=== PATIENT | female | born 1945 | race Caucasian/White ===

== ENCOUNTER → 2023-04-02 13:16 | Outpatient (REF) | payer MEDICARE, OTHER, SELFPAY | LOC: HWWDC 13:16 | PROVIDERS: ATTENDING PHYSICIAN Family Medicine | DX: Z12.31 Encounter for screening mammogram for malignant neoplasm of breast (principal) | CPT/HCPCS: 77063; 77067 ==

== ENCOUNTER 2023-04-03 05:13 | Inpatient (IN) | payer MEDICARE, OTHER, SELFPAY ==
[2023-03-30 08:22] VITALS: BMI 31.3
[2023-03-30 09:14] LABS: % Basophils 0.9 % (0-2); % Eosinophils 1.4 % (0-6); % Immature Granulocytes 0.5 % (0-0.5); % Lymphocytes 23.9 % (20.5-51.1); % Monocytes 9.7 % (1.7-9.3); % Neutrophils 63.6 % (42.2-75.2); Absolute Basophils 0.1 10^3/uL (0-0.2); Absolute Eosinophils 0.1 10^3/uL (0-0.7); Absolute Lymphocytes 1.9 10^3/uL (1.2-3.4); Absolute Monocytes 0.8 10^3/uL (0.1-0.6); Absolute Neutrophils 5.1 10^3/uL (1.4-6.5); Hemoglobin 12.2 g/dL (12.0-16.0); Mean Corp Hgb Conc. 35.9 g/dL (33.0-37.0); Mean Corpuscular Hgb 32.5 pg (27.0-31.0); Mean Corpuscular Volume 90.7 fL (81.0-99.0); Mean Platelet Volume 9.4 fL (7.4-10.4); Nucleated Red Blood Cells % 0 %; Platelet Count 283 10^3/uL (130-400); Red Blood Cell Count 3.75 10^6/uL (4.20-5.40); Red Cell Dist. Width 13.5 % (11.5-14.5); White Blood Cell Count 8.1 10^3/uL (4.8-10.8)
[2023-03-30 09:31] LABS: Albumin 3.9 g/dl (3.5-5.0); Chloride 102 mmol/L (98-107); Potassium 3.4 mmol/L (3.5-5.1); Sodium 139 mmol/L (135-145)
[2023-03-30 09:39] LABS: ALT (SGPT) 33 U/L (0-35); AST (SGOT) 34 U/L (14-36); Alkaline Phosphatase 62 U/L (38-126); Blood Urea Nitrogen 17 mg/dl (7-17); Calcium 9.1 mg/dl (8.4-10.2); Carbon Dioxide 26 mmol/L (22-30); Direct Bilirubin 0.5 mg/dl (0.0-0.4); Estimated Creatinine Clearance 61 ml/min; Glucose 86 mg/dl (70-99); Total Protein 6.5 g/dl (6.3-8.2); eGFR > 60.00
[2023-03-30 09:52] LABS: INR 0.95; PT 12.5 Sec (11.4-14.6)
[2023-03-30 10:23] LABS: Urine Albumin Negative (Neg - Trace); Urine Bilirubin Negative (Negative); Urine Character Clear (Clear); Urine Color Yellow; Urine Glucose Negative (Negative); Urine Ketone Negative (Negative); Urine Leukocyte Negative (Negative); Urine Nitrite Negative (Negative); Urine Occult Blood Negative (Negative); Urine Urobilinogen Negative (Neg - 1+)
--- NOTE | 2023-03-30 10:39 | CM ---
CM met w/ patient and stephanierLauro Moran during PATs for planned AVR/CABG.
Patient informs that she resides in a private, 1 story home alone (55+ community). Functionally, patient is indep. at baseline w/ ADLs, mobility without the use of any assisted device.
Patient has Rx plan and uses [facility] in [place] or [facility] for prescription needs.
Reviewed pre and post op routines.
Soap, shower instructions and Cardiac Surgery booklet reviewed/provided.
Discussed post op restrictions to include lifting, driving, flying, and sternal precautions.
Reviewed follow up MD appointments, Cardiac Rehab and visit from CT Transitional Care RN.
Plan is for CT Surgery 2/
Anticipated DC plan is for home w/ CT Transitional Care RN. (dtr. to stay with patient for several days post op)
CM to follow.
[2023-04-03] VITALS (15 sets, daily range): BP systolic 94–171; BP diastolic 57–108; BMI 31.0
--- NOTE | 2023-04-03 00:36 | W.PN.CT ---
Assessment / Plan
-
Assessment:
-S/p Surgical AVR (23 mm Umana Inspiris Biological Valve)/ CABG x 2 (In situ GERARDO to LAD, Ao to RSVG to OM)/ R EVH, by Dr. Cotto, 04/03/23, pod#1
-Severe
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
-LVEF 65% per intraop ARI
-Severe left ventricular hypertrophy
-HTN
-HLD
-Class 1 obesity (BMI 31.3)
-Prediabetes (A1C 6.0)
-Polymyalgia rheumatica (on chronic steroids)
-Osteoarthritis
-Osteoporosis
-Hypothyroidism
-PAD
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
-Hx of TIA
-LLL lung nodule (1.1 cm), suspicious for malignancy
-COPD
-Former tobacco use (35 pk/yr, quit 1989)
-IBS
-Hx Diverticulosis/Diverticulitis S/p colectomy
-S/p bilateral cataracts, 11/2020
-S/P bilateral Knee replacement, 11/2016
-S/p total hysterectomy
-Acute postop blood loss/Anemia (transfused 2u PRBCs)
-Acute postop thrombocytopenia (stable without active bleed)
-Acute postop atelectasis/pleural effusion
-Acute postop hypovolemia with subsequent hypervolemia
Plan:
-No major issues overnight. Hemodynamically and neurologically intact
-Successfully extubated on 04/03/23 @ 1625
-Off all drips but insulin
-Last CI, Mixed venous O2: 70 -> 64.7%, 24hr u/o
-Monitor chest tube output: R/L pleural , 2med
-Cont. current meds (ASA, Amiodarone, Lopressor, Lasix, Medrol, Repatha for HLD, will add Plavix)
-D/C'd swan and a-line @
-D/C Conner catheter
-Transfer to tele phase today when off insulin gtt
-Maintain cordis
-Maintain temporary pacer wire (will cut before d/c home)
-Encourage use of IS
-Wean off O2 as tolerated
-OOB into chair/Ambulate in room
Subjective
-
Date of Service: April 03, 2023
Objective Data
-
Lab Results
03/30/23 08:57
03/30/23 08:57
PT 12.5 Sec (11.4-14.6) 03/30/23 08:57
INR 0.95 03/30/23 08:57
APTT 23.0 Sec (23.4-35.0) L 03/30/23 08:57
[2023-04-03 05:43] LABS: Hematocrit 34.3 % (37.0-47.0); Hemoglobin 12.4 g/dL (12.0-16.0); Mean Corp Hgb Conc. 36.2 g/dL (33.0-37.0); Mean Corpuscular Volume 91.2 fL (81.0-99.0); Mean Platelet Volume 9.6 fL (7.4-10.4); Platelet Count 279 10^3/uL (130-400); Red Blood Cell Count 3.76 10^6/uL (4.20-5.40); Red Cell Dist. Width 13.2 % (11.5-14.5); White Blood Cell Count 8.3 10^3/uL (4.8-10.8)
[2023-04-03 05:46] LABS: Blood Urea Nitrogen 12 mg/dl (7-17); Calcium 8.9 mg/dl (8.4-10.2); Carbon Dioxide 27 mmol/L (22-30); Chloride 108 mmol/L (98-107); Estimated Creatinine Clearance 72 ml/min; Glucose 94 mg/dl (70-99); Magnesium 2.2 mg/dl (1.6-2.3); Potassium 3.7 mmol/L (3.5-5.1); Sodium 138 mmol/L (135-145); eGFR > 60.00
[2023-04-03] MEDS: LOPRESSOR 25 MG PO (06:11)
[2023-04-03] MEDS: PROTONIX 40 MG PO (06:11)
[2023-04-03] MEDS: BACTROBAN 2% OINTMENT 1 APPLIC NASAL ×2 (06:11→20:36)
[2023-04-03] MEDS: MAGNESIUM OXIDE 500 MG PO (06:12)
--- NOTE | 2023-04-03 06:25 | PTCARENOTE ---
Patient arrived at 0500. Admission performed. Preop meds administered. Pertinent education provided. CT surgeon and CT PA in to see patient. Awaiting CVOR for call.
--- NOTE | 2023-04-03 06:29 | W.CVOR.SURPR ---
CVOR Surgeon Immed Pre Op
-
I have examined this patient prior to performance of the scheduled procedure.
The patient's condition is unchanged from the time of the dictated/written History and
Physical and the patient is able to undergo the scheduled procedure.
SAVR (biological) + CABG x 2 (GERARDO-LAD,RSVG-OM) +/- septal myectomy given the LVOT gradient/thickened interventricular septum
[2023-04-03 07:22] LABS: ACT+ - POC 79 Seconds (82-134)
[2023-04-03 07:26] LABS: B.E. - POC -2.9 mmol/L; Glucose - POC 94 mg/dl (65-99); HCO3 - POC 22 mmol/L (21-29); Hematocrit - POC 30 % PCV (37-47); Hemodilution- POC No; Hemoglobin Calculated - POC 10.1; Ionized Calcium - POC 1.13 mmol/L (1.12-1.27); O2 Saturation %Calculated-POC 99.9 5 (92-96); PCO2 - POC 35 mmHg (35-45); PO2 - POC 326 mmHg (80-100); Potassium - POC 3.6 mmol/L (3.6-5.0); Sodium - POC 143 mmol/L (135-145); pH - POC 7.39 (7.35-7.45)
[2023-04-03 07:27] LABS: Urine Albumin Negative (Neg - Trace); Urine Bilirubin Negative (Negative); Urine Character Clear (Clear); Urine Color Straw; Urine Glucose Negative (Negative); Urine Ketone Negative (Negative); Urine Leukocyte Negative (Negative); Urine Nitrite Negative (Negative); Urine Occult Blood Negative (Negative); Urine Urobilinogen Negative (Neg - 1+); Urine pH 6.5 (5.0-9.0)
--- NOTE | 2023-04-03 08:04 | CM ---
Reviewed chart. Mrs. Colindres is in the operating room today. Prior to admission she resides alone in a one story home. Prior to admission she was independent with ambulation and adls. She does not have any DME in the home. She has a prescription
plan with [facility] and uses [facility]. Her daughter is planning on staying with her a few days to assist in her care if needed. Medical work-up in progress. The discharge plan is to return home with her daughter staying with her for
a few days and a home visit by the Cardiothoracic Transitional Care Nurse when medically stable.
[2023-04-03 09:24] LABS: B.E. - POC -3.7 mmol/L; Glucose - POC 104 mg/dl (65-99); HCO3 - POC 21 mmol/L (21-29); Hematocrit - POC 20 % PCV (37-47); Hemodilution- POC Yes; Hemoglobin Calculated - POC 6.9; Ionized Calcium - POC 0.84 mmol/L (1.12-1.27); O2 Saturation %Calculated-POC 99.9 5 (92-96); PCO2 - POC 33 mmHg (35-45); PO2 - POC 272 mmHg (80-100); Potassium - POC 4.2 mmol/L (3.6-5.0); Sodium - POC 137 mmol/L (135-145); pH - POC 7.41 (7.35-7.45)
[2023-04-03 09:52] LABS: Glucose - POC 160 mg/dl (65-99); HCO3 - POC 28 mmol/L (21-29); Hematocrit - POC 25 % PCV (37-47); Hemodilution- POC Yes; Hemoglobin Calculated - POC 8.4; Ionized Calcium - POC 1.01 mmol/L (1.12-1.27); O2 Saturation %Calculated-POC 99.1 5 (92-96); PCO2 - POC 55 mmHg (35-45); PO2 - POC 154 mmHg (80-100); Potassium - POC 4.3 mmol/L (3.6-5.0); Sodium - POC 144 mmol/L (135-145); pH - POC 7.31 (7.35-7.45)
[2023-04-03 10:00] LABS: ACT+ - POC 758 Seconds (82-134)
[2023-04-03 10:15] LABS: B.E. - POC 0.7 mmol/L; Glucose - POC 167 mg/dl (65-99); HCO3 - POC 26 mmol/L (21-29); Hematocrit - POC 24 % PCV (37-47); Hemodilution- POC Yes; Hemoglobin Calculated - POC 8.3; Ionized Calcium - POC 0.94 mmol/L (1.12-1.27); O2 Saturation %Calculated-POC 99.8 5 (92-96); PCO2 - POC 47 mmHg (35-45); PO2 - POC 263 mmHg (80-100); Potassium - POC 4.4 mmol/L (3.6-5.0); Sodium - POC 144 mmol/L (135-145); pH - POC 7.36 (7.35-7.45)
[2023-04-03 10:20] LABS: B.E. - POC 1.3 mmol/L; Glucose - POC 147 mg/dl (65-99); HCO3 - POC 27 mmol/L (21-29); Hematocrit - POC 24 % PCV (37-47); Hemodilution- POC Yes; Hemoglobin Calculated - POC 8.3; Ionized Calcium - POC 1.01 mmol/L (1.12-1.27); O2 Saturation %Calculated-POC 99.9 5 (92-96); PCO2 - POC 45 mmHg (35-45); PO2 - POC 339 mmHg (80-100); Potassium - POC 3.9 mmol/L (3.6-5.0); Sodium - POC 145 mmol/L (135-145); pH - POC 7.38 (7.35-7.45)
[2023-04-03 10:25] LABS: ACT+ - POC 626 Seconds (82-134)
[2023-04-03 11:11] LABS: ACT+ - POC 107 Seconds (82-134); B.E. - POC -2.8 mmol/L; Glucose - POC 136 mg/dl (65-99); HCO3 - POC 22 mmol/L (21-29); Hematocrit - POC 27 % PCV (37-47); Hemodilution- POC Yes; Hemoglobin Calculated - POC 9.3; Ionized Calcium - POC 1.17 mmol/L (1.12-1.27); O2 Saturation %Calculated-POC 99.8 5 (92-96); PCO2 - POC 36 mmHg (35-45); PO2 - POC 246 mmHg (80-100); Potassium - POC 4.1 mmol/L (3.6-5.0); Sodium - POC 146 mmol/L (135-145); pH - POC 7.39 (7.35-7.45)
[2023-04-03 11:25] LABS: ACT+ - POC 98 Seconds (82-134)
[2023-04-03 11:34] LABS: ACT+ - POC 123 Seconds (82-134)
--- NOTE | 2023-04-03 12:10 | PTCARENOTE ---
Arrived from OR. NSR. BP labile, on levo, precedex and insulin gtt. Heart sounds distant, with rub. [place] in RIJ locked @ 42. PA CVP 12. CO/CI 2.47/1.42. CTNP aware. Pulses palpable. Right groin slighty edema, soft and ecchymotic. BP labile SBP
80-160. Cardene and levophed titrated to MAP goal <80. Lung sounds clear throughout. ETT taped @ 22 right lip. Ventilator setting SIMV 12/450/60%/5. Bowel sounds hypoactive. Conner with clear yellow urine. 4 chest tubes 2 MEDs R/L pleural with
sanguinous drainage. 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 SVG site ecchymotic with skin glue. Post op EKG, labs, and CXR completed
[2023-04-03 12:15] LABS: Glucose - Point of Care 118 mg/dl (70-99)
--- NOTE | 2023-04-03 12:19 | W.PN.CT.SURG ---
CT Surgery Operative Note
-
CARDIAC SURGERY OPERATIVE REPORT
Preoperative Diagnosis: Aortic valve stenosis with multivessel coronary artery disease involving the proximal LAD
Postoperative Diagnosis: Same
Procedure(s) Performed:
1. Standard sternotomy with aortic and right atrial cannulation
2. Surgical aortic valve replacement (23 mm Umana Inspiris Biological Valve)
2. Coronary artery bypass grafting x 2 (In situ GERARDO to LAD, Ao to RSVG to OM)
3. Placement of temporary atrial and ventricular pacing wires
4. Trans-esophageal echocardiography
5. Endoscopic vein harvesting of the right lower extremity
Date of Surgery: 04/03/2023
Comorbidities:
1. Severe, symptomatic aortic valve stenosis
2. Chronic steroid use for rheumatoid arthritis
3. Hypertension
4. Osteoarthritis
5. IBS
6. Hyperlipidemia
7. Left lower lobe lung nodule, suspicious for malignancy
A. Diverticulitis
9. Thyroid disease
10. History of tobacco abuse
11. COPD
12. Peripheral artery disease
13. High-grade left internal carotid stenosis
Attending Surgeon: Travis Cotto MD, MS
Assistants: Travis Marquez PA-C (present and necessary to library clerical assistant, endoscopic vein harvest, retraction, suction, exposure, suture management, and wound closure under my direction)
Anesthesiology: Jerry Roa MD and Marty Patel CRNA
Scrub and Circulating RNs: Gino Rivas RN, Caro Rodrigez RN
Log Sorter: Alexandra Woodall CCP
Anesthesia: GETA
EBL: per perfusion records
Products: 2 units of PRBC
CPB Time: 96 minutes
Aortic Cross Clamp Time: 78 minutes
Indication(s) for Procedures: This is a 78-year-old female with severe aortic valve stenosis who became recently symptomatic with shortness of breath and fatigue. She also underwent left heart catheter demonstrated IFR positive ostial LAD disease.
She also had a left lower lobe lesion that was increasing in size and concerning for malignancy. However due to her significant comorbidities she was unsafe for biopsy of this lesion. Multidisciplinary discussion between pulmonary, cardiology, and
myself took place with the ultimate conclusion that the patient would undergo high risk surgical intervention followed by investigation of her lung nodule later.
Aortic Valve Description: Heavily calcified, trileaflet, left and right coronary ostia in the normal anatomic positions annulus was minimally calcified. The root was heavily calcified at the sinuses and STJ with loose calcium at the ostium of the
RCA which was removed.
Conduit(s) Quality:
GERARDO - Good / Skeletonized
RSVG - Excellent / Uniform in size and appearance, a little thickened
Target(s) Quality:
OM - good /Triglide relatively small measuring approximate 1.5 mm, there was 60 cc a minute of flow at a pressure of 80 mmHg with test dose of antegrade
LAD - average /the LAD target was small and atretic in appearance with very thin deras fitting only a 1 mm probe, there was visual flow in the LAD territory backfilling into the diagonal vessel upon release of the bulldog. There was some bleeding
due to friable tissue around the distal anastomosis that required repair sutures and packing with hemostatic agents which resolved the bleeding.
Findings: LVEF on intraoperative ARI was 60% and 65% post procedure and was considered hyperdynamic without any inotropic support. She had evidence of left ventricular hypertrophy from her aortic valve stenosis. There was concern for an LVOT
gradient preoperatively and was prepared to perform a septal myomectomy if necessary. However with volume loading and afterload, there was no significant MR and no significant systolic anterior motion of the leaflets. LVOT gradient was minimal.
In the mean gradient across the new bioprosthetic valve was only 3 mmHg. There was no prosthetic PVL or AI. The prosthetic valve was secured to place with 15 nonpledgeted 2 Ethibond sutures in an inverted fashion from LVOT through annulus through
sewing cuff. This was secured to place with core knot. The GERARDO was harvested in a skeletonized fashion. Following bypass grafting, test dose cardioplegia was given down each distal and confirmed patency and hemostasis. Each distal was probed both
proximally and distally to confirm disease and patency, respectively. There were no new regional wall motion abnormalities. The patient did not require any inotropic support and maintained sinus rhythm.
Specimen(s): Aortic valve leaflets.
Prosthesis: 23 mm Umana Resilia Inspiris Valve, serial number: [id number].
Description of Procedure: The patient was taken to the operating room. Their identity and procedure to be performed were verified and they were positioned supine on the operating table. Induction via general anesthesia with endotracheal intubation
was performed and central venous access and arterial monitoring were inserted. A preoperative transesophageal echocardiogram was performed. The patient was then prepped and draped from chin to feet in a sterile fashion. A preoperative time-out was
performed with all members of the team present. A midline chest incision was performed along with median sternotomy. Simultaneous endoscopic access of the right lower extremity for saphenous vein harvest was obtained along with administration of an
initial 5,000 units of IV heparin. A RulTract sternal retractor was positioned to exposure the left internal mammary bed. The mammary was harvested in a skeletonized fashion and found to have good flow. A bulldog clamp was applied to the distal end
of the mammary after dividing it. It was wrapped in a papaverine soaked RayTec and replaced back into the left hemithorax. The RulTract was exchanged for a median sternal retractor. The innominate vein was isolated. Full heparinization was given (a
total of 45,000 units). I created a pericardial well. The aortic cannulation site was chosen where it was soft, pliable, and free of calcium. Cannulation was performed with an arterial cannula in the ascending aorta and a triple-stage venous cannula
through the right atrial appendage. The arterial cannula line had an appropriate bounce and correlating pressures with test dosing. Next, a root vent/antegrade cannula was inserted into the ascending aorta. The ACT was confirmed to be over 400 and
retrograde autologous priming was performed before commencing cardiopulmonary bypass. The pulmonary artery was away from the aorta to facilitate a clamp site. The aortic cross-clamp was placed after decreasing the flow on the bypass and
mean arterial pressure. A total of 1.2L initial dose of antegrade Del-Nido cardioplegia solution was given and planned for re-dosing every 75 minutes as necessary. There was rapid electro-mechanical arrest of the heart at 400 cc of cardioplegia. The
left ventricle was observed for distention on echocardiogram and manual palpation. Cold slush was placed into a sponge and topically on the RV while we systemically cooled to 34 degrees centigrade.
I positioned the heart to expose the obtuse marginal. A suitable site on the obtuse marginal was chosen. We dissected and prepared the distal target in a similar fashion. An end-to-side anastomosis was created with a 7-0 prolene. Antegrade
cardioplegia was administered into the graft. Appropriate hemostasis and flow were confirmed. The graft was measured for length to the aorta and cut. A suitable target on the mid/distal left anterior descending was identified. We dissected and
prepared the distal target in a similar fashion. We retrieved the GERARDO from the chest and created a pericardial opening while being cognizant of the phrenic nerve to facilitate the course of the mammary. The distal end of the mammary was prepped and
beveled to size. We verified orientation and length of the ESPERANZA and found brisk flow. An end-to-side anastomosis was created with a 7-0 prolene. We temporarily released the bulldog clamp on the mammary to inspect flow. Perfusion to the LAD territory
was visualized and hemostasis was confirmed. The bull clamp was replaced on the mammary.
Carbon dioxide was used to flood the field. I turned my attention to the aortic valve and manually identified the location of the right coronary take off. An aortotomy was made approximately 1.5cm above the sinotubular junction. The location of both
left and right coronary vessels were visualized in the root. The aortic valve was inspected and found to be heavily calcified. The leaflets were excised and sent for pathological assessment. The annulus was debrided of any calcium. The root and left
ventricular outflow tract were thoroughly irrigated to remove any debris. A total of 15, non-pledgeted 2-0 ethibond annular sutures were placed [id number] circumferentially. These were brought through the sewing cuff of the prosthetic valve which
as then parachuted into place. The left and right coronary ostia were visualized and were unobstructed by the valve. A Cor-Knot device was used to secure the annular sutures. The valve was inspected and was well seated. The aortotomy was
approximated with 4-0 prolene in two layers. The heart was filled and the root was distended with antegrade cardioplegia to make final assessment of graft length and orientation. I created 1 aortotomy using a #11 blade then a 4.0mm aortic punch
above the aortic suture line. The proximal anastomoses were created in an end-to-side fashion using 6-0 prolene. At the same time, we started to re-warm to 36.5 degrees centigrade. The bulldog clamp was removed from the mammary and temporary bipolar
ventricular pacing wires were placed on the base of the right ventricle and temporary atrial pacing wires at the SVC/RA junction. The patient was placed in a Trendelenburg position and flows on bypass were lowered. The aortic cross clamp was removed
and flows were slowly brought back up. The aortotomy appeared hemostatic. A 30-gauge needle was used to de-air the vein grafts. All bypass grafts were inspected and were free from kinking or twisting. The distal and proximal anastomoses appeared
hemostatic. De-airing maneuvers were performed. Transesophageal echocardiography revealed no paravalvular leak and appropriate prosthetic function. Once de-airing was satisfactory, the left ventricular and root vents were removed. After verifying
acceptable parameters, we initiated weaning from cardiopulmonary bypass. Once we were off cardiopulmonary bypass, the venous cannulas was clamped and removed. A test dose of protamine was administered and the patient was monitored for any adverse
reaction before resuming protamine. Once half of the protamine dose was delivered, pump suckers were turned off and the systolic blood pressure was lowered for aortic decannulation. The aortic cannula was removed and pursestrings were tied down. All
cannulation sites were oversewn with a 4-0 prolene. The pressure did climb to 140s systolics, at which point bleeding noted from the distal LAD anastomosis, I positioned the heart to expose this target and placed 3 repair sutures along with
fibrillar packing. After given approximately 10 minutes, the bleeding stopped. The aortic line, proximal, and distal coronary anastomoses were hemostatic. The mammary bed was inspected and hemostasis was confirmed. Once the mediastinum was
hemostatic, a 19Fr Al drain was placed in the left and right pleural cavity and two 24Fr Al drains were placed within the pericardium. The sternum was approximated with 4 #7 single and 3 #8 double stainless steel wires. Fascia was approximated
with #1 vicryl suture. The subcutaneous, dermis and epidermis were closed in layers in a running fashion. The skin wound was cleansed and dressed.
All instrument, sponge, and needle counts were confirmed to be correct x 2 at the end of the operation. The patient was transferred to the cardiac intensive care unit in critical but stable condition.
I, Dr. Travis Cotto, was present, scrubbed for, and performed all critical elements of this procedure.
Travis Cotto MD, MS
Cardiothoracic Surgeon
[facility]
This operative dictation was created using the [employer] dictation system. Please excuse any grammatical, typographical, or 'sound alike' errors
[2023-04-03 12:27] LABS: Hematocrit 30.2 % (37.0-47.0); Hemoglobin 10.6 g/dL (12.0-16.0); Platelet Count 131 10^3/uL (130-400)
[2023-04-03 12:29] LABS: ACT+ - POC > 1003 Seconds (82-134)
[2023-04-03 12:29] LABS: ACT+ - POC > 1003 Seconds (82-134)
[2023-04-03 12:31] LABS: B.E. -1.2 mmol/L; HCO3 24.3 mmol/L (21-28); Ionized Calcium 1.09 mMOL/L (1.15-1.33); PCO2 43 mmHg (32-35); PO2 168 mmHg (83-108); Potassium 3.5 mMOL/L (3.5-5.1); Sodium 142 mMOL/L (136-145); pH 7.36 (7.35-7.45)
--- NOTE | 2023-04-03 12:32 | CON.INTV ---
Consultation
Consultation Request
Date/Time Consultation Requested: 04/03/2023-1:30 PM
Date/Time Consultation Performed: 04/03/2023-2 PM
Requesting Provider: Dr. Cotto
Performing Provider: Dr. Hernández
Reason for Consultation: Postoperative ventilator/critical care management
Medical History
-
Chief Complaint: Aortic stenosis
History of Present Illness:
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
postoperative ventilator/critical care management 04/03/2023. Patient is seen postoperatively on the ventilator sedated and review of systems is unobtainable. Operative records were reviewed. Patient received 2 units of packed red blood cells. The
chest tubes are not dumping. Patient is on some Cardene. PA tracings and numbers were reviewed.
Past Medical History
Past Medical History: None (Aortic stenosis. Chronic steroids for rheumatoid arthritis. Rheumatoid arthritis. Hypertension. Hyperlipidemia. IBS. Osteoarthritis. COPD. Former smoker. Left lower lobe lung nodule suspicious for malignancy.
Diverticulosis. Hypothyroid. PAD. Left internal carotid stenosis.)
Social History
Tobacco: Former Smoker ([id number] quit 1989)
Alcohol: None
Drug: None
Living: With Family
Occupational Exposures: No known asbestos exposure
Environmental Exposures: No known tuberculosis exposure
Family History
Family History: Other (Father-emphysema. Mother-lung cancer.)
Allergies / Home Medications
Allergies
Allergy/AdvReac Type Severity Reaction Status Date / Time
codeine [Codeine] Allergy Unknown Verified 03/27/23 14:25
Home Medications
Medication Instructions Recorded Confirmed Last Taken Type
evolocumab 140 mg/mL subcutaneous 140 mg SC Q2W 01/03/23 03/27/23 03/27/23 08:00 History
pen injector (Reppascual Jordan)
methylprednisolone 4 mg tablet 4 mg PO DAILY 01/03/23 04/03/23 04/02/23 History
metoprolol succinate 25 mg 25 mg PO DAILY 01/03/23 04/03/23 04/02/23 History
tablet,extended release 24 hr
(Toprol XL)
milk thistle 500 mg capsule 1,000 mg PO DAILY 01/03/23 03/27/23 03/25/23 08:00 History
omeprazole 20 mg capsule,delayed 20 mg PO TUTHSA 01/03/23 04/03/23 03/30/23 History
release
aspirin 81 mg tablet,delayed 81 mg PO DAILY #0 tabs 03/08/23 04/03/23 04/02/23 Rx
release
calcium carbonate 500 mg-vitamin 1 tab PO DAILY 03/08/23 04/03/23 04/01/23 History
D3 3.125 mcg (125 unit) tablet
cyanocobalamin (B12)-cobamamide 1 niya sublingual DAILY 03/08/23 04/03/23 04/02/23 History
5,000 mcg-100 mcg sublingual
lozenge (B12)
furosemide 20 mg tablet (Lasix) 20 mg PO DAILY #90 tabs 03/08/23 04/03/23 04/02/23 Rx
diphenhydramine 25 1 tab PO HS 03/27/23 04/03/23 04/02/23 History
mg-acetaminophen 500 mg tablet
(Tylenol PM Extra Strength)
magnesium 250 mg tablet 500 mg PO WEFR 03/27/23 04/03/23 03/30/23 History
multivitamin 1 tab PO DAILY 03/27/23 03/27/23 03/25/23 08:00 History
potassium chloride 10 mEq 50 meq PO MOWEFR 03/27/23 04/03/23 04/02/23 History
tablet,extended release
travoprost 0.004 % eye drops 1 drp ophthalmic (eye) QPM 03/27/23 04/03/23 04/02/23 History
valsartan 320 mg tablet 180 mg PO DAILY 03/27/23 04/03/23 04/02/23 History
Review of Systems
-
Unable to Obtain full review of systems at this time due to: Other (Per HPI)
Vitals / Labs / Diagnostic Testing
Vital Signs
Pulse BP
72 171/93
04/03/23 06:11 04/03/23 06:11
Microbiology
03/30/23 08:36 Nose MRSA Screen - Final
No Methicillin Resistant Staphylococcus aureus isolated.
Diagnostic Testing:
Physical Exam
-
Exam:
Well-nourished and well-developed in no apparent distress
HEENT-atraumatic, normocephalic, oral tracheal intubation
Heart-regular rate and rhythm-no murmurs, rubs or gallops
Chest-clear to auscultation, no wheezes, crackles, median sternotomy bandage is not removed
Abdomen soft nondistended
Extremities-no cyanosis, clubbing, edema and good peripheral pulses
Integument-intact, no rashes, lesions or ecchymosis
Neurologically not alert, not oriented, not moving any of his extremities sedated on a ventilator
Assessment
-
78-year-old female with a history of hypertension, hyperlipidemia, COPD, obesity, and pulmonary nodule followed by Dr Laurent found to have severe aortic stenosis underwent surgical aortic valve replacement with bioprosthetic valve and CABG x
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
Assessment
Aortic stenosis-severe/CAD
Status post surgical aortic valve replacement-bioprosthetic 23 mm, CABG x 2-GERARDO-LAD, Ao to RSVG to -Dr. Cotto-04/03/2023
Anemia-normocytic
Mild hyperglycemia
Conditions present prior to admission:
Aortic stenosis.
Chronic steroids for rheumatoid arthritis.
Rheumatoid arthritis.
Hypertension.
Hyperlipidemia.
IBS.
Osteoarthritis.
COPD.
Former [id number]-spgj-year quit 1989
Left lower lobe lung nodule suspicious for malignancy-followed by Dr. Laurent-9 mm left lower lobe-very slowly growing, mild increased SUV on PET scan but [id number]-[id number] slow-growing suspected
Diverticulosis.
Hypothyroid.
PAD.
Left internal carotid stenosis.
Family history of CXYH-wzieed-ixhaxf
Family history is lung dqqyvc-iyoesc-emakpf
Plan
Ventilator settings reviewed
FiO2 will be weaned
Minute ventilation will be adjusted
Arterial blood gases will be monitored
Spontaneous breathing trial will be attempted with hopeful extubation after anesthesia/sedation wear off
PFTs are summarized below and minimally reduced overall despite [id number] smoking history
Pulmonary artery catheter parameters will be followed
Pressors/antihypertensive/inotropes/diuretics will be provided as needed
Monitor chest tube output
Monitor hemoglobin
Monitor platelet count and coags
Transfuse blood product if needed
CT surgery following chest tubes
Monitor blood sugar
Insulin drip per protocol
Aspiration precautions
VAP prevention protocol
DVT prophylaxis
Early nutrition
Early mobilization
Patient followed by Dr. Laurent for pulmonary nodules-last seen 02/27/2023-she had slow-growing left lower lobe pulmonary nodule about 1 mm/year-she was deemed high risk for bronchoscopy with leaky valve-she would need cardiac clearance prior to
bronchoscopy-repair of aortic valve prior to lung biopsy recommended-she was recommended to have repeat CT scan in May with subsequent follow-up
Critical care statement: A total of 50 minutes of critical care time was provided for this patient today. This includes management of ventilator, spontaneous breathing trial, arterial blood gases, pressors, of unstable vital signs, evaluation of the
patient at bedside, reviewing the patient's pertinent medical records including radiographs, microbiology, laboratory evaluations, and discussion with primary team and critical care nursing.
Diagnostic data:
PET scan 03/16/23-9 mm left lower lobe nodule-initial SUV 1.8, delayed to 2.4, was 8 mm with initial SUV 1.3 and delayed 1.9 on 11/17/2022, additional left-sided lesion 9 mm subpleural and 5 mm nodule superior segment left lower lobe were not seen, 8
mm anterior left upper lobe SUV 1.0 and delayed 1.[address] chest 02/13/23: prior left lower lobe nodule, increased to 11 mm. Mild bronchiolitis, biapical scar, emphysema. There are a few scattered nodules bilaterally, somewhat groundglass. This 14 mm groundglass abnormality leftt upper lobe image 167.no
obvious adenopathy�������
PET scan 11/17/22: 8 mm nodule left lower lobe, initial SUV 1.3, delayed SUV 1.9�������
CT chest 10/13/22: 9 mm nodule left lower lobe images #41, increased from 8 mm from prior study 10/11/21 and worse c/t abd CT 06/14/15 (my rev). there is a questionable groundglass nodule image #27 perihilar the left side (no change c/t 12/16/20 per my
rev), and image #26 (my review) , there is also a 8 mm left lung nodule image #18 (not on report, increase from 07/11/18 my rev). Per report., Questionable groundglass nodule right apex image 13, 4 mm. No adenopathy. There is emphysema�������
CT chest 10/11/21: 8 mm left lower lobe nodule. 2 other nodules in the left side, once stable and one slightly more prominent (my rev)�������
CT chest 12/07/20: 7.9 mm left lower lobe nodule, slightly more increased������
PET scan 04/16/20: left lower lobe nodule, max SUV 1.4, delayed SUV 1.4. (per report, LLL nodule is stable c/t 2012)�������
CT chest 07/11/18: LLL nodule slightly more dense per my review, 6mm�������
Abd CT 06/14/15: Small GG nodule 4 mm LLL (my rev).
ARI 01/03/23: Normal biventricular function, moderate to severe as, valve area 0.9 cm�������
Echo 11/07/22: Normal biventricular function, moderate LVH. Moderate to severe aortic stenosis, valve area 0.9 cm. Normal PA pressure. LVOT gradient at rest 41, increased to 65 with Valsalva.
Cardiac catheterization 03/08/23-80% ostial LAD stenosis, 40% ostial left main, severe low-flow low gradient aortic stenosis and significantly elevated right and left heart pressures
Transesophageal echocardiogram 04/03/2023-EF 65%, stage I diastolic dysfunction, severe aortic stenosis,
PFT 12/14/22: FVC 2.31/99%, FEV1 1.73/99%, ratio 75. TLC 4.17/94%, DLCO 15.16/83%. This is normal.
Data Reviewed
-
PFT: Report reviewed by me
EKG: Report reviewed by me
Radiology: Report reviewed by me
CT Scan: Report reviewed by me
Medical Tests (Nuc Med, Echo etc): Report reviewed by me
Labs: Labs reviewed by me
Old Records: Reviewed
Critical Care Time (in minutes): 50
[2023-04-03] MEDS: ALBUMIN 5% 250 IV ×3 (12:37→18:10)
[2023-04-03 12:41] LABS: INR 1.73; PT 20.1 Sec (11.4-14.6)
[2023-04-03 12:42] LABS: APTT 35.5 Sec (23.4-35.0)
[2023-04-03] MEDS: KCL 50 IV ×2 (12:42→14:26)
[2023-04-03 12:46] LABS: Blood Urea Nitrogen 9 mg/dl (7-17); Estimated Creatinine Clearance 71 ml/min; Glucose 119 mg/dl (70-99); Magnesium 3.4 mg/dl (1.6-2.3)
[2023-04-03] MEDS: SOLU-CORTEF 150 MG IV (12:58)
[2023-04-03] MEDS: STERILE WATER FOR INJECTION 16 ML IV ×2 (12:59)
[2023-04-03] MEDS: ZINACEF 1500 MG IV ×2 (12:59)
[2023-04-03] MEDS: NSS 500 IV (13:01)
[2023-04-03] MEDS: TYLENOL PO ×3 (13:01→20:26)
[2023-04-03] MEDS: CALCIUM CHLORIDE 10% SYRINGE 50 MG IV (13:08)
[2023-04-03] MEDS: CALCIUM CHLORIDE 10% SYRINGE 50 ML IV (13:08)
[2023-04-03 13:13] LABS: Glucose - Point of Care 111 mg/dl (70-99)
--- NOTE | 2023-04-03 13:14 | W.PN.CARDCBS ---
Today's Communication / Plan
-
s/p Surgical aortic valve replacement w/ 23 mm Umana Inspiris Biological Valve and Coronary artery bypass grafting x 2 (In situ GERARDO to LAD, Ao to RSVG to OM), POD #0
Plan:
1. Wean vent as tolerated.
2. Wean pressors as tolerated, MAP goal >65mmHG
3. Cont to monitor invasive hemodynamics.
4. s/p 2 units of pRHC intra-op, cont to monitor blood counts
4. ECG with SR, no acute ischemic changes, borderline long QTc. Avoid QT prolonging medications
5. Cont post-op supportive care.
Impression / Plan
-
Outpatient community ambassador: Dr. Mary Kwok
Impression:
s/p Surgical aortic valve replacement w/ 23 mm Umana Inspiris Biological Valve and Coronary artery bypass grafting x 2 (In situ GERARDO to LAD, Ao to RSVG to OM), POD #0
Severe, symptomatic aortic valve stenosis
IFR positive left main and ostial LAD stenosis
Morbid obesity
Polymyalgia rheumatica , chronic steroid use for rheumatoid arthritis
Hypertension
Osteoarthritis
Irritable bowel syndrome
Hyperlipidemia, on Repatha
Left lower lobe lung nodule, suspicious for malignancy (recently growing spiculated lung nodule, of unclear etiology)
Diverticulitis
Thyroid disease
History of tobacco abuse
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
Peripheral artery disease
High-grade left internal carotid stenosis
TTE 11/07/22: LVEF of 58%, moderate LVH, LVOT gradient of 41 mmHg, increasing to 65 mmHg with Valsalva, stage II diastolic dysfunction, moderate to severe aortic stenosis with peak and mean transaortic gradients of 62 and 32 mmHg, calculated aortic
valve area of 0.9 cm�, trace tricuspid regurgitation without evidence of pulmonary hypertension.
Cath 03/08/23: RA 12; PA : 39/19 (27), PCWP (m) : 22, PA saturation: 65.9% on room air, AO saturation: 95.7% on room air, CO 3.31 L/min by Rut, CI 1.87 L/min/m-2 by Rut, SVR 2173 dsc^(-5), PVR 1.51 her unit, LVEDP22. IFR of ostial left main was
borderline at 0.89-0.90. Eccentric 80% ostial LAD stenosis which is IFR positive with an IFR of 0.85
Plan:
1. Wean vent as tolerated.
2. Wean pressors as tolerated, MAP goal >65mmHG
3. Cont to monitor invasive hemodynamics.
4. s/p 2 units of pRHC intra-op, cont to monitor blood counts
4. ECG with SR, no acute ischemic changes, borderline long QTc. Avoid QT prolonging medications
5. Cont post-op supportive care.
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
Subjective
Date of Service: April 03, 2023
Intubated and sedated, on low dose levophed.
Objective
Labs:
04/03/23 12:15
Labs
Hgb 10.6 g/dL (12.0-16.0) L 04/03/23 12:15
Hct 30.2 % (37.0-47.0) L 04/03/23 12:15
Plt Count 131 10^3/uL (130-400) D 04/03/23 12:15
PT 20.1 Sec (11.4-14.6) H 04/03/23 12:15
INR 1.73 04/03/23 12:15
APTT 35.5 Sec (23.4-35.0) H 04/03/23 12:15
Sodium 138 mmol/L (135-145) 04/03/23 05:25
Potassium 3.7 mmol/L (3.5-5.1) 04/03/23 05:25
BUN 9 mg/dl (7-17) 04/03/23 12:15
Creatinine 0.5 mg/dL (0.6-1.0) L 04/03/23 12:15
Glucose 119 mg/dl (70-99) H 04/03/23 12:15
Vital Signs and I&O:
Vital Signs
Pulse BP
72 171/93
04/03/23 06:11 04/03/23 06:11
Vital Signs
Pulse BP
72 171/93
04/03/23 06:11 04/03/23 06:11
Intake & Output
04/01/23 04/02/23 04/03/23 04/04/23
06:59 06:59 06:59 06:59
Intake Total 0 / 0
Balance 0 / 0
Physical Exam
Physical Exam
Intubated and sedated, morbidly obese
RIJ swan mu catheter in place
Sternotomy scar is dressed c/d/i
Lungs clear anteriorly
RR, normal S1 and S2, arcadio m/r/g
Abd obese, soft, NT, ND
warm ext, No LE edema
[2023-04-03 14:03] LABS: Glucose - Point of Care 90 mg/dl (70-99)
--- NOTE | 2023-04-03 14:37 | W.PN.UPDATE ---
Update Note
Progress Note Update
Crystalloid:� 2200
U.O.:� 700
UF:� 1300
Blood:� 2uPRBCs
Wires:� V wires
Inotropes:� None
Pressors:� Levophed
Sedatives:� Precedex
�
NEURO: sedated on Precedex, pupils +2mm B/L
RESP: #8OT @22cm> 12/480/100/5. Lungs clear B/L. 2 mediastinal (5cc on arrival) and R/L pleural (0cc on arrival) chest tubes to -20cm suction. Sanguineous drainage
CV: RRR +S1, S2, no S3, no�rub, no murmur. Dermabond to median sternotomy. RIJ w/[place] locked @ 42cm. PA 30/19; CVP 11; C.O 3.03/CI 1.4
ABD: round, soft, no BS
EXT: no edema, +2/4 DP pulses B/L, no femoral bruit, RLE CELINA wrap intact; radial A-line intact
: Conner with clear yellow urine
�
A/P: POD #0 s/p CABG x2 (GERARDO - LAD and SVG to OM) and AVR#23mm biological valve
ARI: EF�60-65%
- wean precedex and vent support to extubate
- will need instruction regarding antibiotic prophylaxis for dental and invasive procedures
- Will start asa 81mg 6 hours post op if no bleeding
- Wean levophed for goal MAPs 70-80
- Currently SR; will start low dose lopressor tomorrow
-EKG ordered for AM
- Cardiology consulted
�
# acute surgical blood loss anemia-expected
- trend CBC
- s/p 2UPRBCs intraop
�
#Ventilator dependent respiratory failure
#COPD
- Wean Vent support to goal extubation
- Goal O2 sats >90
#HTN
- Home meds: toprol XL 25mg and Valsartan 180mg
- Will restart when able
#PMR
- continue steroids
- received 150mg IV pre-op and will continue 50mg Q8H x4 dose
- home dose methylprednisolone 4mg PO daily
�
# Hyperglycemia (A1C 6.0) (expected)
- insulin infusion x 24h
�
# Hyperlipidemia
- resume repatha Sq Q2w
[2023-04-03 15:20] LABS: Glucose - Point of Care 142 mg/dl (70-99)
[2023-04-03] MEDS: ASPIRIN 300 MG RECTAL (15:21)
[2023-04-03 15:59] LABS: Glucose - Point of Care 157 mg/dl (70-99)
[2023-04-03 16:09] LABS: B.E. -2.3 mmol/L; HCO3 23.2 mmol/L (21-28); Hematocrit 29.5 % (37.0-47.0); Hemoglobin 10.4 g/dL (12.0-16.0); Ionized Calcium 1.21 mMOL/L (1.15-1.33); O2 Saturation % 99.5 % (94-98); PCO2 42 mmHg (32-35); PO2 141 mmHg (83-108); Platelet Count 120 10^3/uL (130-400); Potassium 5.4 mMOL/L (3.5-5.1); pH 7.35 (7.35-7.45)
--- NOTE | 2023-04-03 16:25 | PTCARENOTE ---
NSR. Remains on levo and insulin gtts. Pt extubated to 6L NC. Pt drowsy, and oriented. CO/CI 2.86/1.[address] CT[address] aware[address] UO adequate. [address] with minimal sanguinous drainage. Assessment unchanged. Right groin remains stable.
[2023-04-03 17:19] LABS: Glucose - Point of Care 132 mg/dl (70-99)
[2023-04-03] MEDS: SOLU-CORTEF 50 MG IV (17:19)
[2023-04-03] MEDS: ZINACEF 750 MG IV (17:20)
[2023-04-03] MEDS: STERILE WATER FOR INJECTION 8.30000000000000071 ML IV (17:20)
[2023-04-03] MEDS: NEURONTIN PO (17:21)
[2023-04-03] MEDS: PACERONE PO (17:21)
[2023-04-03 17:26] LABS: B.E. -2.5 mmol/L; HCO3 23.2 mmol/L (21-28); O2 Saturation % 99.6 % (94-98); PCO2 43 mmHg (32-35); PO2 231 mmHg (83-108); Potassium 5.2 mMOL/L (3.5-5.1); Sodium 142 mMOL/L (136-145); pH 7.34 (7.35-7.45)
[2023-04-03] MEDS: OFIRMEV 100 IV (18:35)
[2023-04-03] MEDS: TRAVATAN Z 1 DROP BOTH EYES (18:35)
[2023-04-03 19:06] LABS: Glucose - Point of Care 106 mg/dl (70-99)
--- NOTE | 2023-04-03 20:00 | PTCARENOTE ---
NSR. VSS. Insulin gtt continues per protocol. 2L NC sating 94-97%. Pt more awake and alert. Assessment unchanged. CT with minimal output. UO slowing but adequate. Ofirmev given for pain. Pt tolerating ice chips. Son at bedside and updated.
[2023-04-03] MEDS: SENOKOT-S PO (20:27)
[2023-04-03 20:29] LABS: Mixed Venous O2 Saturation 64.7 %
[2023-04-03] MEDS: PEPCID 20 MG IV (20:35)
[2023-04-03] MEDS: NSS (PRESERVATIVE FREE) 8 ML IV (20:36)
[2023-04-03 20:58] LABS: Glucose - Point of Care 107 mg/dl (70-99)
[2023-04-03] MEDS: NEURONTIN 300 MG PO (22:34)
[2023-04-03] MEDS: PACERONE 200 MG PO (22:34)
--- NOTE | 2023-04-03 23:00 | PTCARENOTE ---
report received from previous RN, walking rounds done. pt in bed, sleeping. VSS. NSR on monitor, HR 70's. B/L radial and DP pulses palpable. heart tones clear. ROJ cordis/swan intact w KVOs infusing. last CI 1.92, CT PA aware. CVP ~12. PAPs
~30's/10's. left radial art line intact. SBP 110's. epicardial AV wires intact to back up VVI 50, mA 9. no pacing spikes noted. B/L breath sounds present. POX 93% on 2LNC. IS encouraged. CT x4 intact to -20cm wall suction, drainage WNL, no air leak
present. doshi catheter intact, draining clear yellow urine, UO adequate. hypoactive bowel sounds present. pt tolerating ice and sips of water w meds. insulin gtt infusing per glycemic protocol. all surgical sites stable, dressings CDI. see worklist
for full assessment, VS, and interventions. pt resting comfortably.
[2023-04-03 23:08] LABS: Glucose - Point of Care 106 mg/dl (70-99)
[2023-04-04] VITALS (53 sets, daily range): BP systolic 66–165; BP diastolic 36–80; PULSE 70; O2SAT 93–95; BMI 32.3
[2023-04-04] MEDS: TYLENOL 650 MG PO ×6 (00:06→20:49)
[2023-04-04] MEDS: SOLU-CORTEF 50 MG IV ×3 (00:06→15:54)
[2023-04-04] MEDS: DILAUDID 0.5 MG IV (00:06)
[2023-04-04] MEDS: ZOFRAN 4 MG IV (00:07)
[2023-04-04] MEDS: ZINACEF 750 MG IV ×2 (01:09→08:36)
[2023-04-04] MEDS: STERILE WATER FOR INJECTION 8.30000000000000071 ML IV ×2 (01:09→08:36)
[2023-04-04 01:16] LABS: Glucose - Point of Care 102 mg/dl (70-99)
[2023-04-04 03:23] LABS: Glucose - Point of Care 105 mg/dl (70-99)
--- NOTE | 2023-04-04 03:30 | PTCARENOTE ---
pt VSS, no changes in assessment. SR 70's. POX 94% on 2LNC. CT output and UO WNL. insulin gtt maintained. all surgical sites stable. AM labs drawn and sent. EKG completed. pt sleeping between care.
[2023-04-04 03:37] LABS: Hematocrit 25.4 % (37.0-47.0); Hemoglobin 9.1 g/dL (12.0-16.0); Mean Corp Hgb Conc. 35.8 g/dL (33.0-37.0); Mean Corpuscular Hgb 32.2 pg (27.0-31.0); Mean Corpuscular Volume 89.8 fL (81.0-99.0); Mean Platelet Volume 10.1 fL (7.4-10.4); Platelet Count 112 10^3/uL (130-400); Red Blood Cell Count 2.83 10^6/uL (4.20-5.40); Red Cell Dist. Width 14.3 % (11.5-14.5); White Blood Cell Count 12.9 10^3/uL (4.8-10.8)
--- NOTE | 2023-04-04 03:46 | W.PN.CT ---
Today's Communication / Plan
-
Plan:
-No major issues overnight. Hemodynamically and neurologically intact
-Successfully extubated on 04/03/23 @ 1625
-Off all drips but insulin
-Last CI 1.95 (inaccurate measurements), Mixed venous O2: 70 -> 64.7%, 24hr u/o 1200 mL
-Monitor chest tube output: R/L pleural 125/275, 2med 110/210
-Cont. current meds (ASA, Amiodarone, Lopressor, Lasix, Medrol, Repatha for HLD, will add Plavix)
-Consider gentle diuresis with Lasix today
-Mg 2.8 this AM, Mag oxide placed on hold
-D/C'd swan and a-line @ 0400 this AM
-D/C Conner catheter
-Transfer to tele phase today when off insulin gtt
-Maintain cordis
-Maintain temporary pacer wires (will cut before d/c home)
-Encourage use of IS
-Wean off O2 as tolerated
-OOB into chair/Ambulate in room
Assessment / Plan
-
Assessment:
-S/p Surgical AVR (23 mm Umana Inspiris Biological Valve)/ CABG x 2 (In situ GERARDO to LAD, Ao to RSVG to OM)/ R EVH, by Dr. Cotto, 04/03/23, pod#1
-Severe
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
-LVEF 65% per intraop ARI
-Severe left ventricular hypertrophy
-HTN
-HLD
-Class 1 obesity (BMI 31.3)
-Prediabetes (A1C 6.0)
-Polymyalgia rheumatica (on chronic steroids)
-Osteoarthritis
-Osteoporosis
-Hypothyroidism
-PAD
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
-Hx of TIA
-LLL lung nodule (1.1 cm), suspicious for malignancy
-COPD
-Former tobacco use (35 pk/yr, quit 1989)
-IBS
-Hx Diverticulosis/Diverticulitis S/p colectomy
-S/p bilateral cataracts, 11/2020
-S/P bilateral Knee replacement, 11/2016
-S/p total hysterectomy
-Acute postop blood loss/Anemia (transfused 2u PRBCs)
-Acute postop thrombocytopenia (stable without active bleed)
-Acute postop atelectasis/pleural effusion
-Acute postop hypovolemia with subsequent hypervolemia
Discussed patient care with: Cardiology, Nursing, Respiratory Therapy, Pharmacy and Care Team
Subjective
Procedure
-S/p Surgical AVR (23 mm Umana Inspiris Biological Valve)/ CABG x 2 (In situ GERARDO to LAD, Ao to RSVG to OM)/ R EVH, by Dr. Cotto, 04/03/23
-
Date of Service: April 04, 2023
Pt c/o mild incisional pain, otherwise feels well
Objective Data
-
Lab Results
04/04/23 03:18
PT 20.1 Sec (11.4-14.6) H 04/03/23 12:15
INR 1.73 04/03/23 12:15
APTT 35.5 Sec (23.4-35.0) H 04/03/23 12:15
Vital Signs
Vital Signs
Temp Pulse Resp BP Pulse Ox
98.4 F 76 23 120/67 96
04/04/23 03:00 04/04/23 03:15 04/04/23 03:15 04/04/23 03:00 04/04/23 03:15
CT Intake/Output/Weight
04/03/23 04/03/23 04/04/23
06:59 18:59 06:59
Intake Total 949.9 / 1339.0 389.1 / 1339.0
Output Total 1070 / 1575 505 / 1575
Balance -120.1 / -236.0 -115.9 / -236.0
SaO2: 96 (2L)
Physical Exam
-
General: Awake, Oriented and AOx3
Cardiovascular: Regular rate & rhythm, No Murmurs, No Rub and No Gallop
Respiratory: Decreased Breath Sounds
Sternum: Stable
Incision: Clean, Dry, Intact and Dressing Intact
Extremities: Other (+trace edema)
Data Reviewed
-
Lab Results: Results Reviewed
Medications: Active Meds Reviewed
Chest X-Ray: Report Reviewed and Image Reviewed
ECG: Report Reviewed and Image Reviewed
--- NOTE | 2023-04-04 04:00 | PTCARENOTE ---
left radial art line and RIJ swan d/c'd per orders without incident. pt VSS.
[2023-04-04 04:18] LABS: Glucose - Point of Care 111 mg/dl (70-99)
[2023-04-04 04:28] LABS: Blood Urea Nitrogen 15 mg/dl (7-17); Calcium 8.1 mg/dl (8.4-10.2); Carbon Dioxide 23 mmol/L (22-30); Chloride 114 mmol/L (98-107); Estimated Creatinine Clearance 71 ml/min; Glucose 101 mg/dl (70-99); Magnesium 2.8 mg/dl (1.6-2.3); Potassium 4.4 mmol/L (3.5-5.1); Sodium 142 mmol/L (135-145); eGFR > 60.00
[2023-04-04 06:01] LABS: Glucose - Point of Care 108 mg/dl (70-99)
--- NOTE | 2023-04-04 06:15 | PTCARENOTE ---
pt assisted OOB to chair, VSS.
[2023-04-04 07:18] LABS: Glucose - Point of Care 124 mg/dl (70-99)
--- NOTE | 2023-04-04 07:45 | W.PN.INTV ---
Today's Communication / Plan
Recommendations
Tolerated extubation
Insulin drip continues
Monitor chest tube output
Gentle diuresis
deline
If comes off insulin drip then transfer to telemetry-call pulmonary if respiratory issues lrigp-ykguzy-ob with pulmonary as an outpatient
Assessment
-
78-year-old female with a history of hypertension, hyperlipidemia, COPD, obesity, and pulmonary nodule followed by Dr Laurent found to have severe aortic stenosis underwent surgical aortic valve replacement with bioprosthetic valve and CABG x
2-global recruiter consulted for postoperative ventilator/critical care management 04/03/2023.
Assessment
Aortic stenosis-severe/CAD
Status post surgical aortic valve replacement-bioprosthetic 23 mm, CABG x 2-GERARDO-LAD, Ao to RSVG to -Dr. Cotto-04/03/2023
Anemia-normocytic
Mild hyperglycemia
Conditions present prior to admission:
Aortic stenosis.
Chronic steroids for rheumatoid arthritis.
Rheumatoid arthritis.
Hypertension.
Hyperlipidemia.
IBS.
Osteoarthritis.
COPD.
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
Left lower lobe lung nodule suspicious for malignancy-followed by Dr. Laurent-9 mm left lower lobe-very slowly growing, mild increased SUV on PET scan but uotnmxnmcd-ier-sbawn slow-growing suspected
Diverticulosis.
Hypothyroid.
PAD.
Left internal carotid stenosis.
Family history of FWOF-tjgxax-zkxajr
Family history is lung ftlgxl-lcekho-hvqvqa
Plan
Tolerated extubation
Wean FiO2
Encourage incentive spirometry
Increase activity
Aspiration precautions
Pulmonary artery catheter and arterial line will be removed
Pressors have been weaned
Continue to monitor chest tube output
Follow hemoglobin
Continue to follow platelet count and coags
Transfuse blood product as needed
CT surgery following chest tubes as well
Follow blood sugar
Insulin supplementation continues as needed
Early nutrition
Early mobilization
DVT prophylaxis
Patient will be transferred to telemetry phase if comes off insulin drip-call pulmonary if respiratory issues arise
Patient followed by Dr. Laurent for pulmonary nodules-last seen 02/27/2023-she had slow-growing left lower lobe pulmonary nodule about 1 mm/year-she was deemed high risk for bronchoscopy with leaky valve-she would need cardiac clearance prior to
bronchoscopy-repair of aortic valve prior to lung biopsy recommended-she was recommended to have repeat CT scan in May with subsequent follow-up
Reviewed the patient's pertinent medical records including radiographs, microbiology, laboratory evaluations, and discussion with primary team, and critical care nursing.
Diagnostic data:
PET scan 03/16/23-9 mm left lower lobe nodule-initial SUV 1.8, delayed to 2.4, was 8 mm with initial SUV 1.3 and delayed 1.9 on 11/17/2022, additional left-sided lesion 9 mm subpleural and 5 mm nodule superior segment left lower lobe were not seen, 8
mm anterior left upper lobe SUV 1.0 and delayed 1.[address] chest 02/13/23: prior left lower lobe nodule, increased to 11 mm. Mild bronchiolitis, biapical scar, emphysema. There are a few scattered nodules bilaterally, somewhat groundglass. This 14 mm groundglass abnormality leftt upper lobe image 167.no
obvious adenopathy�������
PET scan 11/17/22: 8 mm nodule left lower lobe, initial SUV 1.3, delayed SUV 1.9�������
CT chest 10/13/22: 9 mm nodule left lower lobe images #41, increased from 8 mm from prior study 10/11/21 and worse c/t abd CT 06/14/15 (my rev). there is a questionable groundglass nodule image #27 perihilar the left side (no change c/t 12/16/20 per my
rev), and image #26 (my review) , there is also a 8 mm left lung nodule image #18 (not on report, increase from 07/11/18 my rev). Per report., Questionable groundglass nodule right apex image 13, 4 mm. No adenopathy. There is emphysema�������
CT chest 10/11/21: 8 mm left lower lobe nodule. 2 other nodules in the left side, once stable and one slightly more prominent (my rev)�������
CT chest 12/07/20: 7.9 mm left lower lobe nodule, slightly more increased������
PET scan 04/16/20: left lower lobe nodule, max SUV 1.4, delayed SUV 1.4. (per report, LLL nodule is stable c/t 2012)�������
CT chest 07/11/18: LLL nodule slightly more dense per my review, 6mm�������
Abd CT 06/14/15: Small GG nodule 4 mm LLL (my rev).
ARI 01/03/23: Normal biventricular function, moderate to severe as, valve area 0.9 cm�������
Echo 11/07/22: Normal biventricular function, moderate LVH. Moderate to severe aortic stenosis, valve area 0.9 cm. Normal PA pressure. LVOT gradient at rest 41, increased to 65 with Valsalva.
Cardiac catheterization 03/08/23-80% ostial LAD stenosis, 40% ostial left main, severe low-flow low gradient aortic stenosis and significantly elevated right and left heart pressures
Transesophageal echocardiogram 04/03/2023-EF 65%, stage I diastolic dysfunction, severe aortic stenosis,
PFT 12/14/22: FVC 2.31/99%, FEV1 1.73/99%, ratio 75. TLC 4.17/94%, DLCO 15.16/83%. This is normal.
Subjective Dataa
Subjective Data
Date of Service:
Date of Service: April 04, 2023
Chief Complaint: Alumni Coordinator Follow Up, Pulmonary Follow Up and Vent Management Follow Up
Subjective:
Tolerated extubation, pain controlled, no complaints of shortness of breath, out of bed, no abdominal pain
Review of Systems
General: Other (Per HPI)
Objective Data
Data Reviewed
Vital Signs / I&O / Oxygen:
Vital Signs
Temp Pulse Resp BP Pulse Ox
98.4 F 73 15 125/65 97
04/04/23 03:00 04/04/23 07:00 04/04/23 04:00 04/04/23 07:00 04/04/23 07:00
Intake and Output
04/03/23 04/04/23 04/05/23
06:59 06:59 06:59
Intake Total 1382.4 / 1393.4
Output Total 1805 / 1870 65 / 65
Balance -422.6 / -476.6 -54 / -54
SaO2 [CPAP/PSV] 97
SaO2 [SIMV] 98
SaO2 97
Nasal Cannula flow liters per 2
minute
Physical Exam
General: Respiratory Distress (n) and Comfortable
HEENT: Normocephalic, Anicteric and Moist Mucous Membranes
Cardiovascular: Regular Rhythm
Respiratory: Crackles (n), Rhonchi (n), Non-Labored Respirations, Accessory Resp Muscle Use (n) and Stridor (n)
GI: Soft, Non Distended and Non Tender
Neurology: Awake, Alert and No Motor Deficits
Skin: Warm, Good Color, Cyanosis (n) and Jaundice (n)
Labs/Micro/Reports
Lab Data
04/04/23 03:18
04/04/23 03:18
Laboratory Results
04/03/23 04/03/23 04/03/23
12:15 15:59 17:10
PT 20.1 H
INR 1.73
APTT 35.5 H
pH 7.36 7.35 7.34 L
pCO2 43 H 42 H 43 H
pO2 168 H 141 H 231 H
HCO3 24.3 23.2 23.2
O2 Delivery Level
--- NOTE | 2023-04-04 08:18 | W.PN.ANS.POP ---
Anesthesia Post Operative
- Anesthesia Post Op Note
Vital Signs Stable-See Nursing Note: Yes
Airway Patent: Yes
Adequate Pain Control: Yes
Change in Mental Status: No
Current Postoperative Nausea & Vomiting: No
Anesthesia Complications: No
General Anesthetic Recall: No
Unplanned Admission: No
Post Op Hydration Adequate: Yes
[2023-04-04 08:29] LABS: Glucose - Point of Care 118 mg/dl (70-99)
--- NOTE | 2023-04-04 08:30 | PTCARENOTE ---
Addendum entered by Rosalva Brown RN 04/04/23 09:09:
Epicardial AV wires to back up pacer VVI 50/9/0.8. No pacing noted.
Original Note:
Resumed care of patient. Walking rounds completed with previous RN. Pt assessed while she was sitting in the chair. Pt drowsy but oriented x4. Pt states its difficult to take a deep breath, but only has pain when doing so. Denies nausea. LYON with
equal strength throughout. Sternal precaution education completed and reinforced. NSR on tele with rates in the 70s. BP stable 126/65. +Rub. Bilateral radial and DP pulses palpable. +1 edema in b/l lower extremities. POX 95% on RA. Lungs with
crackles in the bases. IS encouraged-500mL achieved. Mediastinal chest tubes x2 y-sited to 1 atrium to -20cm suction draining red fluid. Right and Left pleural chest tubes y-sited to 1 atrium to -20cm suction draining red fluid. No air leaks,
tidaling, crepitus noted. Abdomen soft, round, nontender. Hypoactive BS. Pt denies passing gas yet. Conner catheter intact draining be urine, Dr. Cotto aware of low UO. Sternal incision approximated with skin glue intact. Chest tube sites
covered-CDI. Surgical bra intact. Right groin puncture site approximated with skin glue, ecchymotic. Right SVG harvest site approximated and closed with skin glue, ecchymotic. CELINA intact. Right IJ cordis intact infusing NSS KVO. Right AC 20g PIV
intact infusing insulin gtt per Critical Care Glycemic Protocol. See MAR for medication administration. See worklist for complete nursing assessment. Plan of care reviewed and pt in agreement.
[2023-04-04] MEDS: BACTROBAN 2% OINTMENT 1 APPLIC NASAL ×2 (08:36→19:37)
[2023-04-04] MEDS: FLEXBUMIN 100 IV ×2 (08:36→15:53)
[2023-04-04] MEDS: FLUSH (NSS) 1 FLUSH IV (08:36)
[2023-04-04] MEDS: LOPRESSOR 12.5 MG PO (08:37)
[2023-04-04] MEDS: SENOKOT-S 1 TABLET PO ×2 (08:37→19:37)
[2023-04-04] MEDS: LOW STRENGTH ASPIRIN 81 MG PO (08:38)
[2023-04-04] MEDS: PLAVIX 75 MG PO (08:38)
[2023-04-04] MEDS: NEURONTIN 300 MG PO ×3 (08:38→21:58)
[2023-04-04] MEDS: PACERONE 200 MG PO ×3 (08:39→21:57)
--- NOTE | 2023-04-04 08:41 | W.PN.CARDCBS ---
Addendum entered and electronically signed by Marsha Mane MD 04/04/23 17:23:
I saw and examined the patient.
The Grain Commodity Manager's note was reviewed and I agree with the note.
Comment: s/p Surgical aortic valve replacement w/ 23 mm Umana Inspiris Biological Valve and Coronary artery bypass grafting x 2 (In situ GERARDO to LAD, Ao to RSVG to OM), POD #1
Successfully extubated yesterday afternoon. Overall doing well. Currently on no pressor support. On an insulin drip.
Plan:
1. Continue supportive care postoperatively.
2. s/p 2 units of pRHC intra-op, cont to monitor blood counts. So far no further blood transfusions. Hemoglobin stable at 9.1.
3. Close monitoring of renal function and urine output. Status post albumin today. Given LVH and diastolic dysfunction with potential for LVOT gradient, we will have to be very careful with diuresis.
4. ECG with no acute ischemic changes. QTc has normalized.
5. Continue current cardiac medications. Plan to start Plavix today.
Marsha Mane MD, [facility], [facility]
Original Note:
Today's Communication / Plan
-
Wean off insulin
Usual post op care
Continue Amiodarone, Lopressor and usual post op meds
Impression / Plan
-
Outpatient porcelain enameling supervisor: Dr. Mary Kwok
Impression:
and
Severe, symptomatic aortic valve stenosis
s/p Surgical aortic valve replacement w/ 23 mm Umana Inspiris Biological Valve, 04/03/2023
CAD w/ IFR positive left main and ostial LAD stenosis
CABG x 2 (In situ GERARDO to LAD, Ao to RSVG to OM), 04/03/2023
Morbid obesity
Polymyalgia rheumatica , chronic steroid use for rheumatoid arthritis
Hypertension
Osteoarthritis
Irritable bowel syndrome
Hyperlipidemia, on Repatha
Left lower lobe lung nodule, suspicious for malignancy (recently growing spiculated lung nodule, of unclear etiology)
Thyroid disease
History of tobacco abuse
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
Peripheral artery disease
High-grade left internal carotid stenosis ((80% @ origin)
TIA
Hx Diverticulosis/Diverticulitis S/p colectomy
S/p bilateral cataracts, 11/2020
S/P bilateral Knee replacement, 11/2016
S/p total hysterectomy
Echo 11/07/22: LVEF of 58%, moderate LVH, LVOT gradient of 41 mmHg, increasing to 65 mmHg with Valsalva, stage II diastolic dysfunction, moderate to severe aortic stenosis with peak and mean transaortic gradients of 62 and 32 mmHg, calculated aortic
valve area of 0.9 cm�, trace tricuspid regurgitation without evidence of pulmonary hypertension.
Cath 03/08/23: RA 12; PA : 39/19 (27), PCWP (m) : 22, PA saturation: 65.9% on room air, AO saturation: 95.7% on room air, CO 3.31 L/min by Rut, CI 1.87 L/min/m-2 by Rut, SVR 2173 dsc^(-5), PVR 1.51 her unit, LVEDP22. IFR of ostial left main was
borderline at 0.89-0.90. Eccentric 80% ostial LAD stenosis which is IFR positive with an IFR of 0.85
Plan:
-s/p Surgical aortic valve replacement w/ 23 mm Umana Inspiris Biological Valve and Coronary artery bypass grafting x 2 (In situ GERARDO to LAD, Ao to RSVG to OM) , POD#1
-Now extubated and off all gtts except insulin
-hemodynamically stable
-Cont. ASA/Plavix, Amiodarone, Lopressor, Medrol, Repatha for HLD
-Post op anemia s/p 2 units pRBC 04/03/2023 ( intra-op), now with stable hgb 9.1
-Weight up 5-6 lbs, consider gentle diuresis today, creat 0.6
-ECG with SR, no acute ischemic changes, QTc 431 ms. No arrhythmias on tele
-K+ 4.4, mag 2.8 (hold mag supplementation)
-Will need SBE prophylaxis, Amox for AVR
-Cont post-op supportive care.
Progress Note - Building Custodial Supervisor
Subjective
Date of Service: April 04, 2023
Patient seen and examined. Sitting up in chair. Feels tired and some incisional pain but overall feeling well.
Objective
Labs:
04/04/23 03:18
04/04/23 03:18
Labs
Hgb 9.1 g/dL (12.0-16.0) L 04/04/23 03:18
Hct 25.4 % (37.0-47.0) L 04/04/23 03:18
Plt Count 112 10^3/uL (130-400) L 04/04/23 03:18
PT 20.1 Sec (11.4-14.6) H 04/03/23 12:15
INR 1.73 04/03/23 12:15
APTT 35.5 Sec (23.4-35.0) H 04/03/23 12:15
Sodium 142 mmol/L (135-145) 04/04/23 03:18
Potassium 4.4 mmol/L (3.5-5.1) 04/04/23 03:18
BUN 15 mg/dl (7-17) 04/04/23 03:18
Creatinine 0.6 mg/dL (0.6-1.0) 04/04/23 03:18
Glucose 101 mg/dl (70-99) H 04/04/23 03:18
Vital Signs and I&O:
Vital Signs
Temp Pulse Resp BP Pulse Ox
98.4 F 73 15 125/65 97
04/04/23 03:00 04/04/23 07:00 04/04/23 04:00 04/04/23 07:00 04/04/23 07:00
Vital Signs
Temp Pulse Resp BP Pulse Ox
98.4 F 73 15 125/65 97
04/04/23 03:00 04/04/23 07:00 04/04/23 04:00 04/04/23 07:00 04/04/23 07:00
Intake & Output
04/02/23 04/03/23 04/04/23 04/05/23
06:59 06:59 06:59 06:59
Intake Total 1382.4 / 1393.4
Output Total 1805 / 1870
Balance -422.6 / -476.6 -54 / -54
Physical Exam
Physical Exam
GEN: No distress, awake, Ox3, sitting up in chair
HEENT: supple, anicteric, mmm
LUNGS:mildly decreased at left base otherwise CTA, no wheezes/rales
CV: Reg, S1/S2, no murmur, rub, or gallop
CHEST: incision well approximated, C/D/I w/ dry heme; CT intact
ABD: soft, BS+, NT/ND
EXT: No edema, clubbing or cyanosis; right leg wrapped
: indwelling doshi
NEURO: Gross non-focal
SKIN: No rash, warm, pink
[2023-04-04] MEDS: KCL PO (08:49)
[2023-04-04] MEDS: NSS IV (09:26)
[2023-04-04 10:36] LABS: Glucose - Point of Care 151 mg/dl (70-99)
[2023-04-04 12:07] LABS: Glucose - Point of Care 130 mg/dl (70-99)
--- NOTE | 2023-04-04 12:25 | PTCARENOTE ---
pt received from previous RN, agree w/ previous assessment. VSS. glenda dc'd, RLE CELINA bandage removed. A&V wires insulated.
[2023-04-04 14:02] LABS: Glucose - Point of Care 141 mg/dl (70-99)
[2023-04-04] MEDS: TYLENOL PO (15:54)
--- NOTE | 2023-04-04 16:12 | PTCARENOTE ---
pt VSS, no changes in assessment. OOB in chair. IS encouraged. RA, 92-94% POX.
[2023-04-04] MEDS: TRAVATAN Z 1 DROP BOTH EYES ×2 (17:22→19:37)
[2023-04-04 17:24] LABS: Glucose - Point of Care 158 mg/dl (70-99)
[2023-04-04] MEDS: NOVOLOG FLEXPEN-MODERATE RESISTANCE 1 UNITS SC (17:24)
--- NOTE | 2023-04-04 18:17 | PTCARENOTE ---
pt bladder scanned for 96ml, no urge to void. POLITICAL CARTOONIST aware. BMP drawn. pt states she feels swollen, POLITICAL CARTOONIST aware.
[2023-04-04 18:26] LABS: Blood Urea Nitrogen 21 mg/dl (7-17); Calcium 8.2 mg/dl (8.4-10.2); Carbon Dioxide 24 mmol/L (22-30); Chloride 106 mmol/L (98-107); Estimated Creatinine Clearance 73 ml/min; Glucose 158 mg/dl (70-99); Sodium 136 mmol/L (135-145); eGFR > 60.00
--- NOTE | 2023-04-04 18:54 | PTCARENOTE ---
pt ambulated in room ~10ft on 2LNC, pt became lightheaded and diaphoretic, placed in chair. SBP 60s. placed back to bed, repeat SBP 90s. PRESENTATION MANAGER at bedside.
--- NOTE | 2023-04-04 20:15 | PTCARENOTE ---
Received pt from daysalft; pt resting comfortably in bed with family at bedside; pt is AAOx3; NSR on monitor, VSS; Heart sounds audible, rub present, radial and DP pulse present, trace edema in lower and upper extremities, temp epicardial AV wires
insulated; lung sounds diminished throughout, spo2 98% on 2LNC, x2 mediastinal CT and right and left pleural CT to -20 wall suction, no air leaks, no tidaling, no crepitus; +bs x4 quadrants, abdomen soft non tender; pt is due to void since doshi was
dc'd at 1200, last bladder scan showed 66ml in bladder, CVNP aware; surgical sites are stable, skin around sites are ecchymotic; right IJ cordis and PIV are maintained; call blas within reach; will continue to monitor.
[2023-04-04] MEDS: CALCIUM GLUCONATE 100 IV (21:57)
--- NOTE | 2023-04-04 22:35 | PTCARENOTE ---
Pt assessment unchanged; 1g/100ml Calcium gluconate IV ordered and starred. Infusion paused due to increased BP of 165/76, CVNP made aware. will continue to monitor.
[2023-04-05] VITALS (41 sets, daily range): BP systolic 91–172; BP diastolic 44–88; PULSE 82–88; O2SAT 95; BMI 32.8
--- NOTE | 2023-04-05 | PTCARENOTE ---
Pt assessment unchanged; pt resting comfortably in bed, no complaints of new or increased pain ; NSR on monitor; pt's BP remains elevated, CVNP is aware and pt's status is being closely monitored. call blas within reach; will continue to monitor.
[2023-04-05] MEDS: FLEXBUMIN IV ×2 (00:29→01:08)
[2023-04-05] MEDS: TYLENOL 650 MG PO ×5 (00:41→20:26)
[2023-04-05] MEDS: APRESOLINE 10 MG IV (00:41)
[2023-04-05 01:25] LABS: Glucose - Point of Care 147 mg/dl (70-99)
[2023-04-05 03:09] LABS: Hematocrit 23.8 % (37.0-47.0); Hemoglobin 8.2 g/dL (12.0-16.0); Mean Corp Hgb Conc. 34.5 g/dL (33.0-37.0); Mean Corpuscular Hgb 32.3 pg (27.0-31.0); Mean Corpuscular Volume 93.7 fL (81.0-99.0); Mean Platelet Volume 10.7 fL (7.4-10.4); Platelet Count 115 10^3/uL (130-400); Red Blood Cell Count 2.54 10^6/uL (4.20-5.40); Red Cell Dist. Width 14.4 % (11.5-14.5); White Blood Cell Count 14.1 10^3/uL (4.8-10.8)
[2023-04-05 03:23] LABS: Blood Urea Nitrogen 25 mg/dl (7-17); Calcium 8.7 mg/dl (8.4-10.2); Carbon Dioxide 24 mmol/L (22-30); Chloride 103 mmol/L (98-107); Estimated Creatinine Clearance 73 ml/min; Glucose 128 mg/dl (70-99); Potassium 3.7 mmol/L (3.5-5.1); Sodium 137 mmol/L (135-145); eGFR > 60.00
--- NOTE | 2023-04-05 04:00 | PTCARENOTE ---
Pt assessment unchanged; pt resting comfortably in bed; due to ongoing HTN, 10mg Hydralazine IV was ordered; pt's BP responded appropriately to medication; See MAR and work list for further details; pt has yet to void. bladder scans are on going
throughout the night; bladder scans have all been under 400mls, see work list for details.
--- NOTE | 2023-04-05 05:25 | W.PN.CT ---
Today's Communication / Plan
-
-No major issues overnight.
-Relative hypotension noted yesterday, given albumin and Calcium gluconate, BP was then above goal but now this AM is 125/74
-Monitor chest tube output: R/L pleural 25/110, 2 med 200/370 in 12/24 hrs
-Current meds (ASA/Plavix, Amiodarone, gabapentin, methylprednisolone, PPI, Lopressor and Lasix held yesterday and still held). Finished stress dose steroids POD #1.
-Voids documented, Cr 0.6 today, was 0.6 yesterday
-Cordis remains in situ
-Maintain temporary pacer wires (will cut before d/c home)
-Encourage use of IS
-Wean off O2 as tolerated
-OOB into chair/Ambulate in room
Assessment / Plan
-
Assessment:
-S/p Surgical AVR (23 mm Umana Inspiris Biological Valve)/ CABG x 2 (In situ GERARDO to LAD, Ao to RSVG to OM)/ R EVH, by Dr. Cotto, 04/03/23, pod#2
-Severe
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
-LVEF 65% per intraop ARI
-Severe left ventricular hypertrophy
-HTN
-HLD
-Class 1 obesity (BMI 31.3)
-Prediabetes (A1C 6.0)
-Polymyalgia rheumatica (on chronic steroids)
-Osteoarthritis
-Osteoporosis
-Hypothyroidism
-PAD
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
-Hx of TIA
-LLL lung nodule (1.1 cm), suspicious for malignancy
-COPD
-Former tobacco use (35 pk/yr, quit 1989)
-IBS
-Hx Diverticulosis/Diverticulitis S/p colectomy
-S/p bilateral cataracts, 11/2020
-S/P bilateral Knee replacement, 11/2016
-S/p total hysterectomy
-Acute postop blood loss/Anemia (transfused 2u PRBCs)
-Acute postop thrombocytopenia (stable without active bleed)
-Acute postop atelectasis/pleural effusion
-Acute postop hypovolemia with subsequent hypervolemia
Subjective
Procedure
-S/p Surgical AVR (23 mm Umana Inspiris Biological Valve)/ CABG x 2 (In situ GERARDO to LAD, Ao to RSVG to OM)/ R EVH, by Dr. Cotto, 04/03/23
-
Date of Service: April 05, 2023
Objective Data
-
Lab Results
04/05/23 02:50
04/05/23 02:50
PT 20.1 Sec (11.4-14.6) H 04/03/23 12:15
INR 1.73 04/03/23 12:15
APTT 35.5 Sec (23.4-35.0) H 04/03/23 12:15
Vital Signs
Vital Signs
Temp Pulse Resp BP Pulse Ox
98.0 F 71 16 110/62 94
04/05/23 04:00 04/05/23 04:00 04/04/23 16:00 04/05/23 04:00 04/05/23 04:00
CT Intake/Output/Weight
04/04/23 04/04/23 04/05/23
06:59 18:59 06:59
Intake Total 432.5 / 1643.4 570.8 / 1230.8 660 / 1230.8
Output Total 735 / 1870 385 / 640 255 / 640
Balance -302.5 / -226.6 185.8 / 590.8 405 / 590.8
SaO2: 94
Physical Exam
-
General: Awake, Oriented and AOx3
Cardiovascular: Regular rate & rhythm, No Murmurs and No Rub
Respiratory: Clear and Equal
Sternum: Stable
Incision: Clean, Dry and Intact
Extremities: No Edema
Data Reviewed
-
Lab Results: Results Reviewed
Medications: Active Meds Reviewed
Chest X-Ray: Report Reviewed
ECG: Report Reviewed
--- NOTE | 2023-04-05 07:56 | PTCARENOTE ---
Patient received from nightshift nurse. Patient is alert and oriented x4, pleasant. Patient c/o 2/10 sternal incision pain, administered scheduled Tylenol as ordered. NSR. Audible heart tones, rub auscultated. HR 70s. BP 120/57. Palpable pulses,
weakly palpable radial pulses. Trace LE edema. RIJ cordis maintained with KVO. PIV maintained. 2L NC maintained. Oxygen saturation 93%. Shallow breaths. Upon auscultation, lung sounds diminished throughout with fine crackles at the bases. IS 500.
CTx4 maintained to -20cm wall suction. MS CT x2 have small serosanguineous drainage. Bilateral pleural CTs have minimal serosanguineous drainage. Abdomen round, obese. Patient denies passing flatus. Hyperactive BS. Voids in BSC with assist 1.
Sternal incision is approximated with surgical adhesive and open to air. R groin puncture site is approximated with surgical adhesive and open to air. R knee incision is approximated with surgical adhesive and open to air. Will continue to monitor.
[2023-04-05 07:57] LABS: Glucose - Point of Care 132 mg/dl (70-99)
--- NOTE | 2023-04-05 08:02 | W.PN.CARDCBS ---
Today's Communication / Plan
-
Continue post op care
Diuresis
Follow Hgb
Impression / Plan
-
Rn Disease Management: Dr. Mary Kwok
Impression:
Severe, symptomatic aortic valve stenosis
s/p Surgical aortic valve replacement w/ 23 mm [place] Inspiris Biological Valve, 04/03/2023
CAD w/ IFR positive left main and ostial LAD stenosis
CABG x 2 (In situ GERARDO to LAD, Ao to RSVG to OM), 04/03/2023
Morbid obesity
Polymyalgia rheumatica , chronic steroid use for rheumatoid arthritis
Hypertension
Osteoarthritis
Irritable bowel syndrome
Hyperlipidemia, on Repatha
Left lower lobe lung nodule, suspicious for malignancy (recently growing spiculated lung nodule, of unclear etiology)
Thyroid disease
History of tobacco abuse
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
Peripheral artery disease
High-grade left internal carotid stenosis ((80% @ origin)
TIA
Hx Diverticulosis/Diverticulitis S/p colectomy
S/p bilateral cataracts, 11/2020
S/P bilateral Knee replacement, 11/2016
S/p total hysterectomy
Echo 11/07/22: LVEF of 58%, moderate LVH, LVOT gradient of 41 mmHg, increasing to 65 mmHg with Valsalva, stage II diastolic dysfunction, moderate to severe aortic stenosis with peak and mean transaortic gradients of 62 and 32 mmHg, calculated aortic
valve area of 0.9 cm�, trace tricuspid regurgitation without evidence of pulmonary hypertension.
Cath 03/08/23: RA 12; PA : 39/19 (27), PCWP (m) : 22, PA saturation: 65.9% on room air, AO saturation: 95.7% on room air, CO 3.31 L/min by Rut, CI 1.87 L/min/m-2 by Rut, SVR 2173 dsc^(-5), PVR 1.51 her unit, LVEDP22. IFR of ostial left main was
borderline at 0.89-0.90. Eccentric 80% ostial LAD stenosis which is IFR positive with an IFR of 0.85
Plan:
-s/p surgical aortic valve replacement w/ 23 mm Umana Inspiris Biological Valve and CABG x 2 (In situ GERARDO to LAD, Ao to RSVG to OM) 04/03/2023, POD#2
-Hemodynamically stable and doing well postop. Seen OOB to chair
-Post op anemia noted. s/p 2 units PRBCs intra-op. Hgb down to 8.2 this AM. Continue to follow
-Continue aspirin, Plavix, Amiodarone, and Medrol. Continue Repatha for HLD.
-Lopressor on hold due to orthostasis 04/04. BP improved this AM. Resume as able.
-Weight up, agree w/ starting diuresis starting today. Creat stable at 0.6. Admits she feels swelling in her hands
-Will need SBE prophylaxis, Amox for AVR.
-IS, OOB encouraged
Progress Note - Rn Disease Management
Subjective
Date of Service: April 05, 2023
Some SOB and swelling noted. No pain.
Objective
Labs:
04/05/23 02:50
04/05/23 02:50
Labs
Hgb 8.2 g/dL (12.0-16.0) L 04/05/23 02:50
Hct 23.8 % (37.0-47.0) L 04/05/23 02:50
Plt Count 115 10^3/uL (130-400) L 04/05/23 02:50
PT 20.1 Sec (11.4-14.6) H 04/03/23 12:15
INR 1.73 04/03/23 12:15
APTT 35.5 Sec (23.4-35.0) H 04/03/23 12:15
Sodium 137 mmol/L (135-145) 04/05/23 02:50
Potassium 3.7 mmol/L (3.5-5.1) 04/05/23 02:50
BUN 25 mg/dl (7-17) H 04/05/23 02:50
Creatinine 0.6 mg/dL (0.6-1.0) 04/05/23 02:50
Glucose 128 mg/dl (70-99) H 04/05/23 02:50
Vital Signs and I&O:
Vital Signs
Temp Pulse Resp BP Pulse Ox
98.0 F 71 16 110/62 94
04/05/23 04:00 04/05/23 04:00 04/04/23 16:00 04/05/23 04:00 04/05/23 05:26
Vital Signs
Temp Pulse Resp BP Pulse Ox
98.0 F 71 16 110/62 94
04/05/23 04:00 04/05/23 04:00 04/04/23 16:00 04/05/23 04:00 04/05/23 05:26
Intake & Output
04/03/23 04/04/23 04/05/23 04/06/23
06:59 06:59 06:59 06:59
Intake Total 1632.4 / 1643.4 1240.8 / 1240.8
Output Total 1805 / 1870 780 / 780
Balance -172.6 / -226.6 460.8 / 460.8
Physical Exam
Physical Exam
GEN: No distress, awake, Ox3, sitting up in chair
HEENT: supple, anicteric, mmm
LUNGS:few crackles, no wheezes
CV: Reg, S1/S2, no murmur, rub, or gallop
ABD: soft, BS+, NT/ND
EXT: No clubbing or cyanosis. Trace edema b/l LE
NEURO: Gross non-focal
SKIN: No rash, warm, pink
[2023-04-05] MEDS: NOVOLOG FLEXPEN-MODERATE RESISTANCE SC (08:11)
[2023-04-05] MEDS: MEDROL 4 MG PO (08:28)
[2023-04-05] MEDS: PACERONE 200 MG PO ×3 (08:28→22:08)
[2023-04-05] MEDS: SENOKOT-S 1 TABLET PO ×2 (08:28→20:26)
[2023-04-05] MEDS: NEURONTIN 300 MG PO ×3 (08:28→22:08)
[2023-04-05] MEDS: LASIX 20 MG PO ×2 (08:28→16:43)
[2023-04-05] MEDS: KCL 20 MEQ PO ×2 (08:28)
[2023-04-05] MEDS: PROTONIX 40 MG PO (08:29)
[2023-04-05] MEDS: BACTROBAN 2% OINTMENT 1 APPLIC NASAL ×2 (08:29→20:26)
[2023-04-05] MEDS: LOW STRENGTH ASPIRIN 81 MG PO (08:29)
[2023-04-05] MEDS: PLAVIX 75 MG PO (08:29)
--- NOTE | 2023-04-05 09:52 | PTCARENOTE ---
CTx4 discontinued per order and per protocol. Patient tolerated. New dressing applied. Patient c/o shoulder pain s/p removal of CTs. CTNP notified. Will continue to monitor.
[2023-04-05 11:22] LABS: Glucose - Point of Care 174 mg/dl (70-99)
[2023-04-05] MEDS: NOVOLOG FLEXPEN-MODERATE RESISTANCE 1 UNITS SC (11:26)
--- NOTE | 2023-04-05 11:26 | PTCARENOTE ---
Vital signs stable. NSR. HR 70s. A/V wires insulated. BP 129/66. RA. Oxygen saturation 94%. Patient passed gas on the toilet. Patient c/o fatigue, going to take a nap.
--- NOTE | 2023-04-05 11:47 | CM ---
Reviewed chart. Met with Mrs. Colindres and her son to review discharge plans. She states she is feeling better. She states prior to admission she resides alone in a one story home without any steps to enter. She states prior to admission she was
independent with ambulation and adls. She does have a walker at home but currently not using it. We reviewed a home visit by the Cardiothoracic Transitional Care Nurse. She is agreeable to a home visit. She states her daughter will be staying
with her for awhile when she goes home. She states her son will also be stopping in and out to assist in her care if needed. Medical work-up in progress. The discharge plan is to return home with her daughter staying with her and her son
stopping in to check on her with a home visit by the Cardiothoracic Transitional Care Nurse when medically stable.
[2023-04-05] MEDS: NSS 500 IV (12:37)
--- NOTE | 2023-04-05 15:28 | PTCARENOTE ---
Vital signs stable. NSR. HR 70s. BP 91/44. Weaned to RA. Oxygen saturation 88-92%. Patient has COPD. Patient ambulating to the BR with standby assist for unsteadiness. Patient attempting to have a BM, but she feels constipated. She is ordering prune
juice. Will continue to monitor.
[2023-04-05 16:23] LABS: Glucose - Point of Care 216 mg/dl (70-99)
[2023-04-05] MEDS: NOVOLOG FLEXPEN-MODERATE RESISTANCE 3 UNITS SC (16:23)
[2023-04-05] MEDS: TYLENOL PO (16:23)
[2023-04-05] MEDS: VITAMIN C 500 MG PO (16:43)
--- NOTE | 2023-04-05 17:29 | W.PN.UPDATE ---
Update Note
Progress Note Update
Chest tubes discontinued. Received Lasix 20mg po x 2. Ferric gluconate and vitamin C initiated for asymptomatic surgical bloodloss anemia (Hb 8.2). ASA/Plavix/beta-jennifer started. Trend CBC as platelets 115K.
[2023-04-05] MEDS: LOPRESSOR 12.5 MG PO (20:26)
--- NOTE | 2023-04-05 20:30 | PTCARENOTE ---
report received from previous RN, walking rounds done. pt in chair, AAOx4. pt denies any pain at this time. VSS. NSR on monitor, HR 70's-80's. epicardial wires intact and insulated. POX 92% on room air. IS encouraged. pt voided in BR then assisted
back to bed. RIJ cordis intact w KVO infusing. all surgical sites stable. see worklist for full assessment, VS, and interventions. pt resting comfortably.
[2023-04-05 22:20] LABS: Glucose - Point of Care 135 mg/dl (70-99)
[2023-04-06] VITALS (24 sets, daily range): BP systolic 54–116; BP diastolic 35–68; PULSE 76–86; BMI 32.6
[2023-04-06] MEDS: TYLENOL 650 MG PO ×3 (01:26→21:16)
[2023-04-06] MEDS: FLEXERIL 5 MG PO ×2 (01:26→21:16)
[2023-04-06 03:33] LABS: Hematocrit 24.1 % (37.0-47.0); Hemoglobin 8.1 g/dL (12.0-16.0); Mean Corp Hgb Conc. 33.6 g/dL (33.0-37.0); Mean Corpuscular Hgb 31.8 pg (27.0-31.0); Mean Corpuscular Volume 94.5 fL (81.0-99.0); Mean Platelet Volume 10.4 fL (7.4-10.4); Platelet Count 138 10^3/uL (130-400); Red Blood Cell Count 2.55 10^6/uL (4.20-5.40); Red Cell Dist. Width 14.3 % (11.5-14.5); White Blood Cell Count 12.2 10^3/uL (4.8-10.8)
[2023-04-06 04:00] LABS: Blood Urea Nitrogen 26 mg/dl (7-17); Calcium 8.4 mg/dl (8.4-10.2); Carbon Dioxide 25 mmol/L (22-30); Chloride 102 mmol/L (98-107); Estimated Creatinine Clearance 73 ml/min; Glucose 118 mg/dl (70-99); Potassium 3.8 mmol/L (3.5-5.1); Sodium 135 mmol/L (135-145); eGFR > 60.00
[2023-04-06] MEDS: TYLENOL PO (04:49)
--- NOTE | 2023-04-06 04:50 | PTCARENOTE ---
pt VSS overnight. NSR. POX 94% this morning on room air. RIJ cordis maintained. all surgical sites stable. pt had several liquid BMs overnight. AM labs drawn and sent. weight obtained. pt resting between care.
--- NOTE | 2023-04-06 05:28 | W.PN.CT ---
Today's Communication / Plan
-
-pod #3
-no issues overnight
-feels better after CTs dcd
-diuresed with Lasix 20 po bid on 04/05 (UO spontaneous)
-labs are stable
-monitor BP (91/44 this am)
-Maintain temporary pacer wires (will cut before d/c home)
-Encourage use of IS
-Weaned off O2- pOx 93% on RA
-OOB into chair/Ambulate in room
Assessment / Plan
-
Assessment:
-S/p Surgical AVR (23 mm Umana Inspiris Biological Valve)/ CABG x 2 (In situ GERARDO to LAD, Ao to RSVG to OM)/ R EVH, by Dr. Cotto, 04/03/23, pod#3
-Severe
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
-LVEF 65% per intraop ARI
-Severe left ventricular hypertrophy
-HTN
-HLD
-Class 1 obesity (BMI 31.3)
-Prediabetes (A1C 6.0)
-Polymyalgia rheumatica (on chronic steroids)
-Osteoarthritis
-Osteoporosis
-Hypothyroidism
-PAD
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
-Hx of TIA
-LLL lung nodule (1.1 cm), suspicious for malignancy
-COPD
-Former tobacco use (35 pk/yr, quit 1989)
-IBS
-Hx Diverticulosis/Diverticulitis S/p colectomy
-S/p bilateral cataracts, 11/2020
-S/P bilateral Knee replacement, 11/2016
-S/p total hysterectomy
-Acute postop blood loss/Anemia (transfused 2u PRBCs)
-Acute postop thrombocytopenia (stable without active bleed)
-Acute postop atelectasis/pleural effusion
-Acute postop hypovolemia with subsequent hypervolemia
Discussed patient care with: Nursing and Care Team
Subjective
Procedure
-S/p Surgical AVR (23 mm Umana Inspiris Biological Valve)/ CABG x 2 (In situ GERARDO to LAD, Ao to RSVG to OM)/ R EVH, by Dr. Cotto, 04/03/23
-
Date of Service: April 06, 2023
Objective Data
-
Lab Results
04/06/23 03:19
04/06/23 03:19
PT 20.1 Sec (11.4-14.6) H 04/03/23 12:15
INR 1.73 04/03/23 12:15
APTT 35.5 Sec (23.4-35.0) H 04/03/23 12:15
Vital Signs
Vital Signs
Temp Pulse Resp BP Pulse Ox
98.4 F 82 18 91/44 93
04/06/23 04:46 04/06/23 04:46 04/06/23 04:46 04/06/23 04:46 04/06/23 04:46
CT Intake/Output/Weight
04/05/23 04/05/23 04/06/23
06:59 18:59 06:59
Intake Total 670 / 1240.8 1010 / 1100 90 / 1100
Output Total 395 / 780 160 / 160
Balance 275 / 460.8 850 / 940 90 / 940
SaO2: 93
Physical Exam
-
General: Awake and AOx3
Cardiovascular: Regular rate & rhythm, No Murmurs and Rub
Respiratory: Decreased Breath Sounds
Sternum: Stable
Incision: Clean, Dry and Dressing Intact
Extremities: No Edema (2+ DP b/l)
Abdomen: soft, nontender, nondistended
Data Reviewed
-
Lab Results: Results Reviewed
Medications: Active Meds Reviewed
Chest X-Ray: Report Reviewed and Image Reviewed
ECG: Report Reviewed and Image Reviewed
[2023-04-06] MEDS: NEURONTIN 300 MG PO (07:40)
[2023-04-06] MEDS: PROTONIX 40 MG PO (07:41)
[2023-04-06] MEDS: SENOKOT-S PO ×2 (07:41→21:05)
[2023-04-06] MEDS: PACERONE 200 MG PO ×3 (07:41→21:14)
[2023-04-06] MEDS: LOPRESSOR 12.5 MG PO (07:41)
[2023-04-06] MEDS: LOW STRENGTH ASPIRIN 81 MG PO (07:41)
[2023-04-06] MEDS: KCL 20 MEQ PO (07:42)
[2023-04-06] MEDS: VITAMIN C 500 MG PO (07:42)
[2023-04-06] MEDS: PLAVIX 75 MG PO (07:42)
[2023-04-06] MEDS: MEDROL 4 MG PO (07:42)
[2023-04-06] MEDS: BACTROBAN 2% OINTMENT 1 APPLIC NASAL ×2 (07:43→21:22)
[2023-04-06] MEDS: NOVOLOG FLEXPEN-MODERATE RESISTANCE SC ×3 (08:04→16:19)
[2023-04-06 08:07] LABS: Glucose - Point of Care 93 mg/dl (70-99)
--- NOTE | 2023-04-06 08:07 | PTCARENOTE ---
Received pt from nightshift RN; pt AAOx3 and resting comfortably in bed; NSR on monitor and VSS; Epicardial wires insulated; RIJ Cordis and PIV x1 all patent; Lungs diminished and dyspneic on exertion; IS to 500; positive bowel sounds; pt voiding
be colored urine; palpable lower extremity pulse and weak radial pulses; +2 lower leg edema; surgical sites C/D/I; see nursing documentation for details.
--- NOTE | 2023-04-06 09:10 | PTCARENOTE ---
Pt sitting in chair, RN in room with pt to ambulate in hallways; pt stood up and felt 'lightheaded/seeing spots'; RN had pt sit back in chair; BP 54/44; Dionna Norris NP in room with pt, pt placed back to bed with assistance from staff; 1 unit PRBCs
ordered by Dionna Norris NP and Type and Screen sent to lab; repeat BP in bed 84/45; awaiting blood from lab.
[2023-04-06] MEDS: NSS IV (11:28)
--- NOTE | 2023-04-06 11:32 | W.PN.CARDCBS ---
Addendum entered and electronically signed by Rob Burciaga MD 04/06/23 17:14:
Now postop day 3, was hypotensive earlier today, better after a unit of blood
PMH, PSH/SH/FH: Reviewed
Allergies to codeine,
Inpatient outpatient meds reviewed, metoprolol on hold still on amiodarone
no new review of systems findings other than hypotension/lightheadedness
91/43, pulse 78,
Head neck exam unremarkable, lungs are clear, cardiac exam with regular rate and rhythm very soft systolic murmur, incision intact, abdomen benign extremities without clubbing cyanosis or edema, neuro nonfocal
Hemoglobin this a.m. for blood 8.1, BUN/creatinine 26 and 0.5
Chest x-ray status post sternotomy, no acute findings, last EKG 04/04
Impression:
23 Umana Inspiris aortic valve replacement 04/03/2023
CABG x 2, GERARDO to LAD and vein graft to OM 04/03/2023
PMR/RA
Hypertension
Hyperlipidemia, left lower lobe lung nodule
Mild COPD
80% left internal carotid stenosis, history of TIA
Bilateral total knee arthroplasty
Plan:
Despite hypotension earlier this morning, she looks well following 1 unit of packed cells.
Continue supportive care
We will follow
Original Note:
Today's Communication / Plan
-
Follow BP and hgb following transfusion
Attempt gentle diuresis as able
OOB, IS encouraged
Impression / Plan
-
Refinery Operator Assistant: Dr. Mary Kwok
Impression:
Severe, symptomatic aortic valve stenosis
s/p Surgical aortic valve replacement w/ 23 mm Umana Inspiris Biological Valve 04/03/2023
CAD w/ IFR positive left main and ostial LAD stenosis
CABG x 2 (In situ GERARDO to LAD, Ao to RSVG to OM) 04/03/2023
Polymyalgia rheumatica, chronic steroid use for rheumatoid arthritis
Hypertension
Osteoarthritis
Irritable bowel syndrome
Hyperlipidemia, on Repatha
Left lower lobe lung nodule, suspicious for malignancy (recently growing spiculated lung nodule, of unclear etiology)
Thyroid disease
History of tobacco abuse
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
Peripheral artery disease
High-grade left internal carotid stenosis (80% @ origin)
TIA
Hx Diverticulosis/Diverticulitis S/p colectomy
S/p bilateral cataracts, 11/2020
S/P bilateral Knee replacement, 11/2016
S/p total hysterectomy
Echo 11/07/22: LVEF of 58%, moderate LVH, LVOT gradient of 41 mmHg, increasing to 65 mmHg with Valsalva, stage II diastolic dysfunction, moderate to severe aortic stenosis with peak and mean transaortic gradients of 62 and 32 mmHg, calculated aortic
valve area of 0.9 cm�, trace tricuspid regurgitation without evidence of pulmonary hypertension.
Cath 03/08/23: RA 12; PA : 39/19 (27), PCWP (m) : 22, PA saturation: 65.9% on room air, AO saturation: 95.7% on room air, CO 3.31 L/min by Rut, CI 1.87 L/min/m-2 by Rut, SVR 2173 dsc^(-5), PVR 1.51 her unit, LVEDP22. IFR of ostial left main was
borderline at 0.89-0.90. Eccentric 80% ostial LAD stenosis which is IFR positive with an IFR of 0.85
Plan:
-s/p surgical aortic valve replacement w/ 23 mm Umana Inspiris Biological Valve and CABG x 2 (In situ GERARDO to LAD, Ao to RSVG to OM) 04/03/2023, POD#3
-Hypotension noted this AM with BP as low as 50/44.
-Post op anemia noted. s/p 2 units PRBCs intra-op. Hgb down to 8.1 this AM and 1 unit PRBCs transfusing. Feeling better with this.
-Lopressor needed to be held earlier in admission due to hypotension/orthostasis, however was resumed in PM 2/8.
-Continue aspirin, Plavix, Amiodarone, and Medrol. Continue Repatha for HLD.
-Weight up. Would attempt gentle diuresis as able. Creat stable at 0.5.
-Will need SBE prophylaxis, Amox for AVR.
-IS, OOB encouraged
Progress Note - Refinery Operator Assistant
Subjective
Date of Service: April 06, 2023
Feeling better with transfusion.
Objective
Labs:
04/06/23 03:19
04/06/23 03:19
Labs
Hgb 8.1 g/dL (12.0-16.0) L 04/06/23 03:19
Hct 24.1 % (37.0-47.0) L 04/06/23 03:19
Plt Count 138 10^3/uL (130-400) 04/06/23 03:19
PT 20.1 Sec (11.4-14.6) H 04/03/23 12:15
INR 1.73 04/03/23 12:15
APTT 35.5 Sec (23.4-35.0) H 04/03/23 12:15
Sodium 135 mmol/L (135-145) 04/06/23 03:19
Potassium 3.8 mmol/L (3.5-5.1) 04/06/23 03:19
BUN 26 mg/dl (7-17) H 04/06/23 03:19
Creatinine 0.5 mg/dL (0.6-1.0) L 04/06/23 03:19
Glucose 118 mg/dl (70-99) H 04/06/23 03:19
Vital Signs and I&O:
Vital Signs
Temp Pulse Resp BP Pulse Ox
99.1 F 72 20 84/45 94
04/06/23 08:00 04/06/23 09:13 04/06/23 08:00 04/06/23 09:13 04/06/23 08:25
Vital Signs
Temp Pulse Resp BP Pulse Ox
99.1 F 72 20 84/45 94
04/06/23 08:00 04/06/23 09:13 04/06/23 08:00 04/06/23 09:13 04/06/23 08:25
Intake & Output
04/04/23 04/05/23 04/06/23 04/07/23
06:59 06:59 06:59 06:59
Intake Total 1632.4 / 1643.4 1240.8 / 1240.8 1100 / 1100 40 / 40
Output Total 1805 / 1870 780 / 780 160 / 160 150 / 150
Balance -172.6 / -226.6 460.8 / 460.8 940 / 940 -110 / -110
Physical Exam
Physical Exam
GEN: No distress, awake, alert, oriented x3
HEENT: supple, anicteric, mmm
LUNGS:few crackles, no wheezes
CV: Reg, S1/S2, no murmur, rub, or gallop
ABD: soft, BS+, NT/ND
EXT: No clubbing or cyanosis. Trace edema b/l LE
NEURO: Gross non-focal
SKIN: No rash, warm, pink
--- NOTE | 2023-04-06 12:06 | PTCARENOTE ---
1 unit PRBC infused without difficulties.
--- NOTE | 2023-04-06 12:29 | CM ---
Addendum entered by ALEXA Butts 04/06/23 16:20:
CM observed patient with RN feeling lightheaded/dizzy. She was placed w/ assist in to chair.
RN mentioned that patient may need rehab. Noted PT evaluation on 04/05 with recommendation for home health. Would like to see updated evaluation for current recommendations.
Pt. shares that she has been to [facility] previously with good experience. Her preference is rehab is needed is to go to [facility]. We discussed alternative SNF options to include [facility] and [facility]. Will follow progress and if rehab is necessary, will FU
on Sunday.
Original Note:
Chart reviewed. Patient is independent of ADLS, lives alone in a 1 STH in a [place] [facility], 0 DME. Patient's daughter will be staying with the patient when she is medically ready for discharge. Plan is for the patient to return home
with CT Transitional Care RN. CM to follow
[2023-04-06 12:35] LABS: Glucose - Point of Care 128 mg/dl (70-99)
--- NOTE | 2023-04-06 13:01 | PTCARENOTE ---
Assessment unchanged; NSR on monitor and VSS; pt resting comfortably in bed.
[2023-04-06] MEDS: FERRLECIT 110 MG IV (14:41)
--- NOTE | 2023-04-06 15:57 | PTCARENOTE ---
Patient ambulated with RN in room; pt got to doorway, pt felt lightheaded and dizzy; pt assisted to chair with CV REGULATORY INTERN and placed back to bed.
[2023-04-06] MEDS: NEURONTIN PO (16:11)
[2023-04-06 16:19] LABS: Glucose - Point of Care 147 mg/dl (70-99)
[2023-04-06] MEDS: FLEXBUMIN 50 IV (16:20)
[2023-04-06] MEDS: TRAVATAN Z 1 DROP BOTH EYES (17:06)
--- NOTE | 2023-04-06 20:30 | PTCARENOTE ---
Pt received from sudhir RN. Walking rounds completed. Pt AAOx3. LYON. SR on monitor. HR 70s. Epicardial wires insulated. BP 111/57. Bilateral radial pulses weak on palpable. Bilateral DP pulses palpable. +1 LE edema noted. Pt on RA. POX 95%. Breath
sounds diminished bilaterally. Dyspnea on exertion. IS encouraged. + BS. Abdomen soft/nontender. Pt OOB to void on bedside commode be/yellow urine. Pt assisted into bed. Right IJ cordis CDI w/ KVO infusing. All surgical sites stable. See worklist
for full nursing assessment and interventions.
[2023-04-06 21:31] LABS: Glucose - Point of Care 112 mg/dl (70-99)
[2023-04-06] MEDS: ULTRAM 25 MG PO (23:08)
[2023-04-07] VITALS (17 sets, daily range): BP systolic 101–161; BP diastolic 52–78; PULSE 81; O2SAT 94; BMI 32.7
--- NOTE | 2023-04-07 | PTCARENOTE ---
Assessment unchanged. PT remains SR on monitor. HR 70s. BP stable. Pt maintained on RA. POX 94-95%. Pt c/o neck pain. Repositioned in bed. See MAR for medication administration. All surgical sites stable. Right IJ cordis CDI w/ KVO infusing.
--- NOTE | 2023-04-07 02:16 | W.PN.CT ---
Today's Communication / Plan
-
-pod #4
-no issues overnight, pleasant, A&Ox4
-pt had an episode of symptomatic hypotension (bp 60/40) in am 2/9 and was given 1pRBC. She then had another episode of hypotension walking in the room
-BB and Lasix are now held
-check orthostatic vitals daily
-continue PT/OT, evaluate for possible d/c to Rehab when medically ready (pt lives with daughter with mental disability and doesn't feel that dtr will be able to help her at home)
-appreciate CM help
-follow 2v-CXR
-maintain pw (will cut before d/c)
-encourage IS, OOB
Assessment / Plan
-
Assessment:
-S/p Surgical AVR (23 mm Umana Inspiris Biological Valve)/ CABG x 2 (In situ GERARDO to LAD, Ao to RSVG to OM)/ R EVH, by Dr. Cotto, 04/03/23, pod#4
-Severe
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
-LVEF 65% per intraop ARI
-Severe left ventricular hypertrophy
-HTN
-HLD
-Class 1 obesity (BMI 31.3)
-Prediabetes (A1C 6.0)
-Polymyalgia rheumatica (on chronic steroids)
-Osteoarthritis
-Osteoporosis
-Hypothyroidism
-PAD
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
-Hx of TIA
-LLL lung nodule (1.1 cm), suspicious for malignancy
-COPD
-Former tobacco use (35 pk/yr, quit 1989)
-IBS
-Hx Diverticulosis/Diverticulitis S/p colectomy
-S/p bilateral cataracts, 11/2020
-S/P bilateral Knee replacement, 11/2016
-S/p total hysterectomy
-Acute postop blood loss/Anemia (transfused 2u PRBCs)
-Acute postop thrombocytopenia (stable without active bleed)
-Acute postop atelectasis/pleural effusion
-Acute postop hypovolemia with subsequent hypervolemia
-Acute postop symptomatic hypotension 04/06 - tx with 1u pRBC
Discussed patient care with: Nursing and Care Team
Subjective
Procedure
-S/p Surgical AVR (23 mm Umana Inspiris Biological Valve)/ CABG x 2 (In situ GERARDO to LAD, Ao to RSVG to OM)/ R EVH, by Dr. Cotto, 04/03/23
-
Date of Service: April 07, 2023
Objective Data
-
PT 20.1 Sec (11.4-14.6) H 04/03/23 12:15
INR 1.73 04/03/23 12:15
APTT 35.5 Sec (23.4-35.0) H 04/03/23 12:15
Vital Signs
Vital Signs
Temp Pulse Resp BP Pulse Ox
98 F 73 16 139/68 95
04/07/23 00:15 04/07/23 00:15 04/07/23 00:15 04/07/23 00:15 04/07/23 00:15
CT Intake/Output/Weight
04/06/23 04/06/23 04/07/23
06:59 18:59 06:59
Intake Total 90 / 1100 530 / 580 50 / 580
Output Total 300 / 800 500 / 800
Balance 90 / 940 230 / -220 -450 / -220
SaO2: 95
Physical Exam
-
General: Awake and AOx3
Cardiovascular: Regular rate & rhythm, No Murmurs and Rub
Respiratory: Decreased Breath Sounds
Sternum: Stable
Incision: Clean, Dry and Dressing Intact
Abdomen: soft, nontender, nondistended
Extremities: No Edema (2+ DP b/l)
Data Reviewed
-
Lab Results: Results Reviewed
Medications: Active Meds Reviewed
Chest X-Ray: Report Reviewed and Image Reviewed
ECG: Report Reviewed and Image Reviewed
[2023-04-07] MEDS: TYLENOL 650 MG PO ×2 (02:51→20:32)
[2023-04-07 03:46] LABS: Hematocrit 26.1 % (37.0-47.0); Hemoglobin 9.1 g/dL (12.0-16.0); Mean Corp Hgb Conc. 34.9 g/dL (33.0-37.0); Mean Corpuscular Hgb 32.2 pg (27.0-31.0); Mean Corpuscular Volume 92.2 fL (81.0-99.0); Mean Platelet Volume 9.7 fL (7.4-10.4); Platelet Count 177 10^3/uL (130-400); Red Blood Cell Count 2.83 10^6/uL (4.20-5.40); Red Cell Dist. Width 13.9 % (11.5-14.5); White Blood Cell Count 10.7 10^3/uL (4.8-10.8)
--- NOTE | 2023-04-07 04:00 | PTCARENOTE ---
Previous assessment unchanged. Pt SR on monitor. HR 70s. BP stable. RA. POX 95%. Pt helped OOB to the bathroom and then repositioned back into bed. Pt c/o neck pain - see APR. Labs drawn and sent. Call blas within reach.
[2023-04-07 04:07] LABS: Blood Urea Nitrogen 22 mg/dl (7-17); Calcium 8.3 mg/dl (8.4-10.2); Carbon Dioxide 25 mmol/L (22-30); Chloride 108 mmol/L (98-107); Estimated Creatinine Clearance 73 ml/min; Glucose 100 mg/dl (70-99); Potassium 3.8 mmol/L (3.5-5.1); Sodium 135 mmol/L (135-145); eGFR > 60.00
[2023-04-07] MEDS: NOVOLOG FLEXPEN-MODERATE RESISTANCE SC ×3 (06:45→20:32)
[2023-04-07 07:32] LABS: Glucose - Point of Care 103 mg/dl (70-99)
--- NOTE | 2023-04-07 08:00 | PTCARENOTE ---
resumed care of patient. VSS. OOB in chair with min assist. NSR. PIV and cordis intact with KVO infusing. All surgical sites c/d/i. IS done: 500. Will continue to monitor.
[2023-04-07] MEDS: ULTRAM 25 MG PO ×2 (08:43→21:55)
[2023-04-07] MEDS: SENOKOT-S 1 TABLET PO (08:44)
[2023-04-07] MEDS: KCL 20 MEQ PO (08:45)
[2023-04-07] MEDS: LOW STRENGTH ASPIRIN 81 MG PO (08:45)
[2023-04-07] MEDS: PLAVIX 75 MG PO (08:45)
[2023-04-07] MEDS: MEDROL 4 MG PO (08:45)
[2023-04-07] MEDS: PROTONIX 40 MG PO (08:45)
[2023-04-07] MEDS: PACERONE 200 MG PO ×3 (08:45→21:42)
[2023-04-07] MEDS: BACTROBAN 2% OINTMENT 1 APPLIC NASAL (08:46)
[2023-04-07] MEDS: VITAMIN C 500 MG PO (08:46)
--- NOTE | 2023-04-07 12:00 | PTCARENOTE ---
patient requesting to be seen by PT. She thinks she can not go home at this time due to feeling unsafe and her daughter who is mentally disabled not being abailable to help her.
[2023-04-07] MEDS: NSS IV (12:46)
[2023-04-07 13:35] LABS: Glucose - Point of Care 127 mg/dl (70-99)
[2023-04-07] MEDS: FERRLECIT 110 MG IV (13:35)
[2023-04-07] MEDS: TRAVATAN Z 1 DROP BOTH EYES (18:10)
--- NOTE | 2023-04-07 20:00 | PTCARENOTE ---
Pt received from sudhir RN. Walking rounds completed. Pt NSR on monitor. HR 70s. Epicardial wires insulated. BP stable. Bilateral radial and DP pulses weak on palpable. Trace LE edema. Pt on RA. POX 95%. IS encouraged. Abdomen soft/nontender. OOB
to void yellow urine with 1-assist. Right IJ cordis CDI w/ KVO infusing. Right PIV CDI and flushes. All surgical sites stable. Pt c/o pain - see MAR. See worklist for full nursing assessment and interventions. Pt resting in the chair at this time w/
family at the bedside. Call blas within reach.
[2023-04-07 20:29] LABS: Glucose - Point of Care 136 mg/dl (70-99)
[2023-04-07] MEDS: LOPRESSOR 12.5 MG PO (20:32)
[2023-04-07] MEDS: FLEXERIL 5 MG PO (20:33)
[2023-04-07] MEDS: SENOKOT-S PO (20:33)
[2023-04-08] VITALS (13 sets, daily range): BP systolic 130–192; BP diastolic 59–91; BMI 32.8
--- NOTE | 2023-04-08 | PTCARENOTE ---
Previous assessment unchanged. Pt remains SR on monitor. HR 70s. BP stable. RA. POX 96%. Pt resting in bed at this time. Call blas within reach.
--- NOTE | 2023-04-08 03:07 | W.PN.CT ---
Today's Communication / Plan
-
-pod #5
-no issues overnight, no complaints, no further dizziness
-no further hypotension, BB restarted
-continue PT/OT, evaluate for possible d/c to Rehab when medically ready (pt lives with daughter with mental disability and doesn't feel that dtr will be able to help her at home)
-appreciate CM help
-follow 2v-CXR
-Echo pending
-maintain pw (will cut before d/c)
-encourage IS, OOB
Assessment / Plan
-
Assessment:
-S/p Surgical AVR (23 mm Umana Inspiris Biological Valve)/ CABG x 2 (In situ GERARDO to LAD, Ao to RSVG to OM)/ R EVH, by Dr. Cotto, 04/03/23, pod#5
-Severe
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
-LVEF 65% per intraop ARI
-Severe left ventricular hypertrophy
-HTN
-HLD
-Class 1 obesity (BMI 31.3)
-Prediabetes (A1C 6.0)
-Polymyalgia rheumatica (on chronic steroids)
-Osteoarthritis
-Osteoporosis
-Hypothyroidism
-PAD
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
-Hx of TIA
-LLL lung nodule (1.1 cm), suspicious for malignancy
-COPD
-Former tobacco use (35 pk/yr, quit 1989)
-IBS
-Hx Diverticulosis/Diverticulitis S/p colectomy
-S/p bilateral cataracts, 11/2020
-S/P bilateral Knee replacement, 11/2016
-S/p total hysterectomy
-Acute postop blood loss/Anemia (transfused 2u PRBCs)
-Acute postop thrombocytopenia (stable without active bleed)
-Acute postop atelectasis/pleural effusion
-Acute postop hypovolemia with subsequent hypervolemia
-Acute postop symptomatic hypotension 04/06 - tx with 1u pRBC
-Acute postop orthostasis 04/06
Discussed patient care with: Nursing and Care Team
Subjective
Procedure
-S/p Surgical AVR (23 mm Umana Inspiris Biological Valve)/ CABG x 2 (In situ GERARDO to LAD, Ao to RSVG to OM)/ R EVH, by Dr. Cotto, 04/03/23
-
Date of Service: April 08, 2023
Objective Data
-
PT 20.1 Sec (11.4-14.6) H 04/03/23 12:15
INR 1.73 04/03/23 12:15
APTT 35.5 Sec (23.4-35.0) H 04/03/23 12:15
Vital Signs
Vital Signs
Temp Pulse Resp BP Pulse Ox
98.4 F 66 16 136/73 95
04/07/23 23:51 04/08/23 00:00 04/07/23 23:51 04/07/23 23:51 04/07/23 23:51
CT Intake/Output/Weight
04/07/23 04/07/23 04/08/23
06:59 18:59 06:59
Intake Total 70 / 600 230 / 280 50 / 280
Output Total 900 / 1200
Balance -830 / -600 230 / 280 50 / 280
SaO2: 95
Physical Exam
-
General: Awake and AOx3
Cardiovascular: Regular rate & rhythm, No Murmurs and No Rub
Respiratory: Decreased Breath Sounds (few rales at bases)
Sternum: Stable
Incision: Clean, Dry and Intact
Extremities: Other (trace edema)
Abdomen: soft, nontender, + bowel sounds, nondistended
Data Reviewed
-
Lab Results: Results Reviewed
Medications: Active Meds Reviewed
Chest X-Ray: Report Reviewed and Image Reviewed
ECG: Report Reviewed and Image Reviewed
[2023-04-08] MEDS: TYLENOL 650 MG PO (03:27)
[2023-04-08 03:41] LABS: Hematocrit 27.3 % (37.0-47.0); Hemoglobin 9.6 g/dL (12.0-16.0); Mean Corp Hgb Conc. 35.2 g/dL (33.0-37.0); Mean Corpuscular Hgb 32.8 pg (27.0-31.0); Mean Corpuscular Volume 93.2 fL (81.0-99.0); Mean Platelet Volume 9.6 fL (7.4-10.4); Platelet Count 204 10^3/uL (130-400); Red Blood Cell Count 2.93 10^6/uL (4.20-5.40); Red Cell Dist. Width 14.2 % (11.5-14.5); White Blood Cell Count 9.2 10^3/uL (4.8-10.8)
--- NOTE | 2023-04-08 04:15 | PTCARENOTE ---
Previous assessment unchanged. Pt SR on monitor. HR 70s. RA. POX 95%. Pt assisted OOB to the bathroom. Pt then repositioned back into bed. Labs drawn and sent. Call blas within reach.
[2023-04-08 04:16] LABS: Blood Urea Nitrogen 21 mg/dl (7-17); Calcium 8.6 mg/dl (8.4-10.2); Carbon Dioxide 25 mmol/L (22-30); Chloride 105 mmol/L (98-107); Estimated Creatinine Clearance 73 ml/min; Glucose 98 mg/dl (70-99); Potassium 4.1 mmol/L (3.5-5.1); Sodium 137 mmol/L (135-145); eGFR > 60.00
[2023-04-08] MEDS: PACERONE 200 MG PO ×3 (08:14→21:13)
[2023-04-08] MEDS: VITAMIN C 500 MG PO (08:14)
[2023-04-08] MEDS: KCL 20 MEQ PO (08:14)
[2023-04-08] MEDS: MEDROL 4 MG PO (08:14)
[2023-04-08] MEDS: LOPRESSOR 12.5 MG PO ×3 (08:14→23:28)
[2023-04-08] MEDS: PLAVIX 75 MG PO (08:15)
[2023-04-08] MEDS: NSS IV (08:15)
[2023-04-08] MEDS: NOVOLOG FLEXPEN-MODERATE RESISTANCE SC (08:15)
[2023-04-08] MEDS: PROTONIX 40 MG PO (08:15)
[2023-04-08] MEDS: SENOKOT-S 1 TABLET PO (08:15)
[2023-04-08] MEDS: LOW STRENGTH ASPIRIN 81 MG PO (08:15)
--- NOTE | 2023-04-08 09:14 | PTCARENOTE ---
assumed care of pt from previous shift RN, sinus rhythm on tele, + periphreal pulses, trace edema to bilateral lower extremities. Lungs diminished, pox 96-98% on RA. +bs, tolerating PO intake, voids spontaneously. Post op incisions intact, cordis to
be removed, PIV flushes easily. Plan of care reviewed w the pt and questions encouraged.
--- NOTE | 2023-04-08 10:15 | PTCARENOTE ---
cordis removed without incident.
--- NOTE | 2023-04-08 12:04 | W.DCSUMMARY ---
Documented by User: LASHELL Mays 04/08/23 12:23
Discharge Summary
Discharge Data
Date of Admission: 04/03/23
Date of Discharge: 04/08/23
-
Pending Results: No
Hospital Course
Primary care physician: Thony Esparza
Outpatient cell liner: Mary Kwok
Inpatient consultants: [facility]
Procedures:
1. Aortic valve replacement and coronary artery bypass grafting
Primary Diagnosis:
1. Low-flow gradient severe aortic stenosis and coronary artery disease
Secondary Diagnoses:
1. Hypertension
2. Bilateral carotid stenosis (LICA 80%; LING 50%) with history of TIA in 2013
3. Hyperlipidemia
4. Left lower lobe lung nodule (1.1cm)
5. COPD
6. Polymyalgia rheumatica on chronic steroid
7. Prediabetes (A1c 6.0)
8. Diverticulitis status post lap colectomy
9. Acute surgical blood loss anemia- expected
10. Class 1 obesity (BMI 31.3)
11. Osteoarthritis
12. Osteoporosis
13. bilateral cataract extraction 11/2020
14. bilateral Knee replacement, 11/2016
15. total hysterectomy
HPI:
Lisseth Howard is a 78-year-old female electively admitted 04/03/2023 for aortic valve replacement and coronary bypass grafting.
Hospital course: Patient underwent aortic valve replacement with #23 mm Inspiris valve and CABG x 2 with GERARDO to LAD and saphenous vein graft to OM by Dr. Cotto. Intraoperative ARI reported ejection fraction of 65% and AV gradients of 20/13 mmHg.
patient required 2 units of packed red blood cells intraoperatively and returned to CVICU on Levophed, insulin, and Precedex. Patient was extubated at 1625 and received aspirin within 6 hours of surgery. Postoperative day #1 the patient was
initiated on Plavix in addition to aspirin therapy. Conner was discontinued. On postoperative day #2 the chest tubes were removed and beta-jennifer was resumed. Hemoglobin of 8.1 with hypotension on postoperative day #3 necessitated transfusion of
1 packed red blood cell and suspension beta-jennifer. Hemoglobin increased to 9.1 postoperative day #4 with stabilization of blood pressure. Beta-jennifer was resumed. Patient was evaluated by physical therapy and recommended rehab on discharge.
On postoperative day #9 5 right IJ was removed and patient diuresed with Lasix 40 mg IV. Systolic blood pressure increased to 160 mmHg and valsartan was started at 60 mg grams daily (home dose 180 mg daily).
Home medication changes:
Discharge Plan
-
Patient Disposition: Acute Rehab Facility
Discharge Diagnosis/Procedures: AVR/CABG
Condition: Good
Diet: Low Cholesterol and 2 Gram Sodium
Activity: No strenuous activity
Driving Restrictions: Not until seen by your Dr
Bathing Restrictions: OK to Shower
Other Services: Cardiac Rehab
Specialty Instructions: Weigh Daily- Call MD for wt gain/loss 3 lbs overnight/5 lbs in 1 week
Stop these medications:: Omeprazole has been replaced with pantoprazole due to interaction with plavix (clopidogrel).
Stop Toprol XL at this time.
Activity Restrictions/Additional Instructions:
ACTIVITY:
-No strenuous activity: no heavy lifting, pushing, pulling anything over 15 pounds for one month
-continue to use stairs as tolerated
DRIVING RESTRICTIONS:
-No driving for one month or until approved by your surgeon
WOUND CARE:
-Shower daily. Use soap & water.
-No lotions, creams or powders on incision area.
DIET:
-continue a low fat/low cholesterol diet.
CARDIAC REHAB:
-Please make appointment to start in 5-6 weeks with your local hospital program. (See Cardiac Rehabilitation Discharge Booklet).
SPECIALTY INSTRUCTIONS:
-Weigh yourself daily. Call your physician for any weight gain/loss of 3 lbs overnight or 5 lbs in one week.
-REPORT any clicking noise or uneven appearance of your sternum to your surgeon immediately.
-If you smoke, you are instructed to quit. The [place] smoking hotline phone number is [phone]
Referrals:
CT Transitional Care Nurse [Outside] - in one to two days
(
The Cardiothoracic Transitional Care Nurse will call you to set up a visit in 1-2 days.)
[facility] [Outside] - 05/10/23 1:00 pm
(Cardiac Rehab Orientation appointment and� First Exercise appointment is on 05/10/23 at 1 PM.
The Cardiac Rehab gym is located on the first floor of the [facility].)
Jane Laurent MD [Active] - (May with PFT after CT ION)
Thony Esparza MD [Family Provider] - in four to six weeks (Please make an appointment in four to six weeks. )
Jenn Pena PA-C [Specified Professional Personl] - 05/16/23 2:20 pm
Travis Cotto MD [Active] - 05/03/23 1:30 pm
Prescriptions:
New
clopidogrel 75 mg Tablet
75 mg PO DAILY Qty: 30 1RF
pantoprazole 40 mg Tablet,Delayed Release (Dr/Ec)
40 mg PO DAILY Qty: 30 0RF
cyclobenzaprine 10 mg Tablet
5 mg PO TID PRN (Reason: mod-severe pain) Qty: 30 0RF
metoprolol tartrate 50 mg Tablet
50 mg PO Q12 Qty: 60 0RF
Continued
methylprednisolone 4 mg Tablet
4 mg PO DAILY
Repatha SureClick 140 mg/mL Pen Injector
140 mg SC Q2W
milk thistle 500 mg Capsule
1,000 mg PO DAILY
calcium carbonate-vitamin D3 500 mg-3.125 mcg (125 unit) Tablet
1 tab PO DAILY
B12 5,000-100 mcg Lozenge
1 niya SUBLINGUAL DAILY
valsartan 320 mg tablet
180 mg PO DAILY
multivitamin Tablet
1 tab PO DAILY
potassium chloride 10 mEq Tablet Extended Release
50 meq PO MOWEFR
magnesium 250 mg Tablet
500 mg PO MOWEFR
travoprost 0.004 % Drops
1 drp OPHTHALMIC (EYE) QPM
aspirin 81 mg tablet,delayed release (DR/EC)
81 mg PO DAILY
furosemide [Lasix] 20 mg tablet
20 mg PO DAILY
Changed
diphenhydramine-acetaminophen [Tylenol PM Extra Strength] 25-500 mg Tablet
1 tab PO HS PRN (Reason: Sleep) Qty: 0 0RF
Discontinued
omeprazole 20 mg Capsule,Delayed Release(Dr/Ec)
20 mg PO TUTHSA
metoprolol succinate [Toprol XL] 25 mg Tablet Extended Release 24 Hr
25 mg PO DAILY
Discharge Orders:
Discharge Patient (As Directed); Ordered 04/09/23
Ordered By: Love Salazar
Care Plan Goals
Care Plan Goals:
Problem: Readiness for enhanced knowledge related to diagnosis and treatment plan
Goal: Understand your diagnosis and treatment plan needs, including medications if applicable.
Instructions: Know your diagnosis, underlying causes and treatment plan options, including medications if applicable. Consult with your health care team to learn about your diagnosis and treatment plan, including medications if applicable.

Documented by User: LASHELL Iverson 04/09/23 10:26
Discharge Summary
Discharge Data
Date of Admission: 04/03/23
Date of Discharge: 04/09/23
Hospital Course
Primary care physician: Thony Esparza
Outpatient cell liner: Mary Kwok
Inpatient consultants: [facility]
Procedures:
1. Aortic valve replacement and coronary artery bypass grafting
Primary Diagnosis:
1. Low-flow gradient severe aortic stenosis and coronary artery disease
Secondary Diagnoses:
1. Hypertension
2. Bilateral carotid stenosis with history of Transient ischemic attack in 2013
3. Hyperlipidemia
4. Left lower lobe lung nodule (1.1cm)
5. Chronic obstructive pulmonary disease
6. Polymyalgia rheumatica on chronic steroid
7. Prediabetes (A1c 6.0)
8. Diverticulitis status post lap colectomy
9. Acute surgical blood loss anemia- expected
10. Class 1 obesity
11. Osteoarthritis
12. Osteoporosis
13. bilateral cataract extraction 11/2020
14. bilateral Knee replacement, 11/2016
15. total hysterectomy
HPI:
Lisseth Howard is a 78-year-old female electively admitted 04/03/2023 for aortic valve replacement and coronary bypass grafting.
Hospital course: Patient underwent aortic valve replacement with #23 mm Inspiris valve and CABG x 2 with GERARDO to LAD and saphenous vein graft to OM by Dr. Cotto. Intraoperative ARI reported ejection fraction of 65% and AV gradients of 20/13 mmHg.
patient required 2 units of packed red blood cells intraoperatively and returned to CVICU on Levophed, insulin, and Precedex. Patient was extubated at 1625 and received aspirin within 6 hours of surgery. Postoperative day #1 the patient was
initiated on Plavix in addition to aspirin therapy. Conner was discontinued. On postoperative day #2 the chest tubes were removed and beta-jennifer was resumed. Hemoglobin of 8.1 with hypotension on postoperative day #3 necessitated transfusion of
1 packed red blood cell and suspension beta-jennifer. Hemoglobin increased to 9.1 postoperative day #4 with stabilization of blood pressure. Beta-jennifer was resumed. Patient was evaluated by physical therapy and recommended rehab on discharge.
On postoperative day #9 5 right IJ was removed and patient diuresed with Lasix 40 mg IV. Systolic blood pressure increased to 160 mmHg and valsartan was started at 60 mg grams daily (home dose 180 mg daily).
Home medication changes:
Discharge Plan
-
Patient Disposition: Acute Rehab Facility
Discharge Diagnosis/Procedures: AVR/CABG
Condition: Good
Diet: Low Cholesterol and 2 Gram Sodium
Activity: No strenuous activity
Driving Restrictions: Not until seen by your Dr
Bathing Restrictions: OK to Shower
Other Services: Cardiac Rehab
Specialty Instructions: Weigh Daily- Call MD for wt gain/loss 3 lbs overnight/5 lbs in 1 week
Stop these medications:: Omeprazole has been replaced with pantoprazole due to interaction with plavix (clopidogrel).
Stop Toprol XL at this time.
Activity Restrictions/Additional Instructions:
ACTIVITY:
-No strenuous activity: no heavy lifting, pushing, pulling anything over 15 pounds for one month
-continue to use stairs as tolerated
DRIVING RESTRICTIONS:
-No driving for one month or until approved by your surgeon
WOUND CARE:
-Shower daily. Use soap & water.
-No lotions, creams or powders on incision area.
DIET:
-continue a low fat/low cholesterol diet.
CARDIAC REHAB:
-Please make appointment to start in 5-6 weeks with your local hospital program. (See Cardiac Rehabilitation Discharge Booklet).
SPECIALTY INSTRUCTIONS:
-Weigh yourself daily. Call your physician for any weight gain/loss of 3 lbs overnight or 5 lbs in one week.
-REPORT any clicking noise or uneven appearance of your sternum to your surgeon immediately.
-If you smoke, you are instructed to quit. The [place] smoking hotline phone number is [phone]
Referrals:
CT Transitional Care Nurse [Outside] - in one to two days
(
The Cardiothoracic Transitional Care Nurse will call you to set up a visit in 1-2 days.)
[facility] [Outside] - 05/10/23 1:00 pm
(Cardiac Rehab Orientation appointment and� First Exercise appointment is on 05/10/23 at 1 PM.
The Cardiac Rehab gym is located on the first floor of the [facility].)
Jane Laurent MD [Active] - (May with PFT after CT ION)
Thony Esparza MD [Family Provider] - in four to six weeks (Please make an appointment in four to six weeks. )
Jenn Pena PA-C [Specified Professional Personl] - 05/16/23 2:20 pm
Travis Cotto MD [Active] - 05/03/23 1:30 pm
Prescriptions:
New
clopidogrel 75 mg Tablet
75 mg PO DAILY Qty: 30 1RF
pantoprazole 40 mg Tablet,Delayed Release (Dr/Ec)
40 mg PO DAILY Qty: 30 0RF
cyclobenzaprine 10 mg Tablet
5 mg PO TID PRN (Reason: mod-severe pain) Qty: 30 0RF
metoprolol tartrate 50 mg Tablet
50 mg PO Q12 Qty: 60 0RF
Continued
methylprednisolone 4 mg Tablet
4 mg PO DAILY
Repatha SureClick 140 mg/mL Pen Injector
140 mg SC Q2W
milk thistle 500 mg Capsule
1,000 mg PO DAILY
calcium carbonate-vitamin D3 500 mg-3.125 mcg (125 unit) Tablet
1 tab PO DAILY
B12 5,000-100 mcg Lozenge
1 niya SUBLINGUAL DAILY
valsartan 320 mg tablet
180 mg PO DAILY
multivitamin Tablet
1 tab PO DAILY
potassium chloride 10 mEq Tablet Extended Release
50 meq PO MOWEFR
magnesium 250 mg Tablet
500 mg PO MOWEFR
travoprost 0.004 % Drops
1 drp OPHTHALMIC (EYE) QPM
aspirin 81 mg tablet,delayed release (DR/EC)
81 mg PO DAILY
furosemide [Lasix] 20 mg tablet
20 mg PO DAILY
Changed
diphenhydramine-acetaminophen [Tylenol PM Extra Strength] 25-500 mg Tablet
1 tab PO HS PRN (Reason: Sleep) Qty: 0 0RF
Discontinued
omeprazole 20 mg Capsule,Delayed Release(Dr/Ec)
20 mg PO TUTHSA
metoprolol succinate [Toprol XL] 25 mg Tablet Extended Release 24 Hr
25 mg PO DAILY
Discharge Orders:
Discharge Patient (As Directed); Ordered 04/09/23
Ordered By: Love Salazar
Care Plan Goals
Care Plan Goals:
Problem: Readiness for enhanced knowledge related to diagnosis and treatment plan
Goal: Understand your diagnosis and treatment plan needs, including medications if applicable.
Instructions: Know your diagnosis, underlying causes and treatment plan options, including medications if applicable. Consult with your health care team to learn about your diagnosis and treatment plan, including medications if applicable.

Documented by User: Love Salazar PA-C 04/09/23 12:01
Discharge Summary
Discharge Data
Date of Admission: 04/03/23
Date of Discharge: 04/09/23
Hospital Course
Primary care physician: Thony Esparza
Outpatient cell liner: Mary Kwok
Inpatient consultants: [facility]
Procedures:
1. Aortic valve replacement with 23mm Inspiris valve and coronary artery bypass grafting x2 with left internal mammary artery to left anterior descending and saphenous vein graft to obtuse marginal
Primary Diagnosis:
1. Low-flow gradient severe aortic stenosis and coronary artery disease
Secondary Diagnoses:
1. Hypertension
2. Bilateral carotid stenosis with history of Transient ischemic attack in 2013
3. Hyperlipidemia
4. Left lower lobe lung nodule (1.1cm)
5. Chronic obstructive pulmonary disease
6. Polymyalgia rheumatica on chronic steroid
7. Prediabetes (A1c 6.0)
8. Diverticulitis status post lap colectomy
9. Acute surgical blood loss anemia- expected
10. Class 1 obesity
11. Osteoarthritis
12. Osteoporosis
13. bilateral cataract extraction 11/2020
14. bilateral Knee replacement, 11/2016
15. total hysterectomy
HPI:
Lisseth Colindres is a 78-year-old female electively admitted 04/03/2023 for aortic valve replacement and coronary bypass grafting.
Hospital course: Patient underwent aortic valve replacement with #23 mm Inspiris valve and CABG x 2 with GERARDO to LAD and saphenous vein graft to OM by Dr. Cotto without any perioperative complications. Intraoperative ARI reported ejection fraction
of 65% and AV gradients of 20/13 mmHg. patient required 2 units of packed red blood cells intraoperatively and returned to CVICU on Levophed, insulin, and Precedex. Patient was extubated at 1625 and received aspirin within 6 hours of surgery.
Postoperative day #1 the patient was initiated on Plavix in addition to aspirin therapy. [place] mu catheter & arterial line were removed. Conner was discontinued. On postoperative day #2 the chest tubes were removed and beta-jennifer was resumed. On
postop day #3 pt had an episode of symptomatic hypotension with Hemoglobin of 8.1, she was transfused an additional 1U of PRBC. BB was held at that time. on Postoperative day #4 Hemoglobin increased to 9.1 with stabilization of blood pressure. Low
dose Beta-jennifer was resumed. Patient was evaluated by physical therapy and recommended rehab on discharge. On postoperative day #5 right IJ was removed and patient diuresed with Lasix 40 mg IV. Systolic blood pressure increased to 160 mmHg and
valsartan was started at 60 mg grams daily (home dose 180 mg daily). On postop day #6 BP continues to rise, Beta jennifer was again titrated up to lopressor 50mg BID & valsartan increased to 180mg (home dose). Pt previously on Toprol XL prior to
admission, this can be converted back once dosing has stabilized. Pt evaluated by PT/OT and accepted to [facility] at . Pt discharged in fair condition.
Home medication changes:
New plavix for SVG patency, Omeprazole changed to pantoprazole due to interaction with plavix. Toprol XL changed to lopressor during reintroduction & titration. Could be transitioned to Toprol XL when appropriate. New Rx for flexeril PRN surgical
pain/muscle spasm.
Discharge Plan
-
Patient Disposition: Acute Rehab Facility
Discharge Diagnosis/Procedures: AVR/CABG
Condition: Good
Diet: Low Cholesterol and 2 Gram Sodium
Activity: No strenuous activity
Driving Restrictions: Not until seen by your Dr
Bathing Restrictions: OK to Shower
Other Services: Cardiac Rehab
Specialty Instructions: Weigh Daily- Call MD for wt gain/loss 3 lbs overnight/5 lbs in 1 week
Stop these medications:: Omeprazole has been replaced with pantoprazole due to interaction with plavix (clopidogrel).
Stop Toprol XL at this time.
Activity Restrictions/Additional Instructions:
ACTIVITY:
-No strenuous activity: no heavy lifting, pushing, pulling anything over 15 pounds for one month
-continue to use stairs as tolerated
DRIVING RESTRICTIONS:
-No driving for one month or until approved by your surgeon
WOUND CARE:
-Shower daily. Use soap & water.
-No lotions, creams or powders on incision area.
DIET:
-continue a low fat/low cholesterol diet.
CARDIAC REHAB:
-Please make appointment to start in 5-6 weeks with your local hospital program. (See Cardiac Rehabilitation Discharge Booklet).
SPECIALTY INSTRUCTIONS:
-Weigh yourself daily. Call your physician for any weight gain/loss of 3 lbs overnight or 5 lbs in one week.
-REPORT any clicking noise or uneven appearance of your sternum to your surgeon immediately.
-If you smoke, you are instructed to quit. The [place] smoking hotline phone number is [phone]
Referrals:
CT Transitional Care Nurse [Outside] - in one to two days
(
The Cardiothoracic Transitional Care Nurse will call you to set up a visit in 1-2 days.)
[facility] [Outside] - 05/10/23 1:00 pm
(Cardiac Rehab Orientation appointment and� First Exercise appointment is on 05/10/23 at 1 PM.
The Cardiac Rehab gym is located on the first floor of the [facility].)
Jane Laurent MD [Active] - (May with PFT after CT ION)
Thony Esparza MD [Family Provider] - in four to six weeks (Please make an appointment in four to six weeks. )
Jenn Pena PA-C [Specified Professional Personl] - 05/16/23 2:20 pm
Travis Cotto MD [Active] - 05/03/23 1:30 pm
Prescriptions:
New
clopidogrel 75 mg Tablet
75 mg PO DAILY Qty: 30 1RF
pantoprazole 40 mg Tablet,Delayed Release (Dr/Ec)
40 mg PO DAILY Qty: 30 0RF
cyclobenzaprine 10 mg Tablet
5 mg PO TID PRN (Reason: mod-severe pain) Qty: 30 0RF
metoprolol tartrate 50 mg Tablet
50 mg PO Q12 Qty: 60 0RF
Continued
methylprednisolone 4 mg Tablet
4 mg PO DAILY
Repatha SureClick 140 mg/mL Pen Injector
140 mg SC Q2W
milk thistle 500 mg Capsule
1,000 mg PO DAILY
calcium carbonate-vitamin D3 500 mg-3.125 mcg (125 unit) Tablet
1 tab PO DAILY
B12 5,000-100 mcg Lozenge
1 niya SUBLINGUAL DAILY
valsartan 320 mg tablet
180 mg PO DAILY
multivitamin Tablet
1 tab PO DAILY
potassium chloride 10 mEq Tablet Extended Release
50 meq PO MOWEFR
magnesium 250 mg Tablet
500 mg PO MOWEFR
travoprost 0.004 % Drops
1 drp OPHTHALMIC (EYE) QPM
aspirin 81 mg tablet,delayed release (DR/EC)
81 mg PO DAILY
furosemide [Lasix] 20 mg tablet
20 mg PO DAILY
Changed
diphenhydramine-acetaminophen [Tylenol PM Extra Strength] 25-500 mg Tablet
1 tab PO HS PRN (Reason: Sleep) Qty: 0 0RF
Discontinued
omeprazole 20 mg Capsule,Delayed Release(Dr/Ec)
20 mg PO TUTHSA
metoprolol succinate [Toprol XL] 25 mg Tablet Extended Release 24 Hr
25 mg PO DAILY
Discharge Orders:
Discharge Patient (As Directed); Ordered 04/09/23
Ordered By: Love Salazar
Care Plan Goals
Care Plan Goals:
Problem: Readiness for enhanced knowledge related to diagnosis and treatment plan
Goal: Understand your diagnosis and treatment plan needs, including medications if applicable.
Instructions: Know your diagnosis, underlying causes and treatment plan options, including medications if applicable. Consult with your health care team to learn about your diagnosis and treatment plan, including medications if applicable.
--- NOTE | 2023-04-08 12:06 | PTCARENOTE ---
2 view CXR completed. SBP 165. Valsartan restarted.
[2023-04-08] MEDS: DIOVAN 60 MG PO (12:48)
[2023-04-08] MEDS: FERRLECIT 110 MG IV (15:32)
[2023-04-08] MEDS: DIOVAN 80 MG PO (15:56)
[2023-04-08] MEDS: TRAVATAN Z 1 DROP BOTH EYES (15:56)
--- NOTE | 2023-04-08 16:02 | PTCARENOTE ---
BP remains elevated, valsartan now dose administered as ordered.
--- NOTE | 2023-04-08 20:00 | PTCARENOTE ---
Pt received from sudhir RN. Walking rounds completed. Pt OOB in chair. AAOx4. SR on monitor. HR 70s. Epicardial wires insulated. BP 159/81. Bilateral radial and DP pulses palpable. Trace LE edema. Pt on RA. POX 96%. IS encouraged. Abdomen
soft/nontender. OOB w/ 1 assist to void to yellow urine. All surgical sites stable. Right AC 20 gauge CDI and flushes. See MAR for full nursing assessment and interventions. Call blas within reach.
[2023-04-08] MEDS: SENOKOT-S PO (20:05)
[2023-04-08] MEDS: ULTRAM 25 MG PO (21:30)
[2023-04-08] MEDS: APRESOLINE 10 MG IV (23:28)
[2023-04-09] VITALS (16 sets, daily range): BP systolic 118–177; BP diastolic 60–89; PULSE 64; O2SAT 98; BMI 32.5
--- NOTE | 2023-04-09 00:22 | PTCARENOTE ---
Pt reassessed. Remains SR on monitor. HR 70s. RA. POX 95%. Pt assisted OOB to void and the repositioned back into bed. K- pad in use around neck. Pt BP elevated. CTPA aware - see APR. Call blas within reach.
[2023-04-09 03:33] LABS: Hematocrit 29.7 % (37.0-47.0); Hemoglobin 10.2 g/dL (12.0-16.0); Mean Corp Hgb Conc. 34.3 g/dL (33.0-37.0); Mean Corpuscular Hgb 32.6 pg (27.0-31.0); Mean Corpuscular Volume 94.9 fL (81.0-99.0); Mean Platelet Volume 9.6 fL (7.4-10.4); Platelet Count 270 10^3/uL (130-400); Red Blood Cell Count 3.13 10^6/uL (4.20-5.40); White Blood Cell Count 9.9 10^3/uL (4.8-10.8)
[2023-04-09] MEDS: FLEXERIL 5 MG PO (03:44)
[2023-04-09] MEDS: TYLENOL 650 MG PO (03:45)
[2023-04-09 04:13] LABS: Blood Urea Nitrogen 18 mg/dl (7-17); Calcium 9.1 mg/dl (8.4-10.2); Carbon Dioxide 21 mmol/L (22-30); Chloride 106 mmol/L (98-107); Estimated Creatinine Clearance 73 ml/min; Glucose 103 mg/dl (70-99); Potassium 3.9 mmol/L (3.5-5.1); Sodium 138 mmol/L (135-145); eGFR > 60.00
--- NOTE | 2023-04-09 04:15 | PTCARENOTE ---
Assessment unchanged. Pt SR on monitor. HR 70s. BP stable. Maintained on RA. POX 95%. Pt OOB to the chair. Pt c/o pain - see MAR. Call blas within reach.
--- NOTE | 2023-04-09 05:55 | W.PN.CT ---
Today's Communication / Plan
-
pod #6
-no issues overnight, no complaints
-no further hypotension, home valsartan & BB restarted. Metoprolol titrated up to 50 for this AM
-continue PT/OT, evaluate for possible d/c to Rehab when medically ready (pt lives with daughter with mental disability and doesn't feel that dtr will be able to help her at home)
-appreciate CM help
-voiding
-maintain pw (will cut before d/c)
-encourage IS, chest PT
-PT/OT, OOB
-dispo planning
Assessment / Plan
-
Assessment:
-S/p Surgical AVR (23 mm Umana Inspiris Biological Valve)/ CABG x 2 (In situ GERARDO to LAD, Ao to RSVG to OM)/ R EV[facility], by Dr. Cotto, 04/03/23, pod#6
-Severe
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
-LVEF 65% per intraop ARI
-Severe left ventricular hypertrophy
-HTN
-HLD
-Class 1 obesity (BMI 31.3)
-Prediabetes (A1C 6.0)
-Polymyalgia rheumatica (on chronic steroids)
-Osteoarthritis
-Osteoporosis
-Hypothyroidism
-PAD
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
-Hx of TIA
-LLL lung nodule (1.1 cm), suspicious for malignancy
-COPD
-Former tobacco use (35 pk/yr, quit 1989)
-IBS
-Hx Diverticulosis/Diverticulitis S/p colectomy
-S/p bilateral cataracts, 11/2020
-S/P bilateral Knee replacement, 11/2016
-S/p total hysterectomy
-Acute postop blood loss/Anemia (transfused 2u PRBCs)
-Acute postop thrombocytopenia (stable without active bleed)
-Acute postop atelectasis/pleural effusion
-Acute postop hypovolemia with subsequent hypervolemia
-Acute postop symptomatic hypotension 04/06 - tx with 1u pRBC
-Acute postop orthostasis 04/06
Discussed patient care with: Care Team
Subjective
Procedure
-S/p Surgical AVR (23 mm Umana Inspiris Biological Valve)/ CABG x 2 (In situ GERARDO to LAD, Ao to RSVG to OM)/ R EVH, by Dr. Cotto, 04/03/23
-
Date of Service: April 09, 2023
Objective Data
-
Lab Results
04/08/23 03:21
04/08/23 03:21
PT 20.1 Sec (11.4-14.6) H 04/03/23 12:15
INR 1.73 04/03/23 12:15
APTT 35.5 Sec (23.4-35.0) H 04/03/23 12:15
Vital Signs
Vital Signs
Temp Pulse Resp BP Pulse Ox
98.2 F 82 16 159/81 98
04/08/23 20:03 04/08/23 20:05 04/08/23 20:03 04/08/23 20:05 04/08/23 20:03
CT Intake/Output/Weight
04/08/23 04/08/23 04/09/23
06:59 18:59 06:59
Intake Total 50 / 280 200 / 200
Output Total 300 / 300
Balance 50 / 280 -100 / -100
SaO2: 98
Physical Exam
-
General: Awake, Oriented and AOx3
Cardiovascular: Regular rate & rhythm
Respiratory: Clear and Equal
Sternum: Stable
Incision: Clean, Dry and Intact
Extremities: Edema +1
Data Reviewed
-
Lab Results: Results Reviewed
Medications: Active Meds Reviewed
Chest X-Ray: Image Reviewed
Vital Signs / Labs
-
Vital Signs and Labs:
Temp Pulse Resp BP Pulse Ox
98 F 79 16 175/84 96
04/09/23 03:21 04/09/23 04:07 04/09/23 03:21 04/09/23 04:07 04/09/23 03:21
04/09/23 03:05
04/09/23 03:05
04/09/23
03:05
RBC 3.13 L
Hgb 10.2 L
Hct 29.7 L
MCH 32.6 H
Carbon Dioxide 21 L
BUN 18 H
Creatinine 0.4 L
Glucose 103 H
[2023-04-09] MEDS: LOPRESSOR 50 MG PO ×2 (06:19→08:15)
--- NOTE | 2023-04-09 07:40 | PTCARENOTE ---
Patient received from nightshift nurse. Patient is alert and oriented x4. She is frustrated with the possibility of going home, she would feel more comfortable and supported in an inpt rehab since she lives alone and cannot rely on her daughter.
Patient denies anxiety, but it seems situational. Emotional support provided. NSR. HR 60s. A/V wires insulated. Audible heart tones. BP 160/80. Palpable pulses, weak dorsalis pedal pulses. +1 LE edema. PIV maintained. RA. Oxygen saturation 96%. Upon
auscultation, lung sounds diminished throughout. IS 750. Abdomen round, obese. +BS. Patient had a BM yesterday. Sternal incision is approximated with surgical adhesive and open to air. R groin puncture site is approximated and ecchymotic. R knee
incision is approximated with surgical adhesive and open to air. Will continue to monitor.
[2023-04-09] MEDS: DIOVAN 180 MG PO (08:16)
[2023-04-09] MEDS: LOW STRENGTH ASPIRIN 81 MG PO (08:16)
[2023-04-09] MEDS: PLAVIX 75 MG PO (08:16)
[2023-04-09] MEDS: PROTONIX 40 MG PO (08:16)
[2023-04-09] MEDS: KCL 20 MEQ PO (08:17)
[2023-04-09] MEDS: MEDROL 4 MG PO (08:17)
[2023-04-09] MEDS: VITAMIN C 500 MG PO (08:17)
[2023-04-09] MEDS: PACERONE 200 MG PO (08:17)
[2023-04-09] MEDS: SENOKOT-S PO (08:17)
[2023-04-09] MEDS: LASIX 40 MG IV (08:17)
--- NOTE | 2023-04-09 11:10 | W.PN.CARDCBS ---
Today's Communication / Plan
-
Stable cardiology status status post AVR
Impression / Plan
-
Supervisory Examiner: Dr. Mary Kwok
Impression:
Severe, symptomatic aortic valve stenosis
s/p Surgical aortic valve replacement w/ 23 mm Umana Inspiris Biological Valve 04/03/2023
CAD w/ IFR positive left main and ostial LAD stenosis
CABG x 2 (In situ GERARDO to LAD, Ao to RSVG to OM) 04/03/2023
Polymyalgia rheumatica, chronic steroid use for rheumatoid arthritis
Hypertension
Osteoarthritis
Irritable bowel syndrome
Hyperlipidemia, on Repatha
Left lower lobe lung nodule, suspicious for malignancy (recently growing spiculated lung nodule, of unclear etiology)
Thyroid disease
History of tobacco abuse
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
Peripheral artery disease
High-grade left internal carotid stenosis (80% @ origin)
TIA
Hx Diverticulosis/Diverticulitis S/p colectomy
S/p bilateral cataracts, 11/2020
S/P bilateral Knee replacement, 11/2016
S/p total hysterectomy
Echo 11/07/22: LVEF of 58%, moderate LVH, LVOT gradient of 41 mmHg, increasing to 65 mmHg with Valsalva, stage II diastolic dysfunction, moderate to severe aortic stenosis with peak and mean transaortic gradients of 62 and 32 mmHg, calculated aortic
valve area of 0.9 cm�, trace tricuspid regurgitation without evidence of pulmonary hypertension.
Cath 03/08/23: RA 12; PA : 39/19 (27), PCWP (m) : 22, PA saturation: 65.9% on room air, AO saturation: 95.7% on room air, CO 3.31 L/min by Rut, CI 1.87 L/min/m-2 by Rut, SVR 2173 dsc^(-5), PVR 1.51 her unit, LVEDP22. IFR of ostial left main was
borderline at 0.89-0.90. Eccentric 80% ostial LAD stenosis which is IFR positive with an IFR of 0.85
Plan:
She continues to do very well at present.
Remains in sinus rhythm
Rehab is being considered
Discussed with nursing
Progress Note - Supervisory Examiner
Subjective
Date of Service: April 09, 2023
No complaints.
Objective
Labs:
04/09/23 03:05
04/09/23 03:05
Labs
Hgb 10.2 g/dL (12.0-16.0) L 04/09/23 03:05
Hct 29.7 % (37.0-47.0) L 04/09/23 03:05
Plt Count 270 10^3/uL (130-400) D 04/09/23 03:05
PT 20.1 Sec (11.4-14.6) H 04/03/23 12:15
INR 1.73 04/03/23 12:15
APTT 35.5 Sec (23.4-35.0) H 04/03/23 12:15
Sodium 138 mmol/L (135-145) 04/09/23 03:05
Potassium 3.9 mmol/L (3.5-5.1) 04/09/23 03:05
BUN 18 mg/dl (7-17) H 04/09/23 03:05
Creatinine 0.4 mg/dL (0.6-1.0) L 04/09/23 03:05
Glucose 103 mg/dl (70-99) H 04/09/23 03:05
Vital Signs and I&O:
Vital Signs
Temp Pulse Resp BP Pulse Ox
98 F 63 18 141/71 96
04/09/23 11:05 04/09/23 11:05 04/09/23 11:05 04/09/23 11:05 04/09/23 11:05
Vital Signs
Temp Pulse Resp BP Pulse Ox
98 F 63 18 141/71 96
04/09/23 11:05 04/09/23 11:05 04/09/23 11:05 04/09/23 11:05 04/09/23 11:05
Intake & Output
04/07/23 04/08/23 04/09/23 04/10/23
06:59 06:59 06:59 06:59
Intake Total 600 / 600 280 / 280 200 / 200 480 / 480
Output Total 1200 / 1200 300 / 300
Balance -600 / -600 280 / 280 -100 / -100 480 / 480
Physical Exam
Physical Exam
General: Well developed, well nourished in NAD.
Neck: Supple, no JVD, HJR, carotids +2 B/L, no bruits bilaterally.
Heart: Non displaced PMI, RRR, no murmurs, No S3, S4, no rubs.
Lungs: Scattered rhonchi
Sternal dressings noted
Extremities: No clubbing, cyanosis or edema bilaterally.
Neuro: Grossly nonfocal, awake, alert and oriented x3.
--- NOTE | 2023-04-09 11:12 | PTCARENOTE ---
Vital signs stable. NSR. HR 60s. BP 141/71. RA. Oxygen saturation 96%. Patient laying in bed to take a nap. Discharge order placed. Patient was accepted at [facility]. Will continue to monitor.
[2023-04-09] MEDS: NSS IV (11:46)
--- NOTE | 2023-04-09 11:51 | CM ---
Reviewed chart. Telephone call to [facility] Liaison to make the referral. Sent referral to [facility]. [facility] reviewed and can accept Mrs. Colindres For admission today (this Afternoon). Met with Mrs. Colindres to review discharge plans. She is
agreeable to transfer to [facility]. Updated medical team. Medical work-up in progress. The discharge plan is to go to [facility] at [place] when medically stable.
--- NOTE | 2023-04-09 13:22 | W.DCSUMMARY ---
Discharge Summary
Discharge Data
Date of Admission: 04/03/23
Date of Discharge: 04/09/23
-
Pending Results: No
Hospital Course
Primary care physician:� Thony Esparza
Outpatient grader meat:� Mary Kwok
Inpatient consultants:� [facility] Cardiology
Procedures:��
1.� Aortic valve replacement with 23mm Inspiris valve and coronary artery bypass grafting x2 with left internal mammary artery to left anterior descending and saphenous vein graft to obtuse marginal
Primary Diagnosis:��
1.� Low-flow gradient severe aortic stenosis and coronary artery disease
Secondary Diagnoses:��
1.� Hypertension
2.� Bilateral carotid stenosis with history of Transient ischemic attack in 2013
3.� Hyperlipidemia
4.� Left lower lobe lung nodule (1.1cm)
5.� Chronic obstructive pulmonary disease
6.� Polymyalgia rheumatica on chronic steroid
7.� Prediabetes (A1c 6.0)
8.� Diverticulitis status post lap colectomy
9.� Acute surgical blood loss anemia- expected
10. Class 1 obesity�
11. Osteoarthritis
12. Osteoporosis
13. bilateral cataract extraction 11/2020
14. bilateral Knee replacement, 11/2016
15. total hysterectomy
HPI:
Lisseth Colindres is a 78-year-old female electively admitted 04/03/2023 for aortic valve replacement and coronary bypass grafting.
Hospital course: Patient underwent aortic valve replacement with #23 mm Inspiris valve and CABG x 2 with GERARDO to LAD and saphenous vein graft to OM by Dr. Cotto without any perioperative complications.� Intraoperative ARI reported ejection fraction
of 65% and AV gradients of 20/13 mmHg. patient required 2 units of packed red blood cells intraoperatively and returned to CVICU on Levophed, insulin, and Precedex. Patient was extubated at 1625 and received aspirin within 6 hours of surgery.�
Postoperative day #1 the patient was initiated on Plavix in addition to aspirin therapy.� [place] mu catheter & arterial line were removed. Conner was discontinued.� On postoperative day #2 the chest tubes were removed and beta-jennifer was resumed. On
postop day #3 pt had an episode of symptomatic hypotension with Hemoglobin of 8.1, she was transfused an additional 1U of PRBC. BB was held at that time. on Postoperative day #4 Hemoglobin increased to 9.1 with stabilization of blood pressure.� Low
dose Beta-jennifer was resumed.� Patient was evaluated by physical therapy and recommended rehab on discharge.� On postoperative day #5 right IJ was removed and patient diuresed with Lasix 40 mg IV.� Systolic blood pressure increased to 160 mmHg and
valsartan was started at 60 mg grams daily (home dose 180 mg daily). On postop day #6 BP continues to rise, Beta jennifer was again titrated up to lopressor 50mg BID & valsartan increased to 180mg (home dose). Pt previously on Toprol XL prior to
admission, this can be converted back once dosing has stabilized. Pt evaluated by PT/OT and accepted to [facility] at . Pt discharged in fair condition.
Home medication changes:��
New plavix for SVG patency, Omeprazole changed to pantoprazole due to interaction with plavix. Toprol XL changed to lopressor during reintroduction & titration. Could be transitioned to Toprol XL when appropriate. New Rx for flexeril PRN surgical
pain/muscle spasm.�
Discharge Plan
-
Patient Disposition: Acute Rehab Facility
Discharge Diagnosis/Procedures: AVR/CABG
Condition: Good
Diet: Low Cholesterol and 2 Gram Sodium
Activity: No strenuous activity
Driving Restrictions: Not until seen by your Dr
Bathing Restrictions: OK to Shower
Other Services: Cardiac Rehab
Specialty Instructions: Weigh Daily- Call MD for wt gain/loss 3 lbs overnight/5 lbs in 1 week
Stop these medications:: Omeprazole has been replaced with pantoprazole due to interaction with plavix (clopidogrel).
Stop Toprol XL at this time.
Activity Restrictions/Additional Instructions:
ACTIVITY:
-No strenuous activity: no heavy lifting, pushing, pulling anything over 15 pounds for one month
-continue to use stairs as tolerated
DRIVING RESTRICTIONS:
-No driving for one month or until approved by your surgeon
WOUND CARE:
-Shower daily. Use soap & water.
-No lotions, creams or powders on incision area.
DIET:
-continue a low fat/low cholesterol diet.
CARDIAC REHAB:
-Please make appointment to start in 5-6 weeks with your local hospital program. (See Cardiac Rehabilitation Discharge Booklet).
SPECIALTY INSTRUCTIONS:
-Weigh yourself daily. Call your physician for any weight gain/loss of 3 lbs overnight or 5 lbs in one week.
-REPORT any clicking noise or uneven appearance of your sternum to your surgeon immediately.
-If you smoke, you are instructed to quit. The [place] smoking hotline phone number is [phone]
Referrals:
[facility] [place] [Other]
[facility] [Outside] - 05/10/23 1:00 pm
(Cardiac Rehab Orientation appointment and� First Exercise appointment is on 05/10/23 at 1 PM.
The Cardiac Rehab gym is located on the first floor of the [facility].)
Jane Laurent MD [Active] - (May with PFT after CT ION)
Thony Esparza MD [Family Provider] - in four to six weeks (Please make an appointment in four to six weeks. )
Jenn Pena PA-C [Specified Professional Personl] - 05/16/23 2:20 pm
Travis Cotto MD [Active] - 05/03/23 1:30 pm
Prescriptions:
New
clopidogrel 75 mg Tablet
75 mg PO DAILY Qty: 30 1RF
pantoprazole 40 mg Tablet,Delayed Release (Dr/Ec)
40 mg PO DAILY Qty: 30 0RF
cyclobenzaprine 10 mg Tablet
5 mg PO TID PRN (Reason: mod-severe pain) Qty: 30 0RF
metoprolol tartrate 50 mg Tablet
50 mg PO Q12 Qty: 60 0RF
Continued
methylprednisolone 4 mg Tablet
4 mg PO DAILY
Repatha SureClick 140 mg/mL Pen Injector
140 mg SC Q2W
milk thistle 500 mg Capsule
1,000 mg PO DAILY
calcium carbonate-vitamin D3 500 mg-3.125 mcg (125 unit) Tablet
1 tab PO DAILY
B12 5,000-100 mcg Lozenge
1 niya SUBLINGUAL DAILY
valsartan 320 mg tablet
180 mg PO DAILY
multivitamin Tablet
1 tab PO DAILY
potassium chloride 10 mEq Tablet Extended Release
50 meq PO MOWEFR
magnesium 250 mg Tablet
500 mg PO MOWEFR
travoprost 0.004 % Drops
1 drp OPHTHALMIC (EYE) QPM
aspirin 81 mg tablet,delayed release (DR/EC)
81 mg PO DAILY
furosemide [Lasix] 20 mg tablet
20 mg PO DAILY
Changed
diphenhydramine-acetaminophen [Tylenol PM Extra Strength] 25-500 mg Tablet
1 tab PO HS PRN (Reason: Sleep) Qty: 0 0RF
Discontinued
omeprazole 20 mg Capsule,Delayed Release(Dr/Ec)
20 mg PO TUTHSA
metoprolol succinate [Toprol XL] 25 mg Tablet Extended Release 24 Hr
25 mg PO DAILY
Discharge Orders:
Discharge Patient (As Directed); Ordered 04/09/23
Ordered By: Love Salazar
Care Plan Goals
Care Plan Goals:
Problem: Readiness for enhanced knowledge related to diagnosis and treatment plan
Goal: Understand your diagnosis and treatment plan needs, including medications if applicable.
Instructions: Know your diagnosis, underlying causes and treatment plan options, including medications if applicable. Consult with your health care team to learn about your diagnosis and treatment plan, including medications if applicable.
--- NOTE | 2023-04-09 15:17 | PTCARENOTE ---
telemetry monitor discontinued. PIV discontinued. Patient ambulated to the BR. Patient and RN checked patient's room for belongings. [facility]
== END 2023-04-09 15:30 | DRG 220 ==
LOC: CVICU 05:13
PROVIDERS: Clinical Nurse Specialist Acute Care; Nurse Practitioner; Physician Assistant Medical; ADMITTING PHYSICIAN Thoracic Surgery (Cardiothoracic Vascular Surgery); CONSULT PHYSICIAN Internal Medicine Critical Care Medicine; FAMILY PHYSICIAN Family Medicine
PROC: B24BZZ4 Ultrasonography of Heart with Aorta, Transesophageal (ICD-10-PCS; 2023-04-03)
PROC: 02100Z9 Bypass Coronary Artery, One Artery from Left Internal Mammary, Open Approach (ICD-10-PCS; 2023-04-03)
PROC: 5A1221Z Performance of Cardiac Output, Continuous (ICD-10-PCS; 2023-04-03)
PROC: 02RF08Z Replacement of Aortic Valve with Zooplastic Tissue, Open Approach (ICD-10-PCS; 2023-04-03)
PROC: 021009W Bypass Coronary Artery, One Artery from Aorta with Autologous Venous Tissue, Open Approach (ICD-10-PCS; 2023-04-03)
PROC: 06BP4ZZ Excision of Right Saphenous Vein, Percutaneous Endoscopic Approach (ICD-10-PCS; 2023-04-03)
PROC: 30233N1 Transfusion of Nonautologous Red Blood Cells into Peripheral Vein, Percutaneous Approach (ICD-10-PCS; 2023-04-03)
DX: I35.0 Nonrheumatic aortic (valve) stenosis (principal); D62 Acute posthemorrhagic anemia; I25.10 Atherosclerotic heart disease of native coronary artery without angina pectoris; M06.9 Rheumatoid arthritis, unspecified; I10 Essential (primary) hypertension; K58.9 Irritable bowel syndrome, unspecified; E78.5 Hyperlipidemia, unspecified; E03.9 Hypothyroidism, unspecified; J44.9 Chronic obstructive pulmonary disease, unspecified; I73.9 Peripheral vascular disease, unspecified; I65.23 Occlusion and stenosis of bilateral carotid arteries; R91.1 Solitary pulmonary nodule; M35.3 Polymyalgia rheumatica; M81.0 Age-related osteoporosis without current pathological fracture; R73.03 Prediabetes; E66.9 Obesity, unspecified; Z68.32 Body mass index [BMI] 32.0-32.9, adult; Z86.73 Personal history of transient ischemic attack (TIA), and cerebral infarction without residual deficits; Z87.891 Personal history of nicotine dependence; Z79.52 Long term (current) use of systemic steroids
CPT/HCPCS: 88305; 88311; 36415; 71045; 71046; 77063; 77067; 80048; 80053; 81003; 82248; 82330; 82565; 82805; 82810; 82947; 82962; 83036; 83735; 84132; 84302; 84520; 85014; 85018; 85025; 85027; 85049; 85610; 85730; 86850; 86900; 86901; 86920; 87070; 93005; 93312; 93320; 93325; 94002; 97116; 97163; 97167; 97535; J2916; P9016; P9045; P9047

== ENCOUNTER 2023-04-15 11:58 | Inpatient (IN) | payer MEDICARE, OTHER, SELFPAY ==
[2023-04-15] VITALS (18 sets, daily range): BP systolic 90–156; BP diastolic 52–128; BMI 30.5
--- NOTE | 2023-04-15 10:20 | ED.GENMED ---
Addendum entered and electronically signed by Richard Castro MD 04/15/23 12:52:
Patient just went into atrial fibrillation. Blood pressure 102. Heart rate 140s to 160s. EKG atrial fibrillation with rapid regular response. Nonspecific changes. Cardiology aware. Hospitalist aware. Cardiology recommends starting amiodarone
150 as a bolus followed by drip.
Original Note:
History of Present Illness
General
Chief Complaint: Breathing Problem
Source: patient and records
Exam Limitations: none
Time Seen by Provider: 04/15/23 09:58
Travel History
Have you had any contact with someone who has COVID-19?: No
Do you have any symptoms of coronavirus? Fever > 100 degrees, chills, cough, shortness of breath, sore throat, loss of taste or smell, muscle aches, or headache?: Yes
Symptoms:: SOB
History of Present Illness
History of Present Illness:
78-year-old female sudden onset of shortness of breath about 7 AM. No unusual chest pain. Recent aortic valve replacement and CABG. Currently in rehabilitation. History of COPD although this shortness of breath is much more severe and different.
Hypoxic on arrival. Symptoms have progressed over the 2 hours
Past History
Past History
ED Past Medical History: COPD, HTN, Hypercholesterolemia and Hypothyroidism
ED Past Surgical History: Cardiac (CABG/aortic valve replacement) and Gynecological (HARMEET/BSO 2005)
Social History
Tobacco: Non-smoker
Alcohol: None
Drug: None
Personal: Partner
Living: with family
Employment: Retired
Family History
Family History: Other (n/c, no cad, cva)
Review of Systems
Review of Systems
All Other Systems: Not applicable
Constitutional: Denies fever
Respiratory: Denies cough
ABD/GI: Reports no symptoms
Phy Exam
Physical Exam
Physical Exam:
GENERAL: Alert and oriented. Mildly tachypneic. Hypoxic on arrival
EYE: Orbits normal.
NECK: Supple, no significant adenopathy.
ENT: Pharynx without erythema
CARDIAC: Regular rate and rhythm sternotomy scar well-healing
LUNGS: Minimal tachypnea. A few crackles in the bases
ABDOMEN: Soft, without focal tenderness or distention
NEUROLOGICAL: Alert and oriented , grossly non-focal
SKIN: Warm and dry, no rash or lesion, no discoloration, skin intact.
MUSCULOSKELETAL: Ecchymosis to the right lower extremity
PSYCH: Normal and appropriate interaction.
Scores
Heart Failure Risk
Heart Failure Risk Score: Not Applicable
Course
Orders/Labs/Results
Orders:
Orders
04/15/23 10:01
EKG [Electrocardiogram (*1)] Urgent
Reason for Study: Chest Pain
EKG- Treatment ONCE
04/15/23 10:12
Cardiac Monitoring- Treatment ONCE
IV Insert/Care/Rem.- Treatment PRN
Ipratropium/Albuterol Sulfate [Duoneb] 3 ml INH R NOW ONE
Pulse Ox/cont/shift [RESP] Stat
Quantity: 1
04/15/23 10:13
CT Chest Pe Study Urgent
Comment:
Reason For Exam: sudden sob. hx of valve replacement.
04/15/23 10:19
Echo 2D MMode Color/Doppler Urgent
Reason for Study: Short of breath. Recent valve replacement
04/15/23 10:35
Basic Metabolic Panel Urgent
Complete Blood Count/With Diff Urgent
PTT Urgent
Prothrombin Time Urgent
Troponin I Urgent
04/15/23 10:41
Heparin 5,800 units IV NOW STA
Pharmacy Request to Place See Dose Instructions PO NOW STA
Discontinue all Active Warfarin orders?: Yes
Nursing to Place Non Medication Order As Directed
Physician Order: PTT 6 hours after initial start of Heparin infusion
Above order entered?: Yes
04/15/23 10:45
Heparin 92385 Units/250 ml 25,000 units in 250 ml IV PER PROTOCOL
Weight to be used for heparin protocol in kilograms (kg):: 72.9
Protocol:: DVT/PE
PTT Goal Range to be used:: PTT 73 to 111 seconds
Order type:: Initial
INITIAL Infusion Dose (UNITS/KG/hr) & then follow protocol:: 18 units/kg/hr
Infusion Dose in UNITS/hr & then follow protocol (UNITS/hr):: 1,300
INFUSION RATE in mL/hr & then follow protocol (mL/hr):: 13
For DVT/PE algorithm, re-bolus for low PTT?: Yes
PTT less than or equal to 64 seconds:: Re-bolus 80 units/kg (max 10,000units). Increase by 300 units/hr
(+ 3mL/hr)
PTT 64.1 to 72.9 seconds:: Re-bolus 40 units/kg (max 5,000 units). Increase by 100 units/hr
(+ 1mL/hr)
PTT 73 to 111 seconds:: Target Range. No change in rate.
PTT 111.1 to 130.9 seconds:: Decrease rate by 100 units/hr (- 1 mL/hr)
PTT 131 to 199.9 seconds:: HOLD for 1 hr. Then decrease by 200 units/hr (- 2mL/hr)
PTT greater than or equal to 200 seconds:: HOLD for 2 hrs & Notify Provider. Then decrease by 300 units/hr
(- 3mL/hr)
Lab follow-up:: Each change, PTT q6h until 2 consecutive are therapeutic. Then
PTT daily.
04/15/23 11:[address] See Dose Instructions IV DIRECTED
04/15/23 11:28
Admit/Transfer Patient As Directed
Co-Sign Provider:
Level of Care: Inpatient admission
Assign to:: ICU
Physician / Group: reynold de santiago
Diagnosis: Saddle PE, recent CABG
Reason for Hospitalization: Saddle PE, recent CABG
Expected length of stay greater than two midnights?: Yes
ELOS- Estimated Length of Stay in days: 3
I certify the patient meets the requirements for IP care: Yes
04/15/23 11:30
Code Status As Directed
Resuscitation Status: Full Code
04/15/23 17:00
PTT Urgent
Abnormal Lab Results
04/15/23
10:35
WBC 14.6 H 10^3/uL
(4.8-10.8)
RBC 3.98 L 10^6/uL
(4.20-5.40)
MCH 32.2 H pg
(27.0-31.0)
Plt Count 105 L D 10^3/uL
(130-400)
Abs Immat Gran (auto) 0.3 H 10^3/uL
(0-0.05)
Absolute Neuts (auto) 11.0 H 10^3/uL
(1.4-6.5)
Absolute Monos (auto) 1.1 H 10^3/uL
(0.1-0.6)
Immature Gran % 2.1 H %
(0-0.5)
Neutrophils % 75.4 H %
(42.2-75.2)
Lymphocytes % 13.9 L %
(20.5-51.1)
APTT 46.9 H Sec
(23.4-35.0)
Sodium 134 L mmol/L
(135-145)
Glucose 134 H mg/dl
(70-99)
Troponin I 0.061 H* ng/ml
04/15/23 10:35
04/15/23 10:35
Vital Signs
Initial and Last Documented VS:
Initial Vital Signs
Pulse Resp BP Pulse Ox
107 28 151/72 93
04/15/23 09:56 04/15/23 09:56 04/15/23 09:56 04/15/23 09:56
Last Documented Vital Signs
Pulse Resp BP Pulse Ox
107 28 151/72 84
04/15/23 09:56 04/15/23 09:56 04/15/23 09:56 04/15/23 10:08
*Radiology
Radiology exam reviewed: radiology read reviewed (Large saddle emboli) and other (Previous x-ray reviewed which shows a stable effusion)
*Pulse Oximetry
Patient hypoxic: yes
*EKG
Interpreted by ED Provider?: Yes
Interpretation: abnormal
Comparison EKG: no changes
Heart Rate: 105
Rate: tachycardiac
Rhythm: sinus
Lupton: normal axis
Interval: normal interval
QRS Pattern: normal QRS
Ischemia: no ischemia
*Vascular Specialists Interpretation
Rate: tachycardiac
Interpretation: abnormal
Heart Rate: 104
Rhythm: sinus
*Critical Care Note
Total Time (30-74mins, 75-104mins- exclusive of procedures): 45
Update Note
Update Note:
1015.... Upon exiting the room immediately contacted cardiology and cardiothoracic surgery. A few crackles at the base of the lungs but no florid heart failure. Small effusion by x-ray. Labs are stable. EKG is stable. Clearly requires emergent
CT scan. Will be sent over immediately. Also discussed echocardiogram with cardiology. Order was placed.
1030... Saddle emboli. Text group including pulmonary cardiology interventional radiology hospitalist and cardiothoracic surgery to all include on her care. Heparin ordered. Okayed by cardiothoracic surgery. Currently here for echocardiogram.
Decision on thrombectomy will be made by pulmonary and IR.
ED Attending Note
-
Portions of this chart may have been created with voice recognition software.� Occasional wrong word or��sound alike� substitutions may have occurred due to the inherent limitations of voice recognition software.
Discharge Plan
Departure
Patient Disposition: Admit
Date of Disposition: 04/15/23
Time of Disposition: 10:48
Presentation/result/management discussed w/ accepting MD/DO: Pulmonary/IR/cardiovascul
Discharge Problem:
Saddle pulmonary emboli, Recent aortic valve replacement, Recent CABG
Prescriptions:
No Action
methylprednisolone 4 mg Tablet
4 mg PO DAILY
Repatha SureClick 140 mg/mL Pen Injector
140 mg SC Q2W
milk thistle 500 mg Capsule
1,000 mg PO DAILY
calcium carbonate-vitamin D3 500 mg-3.125 mcg (125 unit) Tablet
1 tab PO DAILY
B12 5,000-100 mcg Lozenge
1 niya SUBLINGUAL DAILY
valsartan 320 mg tablet
180 mg PO DAILY
multivitamin Tablet
1 tab PO DAILY
potassium chloride 10 mEq Tablet Extended Release
50 meq PO MOWEFR
magnesium 250 mg Tablet
500 mg PO MOWEFR
travoprost 0.004 % Drops
1 drp OPHTHALMIC (EYE) QPM
aspirin 81 mg tablet,delayed release (DR/EC)
81 mg PO DAILY
furosemide [Lasix] 20 mg tablet
20 mg PO DAILY
clopidogrel 75 mg Tablet
75 mg PO DAILY Qty: 30 1RF
pantoprazole 40 mg Tablet,Delayed Release (Dr/Ec)
40 mg PO DAILY Qty: 30 0RF
cyclobenzaprine 10 mg Tablet
5 mg PO TID PRN (Reason: mod-severe pain) Qty: 30 0RF
metoprolol tartrate 50 mg Tablet
50 mg PO Q12 Qty: 60 0RF
diphenhydramine-acetaminophen [Tylenol PM Extra Strength] 25-500 mg Tablet
1 tab PO HS PRN (Reason: Sleep) Qty: 0 0RF
Interventions
Interventions:
*Risk Screen - Suicide Last Done: 04/15/23 10:08
*General Assessment Last Done: 04/15/23 10:08
*Neglect/Abuse Screening Last Done: 04/15/23 10:08
ED- Fall Risk Assessment Last Done: 04/15/23 10:08
*ED COVID-19 Vaccine History Last Done: 04/15/23 10:08
ED- Cardiac Assessment Last Done: 04/15/23 10:08
ED- Pulmonary Assessment Last Done: 04/15/23 10:08
[2023-04-15 10:48] LABS: % Basophils 0.7 % (0-2); % Eosinophils 0.5 % (0-6); % Immature Granulocytes 2.1 % (0-0.5); % Lymphocytes 13.9 % (20.5-51.1); % Monocytes 7.4 % (1.7-9.3); % Neutrophils 75.4 % (42.2-75.2); Absolute Basophils 0.1 10^3/uL (0-0.2); Absolute Eosinophils 0.1 10^3/uL (0-0.7); Absolute Immature Granulocytes 0.3 10^3/uL (0-0.05); Absolute Monocytes 1.1 10^3/uL (0.1-0.6); Hematocrit 37.2 % (37.0-47.0); Hemoglobin 12.8 g/dL (12.0-16.0); Mean Corp Hgb Conc. 34.4 g/dL (33.0-37.0); Mean Corpuscular Hgb 32.2 pg (27.0-31.0); Mean Corpuscular Volume 93.5 fL (81.0-99.0); Nucleated Red Blood Cells % 0 %; Platelet Count 105 10^3/uL (130-400); Red Blood Cell Count 3.98 10^6/uL (4.20-5.40); Red Cell Dist. Width 14.4 % (11.5-14.5); White Blood Cell Count 14.6 10^3/uL (4.8-10.8)
[2023-04-15 10:57] LABS: Blood Urea Nitrogen 13 mg/dl (7-17); Calcium 9.1 mg/dl (8.4-10.2); Carbon Dioxide 25 mmol/L (22-30); Chloride 100 mmol/L (98-107); Glucose 134 mg/dl (70-99); INR 1.04; PT 13.4 Sec (11.4-14.6); Potassium 4.1 mmol/L (3.5-5.1); Sodium 134 mmol/L (135-145); eGFR > 60.00
[2023-04-15 10:58] LABS: APTT 46.9 Sec (23.4-35.0)
[2023-04-15] MEDS: HEPARIN 5800 UNITS IV (11:06)
[2023-04-15] MEDS: HEPARIN 25000 UNITS/250 ML IV (11:07)
[2023-04-15 11:14] LABS: Troponin I 0.061 ng/ml
--- NOTE | 2023-04-15 11:28 | HPS.HSE ---
Family Physician
-
Family Physician: Thony Esparza
Chief Complaint
-
Shortness of breath
History of Present Illness
78-year-old female with a past medical history of coronary artery disease status post CABG x 2 with AVR 04/03/[address] Cotto, PMR/RA on chronic steroids, hypertension, hyperlipidemia, COPD, and prediabetes presents with shortness of breath. Patient
states that she was severely short of breath this morning. Denies hemoptysis, denies coughing. She is currently requiring 6 L of oxygen. She does not require oxygen at baseline. She does report lightheadedness and dizziness with ambulation. No
chest pain, no fever. No nausea, vomiting, diarrhea, or constipation. No dysuria, no hematuria.
Medical History
Past Medical History
Past Medical History: Reports Other
Additional Past Medical History:
Coronary artery disease with CABG x 2 and AVR 04/03/2023, HTN, Hypercholesterolemia, Prediabetes, Diverticulitis with laparoscopic colectomy, osteoporosis, lung mass, peripheral vascular disease with bilateral carotid disease, PMR/rheumatoid arthritis
Past Surgical History: Reports Other
Additional Past Surgical History:
AVR with CABG x 2 03/2023, Hysterectomy, sigmoidectomy, bilateral knee replacement, bilateral cataract
Social History
Tobacco: Former Smoker
Alcohol: None
Drug: None
Family History
Family History: Not pertinent
Allergies / Home Medications
Allergies reflects when Allergies were last updated in [email or web address] Application.
Home Medications with original date entered in [email or web address] Application
Allergy/Medication List:
Allergies
Allergy/AdvReac Type Severity Reaction Status Date / Time
codeine [Codeine] Allergy Unknown Verified 03/27/23 14:25
Home Medications Table - record
Medication Instructions Recorded Confirmed
evolocumab 140 mg/mL subcutaneous 140 mg SC Q2W High Cholesterol 01/03/23 04/09/23
pen injector (Reppascual Jordan)
methylprednisolone 4 mg tablet 4 mg PO DAILY INFLAMMATION 01/03/23 04/09/23
milk thistle 500 mg capsule 1,000 mg PO DAILY Supplement 01/03/23 04/09/23
calcium carbonate 500 mg-vitamin 1 tab PO DAILY Supplement 03/08/23 04/09/23
D3 3.125 mcg (125 unit) tablet
cyanocobalamin (B12)-cobamamide 1 niya sublingual DAILY Supplement 03/08/23 04/09/23
5,000 mcg-100 mcg sublingual
lozenge (B12)
magnesium 250 mg tablet 500 mg PO MOWEFR Supplement 03/27/23 04/09/23
multivitamin 1 tab PO DAILY Supplement 03/27/23 04/09/23
potassium chloride 10 mEq 50 meq PO MOWEFR Supplement 03/27/23 04/09/23
tablet,extended release
travoprost 0.004 % eye drops 1 drp ophthalmic (eye) QPM Eye 03/27/23 04/09/23
Condition
valsartan 320 mg tablet 180 mg PO DAILY Blood Pressure 03/27/23 04/09/23
aspirin 81 mg tablet,delayed 81 mg PO DAILY Blood Clot 04/04/23 04/09/23
release Prevention/Tx
furosemide 20 mg tablet (Lasix) 20 mg PO DAILY Fluid 04/04/23 04/09/23
Retention/Swelling
clopidogrel 75 mg tablet 75 mg PO DAILY Blood clot 04/08/23 04/09/23
prevention/tx #30 tabs
pantoprazole 40 mg tablet,delayed 40 mg PO DAILY GI prophylaxis #30 04/08/23 04/09/23
release tabs
cyclobenzaprine 10 mg tablet 5 mg PO TID PRN mod-severe pain 04/09/23 04/09/23
#30 tabs
diphenhydramine 25 1 tab PO HS PRN Sleep #0 tabs 04/09/23 04/09/23
mg-acetaminophen 500 mg tablet
(Tylenol PM Extra Strength)
metoprolol tartrate 50 mg tablet 50 mg PO Q12 Blood pressure #60 04/09/23 04/09/23
tabs
Review of Systems
-
A 12 point ROS was completed and negative except as noted: Yes
Physical Exam
Vital Signs
Vital Signs
Pulse Resp BP Pulse Ox
107 28 151/72 84
04/15/23 09:56 04/15/23 09:56 04/15/23 09:56 04/15/23 10:08
Physical Exam
General: No Apparent Distress and Obese
HEENT: NormoCephalic, Anicteric and Moist mucous membranes
Respiratory: Clear
Cardiac: S1/S2 and Tachycardia
GI: Soft, Non Tender, Non Distended and Normal Bowel Sounds
Skin: Other (Sternal incision healing, substernal punctate incisions noted. Right lower extremity incisions healing, associated echinosis noted.)
Neuro: Awake, Alert and Oriented
Psych: Calm
Laboratory Results
-
04/15/23 10:35
04/15/23 10:35
Laboratory Results
PT 13.4 Sec (11.4-14.6) 04/15/23 10:35
INR 1.04 04/15/23 10:35
APTT 46.9 Sec (23.4-35.0) H 04/15/23 10:35
Troponin I 0.061 ng/ml H* 04/15/23 10:35
Impression/Plan
-
HPI: 78-year-old female with a past medical history of coronary artery disease status post CABG x 2 with AVR 04/03/[address] Cotto, PMR/RA on chronic steroids, hypertension, hyperlipidemia, COPD, and prediabetes presents with shortness of breath.
Patient states that she was severely short of breath this morning. Denies hemoptysis, denies coughing. She is currently requiring 6 L of oxygen. She does not require oxygen at baseline. She does report lightheadedness and dizziness with
ambulation. No chest pain, no fever. No nausea, vomiting, diarrhea, or constipation. No dysuria, no hematuria.
#Acute hypoxic respiratory failure
#Large saddle pulmonary embolism
Appreciate cardiology, pulmonology
Consult IR for embolectomy, continue heparin drip
Wean oxygen as tolerated
#New onset rapid atrial fibrillation
Patient already on a heparin drip
IV amiodarone as per cardiology
#Elevated troponin
Due to PE and rapid for
#Leukocytosis
Suspect reactive, monitor off antibiotics
#Thrombocytopenia
Platelets 105, would monitor since she is on heparin drip, aspirin, and Plavix
#Coronary artery disease
#CABG x 2 with AVR 04/03/[address] Cotto
Continue aspirin, Plavix, statin, metoprolol
#History of hypertension
Blood pressure currently 123/78
Would hold Lasix, metoprolol, valsartan
Resume if blood pressure increases
#Hyperlipidemia
Repatha 140mg SC q 2 weeks- last taken 03/27/2023
Continue statin
#History of rheumatoid arthritis
On methylprednisolone 4 mg daily
#Left lung nodule
Follow-up with pulmonology outpatient
#Obesity due to excess calories
Affects all aspects of care
DVT prophylaxis�heparin drip
Full code
Total time spent to see the patient on the floor, examine the patient, review data and lab results, discuss treatment plan with patient, nursing staff around 75 minutes.
--- NOTE | 2023-04-15 12:45 | W.PN.UPDATE ---
Update Note
Progress Note Update
Received a secure text in the emergency department that patient is in atrial fibrillation with blood pressure 102/63 and heart rates 140-160. I have asked that 150 mg bolus of amiodarone be given and then start at usual drip of 1 mg a minute.
Unable to put orders in currently given admission process is underway.
[2023-04-15] MEDS: CORDARONE 103 MG IV (14:35)
[2023-04-15] MEDS: CORDARONE 518 MG IV (14:36)
--- NOTE | 2023-04-15 16:19 | W.PN.UPDATE ---
Update Note
Progress Note Update
Pulmonary arteriogram showed large saddle embolus, extending mostly to right side. PA pressure 47/13, mean 26 prior to embolectomy.
We were able to remove the saddle portion, about 80% of right sided emboli, and nearly 100% of left sided emboli. PA pressure decreased to 24/9 (mean 15) following embolectomy.
No tpa was given. Heparin ran through the majority of the procedure.
Right femoral venous sheath was just removed. OK to restart heparin around 6:30 pm, bedrest until 8:30 pm.
--- NOTE | 2023-04-15 17:30 | PTCARENOTE ---
Rec'd pt from IR s/p pulmonary embolectomy. Rec'd pt awake alert and oriented. States she feels much better although the events of today worried her. States breathing is much better and she is happy they got most of the clots. Speech is clear. LYON
although is keeping R leg straight per md order. Skin is pink wm and dry. Previous CABG sternal incision is approximated with scab formation. R leg incision with scab formation although R leg in general is ecchymotic down her leg. R groin site with
dressing that is D+I. No swelling, drainage. + pulses L DP and Bilat PT pulses with the doppler. R DP pulse palpable. Feet are sl cool but legs are warm. Respirs are unlabored. Rec'd in IR on 6L nc with sats of 97%- currently on 4l nc with sats of
96-97%. BS are sl decreased at the bases otherwise clear. Monitor SR. Denies chest pain. Tr R Leg edema. ABd is round and soft with + BS. Purewick placed at pt request while she needs to lay flat. Voiding yellow urine. IV Amiodarone infusing via LAC
IV site at 1 mg/min. Capped int intact R wrist. Pt repositioned. Back and khushbu care given. Pt aware of plan of care and that she needs to be on bedrest until 2030 and keep head of bed flat currently. Call blas in reach. Family in to see pt and
updated. Will monitor closely.
--- NOTE | 2023-04-15 18:30 | PTCARENOTE ---
Pt remains flat, resting. R groin site WNL. Pulses as documented. No c/o pain or shortness of breath. Heparin gtt restarted via R wrist #22 IV site per md order at 1300 units/hr. Will monitor. Pts only complaint is of feeling cold. Call blas in
reach.
[2023-04-15] MEDS: FLEXERIL 5 MG PO (20:15)
--- NOTE | 2023-04-15 20:52 | PTCARENOTE ---
Pt received at 19:00. Ox3, pleasant. SR, DP pulses palpable/PT-doppler. 3L NC, pulse ox 94-97%, breath sounds diminished t/o. Abdomen soft/round, +BS. Poor appetite. Purewick in place, be urine. R groin soft, pressure dressing remains CDI. R leg
with bruising from prior procedure--unchanged.
[2023-04-16] VITALS (18 sets, daily range): BP systolic 90–137; BP diastolic 48–71; BMI 30.7
[2023-04-16] MEDS: TYLENOL 650 MG PO ×3 (00:29→17:57)
[2023-04-16] MEDS: BENADRYL 25 MG PO ×2 (00:29→21:49)
[2023-04-16 01:01] LABS: APTT > 200 Sec (23.4-35.0)
[2023-04-16 04:29] LABS: Hematocrit 28.6 % (37.0-47.0); Hemoglobin 10.1 g/dL (12.0-16.0); Mean Corp Hgb Conc. 35.3 g/dL (33.0-37.0); Mean Corpuscular Hgb 32.4 pg (27.0-31.0); Mean Corpuscular Volume 91.7 fL (81.0-99.0); Mean Platelet Volume 10.4 fL (7.4-10.4); Platelet Count 55 10^3/uL (130-400); Red Blood Cell Count 3.12 10^6/uL (4.20-5.40); Red Cell Dist. Width 14.5 % (11.5-14.5); White Blood Cell Count 15.3 10^3/uL (4.8-10.8)
[2023-04-16 04:57] LABS: Troponin I 0.093 ng/ml
--- NOTE | 2023-04-16 05:19 | PTCARENOTE ---
Pt assessment unchanged. Heparin gtt continue. PTT was >200, protocol followed. Pt c/o on insomnia and states that she takes tylenol PM to sleep, x1 order for benadryl given.
[2023-04-16 06:44] LABS: Blood Urea Nitrogen 16 mg/dl (7-17); Calcium 8.9 mg/dl (8.4-10.2); Carbon Dioxide 22 mmol/L (22-30); Chloride 103 mmol/L (98-107); Estimated Creatinine Clearance 61 ml/min; Glucose 119 mg/dl (70-99); Magnesium 2.1 mg/dl (1.6-2.3); Phosphorus 5.1 mg/dl (2.5-4.5); Potassium 4.3 mmol/L (3.5-5.1); Sodium 133 mmol/L (135-145); eGFR > 60.00
--- NOTE | 2023-04-16 07:25 | W.PN.INTV ---
Today's Communication / Plan
Recommendations
Heparin on hold
Check HIT
Hematology evaluation
Likely transition to argatroban
Check fibrinogen
Incentive spirometry
A.m. chest x-ray
Assessment
-
Assessment:� 78-year-old female with a past medical history of hypertension, former tobacco use disorder ([id number], quit 1989), pulmonary nodules with 11 mm PET avid LLL nodule, history of diverticulosis, hypothyroidism, PAD, CAD and aortic
stenosis who presents with shortness of breath and hypoxia..� Patient recently was hospitalized here and underwent surgical aortic valve replacement with bioprosthetic valve and CABG x 2 on 04/03/2023.� There were no immediate complications.� She was
discharged to rehab on 04/09 after PT/OT recommended acute rehab.� While at rehab she has been experiencing hypotension for the last 1-2 days with dizziness upon standing.� Patient also endorses shortness of breath with minimal activity.� CXR done
today showing left-sided pleural effusion similar to prior CXR from 04/08/2023.� CTA chest performed showing a saddle embolism without evidence of RV strain.� PERT alert called and solar energy sales specialist/pulmonary services consulted for additional
recommendations/management.
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
Acute submassive saddle PE with high-risk features (chemical evidence despite no radiographic/echo evidence of RV strain) - elevated troponin + elevated proBNP are concerning for developing RV strain
s/p IR directed thrombectomy 04/15/2023
Acute respiratory failure with hypoxemia due to above
Elevated troponin - due to acute PE as above
Recent SAVR + CABG x2 on 04/03/2023 with right lower extremity saphenous vein harvest
Leukocytosis - reactive due to acute PE
Thrombocytopenia
Elevated 4T score
Plan/recommendations
At this time, patient remains critically ill but appears to be comfortable, 93% on 4 L
Subjective dyspnea noted. Platelets down to 55
No evidence of bleeding
Presently on heparin therapy
Troponin mildly elevated 0.093
PTT greater than 200, heparin currently held
Moving forward
Continue with management, supportive care
Encouragingly, post embolectomy per interventional radiology 04/15 with improvement and filling pressures, 19/11
Heparin remains on hold, await hematology evaluation
4T score elevated, check HIT
Suspect will need to be transition to argatroban
Given possibility of HIT, wonder if this may have been risk factor for thromboembolic process
Hematology has been consulted
Awaiting lower extremity Dopplers
Of note, patient was also on Plavix, aspirin currently being held given platelets
Recent bypass surgery noted
Cardiology following
Maintain in ICU for now
Hemodynamically stable, encourage incentive spirometry
Keep bedrest for now pending hematology evaluation and reinitiation of anticoagulation
Critical care statement: A total of 40 minutes of critical care time was provided for this patient today. This includes management of unstable vital signs, evaluation of the patient at bedside, reviewing the patient's pertinent medical records
including radiographs, microbiology, laboratory evaluations, and� discussion with primary team, consultants, pharmacy, nutrition, physical therapy, case management, charge nurse, critical care nursing, and respiratory therapy.
Data:
CTA Chest 04-15-2023:
Moderately large saddle embolus involving the main pulmonary arteries bilaterally, more extensive on the right, involving the right upper, middle and lower lobe pulmonary arteries, and the left upper pulmonary artery.
Significant left base consolidation and pleural fluid. The previously described 9 mm pulmonary nodule is not clearly identified due to the increased atelectasis and consolidation in the left lung base.
Follow-up pulmonary nodule after resolution of the left pleural effusion and left base atelectasis.
PFT: 11/2022
FEV1/FVC: 75 (101% predicted)
FEV1: 1.73L (99%)
FVC: 2.31L (99%)
T% (4.17L)
RV: 82%
ERV: 70%
IC: 116%
DLco: 83%
VA: 5.14L (116%)
DLco/VA: 77%
Subjective Dataa
Subjective Data
Date of Service:
Date of Service: April 16, 2023
Subjective:
Patient complaining of mild shortness of breath, otherwise denies chest pain, nausea. Status post IR directed thrombectomy 04/15/2023. Did not receive tPA. Presently, 93% on 4 L. Platelets noted 55
Objective Data
Data Reviewed
Vital Signs / I&O / Oxygen:
Vital Signs
Temp Pulse Resp BP Pulse Ox
97.8 F 84 27 124/61 97
04/16/23 07:18 04/16/23 06:45 04/16/23 06:45 04/16/23 06:00 04/16/23 06:45
Intake and Output
04/15/23 04/16/23 04/17/23
06:59 06:59 06:59
Intake Total 384.9 / 384.9
Output Total 650 / 650
Balance -265.1 / -265.1
SaO2 97
Nasal Cannula flow liters per 3
minute
Physical Exam
General: Comfortable and Other (Chest incision intact)
HEENT: Normocephalic and Anicteric
Cardiovascular: S1-S2, Regular Rhythm, Murmur (n), Rub (n), Peripheral Edema (tr) and Other (Right lower extremity bruising, incision intact)
Respiratory: Clear, Wheeze (n), Crackles (n), Rhonchi (n) and Non-Labored Respirations
GI: Soft, Non Distended and Non Tender
Neurology: Awake, Alert, Oriented and No Motor Deficits (Moves all extremities)
Skin: Good Color (n), Cyanosis (n), Bruising (Mild right lower extremity) and Other (Right lower extremity DP pulses intact)
Labs/Micro/Reports
Lab Data
04/16/23 04:04
04/16/23 06:05
Laboratory Results
04/15/23 04/15/23 04/16/23
10:35 17:00 00:11
PT 13.4
INR 1.04
APTT 46.9 H Cancelled > 200 H*
--- NOTE | 2023-04-16 08:21 | W.PN.HOSP.TC ---
Today's Communication/Plan
-
Heparin gtt
Hematology consult
keep close eye on PLT
hold plavix (OK'd by cardiology)
amiodarone for afib
Assessment / Plan
Assessment / Plan
HPI: 78-year-old female with a past medical history of coronary artery disease status post CABG x 2 with AVR 04/03/[address] Cotto, PMR/RA on chronic steroids, hypertension, hyperlipidemia, COPD, and prediabetes presents with shortness of breath found
to be hypoxic; CTA with large saddle PE now s/p embolectomy.
CTA
IMPRESSION:
Moderately large saddle embolus involving the main pulmonary arteries bilaterally, more extensive on the right, involving the right upper, middle and lower lobe pulmonary arteries, and the left upper pulmonary artery.
Significant left base consolidation and pleural fluid. The previously described 9 mm pulmonary nodule is not clearly identified due to the increased atelectasis and consolidation in the left lung base.
Follow-up pulmonary nodule after resolution of the left pleural effusion and left base atelectasis.
Embolectomy 04/16/23
IMPRESSION:
1. Successful suction embolectomy of the saddle embolus, and multiple central right-sided pulmonary emboli.
2. Pulmonary arterial pressure improved from 47/13 (mean 26 mmHg) to 24/9 (mean 15 mmHg).
3. Systemic anticoagulation will be resumed approximately 2 hours following sheath removal.
TTE 04/15/23
CONCLUSIONS
�Left ventricle is small in size.� Underfilled left ventricle.� Severe
�concentric left ventricular hypertrophy. Normal left ventricular systolic
�function. Normal regional wall motion. Left ventricular ejection fraction is
�60-65%.
�Normal right ventricular size and function.
�Thickened mitral valve leaflets. Mitral annular calcification. There is
�adequate mitral leaflet excursion. No mitral regurgitation is seen.
�23 mm bioprosthetic aortic valve replacement.� Peak/mean gradients across the
�aortic valve are 24/14 mmHg respectively. No aortic regurgitation is seen.
�Tricuspid valve opens normally. Mild-moderate tricuspid regurgitation.
�Estimated pulmonary artery pressure of 54-59 mmHg assuming a right atrial
�pressure of 3 mmHg.
�Compared to prior study 11/07/2022 aortic valve has been replaced.� PA pressure
�has now increased and was previously 32 mmHg
�
�Indications:
�Short of breath.� Recent valve replacement
#Acute hypoxic respiratory failure
#Large saddle pulmonary embolism
Appreciate cardiology, pulmonology
-admitted to ICU
s/p embolectomy by IR on 04/15; procedure above
Wean oxygen as tolerated
continue IV heparin gtt
#Thrombocytopenia
-PLT drop to 55 this morning; post embolectomy, also on heparin gtt. questioned HIT; PLT have ranged low 100's last admission and embolectomy explains drop in PLT - discussing with Heme
-she is on heparin gtt given saddle PE
-will consult hematology
-hold PLavix (OK'd by cardiology)
#New onset rapid atrial fibrillation
Patient already on a heparin drip
IV amiodarone as per cardiology
#Elevated troponin
Due to PE and rapid afib
#Leukocytosis
Suspect reactive, monitor off antibiotics
#Coronary artery disease
#CABG x 2 with AVR 04/03/[address] Cotto
Continue aspirin, Plavix, statin, metoprolol
#History of hypertension
Blood pressure currently 123/78
Would hold Lasix, metoprolol, valsartan
Resume if blood pressure increases
#Hyperlipidemia
Repatha 140mg SC q 2 weeks- last taken 03/27/2023
Continue statin
#History of rheumatoid arthritis
On methylprednisolone 4 mg daily
#Left lung nodule
Follow-up with pulmonology outpatient
#Obesity due to excess calories
Affects all aspects of care
GI ppx - protonix
DVT prophylaxis�heparin drip
Full code
Total time spent to see the patient on the floor, examine the patient, review data and lab results, discuss treatment plan with patient,� nursing staff� around 75 minutes.
*awaiting final med rec
Anticipated Discharge: > 48 hours
Subjective/Interval History
-
Date of Service: April 16, 2023
feeling okay
overwhelmed with whats going on medically
breathing feels more stable
legs are bruised post procedure
Objective Data
-
Labs:
Laboratory Results
04/16/23 04/16/23 04/16/23
00:11 04:04 06:05
WBC 15.3 H
Hgb 10.1 L D
Hct 28.6 L
Plt Count 55 L D
APTT > 200 H*
Sodium Cancelled 133 L
Potassium Cancelled 4.3
Chloride Cancelled 103
Carbon Dioxide Cancelled 22
BUN Cancelled 16
Creatinine Cancelled 0.7
Glucose Cancelled 119 H
Calcium Cancelled 8.9
04/16/23
09:05
WBC
Hgb
Hct
Plt Count
APTT Pending
Sodium
Potassium
Chloride
Carbon Dioxide
BUN
Creatinine
Glucose
Calcium
Vital Signs:
Vital Signs
Temp Pulse Resp BP Pulse Ox
97.8 F 84 27 124/61 97
04/16/23 07:18 04/16/23 06:45 04/16/23 06:45 04/16/23 06:00 04/16/23 06:45
I&O
04/15/23 04/16/23 04/17/23
06:59 06:59 06:59
Intake Total 384.9 / 384.9
Output Total 650 / 650
Balance -265.1 / -265.1
Review of Systems
-
History Source: Patient
All other systems: Reviewed and negative
Physical Exam
-
General: No Apparent Distress
HEENT: PERRLA
Respiratory: Non Labored Respirations, Decreased Breath Sounds and Other (mid-line incision post CABG and AVR healing well, no discharge + scabbing)
Cardiac: Regular Rhythm and S1/S2
GI: Soft and Nontender
Musculoskeletal: Other (bruising RLE; vein graft)
Skin: Warm and Dry; Negative Rash
Neuro: AO x 3
Psych: Calm
Data Reviewed
-
Diagnostic Radiology: Report Reviewed by me
Labs: Labs Reviewed by me
[2023-04-16] MEDS: PROTONIX 40 MG PO (08:46)
[2023-04-16] MEDS: ASPIR LOW (ENTERIC COATED) 81 MG PO (08:46)
[2023-04-16] MEDS: PLAVIX 75 MG PO (08:46)
[2023-04-16] MEDS: MEDROL 4 MG PO (08:46)
[2023-04-16 08:58] LABS: Hematocrit 29.4 % (37.0-47.0); Hemoglobin 10.2 g/dL (12.0-16.0); Mean Corp Hgb Conc. 34.7 g/dL (33.0-37.0); Mean Corpuscular Hgb 32.4 pg (27.0-31.0); Mean Corpuscular Volume 93.3 fL (81.0-99.0); Mean Platelet Volume 11.6 fL (7.4-10.4); Platelet Count 48 10^3/uL (130-400); Red Blood Cell Count 3.15 10^6/uL (4.20-5.40); Red Cell Dist. Width 14.6 % (11.5-14.5); White Blood Cell Count 14.8 10^3/uL (4.8-10.8)
--- NOTE | 2023-04-16 09:12 | CON.ONC ---
Addendum entered and electronically signed by Roselia Pena, 04/16/23 16:51:
pt seen and examined. 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 Agree with plan for following additions.
# Thrombocytopenia: pt noted to have mild downtrend in her plts prior to discharge after CABG with further drop to 105K on this presentation. Possible explanations for thrombocytopenia include sequestration with suspected hematoma involving her
right leg s/p harvest which may be been exacerbated by VTE with high clot burden leading to sequestration. Regardless with high 4T score 6-7 need to rule out HIT. HIT Ab ordered, switched to argatroban. hemolysis panel ordered however low suspicion.
continue to monitor. Avoid platelet transfusions unless evidence of clinical bleeding with plts < 10K while ruling out HIT.
# Saddle pulmonary emboli: s/p thrombectomy. Pt hemodynamically stable and on RA. VTE provoked in the setting of recent cardiac surgery, RLE vascular compromise with swelling, ecchymosis from groin to ankle after CABG. Pt now on agatroban gtt while
ruling out HIT. plan to transition to DOAC prior to discharge. with obvious provoking event I feel a finite course of AC appropriate, ashley due to need for anti-plt therapy, however she may benefit from extended course due to clot burden.
- agree with APLA testing, results pending.
will continue to follow.
Original Note:
Impression
Impression
Acute thrombocytopenia
New onset atrial fibrillation
Acute hypoxic respiratory failure
Large saddle PE s/p embolectomy 04/15
s/p CABG 04/03/23
Known left lung nodule
Recent heparin exposure
Leukocytosis
Plan
Plan
04/16 PLT 48
CBC w/ diff daily
Transfuse as needed to maintain Hgb >7, PLT >20
Bleeding precautions
Acute drop in platelet count noted 04/05 and 04/15
Baseline PLTs 275-300 historically
APS panel, iron panel, B12/folate, Retic, LDH, Haptoglobin, baseline d-dimer, fibrinogen levels pending
Heparin gtt
Follow up with Pulmonary outpatient for eval of known left lower lobe lung nodule
We will follow closely. Await additional lab work.
Patient History
History of Present Illness
Lisseth Colindres is a 78 year old female who recently underwent CABG/AVR on 04/03/23. She was discharged to [facility] and reported acute SOB/GOMEZ. Pulse ox on 4-5L was 86% with tachycardia. Patient was transported to the ER for evaluation. She was found
to be in afib with HR 160s. She received amio bolus and underwent successful embolectomy with Dr. Wright. We have been consulted for acute thrombocytopenia. Patient is a vague historian.
Past-Medical/Surgical History
Aortic stenosis
RA on steroids
Hypertension
Hyperlipidemia
Osteoarthritis
COPD
LLL lung nodule
Hypothyroid
PAD
Diverticulosis
Left carotid stenosis
Hysterectomy
Sigmoidectomy
CABG x2
Former smoker
Bilateral knee replacement
Bilateral cataracts
Patient Medication
Medication Instructions Recorded Confirmed Last Taken Type
evolocumab 140 mg/mL subcutaneous 140 mg SC Q2W High Cholesterol 01/03/23 04/09/23 03/27/23 08:00 History
pen injector (Matt Jordan)
methylprednisolone 4 mg tablet 4 mg PO DAILY INFLAMMATION 01/03/23 04/09/23 04/02/23 History
milk thistle 500 mg capsule 1,000 mg PO DAILY Supplement 01/03/23 04/09/23 03/25/23 08:00 History
calcium carbonate 500 mg-vitamin 1 tab PO DAILY Supplement 03/08/23 04/09/23 04/01/23 History
D3 3.125 mcg (125 unit) tablet
cyanocobalamin (B12)-cobamamide 1 niya sublingual DAILY Supplement 03/08/23 04/09/23 04/02/23 History
5,000 mcg-100 mcg sublingual
lozenge (B12)
magnesium 250 mg tablet 500 mg PO MOWEFR Supplement 03/27/23 04/09/23 03/30/23 History
multivitamin 1 tab PO DAILY Supplement 03/27/23 04/09/23 03/25/23 08:00 History
potassium chloride 10 mEq 50 meq PO MOWEFR Supplement 03/27/23 04/09/23 04/02/23 History
tablet,extended release
travoprost 0.004 % eye drops 1 drp ophthalmic (eye) QPM Eye 03/27/23 04/09/23 04/02/23 History
Condition
valsartan 320 mg tablet 180 mg PO DAILY Blood Pressure 03/27/23 04/09/23 04/02/23 History
aspirin 81 mg tablet,delayed 81 mg PO DAILY Blood Clot 04/04/23 04/09/23 04/02/23 History
release Prevention/Tx
furosemide 20 mg tablet (Lasix) 20 mg PO DAILY Fluid 04/04/23 04/09/23 04/02/23 History
Retention/Swelling
clopidogrel 75 mg tablet 75 mg PO DAILY Blood clot 04/08/23 04/09/23 Unknown Rx
prevention/tx #30 tabs
pantoprazole 40 mg tablet,delayed 40 mg PO DAILY GI prophylaxis #30 04/08/23 04/09/23 Unknown Rx
release tabs
cyclobenzaprine 10 mg tablet 5 mg PO TID PRN mod-severe pain 04/09/23 04/09/23 Unknown Rx
#30 tabs
diphenhydramine 25 1 tab PO HS PRN Sleep #0 tabs 04/09/23 04/09/23 04/02/23 Rx
mg-acetaminophen 500 mg tablet
(Tylenol PM Extra Strength)
metoprolol tartrate 50 mg tablet 50 mg PO Q12 Blood pressure #60 04/09/23 04/09/23 Unknown Rx
tabs
Active Medications
Generic Name Dose Route Start Last Admin
Trade Name Freq PRN Reason Stop Dose Admin
Acetaminophen 650 mg 04/15/23 16:56 04/16/23 08:48
Acetaminophen 325 Mg Tablet PO 05/13/23 16:55 650 mg
Q4HPRN PRN Administration
mild pain/CADENA/temp> 100.4F
Aspirin 81 mg 04/16/23 08:00 04/16/23 08:46
Aspirin 81 Mg (Enteric Coated) Tablet PO 05/14/23 07:59 81 mg
DAILY JAYDEN Administration
Clopidogrel Bisulfate 75 mg 04/16/23 08:00 04/16/23 08:46
Clopidogrel 75 Mg Tablet PO 05/14/23 07:59 75 mg
DAILY JAYDEN Administration
Cyclobenzaprine HCl 5 mg 04/15/23 20:13 04/15/23 20:15
Cyclobenzaprine 10 Mg Tablet PO 05/13/23 20:12 5 mg
TID PRN Administration
mod-severe pain
Heparin Sodium 5,800 units 04/15/23 13:01
Heparin 80 Units/Kg Iv Rebolus IV 05/13/23 13:00
PRN PRN
PTT < OR = 64 seconds
Heparin Sodium 2,900 units 04/15/23 13:02
Heparin 40 Units/Kg Iv Rebolus IV 05/13/23 13:01
PRN PRN
PTT = 64.1 to 72.9 seconds
Hydromorphone HCl 2 mg 04/15/23 16:56
Hydromorphone 2 Mg Tablet PO 04/29/23 16:55
Q4HPRN PRN
moderate pain
Heparin Sodium 25,000 units in 250 mls @ 0 mls/hr 04/15/23 10:45 04/15/23 11:07
Heparin 94216 Units/250 Ml IV 250 mls
PER PROTOCOL JAYDEN Administration
Protocol
Per Protocol
Amiodarone HCl 900 mg/ 518 mls @ 0 mls/hr 04/15/23 17:30
Dextrose/Water IV
PER PROTOCOL JAYDEN
Protocol
Per Protocol
Methylprednisolone 4 mg 04/16/23 08:00 04/16/23 08:46
Methylprednisolone 4 Mg Tablet PO 05/14/23 07:59 4 mg
DAILY JAYDEN Administration
Ondansetron HCl 4 mg 04/15/23 16:56
Ondansetron 4 Mg/2 Ml Vial IV 05/13/23 16:55
Q6HPRN PRN
nausea and vomiting
Pantoprazole Sodium 40 mg 04/16/23 08:00 04/16/23 08:46
Pantoprazole 40 Mg Delayed Release Tablet PO 05/14/23 07:59 40 mg
DAILY JAYDEN Administration
Sodium Chloride 0 flush 04/15/23 13:00
Sodium Chloride 0.9% (Flush) Syringe IV 05/13/23 12:59
PER PROTOCOL JAYDEN
Review of Systems
-
History Source: Patient, Coordinated Provider and Records
Constitutional: Reports No Symptoms
EENT: Reports No Symptoms
Respiratory: Reports No Symptoms
Cardiac: Reports No Symptoms
GI: Reports No Symptoms
Breast: Reports N/A
: Reports Incontinence
Musculoskeletal: Reports No Symptoms
Skin: Reports No Symptoms
Neuro: Reports No Symptoms
Endocrine: Reports No Symptoms
Hematologic/Lymphatic: Reports No Symptoms
Allergy / Immunology: Reports No Symptoms
Psych: Reports No Symptoms
Physical Exam
-
patient is resting in bed. nursing at bedside. denies CP/SOB.
General: Well Developed, Well Nourished and Obese
HEENT: Negative Jaundice
Cardiology: S1 and S2
Pulmonary: Clear
GI: Normal Bowel Sounds
Genito-Urinary: Other (purewick device in place, be urine output)
Musculoskeletal: Edema, Right Lower Extrem (trace)
Extremities: Pulses Present
Skin: Warm, Dry and Other (healing incisions, bruising to RLE)
Psych: Calm
Labs
Lab Results
WBC 14.8 10^3/uL (4.8-10.8) H 04/16/23 08:45
RBC 3.15 10^6/uL (4.20-5.40) L 04/16/23 08:45
Hgb 10.2 g/dL (12.0-16.0) L 04/16/23 08:45
Hct 29.4 % (37.0-47.0) L 04/16/23 08:45
MCV 93.3 fL (81.0-99.0) 04/16/23 08:45
MCH 32.4 pg (27.0-31.0) H 04/16/23 08:45
MCHC 34.7 g/dL (33.0-37.0) 04/16/23 08:45
RDW 14.6 % (11.5-14.5) H 04/16/23 08:45
Plt Count 48 10^3/uL (130-400) L 04/16/23 08:45
MPV 11.6 fL (7.4-10.4) H 04/16/23 08:45
Abs Immat Gran (auto) 0.3 10^3/uL (0-0.05) H 04/15/23 10:35
Absolute Neuts (auto) 11.0 10^3/uL (1.4-6.5) H 04/15/23 10:35
Absolute Lymphs (auto) 2.0 10^3/uL (1.2-3.4) 04/15/23 10:35
Absolute Monos (auto) 1.1 10^3/uL (0.1-0.6) H 04/15/23 10:35
Absolute Eos (auto) 0.1 10^3/uL (0-0.7) 04/15/23 10:35
Absolute Basos (auto) 0.1 10^3/uL (0-0.2) 04/15/23 10:35
Immature Gran % 2.1 % (0-0.5) H 04/15/23 10:35
Neutrophils % 75.4 % (42.2-75.2) H 04/15/23 10:35
Lymphocytes % 13.9 % (20.5-51.1) L 04/15/23 10:35
Monocytes % 7.4 % (1.7-9.3) 04/15/23 10:35
Eosinophils % 0.5 % (0-6) 04/15/23 10:35
Basophils % 0.7 % (0-2) 04/15/23 10:35
Creatinine 0.7 mg/dL (0.6-1.0) 04/16/23 06:05
Vital Signs
Vital Signs
Temp Pulse Resp BP Pulse Ox
97.8 F 84 27 124/61 97
04/16/23 07:18 04/16/23 06:45 04/16/23 06:45 04/16/23 06:00 04/16/23 06:45
04/[address]: Moderately large saddle embolus involving the main pulmonary arteries bilaterally, more extensive on the right, involving the right upper, middle and lower lobe pulmonary arteries, and the left upper pulmonary artery.Significant left
base consolidation and pleural fluid. The previously described 9 mm pulmonary nodule is not clearly identified due to the increased atelectasis and consolidation in the left lung base
04/15 Vascular US:Successful suction embolectomy of the saddle embolus, and multiple central right-sided pulmonary emboli.
[2023-04-16 09:24] LABS: APTT > 200 Sec (23.4-35.0)
--- NOTE | 2023-04-16 09:30 | PTCARENOTE ---
pt awake and alert this am, NSR on monitor, pt BP 106/58 , on 4L NC with sats of 95% , lungs diminished , continues on heparin gtt at 0930 she had an elevated PTT > 200 and heparin gtt off as per protocol , pt continues on Amiodarone gtt , pt to
have a Picc line inserted , labs noted during ICU rounds , plan for Hematology consult , HIT score 6 points
[2023-04-16 09:50] LABS: Band Neutrophils 1 % (0-3); Lymphocytes 5 % (20-51); Monocytes 3 % (2-9)
[2023-04-16 09:51] LABS: Platelets Checked Yes
--- NOTE | 2023-04-16 09:59 | W.PN.CARDCBS ---
Today's Communication / Plan
-
Anticoagulation per PE protocol (also on anticoagulation for A-fib)
Continue 81 mg aspirin
Discontinue Plavix
Hematology assessment of hypercoagulable state
Continue amiodarone for atrial fibrillation suppression will switch IV to 400 mg 3 times daily oral until loaded.
Caution with orthostasis
Impression / Plan
-
Impression:
Acute submassive saddle pulmonary embolism/hypoxemia status post embolectomy 04/15/2023
New onset postoperative (04/03/2023) atrial fibrillation in the setting of pulmonary embolism
CABG x 2 and bioprosthetic AVR 04/03/2023
23 mm Umana Inspiris biologic valve
Orthostasis
Carotid artery disease followed by vascular
Carotid ultrasound 07/20/2022 with small amount of common carotid calcific plaque. Right internal carotid artery 50 to 69% stenosis. Left internal carotid artery 50 to 69% stenosis.�
Small to moderate left pleural effusion
Thrombocytopenia
Left lower lobe nodule suspicious for malignancy and workup underway
Hyperdynamic ventricle with LVH
Hypertension
Hyperlipidemia
Peripheral vascular disease with carotid stenosis followed by vascular
Polymyalgia rheumatica/rheumatoid arthritis on chronic steroids
Osteoarthritis and osteoporosis
Irritable bowel
Thyroid disease
History of tobacco abuse
History of TIA
CT scan 04/15/2023:�Filling defect at the main pulmonary artery extending into the right and left main pulmonary arteries, consistent with a large saddle embolus. The extent of the embolus is greater on the right than the left. The saddle embolus
involves the right upper, middle and lower lobe pulmonary arteries and left upper pulmonary arteries.
Transesophageal echocardiogram 04/03/2023:�Ejection fraction 65%.� Severe LVH.� Severe aortic valve stenosis.� Trace TR.� Moderate calcified atheroma descending aorta and arch.� Status post AVR.� No AI or leaks.� Maximum aortic valve gradient 20 mean
13 mmHg.� 30 minutes post pulm mean gradient decreased to 3 mmHg.� LVOT gradient noted 11 mmHg.� No JENNI and no MR noted.
Echo 11/07/22:�LVEF of 58%, moderate LVH, LVOT gradient of 41 mmHg, increasing to 65 mmHg with Valsalva, stage II diastolic dysfunction, moderate to severe aortic stenosis with peak and mean transaortic gradients of 62 and 32 mmHg, calculated aortic
valve area of 0.9 cm�, trace tricuspid regurgitation without evidence of pulmonary hypertension.
Cath 03/08/23:�RA� 12; PA : 39/19 (27), PCWP (m) : 22, PA saturation: 65.9% on room air, AO saturation: 95.7% on room air, CO 3.31 L/min by Rut, CI 1.87 L/min/m-2 by Rut, SVR 2173 dsc^(-5), PVR 1.51 her unit, LVEDP22. IFR of ostial left main was
borderline at 0.89-0.90. Eccentric 80% ostial LAD stenosis which is IFR positive with an IFR of 0.85
Carotid ultrasound 07/20/2022�with small amount of common carotid calcific plaque. Right internal carotid artery 50 to 69% stenosis. Left internal carotid artery 50 to 69% stenosis.�
Plan:
Saddle pulmonary emboli and hypoxemia
Currently stable status post embolectomy. Pretreatment PA pressure 47/13 with mean of 26 mmHg and post 24/9 with mean of 15 mmHg.
RV normal in size and function by echocardiogram.� Hemodynamically stable.
Continue heparin
Oxygenation stable.
On echocardiogram ventricles appear underfilled. Avoid dehydration given she likely is somewhat preload dependent.
Troponin mildly elevated proBNP mildly elevated.
Given rheumatologic conditions would exclude hypercoagulable state. In addition low platelets noted may be secondary to PE and procedure. Hematology consult.
New onset atrial fibrillation, paroxysmal
On anticoagulation now for dual purpose, pulmonary embolism and atrial fibrillation.
Given orthostatic hypotension and low blood pressure readings intermittently continue amiodarone and we will switch intravenous to oral 400 mg 3 times daily until loaded.
Reassess EKG in the morning
Orthostasis
Has been present since surgery.
Caution with changing position
Caution with antihypertensive medication
CABG x 2 and bioprosthetic AVR
Continue usual postop care.
Continue 81 mg aspirin
While on heparin and anticoagulation may discontinue Plavix.
TIA
History of TIA. Continue anticoagulation. Discontinue Plavix. Continue low-dose aspirin.
Left lung nodule suspicious for malignancy
Continue pulmonary follow-up
This may increase risk of hypercoagulable state if malignant
Pleural effusion
Likely secondary to postop state.� Follow.
Steroid-dependent PMR/rheumatoid arthritis
COPD
Followed by pulmonary
Carotid disease
Continue risk factor modification.
Followed by vascular
Hypertension
Given pulmonary embolism and tendency towards orthostasis would run blood pressure on the higher side.
Hyperlipidemia
Continue lipid-lowering on injectables as an outpatient
Discussed with primary service and scratcher. I spent 31 minutes critical care time
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
Subjective
Date of Service: April 16, 2023
She denies chest pain and palpitations. Her arms are sore because of IV access and thin skin.
Objective
Labs:
04/16/23 08:45
04/16/23 06:05
Labs
Hgb 10.2 g/dL (12.0-16.0) L 04/16/23 08:45
Hct 29.4 % (37.0-47.0) L 04/16/23 08:45
Plt Count 48 10^3/uL (130-400) L 04/16/23 08:45
PT 13.4 Sec (11.4-14.6) 04/15/23 10:35
INR 1.04 04/15/23 10:35
APTT > 200 Sec (23.4-35.0) H* 04/16/23 08:45
Sodium 133 mmol/L (135-145) L 04/16/23 06:05
Potassium 4.3 mmol/L (3.5-5.1) 04/16/23 06:05
BUN 16 mg/dl (7-17) 04/16/23 06:05
Creatinine 0.7 mg/dL (0.6-1.0) 04/16/23 06:05
Glucose 119 mg/dl (70-99) H 04/16/23 06:05
Troponins
04/15/23 04/16/23
10:35 04:04
Troponin I 0.061 H* 0.093 H*
Vital Signs and I&O:
Vital Signs
Temp Pulse Resp BP Pulse Ox
97.8 F 84 27 124/61 97
04/16/23 07:18 04/16/23 06:45 04/16/23 06:45 04/16/23 06:00 04/16/23 06:45
Vital Signs
Temp Pulse Resp BP Pulse Ox
97.8 F 84 27 124/61 97
04/16/23 07:18 04/16/23 06:45 04/16/23 06:45 04/16/23 06:00 04/16/23 06:45
Intake & Output
04/14/23 04/15/23 04/16/23 04/17/23
06:59 06:59 06:59 06:59
Intake Total 384.9 / 384.9
Output Total 650 / 650
Balance -265.1 / -265.1
Physical Exam
Physical Exam
General: Well developed, well nourished in NAD.
Heart: Non displaced PMI, RRR, no murmurs, No S3, S4, no rubs.
Lungs: Coarse anterior breath sounds
Extremities: No clubbing, cyanosis and +1 edema bilaterally. Right leg ecchymosis
Neuro: Grossly nonfocal, awake, alert and oriented x3.
[2023-04-16 10:00] LABS: Total Cells Counted 100
[2023-04-16 10:04] LABS: Absolute Neutrophils -Man Diff 13.9 10^3/uL (1.4-6.5); Metamyelocytes 1 % (-); Segmented Neutrophils 90 % (42-75)
[2023-04-16 10:05] LABS: Normal RBC Morphology No
[2023-04-16 10:06] LABS: Fibrinogen 329 MG/DL (199-459)
[2023-04-16 10:07] LABS: Burr Cells Occasional
[2023-04-16 11:21] LABS: Reticulocyte Count 4.2 % (0.4-2.8)
[2023-04-16 11:26] LABS: INR 1.21; PT 15.2 Sec (11.4-14.6)
[2023-04-16 11:38] LABS: D-Dimer 7.29 ug/mlFEU (0.00-0.50)
[2023-04-16 12:02] LABS: TSH Reflex To Free T4 5.86 uIU/ml (0.47-4.68)
[2023-04-16 12:21] LABS: Vitamin B12 > 1000 pg/ml (239-931)
--- NOTE | 2023-04-16 12:27 | W.PN.UPDATE ---
Update Note
Progress Note Update
4T score elevated. Concern for HIT. Discussed with Dr. Pena and Dr. Wallace. Dr. Pena recommends discontinuation of heparin gtt with transition to Argatroban.
[2023-04-16 12:31] LABS: Free T4 1.62 ng/dl (0.78-2.19)
[2023-04-16 14:06] LABS: INR 1.13; PT 14.3 Sec (11.4-14.6)
--- NOTE | 2023-04-16 14:13 | PTCARENOTE ---
pt coags noted and called to physicians , repeat labs again done at 1330 , pt is now off Heparin gtt as of 1230 and to start on IV Argatroban gtt , pt continues with NSR on monitor but did have x 1 episode of afib at 11:40 that was asymptomatic she
converted to NSR at 1141 .
[2023-04-16] MEDS: ARGATROBAN 252.5 MG IV (14:22)
[2023-04-16 14:28] LABS: ALT (SGPT) 30 U/L (0-35); AST (SGOT) 33 U/L (14-36); Albumin 3.3 g/dl (3.5-5.0); Alkaline Phosphatase 88 U/L (38-126); Direct Bilirubin 0.6 mg/dl (0.0-0.4); Total Bilirubin 0.9 mg/dl (0.2-1.3); Total Protein 5.5 g/dl (6.3-8.2)
--- NOTE | 2023-04-16 14:49 | CM ---
CM following re: discharge planning.
Discussed in Rounds, reviewed pt's chart, met with pt.
Pt is a 78 year old female, admitted with primary dx of PE.
Pt reports she lives alone in a townhouse 2SH, 55+ community, master bedroom and master bathroom on the first floor. Pt reports she has 2 supportive children. 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 No DME, VN or SNF history.
PCP: Thony Esparza
Pharmacy: [facility].
D/C plan: pt expressed her desire to return back home with anticipated no after care VN needs. Family to transport at discharge.
CM will follow with discharge plan updates as hospitalization progresses
[2023-04-16] MEDS: PACERONE 400 MG PO ×2 (15:29→21:48)
[2023-04-16 16:22] LABS: APTT 110.2 Sec (23.4-35.0)
[2023-04-16 17:36] LABS: APTT 103.8 Sec (23.4-35.0)
[2023-04-16 17:46] LABS: Folate > 20.0 ng/ml (2.76-20)
--- NOTE | 2023-04-16 19:20 | PTCARENOTE ---
Resumed care of pt this evening. Received pt on argatroban gtt infusing at 73.7 mcg/kg/min via rt PICC. Pt is A&Ox3, can move all 4 extremities, and can make needs known. Pt is NSR on tele monitor, has no edema, and palpable pedal pulses. Pt on 3L
of O2 satting at 94% pulse ox. On auscultation pt lungs sound diminished TO. Pt has a round abdomen w/ +BS. Pt connected to [facility] and is voiding be colored urine. Rt groin surgical site dressing is C/D/I. VSS.
[2023-04-16 21:43] LABS: LDH 464 U/L (120-246)
[2023-04-16 21:51] LABS: APTT 59.4 Sec (23.4-35.0)
[2023-04-16 21:52] LABS: Total Iron Binding Capacity 224 ug/dl (265-497)
[2023-04-16 21:58] LABS: Iron 62 ug/dl (37-170); Percent Saturation 27 % (20-50)
--- NOTE | 2023-04-16 22:00 | PTCARENOTE ---
2130 PTT measured at 59.4. Argatroban gtt remains at same rate 73.7 mcg/kg/min, verfied w/ pharmacist. VSS.
[2023-04-17] VITALS (28 sets, daily range): BP systolic 98–150; BP diastolic 50–101; PULSE 82–92; O2SAT 94–96; BMI 30.6
[2023-04-17 01:57] LABS: APTT 61.9 Sec (23.4-35.0)
[2023-04-17 04:10] LABS: Hematocrit 27.2 % (37.0-47.0); Hemoglobin 9.4 g/dL (12.0-16.0); Mean Corp Hgb Conc. 34.6 g/dL (33.0-37.0); Mean Corpuscular Hgb 32.1 pg (27.0-31.0); Mean Corpuscular Volume 92.8 fL (81.0-99.0); Mean Platelet Volume 10.3 fL (7.4-10.4); Platelet Count 57 10^3/uL (130-400); Red Blood Cell Count 2.93 10^6/uL (4.20-5.40); Red Cell Dist. Width 14.5 % (11.5-14.5); White Blood Cell Count 12.8 10^3/uL (4.8-10.8)
[2023-04-17 04:34] LABS: AST (SGOT) 32 U/L (14-36); Albumin 3.5 g/dl (3.5-5.0); Alkaline Phosphatase 102 U/L (38-126); Blood Urea Nitrogen 14 mg/dl (7-17); Calcium 8.4 mg/dl (8.4-10.2); Carbon Dioxide 22 mmol/L (22-30); Chloride 106 mmol/L (98-107); Estimated Creatinine Clearance 61 ml/min; Glucose 103 mg/dl (70-99); Magnesium 2.1 mg/dl (1.6-2.3); Sodium 134 mmol/L (135-145); Total Bilirubin 1.1 mg/dl (0.2-1.3); Total Protein 5.8 g/dl (6.3-8.2); eGFR > 60.00
[2023-04-17 04:44] LABS: ALT (SGPT) 27 U/L (0-35); Potassium 3.9 mmol/L (3.5-5.1)
[2023-04-17] MEDS: ASPIR LOW (ENTERIC COATED) 81 MG PO (07:51)
[2023-04-17] MEDS: PROTONIX 40 MG PO (07:51)
[2023-04-17] MEDS: PACERONE 400 MG PO ×3 (07:52→20:15)
[2023-04-17] MEDS: MEDROL 4 MG PO (07:52)
[2023-04-17] MEDS: TYLENOL 650 MG PO ×2 (07:52→20:14)
--- NOTE | 2023-04-17 07:52 | W.PN.INTV ---
Addendum entered and electronically signed by Jane Laurent MD 04/17/23 14:04:
Patient transferred to IMU. Pulmonary will continue to follow
Original Note:
Today's Communication / Plan
Recommendations
Continue argatroban drip
Out of bed to chair, PT/OT
Eventual transition to oral anticoagulation
Incentive spirometry
Assessment
-
Assessment:� 78-year-old female with a past medical history of hypertension, former tobacco use disorder ([id number], quit 1989), pulmonary nodules with 11 mm PET avid LLL nodule, history of diverticulosis, hypothyroidism, PAD, CAD and aortic
stenosis who presents with shortness of breath and hypoxia..� Patient recently was hospitalized here and underwent surgical aortic valve replacement with bioprosthetic valve and CABG x 2 on 04/03/2023.� There were no immediate complications.� She was
discharged to rehab on 04/09 after PT/OT recommended acute rehab.� While at rehab she has been experiencing hypotension for the last 1-2 days with dizziness upon standing.� Patient also endorses shortness of breath with minimal activity.� CXR done
today showing left-sided pleural effusion similar to prior CXR from 04/08/2023.� CTA chest performed showing a saddle embolism without evidence of RV strain.� PERT alert called and horticulturalist/pulmonary services consulted for additional
recommendations/management.
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
Acute submassive saddle PE with high-risk features (chemical evidence despite no radiographic/echo evidence of RV strain) - elevated troponin + elevated proBNP are concerning for developing RV strain
s/p IR directed thrombectomy 04/15/2023
Left lower extremity DVT
Acute respiratory failure with hypoxemia due to above, improved
Elevated troponin - due to acute PE as above
Recent SAVR + CABG x2 on 04/03/2023 with right lower extremity saphenous vein harvest
Leukocytosis - reactive due to acute PE
Thrombocytopenia
Elevated 4T score
HIT pending
Plan/recommendations
At this time, patient appears to be objectively and subjectively improved
91% on room air during my evaluation this morning
Chest exam is clear
Lower extremity swelling improved
Platelets stabilized at 57
Remains on argatroban, therapeutic PTT
Moving forward
Continue with management, supportive care
Encouragingly, post embolectomy per interventional radiology 04/15 with improvement and filling pressures, 19/11
Remains on argatroban, suspect eventual transition to oral anticoagulation
4T score elevated, HIT pending
Given possibility of HIT, wonder if this may have been risk factor for thromboembolic process
Hematology following
No evidence of DIC
Dopplers identified a left lower extremity DVT
Of note, patient was also on Plavix/aspirin, currently on aspirin alone
Recent bypass surgery noted
Cardiology following
Hemodynamically stable, encourage incentive spirometry
PT/OT, out of bed to chair
Right lower lobe nodule noted, will consider follow-up CT chest in 3 months or sooner if indicated
If continues to do well, consider transfer out of ICU. Pulmonary will continue to follow
Data:
CTA Chest 04-15-2023:
Moderately large saddle embolus involving the main pulmonary arteries bilaterally, more extensive on the right, involving the right upper, middle and lower lobe pulmonary arteries, and the left upper pulmonary artery.
Significant left base consolidation and pleural fluid. The previously described 9 mm pulmonary nodule is not clearly identified due to the increased atelectasis and consolidation in the left lung base.
Follow-up pulmonary nodule after resolution of the left pleural effusion and left base atelectasis.
PFT: 11/2022
FEV1/FVC: 75 (101% predicted)
FEV1: 1.73L (99%)
FVC: 2.31L (99%)
T% (4.17L)
RV: 82%
ERV: 70%
IC: 116%
DLco: 83%
VA: 5.14L (116%)
DLco/VA: 77%
Subjective Dataa
Subjective Data
Date of Service:
Date of Service: April 17, 2023
Subjective:
Patient is feeling improved today, less short of breath. Denies chest pain, nausea, abdominal pain. Leg swelling also improved. Appears to be in good spirits. Was 91% on room air during my examination
Objective Data
Data Reviewed
Vital Signs / I&O / Oxygen:
Vital Signs
Temp Pulse Resp BP Pulse Ox
98.5 F 87 15 137/59 94
04/17/23 03:49 04/17/23 06:15 04/17/23 06:15 04/17/23 06:00 04/17/23 06:15
Intake and Output
04/16/23 04/17/23 04/18/23
06:59 06:59 06:59
Intake Total 384.9 / 411.6 1213.4 / 1213.4
Output Total 650 / 650 1100 / 1100
Balance -265.1 / -238.4 113.4 / 113.4
SaO2 94
Nasal Cannula flow liters per 3
minute
Physical Exam
General: Comfortable and Other (Chest incision intact)
HEENT: Normocephalic and Anicteric
Cardiovascular: S1-S2, Regular Rhythm, Murmur (n), Rub (n), Peripheral Edema (n) and Other (Right lower extremity bruising, incision intact)
Respiratory: Clear, Wheeze (n), Crackles (n), Rhonchi (n) and Non-Labored Respirations
GI: Soft, Non Distended and Non Tender
Neurology: Awake, Alert, Oriented and No Motor Deficits (Moves all extremities)
Skin: Good Color (n), Cyanosis (n), Bruising (Mild right lower extremity) and Other (Right lower extremity DP pulses intact)
Labs/Micro/Reports
Lab Data
04/17/23 03:56
04/17/23 03:56
Laboratory Results
04/16/23 04/16/23 04/16/23
08:45 11:02 13:39
PT 15.2 H 14.3
INR 1.21 1.13
APTT > 200 H* 110.2 H
04/16/23 04/16/23 04/16/23
13:39 16:30 18:00
PT
INR
APTT Cancelled 103.8 H Cancelled
04/16/23 04/17/23
21:31 01:29
PT
INR
APTT 59.4 H 61.9 H
--- NOTE | 2023-04-17 08:33 | W.PN.HOSP.TC ---
Today's Communication/Plan
-
Argatroban
appreciate Heme, Cardiology, Yard Pipe Grader consults
PT/OT
F/U with cards timing resume metop and lasix
plavix held with low PLT (discussed with Dr. Kwok on 04/16)
Assessment / Plan
Assessment / Plan
HPI: 78-year-old female with a past medical history of coronary artery disease status post CABG x 2 with AVR 04/03/[address] Cotto, PMR/RA on chronic steroids, hypertension, hyperlipidemia, COPD, and prediabetes presents with shortness of breath found
to be hypoxic; CTA with large saddle PE now s/p embolectomy.
CTA
IMPRESSION:
Moderately large saddle embolus involving the main pulmonary arteries bilaterally, more extensive on the right, involving the right upper, middle and lower lobe pulmonary arteries, and the left upper pulmonary artery.
Significant left base consolidation and pleural fluid. The previously described 9 mm pulmonary nodule is not clearly identified due to the increased atelectasis and consolidation in the left lung base.
Follow-up pulmonary nodule after resolution of the left pleural effusion and left base atelectasis.
Embolectomy 04/16/23
IMPRESSION:
1. Successful suction embolectomy of the saddle embolus, and multiple central right-sided pulmonary emboli.
2. Pulmonary arterial pressure improved from 47/13 (mean 26 mmHg) to 24/9 (mean 15 mmHg).
3. Systemic anticoagulation will be resumed approximately 2 hours following sheath removal.
TTE 04/15/23
CONCLUSIONS
�Left ventricle is small in size.� Underfilled left ventricle.� Severe
�concentric left ventricular hypertrophy. Normal left ventricular systolic
�function. Normal regional wall motion. Left ventricular ejection fraction is
�60-65%.
�Normal right ventricular size and function.
�Thickened mitral valve leaflets. Mitral annular calcification. There is
�adequate mitral leaflet excursion. No mitral regurgitation is seen.
�23 mm bioprosthetic aortic valve replacement.� Peak/mean gradients across the
�aortic valve are 24/14 mmHg respectively. No aortic regurgitation is seen.
�Tricuspid valve opens normally. Mild-moderate tricuspid regurgitation.
�Estimated pulmonary artery pressure of 54-59 mmHg assuming a right atrial
�pressure of 3 mmHg.
�Compared to prior study 11/07/2022 aortic valve has been replaced.� PA pressure
�has now increased and was previously 32 mmHg
�
�Indications:
�Short of breath.� Recent valve replacement
#Acute hypoxic respiratory failure
#Large saddle pulmonary embolism
Appreciate cardiology, pulmonology
-admitted to ICU
s/p embolectomy by IR on 04/15; procedure above
oxygen weaned off
continue Argatroban; eventual transition to Eliquis - CM consult placed for cost
#Thrombocytopenia
-multiple risk factors for PLT drop but with elevated HIT score; testing sent and patient started on Argatroban
-continue argatroban
-F/U HIT testing
-F/U anti-cardiolipin ab
-hematology consult appreciated
-hold PLavix (OK'd by cardiology)
#New onset rapid atrial fibrillation
-started on amiodarone
-continue AC
#Elevated troponin
Due to PE and rapid afib
#Leukocytosis
Suspect reactive, monitor off antibiotics
#Coronary artery disease
#CABG x 2 with AVR 04/03/[address] Cotto
Continue aspirin, statin, metoprolol
plavix held
#History of hypertension
Blood pressure currently 123/78
SIGN HANGER lasix and valsartan held
Resume if blood pressure increases
#Hyperlipidemia
Repatha 140mg SC q 2 weeks- last taken 03/27/2023
Continue statin
#History of rheumatoid arthritis
On methylprednisolone 4 mg daily
#Left lung nodule
Follow-up with pulmonology outpatient
#Obesity due to excess calories
Affects all aspects of care
GI ppx - protonix
DVT prophylaxis� argatroban
Full code
Total time spent to see the patient on the floor, examine the patient, review data and lab results, discuss treatment plan with patient,� nursing staff� around 75 minutes.
Anticipated Discharge: > 48 hours
Subjective/Interval History
-
Date of Service: April 17, 2023
feeling better this morning
breathing feels more stable
legs feel less swollen
constipated
no chest pain
Objective Data
-
Labs:
Laboratory Results
04/16/23 04/16/23 04/17/23
18:00 21:31 01:29
WBC
Hgb
Hct
Plt Count
APTT Cancelled 59.4 H 61.9 H
Sodium
Potassium
Chloride
Carbon Dioxide
BUN
Creatinine
Glucose
Calcium
Total Bilirubin
AST
ALT
Alkaline Phosphatase
04/17/23 04/17/23
03:56 13:30
WBC 12.8 H
Hgb 9.4 L
Hct 27.2 L
Plt Count 57 L
APTT Pending
Sodium 134 L
Potassium 3.9
Chloride 106
Carbon Dioxide 22
BUN 14
Creatinine 0.7
Glucose 103 H
Calcium 8.4
Total Bilirubin 1.1
AST 32
ALT 27
Alkaline Phosphatase 102
Vital Signs:
Vital Signs
Temp Pulse Resp BP Pulse Ox
98.5 F 98 15 137/64 94
04/17/23 03:49 04/17/23 07:52 04/17/23 06:15 04/17/23 07:52 04/17/23 06:15
I&O
04/16/23 04/17/23 04/18/23
06:59 06:59 06:59
Intake Total 384.9 / 411.6 1213.4 / 1213.4
Output Total 650 / 650 1100 / 1100
Balance -265.1 / -238.4 113.4 / 113.4
Review of Systems
-
History Source: Patient
All other systems: Reviewed and negative
Physical Exam
-
General: No Apparent Distress
HEENT: PERRLA
Respiratory: Clear to Auscultation; Negative Wheezes
Cardiac: S1/S2
GI: Soft and Nontender
Musculoskeletal: Other (bruising RLE; vein graft)
Skin: Warm and Dry; Negative Rash
Neuro: AO x 3
Psych: Calm
Data Reviewed
-
Diagnostic Radiology: Report Reviewed by me
Labs: Labs Reviewed by me
--- NOTE | 2023-04-17 08:38 | W.PN.CARDCBS ---
Today's Communication / Plan
-
Saddle pulmonary emboli and hypoxemia with improvement s/p embolectomy
Cont Argatroban IV for PE and AFib and if platelets continue to improve then hematology recommends Apixaban transition.
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
Echo with preserved EF and normal RV size and function.
Medical therapy of nonMI trop
Hematology evaluating for hypercoagulable state.
Now in sinus. Cont Amiodarone load
Cont anticoagulation with eventual transition to Apixaban.
Monitor bps with prior orthostatic hypotension.
CABG x 2 and bioprosthetic AVR
Continue usual postop care.
Continue 81 mg aspirin
While on heparin and anticoagulation Plavix stopped.
Left lung nodule suspicious for malignancy/COPD
Continue pulmonary follow-up
Hyperlipidemia
Continue lipid-lowering on injectables as an outpatient
Impression / Plan
-
.
Impression:
Acute submassive saddle pulmonary embolism/hypoxemia status post embolectomy 04/15/2023
New onset postoperative (04/03/2023) atrial fibrillation in the setting of pulmonary embolism
CABG x 2 and bioprosthetic AVR 04/03/2023
23 mm Umana Inspiris biologic valve
Orthostasis
Carotid artery disease followed by vascular
Carotid ultrasound 07/20/2022 with small amount of common carotid calcific plaque. Right internal carotid artery 50 to 69% stenosis. Left internal carotid artery 50 to 69% stenosis.�
Small to moderate left pleural effusion
Thrombocytopenia, possible HIT
Left lower lobe nodule suspicious for malignancy and workup underway
Hyperdynamic ventricle with LVH
Hypertension
Hyperlipidemia
Peripheral vascular disease with carotid stenosis followed by vascular
Polymyalgia rheumatica/rheumatoid arthritis on chronic steroids
Osteoarthritis and osteoporosis
Irritable bowel
Thyroid disease
History of tobacco abuse
History of TIA
CT scan 04/15/2023:�Filling defect at the main pulmonary artery extending into the right and left main pulmonary arteries, consistent with a large saddle embolus. The extent of the embolus is greater on the right than the left. The saddle embolus
involves the right upper, middle and lower lobe pulmonary arteries and left upper pulmonary arteries.
Transesophageal echocardiogram 04/03/2023:�Ejection fraction 65%.� Severe LVH.� Severe aortic valve stenosis.� Trace TR.� Moderate calcified atheroma descending aorta and arch.� Status post AVR.� No AI or leaks.� Maximum aortic valve gradient 20 mean
13 mmHg.� 30 minutes post pulm mean gradient decreased to 3 mmHg.� LVOT gradient noted 11 mmHg.� No JENNI and no MR noted.
Echo 11/07/22:�LVEF of 58%, moderate LVH, LVOT gradient of 41 mmHg, increasing to 65 mmHg with Valsalva, stage II diastolic dysfunction, moderate to severe aortic stenosis with peak and mean transaortic gradients of 62 and 32 mmHg, calculated aortic
valve area of 0.9 cm�, trace tricuspid regurgitation without evidence of pulmonary hypertension.
Cath 03/08/23:�RA� 12; PA : 39/19 (27), PCWP (m) : 22, PA saturation: 65.9% on room air, AO saturation: 95.7% on room air, CO 3.31 L/min by Rut, CI 1.87 L/min/m-2 by Rut, SVR 2173 dsc^(-5), PVR 1.51 her unit, LVEDP22. IFR of ostial left main was
borderline at 0.89-0.90. Eccentric 80% ostial LAD stenosis which is IFR positive with an IFR of 0.85
Carotid ultrasound 07/20/2022�with small amount of common carotid calcific plaque. Right internal carotid artery 50 to 69% stenosis. Left internal carotid artery 50 to 69% stenosis.�
Echo Apr 15 2022: EF 60-65% 23 mm bioAVR peak/mean grad 24/14 mmHg respectively, mild to mod TR, PASP 54-59 mmHg, compared to Oct 2022 AV has been replaced and PA now increased to 32 mmHg.
Plan:
Saddle pulmonary emboli and hypoxemia with improvement s/p embolectomy
Cont Argatroban IV for PE and AFib and if platelets continue to improve then hematology recommends Apixaban transition.
senior living anticoagulation given hx TIA.
Echo with preserved EF and normal RV size and function.
Medical therapy of nonMI trop
Hematology evaluating for hypercoagulable state.
Now in sinus. Cont Amiodarone load
Cont anticoagulation with eventual transition to Apixaban.
Monitor bps with prior orthostatic hypotension.
CABG x 2 and bioprosthetic AVR
Continue usual postop care.
Continue 81 mg aspirin
While on heparin and anticoagulation Plavix stopped.
Left lung nodule suspicious for malignancy/COPD
Continue pulmonary follow-up
Hyperlipidemia
Continue lipid-lowering on injectables as an outpatient
Progress Note - Body Presser
Subjective
Date of Service: April 17, 2023
Pt seen and examined. No complaints. No chest pain or shortness of breath.
Objective
Labs:
04/17/23 03:56
04/17/23 03:56
Labs
Hgb 9.4 g/dL (12.0-16.0) L 04/17/23 03:56
Hct 27.2 % (37.0-47.0) L 04/17/23 03:56
Plt Count 57 10^3/uL (130-400) L 04/17/23 03:56
PT 14.3 Sec (11.4-14.6) 04/16/23 13:39
INR 1.13 04/16/23 13:39
APTT 61.9 Sec (23.4-35.0) H 04/17/23 01:29
Sodium 134 mmol/L (135-145) L 04/17/23 03:56
Potassium 3.9 mmol/L (3.5-5.1) 04/17/23 03:56
BUN 14 mg/dl (7-17) 04/17/23 03:56
Creatinine 0.7 mg/dL (0.6-1.0) 04/17/23 03:56
Glucose 103 mg/dl (70-99) H 04/17/23 03:56
Troponins
04/15/23 04/16/23
10:35 04:04
Troponin I 0.061 H* 0.093 H*
Vital Signs and I&O:
Vital Signs
Temp Pulse Resp BP Pulse Ox
98.5 F 98 15 137/64 94
04/17/23 03:49 04/17/23 07:52 04/17/23 06:15 04/17/23 07:52 04/17/23 06:15
Vital Signs
Temp Pulse Resp BP Pulse Ox
98.5 F 98 15 137/64 94
04/17/23 03:49 04/17/23 07:52 04/17/23 06:15 04/17/23 07:52 04/17/23 06:15
Intake & Output
04/15/23 04/16/23 04/17/23 04/18/23
06:59 06:59 06:59 06:59
Intake Total 384.9 / 411.6 1213.4 / 1213.4
Output Total 650 / 650 1100 / 1100
Balance -265.1 / -238.4 113.4 / 113.4
Physical Exam
Physical Exam
General: No acute distress, AAOX3
Neck: Negative JVD
Heart: Regular, Negative S3 positive S1/S2, Negative S4, No murmur
Lungs: CTA b/l, negative wheezes/rales/rhonchi
Abd: Positive BS, NT/ND, neg rebound/rigidity/guarding
Ext: Negative cyanosis/clubbing/edema
Neuro: nonfocal
[2023-04-17] MEDS: LIDOCAINE 4% PATCH 1 PATCH TOPICAL (09:54)
[2023-04-17] MEDS: MIRALAX 17 GRAMS PO (09:54)
[2023-04-17] MEDS: TOPROL XL 25 MG PO (09:54)
--- NOTE | 2023-04-17 10:00 | PTCARENOTE ---
pt awake and alert , pleasant , NSR on monitor, BP 137/64, on room air with sats of 92% , lungs diminished pt states she feel SOB at time with no reason , her sats remain in the 90s during these complaints, pt tolerating diet , continues on
Argatroban , she is therapeutic at .75 mg / kg , she is now oob in chair , she did well with one assist and wheeled walker , pt was placed back on 02 at 2L due to her sats down to 88% , pt CO neck stiffness and pt was ordered a Lidocaine patch , pt
labs noted, pt seen by Dr Wallace and Dr Laurent this am
--- NOTE | 2023-04-17 11:22 | W.PN.ONC ---
Addendum entered and electronically signed by Pat Bailey MD 04/17/23 16:00:
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 SABA pending for confirmation.
Continue Argatroban. If continued improvement in platelet count, switch to apixiban (Per UpToDate: The dose for apixaban would be 5 mg twice daily. If <7 days of the initial parenteral anticoagulant have been administered, apixaban is dosed at 10 mg
twice daily until a total of seven days of anticoagulation have been provided.)
Will need at least 3 months anticoagulation
Original Note:
Today's Communication / Plan
-
04/17 PLT 57
CBC w/ diff daily
Avoid additional platelet transfusions unless evidence of clinical bleeding with PLT <10 while ruling out HIT
Continue Argatroban
4T score elevated at 6-7
Plan to transition to DOAC prior to discharge
Await additional labs, APLA testing is pending
We will follow.
Impression
Impression
Acute thrombocytopenia, possible HIT
New onset rapid atrial fibrillation
Acute hypoxic respiratory failure
Large saddle PE s/p embolectomy 04/15
s/p CABG 04/03/23 with heparin exposure
Leukocytosis
Known left lung nodule
Subjective/Objective
Subjective/Objective
patient OOB to the chair. states she feels better being out of bed. she notes soreness at sternal incision site but otherwise feeling okay.
Vital Signs:
Vital Signs
Temp Pulse Resp BP Pulse Ox
98.7 F 88 17 106/50 94
04/17/23 08:00 04/17/23 10:45 04/17/23 10:45 04/17/23 10:14 04/17/23 11:00
physical exam unchanged.
Lab Results:
Laboratory Data
WBC 12.8 10^3/uL (4.8-10.8) H 04/17/23 03:56
Hgb 9.4 g/dL (12.0-16.0) L 04/17/23 03:56
Plt Count 57 10^3/uL (130-400) L 04/17/23 03:56
PT 14.3 Sec (11.4-14.6) 04/16/23 13:39
INR 1.13 04/16/23 13:39
APTT 61.9 Sec (23.4-35.0) H 04/17/23 01:29
eGFR > 60.00 04/17/23 03:56
04/[address]: Moderately large saddle embolus involving the main pulmonary arteries bilaterally, more extensive on the right, involving the right upper, middle and lower lobe pulmonary arteries, and the left upper pulmonary artery.Significant left
base consolidation and pleural fluid. The previously described 9 mm pulmonary nodule is not clearly identified due to the increased atelectasis and consolidation in the left lung base.
04/16 PV US: Positive deep venous thrombosis on the left, involving the peroneal and posterior tibial veins.No evidence for right-sided deep venous thrombosis.
04/17 CXR: Stable left basilar probable atelectasis.
Orders
Orders
Orders From Last 24 Hours
04/16/23 11:01
Ferritin Urgent
Folate Urgent
Vitamin B12 Urgent
04/16/23 11:02
D-Dimer Urgent
Prothrombin Time Urgent
Reticulocyte Count Urgent
04/16/23 11:03
Haptoglobin [S] Urgent
Platelet Antibodies Indirect [S] Urgent
Platelet Assoc Ab, Direct [S] Urgent
--- NOTE | 2023-04-17 12:28 | CM ---
CM following re: discharge planning.
Discussed in Rounds, reviewed pt's chart, met with pt and spoke to pt's brother Thea to update on pt's discharge plan progress. per Rounds meeting pt will be downgraded from ICU level of care.
Pt is aware that her is here at , expressed her worries about his well being. Emotional support offered and provided. Pt is aware she will be returning back to [facility] to continue on skilled services and pt stated she will talk
to her and to her brother regarding whether or not she and her will continue living in their apartment or they might decide to stay at [facility] for a care home care.
Pt's brother Thea stated he is aware of what happened to pt's and he stated that pt's has manic depression and pt struggles to care for him at home. Pt's brother thea stated that pt and her live in an apartment and they do
have a rancher house in [place]. pt's brother thea stated he will talk to his sister (the pt) regarding a further plan.
CM spoke to [facility] admissions department sales representative [employer] and she confirmed that pt and her if he needs SNF will be accepted for admissions to [facility]. Requested pt's clinical faxed to [facility]. An auth for SNF
requested.
[facility]
Accepting Physician DR. Hong Chavez
D/C plan: [facility] when medically stable.
CM will follow to assist pt with discharge to [facility] for a short term rehab.
--- NOTE | 2023-04-17 12:45 | CM ---
CM following re: discharge planning.
Discussed in rounds, reviewed pt's chart met with pt. Per Rounds meeting, pt has been improving and pt will be downgraded from ICU level of care.
CM checked the [facility] for Eliquis 5 mg. 30 day supply - $43.00; 90 day supply $38.00. Pt reports its affordable. 30 day free coupon for Eliquis provided and instructed the pt how to use.
PT and OT evaluations noted - home PT recommended. Pt is aware, expressed her agreement and she stated [facility] provided care for her in the past and she preferred [facility]. Av referral to [facility] made.
IMM reviewed, placed in chart, pt has a copy.
D/c plan: home with [facility] and family support. Son to transport at discharge.
CM will follow with discharge plan updates as hospitalization progresses
[2023-04-17 14:11] LABS: APTT 59.2 Sec (23.4-35.0)
--- NOTE | 2023-04-17 14:20 | PTCARENOTE ---
pt continues to be oob in chair , working with physical therapy , repeat PTT 59.2 , continue with Agotroban as current dose as per protocol
--- NOTE | 2023-04-17 15:23 | PTCARENOTE ---
pt Debra test results positive , Dr Laurent and Dr Wallace notified of results
[2023-04-17] MEDS: ARGATROBAN 252.5 MG IV (17:11)
[2023-04-17 17:29] LABS: Platelet Antibody, Direct IgG Negative (Negative); Platelet Antibody, Direct IgM Negative (Negative)
[2023-04-17] MEDS: BENADRYL 25 MG PO (20:15)
[2023-04-17 21:25] LABS: Haptoglobin 30 mg/dL (30-200)
[2023-04-18] VITALS (20 sets, daily range): BP systolic 102–185; BP diastolic 53–81; PULSE 75; O2SAT 96; BMI 30.4
[2023-04-18 03:52] LABS: APTT 66.1 Sec (23.4-35.0)
[2023-04-18 03:56] LABS: Beta-2-Glycoprotein I Ab. IgA <10 SAU (<=20)
[2023-04-18 04:03] LABS: Beta-2-Glycoprotein I Ab. IgG <10 SGU (<=20); Beta-2-Glycoprotein I Ab. IgM <10 SMU (<=20)
[2023-04-18 04:15] LABS: Blood Urea Nitrogen 16 mg/dl (7-17); Calcium 9.2 mg/dl (8.4-10.2); Carbon Dioxide 23 mmol/L (22-30); Chloride 107 mmol/L (98-107); Estimated Creatinine Clearance 71 ml/min; Glucose 101 mg/dl (70-99); Potassium 4.3 mmol/L (3.5-5.1); Sodium 135 mmol/L (135-145); eGFR > 60.00
[2023-04-18 04:17] LABS: Hematocrit 26.6 % (37.0-47.0); Hemoglobin 9.1 g/dL (12.0-16.0); Mean Corp Hgb Conc. 34.2 g/dL (33.0-37.0); Mean Corpuscular Hgb 32.4 pg (27.0-31.0); Mean Corpuscular Volume 94.7 fL (81.0-99.0); Mean Platelet Volume 11.1 fL (7.4-10.4); Platelet Count 57 10^3/uL (130-400); Red Blood Cell Count 2.81 10^6/uL (4.20-5.40); Red Cell Dist. Width 14.6 % (11.5-14.5); White Blood Cell Count 12.2 10^3/uL (4.8-10.8)
[2023-04-18] MEDS: LIDOCAINE 4% PATCH 1 PATCH TOPICAL (07:47)
[2023-04-18] MEDS: PACERONE 400 MG PO ×3 (07:47→21:42)
[2023-04-18] MEDS: ASPIR LOW (ENTERIC COATED) 81 MG PO (07:47)
[2023-04-18] MEDS: PROTONIX 40 MG PO (07:47)
[2023-04-18] MEDS: MEDROL 4 MG PO (07:47)
[2023-04-18] MEDS: TOPROL XL 25 MG PO (07:47)
[2023-04-18] MEDS: MIRALAX 17 GRAMS PO (07:48)
--- NOTE | 2023-04-18 07:50 | W.PN.INTV ---
Today's Communication / Plan
Recommendations
Transition to oral anticoagulation, pending hematology recommendation
Recommended least 3 months of anticoagulation
Repeat echocardiogram in 3 months
PT/OT, out of bed, ambulate
Will require follow-up with pulmonary in 2 months with imaging given right lower lobe nodule
Will eventually require bronchoscopy with biopsy
Assessment
-
Assessment:� 78-year-old female with a past medical history of hypertension, former tobacco use disorder ([id number], quit 1989), pulmonary nodules with 11 mm PET avid LLL nodule, history of diverticulosis, hypothyroidism, PAD, CAD and aortic
stenosis who presents with shortness of breath and hypoxia..� Patient recently was hospitalized here and underwent surgical aortic valve replacement with bioprosthetic valve and CABG x 2 on 04/03/2023.� There were no immediate complications.� She was
discharged to rehab on 04/09 after PT/OT recommended acute rehab.� While at rehab she has been experiencing hypotension for the last 1-2 days with dizziness upon standing.� Patient also endorses shortness of breath with minimal activity.� CXR done
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
recommendations/management.
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
Acute submassive saddle PE with high-risk features (chemical evidence despite no radiographic/echo evidence of RV strain) - elevated troponin + elevated proBNP are concerning for developing RV strain
s/p IR directed thrombectomy 04/15/2023
Left lower extremity DVT
Acute respiratory failure with hypoxemia due to above, improved
Elevated troponin - due to acute PE as above
Recent SAVR + CABG x2 on 04/03/2023 with right lower extremity saphenous vein harvest
Leukocytosis - reactive due to acute PE
Thrombocytopenia
Elevated 4T score
HIT positive
Plan/recommendations
At this time, patient appears to be objectively and subjectively improved
97% on 2 L
Chest exam is clear
Lower extremity swelling improved
Platelets stabilized at 57
Remains on argatroban, therapeutic PTT
Moving forward
Continue with management, supportive care
Encouragingly, post embolectomy per interventional radiology 04/15 with improvement and filling pressures, 19/11
Remains on argatroban, suspect eventual transition to oral anticoagulation
4T score elevated, HIT positive
Given possibility of HIT, wonder if this may have been risk factor for thromboembolic process
Hematology following
No evidence of DIC
Dopplers identified a left lower extremity DVT
Transition to oral anticoagulation when okay by hematology. Suspect Eliquis will be adequate
Of note, patient was also on Plavix/aspirin, currently on aspirin alone
Recent bypass surgery noted
Cardiology following
Hemodynamically stable, encourage incentive spirometry
PT/OT, out of bed to chair
Right lower lobe nodule noted, will consider follow-up CT chest in 2-3 months or sooner if indicated
Discussed with patient suspicion for lung cancer
Disposition efforts
Data:
CTA Chest 04-15-2023:
Moderately large saddle embolus involving the main pulmonary arteries bilaterally, more extensive on the right, involving the right upper, middle and lower lobe pulmonary arteries, and the left upper pulmonary artery.
Significant left base consolidation and pleural fluid. The previously described 9 mm pulmonary nodule is not clearly identified due to the increased atelectasis and consolidation in the left lung base.
Follow-up pulmonary nodule after resolution of the left pleural effusion and left base atelectasis.
PFT: 11/2022
FEV1/FVC: 75 (101% predicted)
FEV1: 1.73L (99%)
FVC: 2.31L (99%)
T% (4.17L)
RV: 82%
ERV: 70%
IC: 116%
DLco: 83%
VA: 5.14L (116%)
DLco/VA: 77%
Subjective Dataa
Subjective Data
Date of Service:
Date of Service: April 18, 2023
Subjective:
Patient did not sleep well overnight otherwise feels breathing continues to improve. Denies chest pain except that related to incision. Denies nausea, abdominal pain. Moved bowels overnight
Objective Data
Data Reviewed
Vital Signs / I&O / Oxygen:
Vital Signs
Temp Pulse Resp BP Pulse Ox
98 F 76 14 122/63 97
04/18/23 07:00 04/18/23 05:30 04/18/23 05:30 04/18/23 05:00 04/18/23 05:30
Intake and Output
04/17/23 04/18/23 04/19/23
06:59 06:59 06:59
Intake Total 1213.4 / 1216.7 934.3 / 934.3
Output Total 1100 / 1100 500 / 500
Balance 113.4 / 116.7 434.3 / 434.3
SaO2 97
Nasal Cannula flow liters per 2
minute
Physical Exam
General: Comfortable and Other (Chest incision intact)
HEENT: Normocephalic and Anicteric
Cardiovascular: S1-S2, Regular Rhythm, Murmur (n), Rub (n), Peripheral Edema (n) and Other (Right lower extremity bruising, incision intact)
Respiratory: Clear, Wheeze (n), Crackles (n), Rhonchi (n) and Non-Labored Respirations
GI: Soft, Non Distended and Non Tender
Neurology: Awake, Alert, Oriented and No Motor Deficits (Moves all extremities)
Skin: Good Color (n), Cyanosis (n), Bruising (Mild right lower extremity) and Other (Right lower extremity DP pulses intact)
Labs/Micro/Reports
Lab Data
04/18/23:45
04/18/23 01:45
Laboratory Results
04/17/23 04/18/23
13:43 01:45
APTT 59.2 H 66.1 H
Microbiology
04/15/23 18:42 Nose MRSA Screen - Final
No Methicillin Resistant Staphylococcus aureus isolated.
--- NOTE | 2023-04-18 08:30 | W.PN.HOSP.TC ---
Addendum entered and electronically signed by Caroline Wallace MD 04/18/23 12:00:
discussed plan with pharmacy, Heme, Pulm --> Ok for transition to Eliquis now
will do 10mg PO BID x 5 more days then 5mg PO BID
Original Note:
Today's Communication/Plan
-
IV Argatroban - F/U with Pulm and Heme timing on transition to Eliquis
PT/OT
OK for IMU
Assessment / Plan
Assessment / Plan
HPI: 78-year-old female with a past medical history of coronary artery disease status post CABG x 2 with AVR 04/03/[address] Cotto, PMR/RA on chronic steroids, hypertension, hyperlipidemia, COPD, and prediabetes presents with shortness of breath found
to be hypoxic; CTA with large saddle PE now s/p embolectomy.
CTA
IMPRESSION:
Moderately large saddle embolus involving the main pulmonary arteries bilaterally, more extensive on the right, involving the right upper, middle and lower lobe pulmonary arteries, and the left upper pulmonary artery.
Significant left base consolidation and pleural fluid. The previously described 9 mm pulmonary nodule is not clearly identified due to the increased atelectasis and consolidation in the left lung base.
Follow-up pulmonary nodule after resolution of the left pleural effusion and left base atelectasis.
Embolectomy 04/16/23
IMPRESSION:
1. Successful suction embolectomy of the saddle embolus, and multiple central right-sided pulmonary emboli.
2. Pulmonary arterial pressure improved from 47/13 (mean 26 mmHg) to 24/9 (mean 15 mmHg).
3. Systemic anticoagulation will be resumed approximately 2 hours following sheath removal.
TTE 04/15/23
CONCLUSIONS
�Left ventricle is small in size.� Underfilled left ventricle.� Severe
�concentric left ventricular hypertrophy. Normal left ventricular systolic
�function. Normal regional wall motion. Left ventricular ejection fraction is
�60-65%.
�Normal right ventricular size and function.
�Thickened mitral valve leaflets. Mitral annular calcification. There is
�adequate mitral leaflet excursion. No mitral regurgitation is seen.
�23 mm bioprosthetic aortic valve replacement.� Peak/mean gradients across the
�aortic valve are 24/14 mmHg respectively. No aortic regurgitation is seen.
�Tricuspid valve opens normally. Mild-moderate tricuspid regurgitation.
�Estimated pulmonary artery pressure of 54-59 mmHg assuming a right atrial
�pressure of 3 mmHg.
�Compared to prior study 11/07/2022 aortic valve has been replaced.� PA pressure
�has now increased and was previously 32 mmHg
�
�Indications:
�Short of breath.� Recent valve replacement
#Acute hypoxic respiratory failure
#Large saddle pulmonary embolism
Appreciate cardiology, pulmonology
-admitted to ICU
s/p embolectomy by IR on 04/15; procedure above
oxygen weaned off
continue Argatroban; eventual transition to Eliquis
#Thrombocytopenia
#HIT
-continue argatroban
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
-hematology consult appreciated
-hold PLavix (OK'd by cardiology)
#New onset rapid atrial fibrillation
-started on amiodarone
-continue AC
#Elevated troponin
Due to PE and rapid afib
#Leukocytosis
Suspect reactive, monitor off antibiotics
#Coronary artery disease
#CABG x 2 with AVR 04/03/[address] Cotto
Continue aspirin, statin, metoprolol
plavix held
#History of hypertension
Blood pressure currently 123/78
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
Resume if blood pressure increases
#Hyperlipidemia
Repatha 140mg SC q 2 weeks- last taken 03/27/2023
Continue statin
#History of rheumatoid arthritis
On methylprednisolone 4 mg daily
#Left lung nodule
Follow-up with pulmonology outpatient
#Obesity due to excess calories
Affects all aspects of care
GI ppx - protonix
DVT prophylaxis� argatroban
Full code
Total time spent to see the patient on the floor, examine the patient, review data and lab results, discuss treatment plan with patient,� nursing staff� around 75 minutes.
Anticipated Discharge: > 48 hours
Subjective/Interval History
-
Date of Service: April 18, 2023
feeling well
walked a little yesterday
would prefer to go home instead of rehab
Objective Data
-
Labs:
Laboratory Results
04/18/23 04/18/23
01:45 14:00
WBC 12.2 H
Hgb 9.1 L
Hct 26.6 L
Plt Count 57 L
APTT 66.1 H Pending
Sodium 135
Potassium 4.3
Chloride 107
Carbon Dioxide 23
BUN 16
Creatinine 0.6
Glucose 101 H
Calcium 9.2
Vital Signs:
Vital Signs
Temp Pulse Resp BP Pulse Ox
98 F 76 14 122/63 97
04/18/23 07:00 04/18/23 05:30 04/18/23 05:30 04/18/23 05:00 04/18/23 05:30
I&O
04/17/23 04/18/23 04/19/23
06:59 06:59 06:59
Intake Total 1213.4 / 1216.7 934.3 / 934.3
Output Total 1100 / 1100 500 / 500
Balance 113.4 / 116.7 434.3 / 434.3
Review of Systems
-
History Source: Patient
All other systems: Reviewed and negative
Physical Exam
-
General: No Apparent Distress
HEENT: PERRLA
Respiratory: Clear to Auscultation; Negative Wheezes
Cardiac: S1/S2
GI: Soft and Nontender
Musculoskeletal: Other (bruising RLE; vein graft)
Skin: Warm and Dry; Negative Rash
Neuro: AO x 3
Psych: Calm
Data Reviewed
-
Diagnostic Radiology: Report Reviewed by me
Labs: Labs Reviewed by me
--- NOTE | 2023-04-18 08:53 | W.PN.ONC2 ---
Today's Communication / Plan
-
Continue argatroban with transition to apixaban as we approach discharge. She remains in the ICU so for now continue argatroban.
Impression
Impression
Acute thrombocytopenia, suspect HIT
New onset rapid atrial fibrillation
Acute hypoxic respiratory failure
Large saddle PE s/p embolectomy 04/15
s/p CABG 04/03/23 with heparin exposure
Leukocytosis
Known left lung nodule
Plan
Plan
04/18 PLT 57
HIT BARRY positive = 1.038. Confirmatory serotonin release assay is pending.
Anticardiolipin and antiphospholipid antibody screens are pending.
Continue Argatroban. If continued improvement in platelet count, switch to apixiban (Per UpToDate: The dose for apixaban would be 5 mg twice daily. If <7 days of the initial parenteral anticoagulant have been administered, apixaban is dosed at 10 mg
twice daily until a total of seven days of anticoagulation have been provided.)
Will need at least 3 months anticoagulation.
If antiphospholipid antibody panel positive would necessitate using warfarin as opposed to apixaban.
Subjective/Objective
Chief Complaint
ACS Heme Onc F/U
Subjective
No complaints. She denies chest pain or shortness of breath.
Vital Signs:
Vital Signs
Temp Pulse Resp BP Pulse Ox
98 F 76 14 122/63 97
04/18/23 07:00 04/18/23 05:30 04/18/23 05:30 04/18/23 05:00 04/18/23 05:30
Lab Results:
Laboratory Data
WBC 12.2 10^3/uL (4.8-10.8) H 04/18/23 01:45
Hgb 9.1 g/dL (12.0-16.0) L 04/18/23 01:45
Plt Count 57 10^3/uL (130-400) L 04/18/23 01:45
PT 14.3 Sec (11.4-14.6) 04/16/23 13:39
INR 1.13 04/16/23 13:39
APTT 66.1 Sec (23.4-35.0) H 04/18/23 01:45
eGFR > 60.00 04/18/23 01:45
Laboratory Tests
04/16/23
11:03
Beta-2-GPI IgG Ab <10
Beta-2-GPI IgA Ab <10
Beta-2-GPI IgM Ab <10
Direct Plt-Bound IgG Ab Negative
Direct Plt-Bound IgM Ab Negative
Indirect Platelet Ab Pending
Phosphatidylserine IgG Pending
Phosphatidylserine IgA Pending
Phosphatidylserine IgM Pending
Anti-Cardiolipin IgG Ab Pending
Anti-Cardiolipin IgA Ab Pending
Anti-Cardiolipin IgM Ab Pending
Laboratory Tests
04/16/23 04/16/23 04/16/23
11:01 11:02 11:03
Retic Count 4.2 H
Haptoglobin 30
Iron
TIBC
% Saturation
Ferritin 1580.0 H
Total Bilirubin
Direct Bilirubin
Lactate Dehydrogenase
04/16/23
13:39
Retic Count
Haptoglobin
Iron 62
TIBC 224 L
% Saturation 27
Ferritin
Total Bilirubin 0.9
Direct Bilirubin 0.6 H
Lactate Dehydrogenase 464 H
Physical Exam
HEENT: No Jaundice
Cardiology: S1 and S2
Pulmonary: Clear
GI: Soft
Extremities: No C/C/E
--- NOTE | 2023-04-18 09:12 | W.PN.CARDCBS ---
Today's Communication / Plan
-
Cont amiodarone load to maintain sinus
Appreciate hematology recommendations
Impression / Plan
-
Impression:
Acute submassive saddle pulmonary embolism/hypoxemia status post embolectomy 04/15/2023
New onset postoperative (04/03/2023) atrial fibrillation in the setting of pulmonary embolism
CABG x 2 and bioprosthetic AVR 04/03/2023
23 mm Umana Inspiris biologic valve
Orthostasis
Carotid artery disease followed by vascular
Carotid ultrasound 07/20/2022 with small amount of common carotid calcific plaque. Right internal carotid artery 50 to 69% stenosis. Left internal carotid artery 50 to 69% stenosis.�
Small to moderate left pleural effusion
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
Left lower lobe nodule suspicious for malignancy and workup underway
Hyperdynamic ventricle with LVH
Hypertension
Hyperlipidemia
Peripheral vascular disease with carotid stenosis followed by vascular
Polymyalgia rheumatica/rheumatoid arthritis on chronic steroids
Osteoarthritis and osteoporosis
Irritable bowel
Thyroid disease
History of tobacco abuse
History of TIA
CT scan 04/15/2023:�Filling defect at the main pulmonary artery extending into the right and left main pulmonary arteries, consistent with a large saddle embolus. The extent of the embolus is greater on the right than the left. The saddle embolus
involves the right upper, middle and lower lobe pulmonary arteries and left upper pulmonary arteries.
Transesophageal echocardiogram 04/03/2023:�Ejection fraction 65%.� Severe LVH.� Severe aortic valve stenosis.� Trace TR.� Moderate calcified atheroma descending aorta and arch.� Status post AVR.� No AI or leaks.� Maximum aortic valve gradient 20 mean
13 mmHg.� 30 minutes post pulm mean gradient decreased to 3 mmHg.� LVOT gradient noted 11 mmHg.� No JENNI and no MR noted.
Echo 11/07/22:�LVEF of 58%, moderate LVH, LVOT gradient of 41 mmHg, increasing to 65 mmHg with Valsalva, stage II diastolic dysfunction, moderate to severe aortic stenosis with peak and mean transaortic gradients of 62 and 32 mmHg, calculated aortic
valve area of 0.9 cm�, trace tricuspid regurgitation without evidence of pulmonary hypertension.
Cath 03/08/23:�RA� 12; PA : 39/19 (27), PCWP (m) : 22, PA saturation: 65.9% on room air, AO saturation: 95.7% on room air, CO 3.31 L/min by Rut, CI 1.87 L/min/m-2 by Rut, SVR 2173 dsc^(-5), PVR 1.51 her unit, LVEDP22. IFR of ostial left main was
borderline at 0.89-0.90. Eccentric 80% ostial LAD stenosis which is IFR positive with an IFR of 0.85
Carotid ultrasound 07/20/2022�with small amount of common carotid calcific plaque. Right internal carotid artery 50 to 69% stenosis. Left internal carotid artery 50 to 69% stenosis.�
Echo Apr 15 2022: EF 60-65% 23 mm bioAVR peak/mean grad 24/14 mmHg respectively, mild to mod TR, PASP 54-59 mmHg, compared to Oct 2022 AV has been replaced and PA now increased to 32 mmHg.
Plan:
Saddle pulmonary emboli and hypoxemia with improvement s/p embolectomy
Appreciate hematology input, HIT positive, tentative plan for Argatroban -> Eliquis if platelets continue to improve
Echo with preserved EF and normal RV size and function.
Medical therapy of nonMI trop
Paroxysmal AFib
Currently maintaining sinus rhythm - cont PO amiodarone load
Cont metoprolo
Anticoagulation per heme with eventual transition to Apixaban
CABG x 2 and bioprosthetic AVR
Continue usual postop care.
Continue 81 mg aspirin
While on heparin and anticoagulation Plavix stopped to avoid triple therapy
Left lung nodule suspicious for malignancy/COPD
Continue pulmonary follow-up
Hyperlipidemia
Continue lipid-lowering on injectables as an outpatient
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
Subjective
Date of Service: April 18, 2023
NAOE. Resting comfortably in ICU. Tells me breathing is improved, still requiring supplemental O2. Feels he is diuresing well, no edema.
Objective
Labs:
04/18/23 01:45
04/18/23 01:45
Labs
Hgb 9.1 g/dL (12.0-16.0) L 04/18/23 01:45
Hct 26.6 % (37.0-47.0) L 04/18/23 01:45
Plt Count 57 10^3/uL (130-400) L 04/18/23 01:45
PT 14.3 Sec (11.4-14.6) 04/16/23 13:39
INR 1.13 04/16/23 13:39
APTT 66.1 Sec (23.4-35.0) H 04/18/23 01:45
Sodium 135 mmol/L (135-145) 04/18/23 01:45
Potassium 4.3 mmol/L (3.5-5.1) 04/18/23 01:45
BUN 16 mg/dl (7-17) 04/18/23 01:45
Creatinine 0.6 mg/dL (0.6-1.0) 04/18/23 01:45
Glucose 101 mg/dl (70-99) H 04/18/23 01:45
Troponins
04/15/23 04/16/23
10:35 04:04
Troponin I 0.061 H* 0.093 H*
Vital Signs and I&O:
Vital Signs
Temp Pulse Resp BP Pulse Ox
98 F 76 14 122/63 97
04/18/23 07:00 04/18/23 05:30 04/18/23 05:30 04/18/23 05:00 04/18/23 05:30
Vital Signs
Temp Pulse Resp BP Pulse Ox
98 F 76 14 122/63 97
04/18/23 07:00 04/18/23 05:30 04/18/23 05:30 04/18/23 05:00 04/18/23 05:30
Intake & Output
04/16/23 04/17/23 04/18/23 04/19/23
06:59 06:59 06:59 06:59
Intake Total 384.9 / 411.6 1213.4 / 1216.7 934.3 / 934.3
Output Total 650 / 650 1100 / 1100 500 / 500
Balance -265.1 / -238.4 113.4 / 116.7 434.3 / 434.3
Physical Exam
Physical Exam
Gen: NAD, AAOx3
HEENT: NC/AT, sclera anicteric
Neck: No JVD
CV: RRR, NL s1/s2
Lungs: Decreased BS at the base, on 2L NC
Abd: S/ND
Ext: No LE edema
Skin: Warm, dry
Neuro: Non-focal
[2023-04-18 09:29] LABS: Cardiolipin IgA Antibody 11 APL (<=11); Cardiolipin IgM Antibody <10 MPL (<=12); Cardiolipin Igg Antibody <10 GPL (<=14)
[2023-04-18] MEDS: LASIX 20 MG PO (11:05)
--- NOTE | 2023-04-18 11:14 | PN.CDI ---
CDI
- -
CDI:
Physician Documentation Request
Admit Date: 04/15/23 11:58
Dear Doctor Rodrigo,
Patient underwent aortic valve replacement and CABG x 2 on 04/03.
Patient presented to the ED complaining of shortness of breath and was hypoxic on arrival, per ED record. Patient found to have large saddle pulmonary embolism.
Please clarify if a relationship exist between these conditions:
Yes, pulmonary embolism is related to/associated with/due to/ exacerbated by recent surgery.
No, pulmonary embolism is not related to/associated with/due to/exacerbated by recent surgery
Unable to determine
Use of terms such as suspected, likely, concern for, or probable (associated with a specific diagnosis that is being evaluated, monitored, or treated as if it exists) are acceptable and can be coded in the inpatient setting, when documented at the
time of discharge.
Thank you,
Winsome Quarlse RN, BSN
CDI Specialist
tiger text
Please use your independent medical judgment in providing your response.
[2023-04-18] MEDS: ELIQUIS 10 MG PO ×2 (12:29→21:42)
--- NOTE | 2023-04-18 12:30 | PTCARENOTE ---
Argatroban d/c'd. Eliquis given per order. Pt OOB in chair. O2 weaned off. Good appetite.
--- NOTE | 2023-04-18 13:50 | W.PN.UPDATE ---
Update Note
Progress Note Update
patient was lightheaded with PT. I had resumed lasix today. she denies LE swelling, notes they are improved. will stop lasix and give small bolus back to see if helps symptoms.
[2023-04-18] MEDS: NSS 250 IV (14:17)
--- NOTE | 2023-04-18 14:24 | VNURNOTE ---
Home Health Liaison met with patient and friend at bedside to discuss [facility] nurse/therapy, visits, schedule and homebound status. Patient is agreeable and understands that visits at home will be 2-3 x per week to assess and teach medical management.
[facility] brochure provided with contact information. Patient is aware that [facility] will contact them for start of care in 1-2 days after discharge from . Will follow if home 02 needed. [facility] referral completed in [facility].
[2023-04-18 15:54] LABS: APTT 51.3 Sec (23.4-35.0)
[2023-04-18] MEDS: TYLENOL 650 MG PO (21:42)
[2023-04-18] MEDS: BENADRYL 25 MG PO (21:42)
--- NOTE | 2023-04-18 21:49 | PTCARENOTE ---
Received patient OOB to chair and watching TV. The patient is AAOx4 and able to make her needs known. Plan of care for the shift reviewed with the patient. Sinus rhythm on the monitor. SpO2 at 94% on room air. The patient denies sob and dizziness.
Clear/diminished breath sounds. IS max at 1000 mL x2 attempts. Pt encouraged to continue utilizing IS while awake. +BS. abdomen is soft and nontender. Pt utilizes the purewick. Pt verbalized need to have a BM and brush her teeth.Pt stood with walker
for one minute. Denies feeling dizzy. Assisted the patient to the bathroom with walker. Pt denies dizziness while ambulating to the bathroom. The patient voided and had flatulence. No BM. When the pt stood up, she verbalized dizziness. Stand by
assist until pt stabilized. The patient brushed her teeth and ambulated to the bed. Continued feeling dizzy. Vital signs stable throughout with HR in the 80s, RR 20, and SpO2 at 94%. Assisted the patient in bed. HOB raised to 30 degrees. Sips of
water provided. New purewick placed. The pt verbalized feeling better. All needs are met at this time. Bed in the lowest position. Safety measures maintained.
[2023-04-19] VITALS (19 sets, daily range): BP systolic 101–150; BP diastolic 50–105; PULSE 74–88; O2SAT 96
--- NOTE | 2023-04-19 00:40 | PTCARENOTE ---
Patient reassessed. Remains AAOx4 and bale to make her needs known. VSS on the monitor. Pt turns and repositions herselff. Safety measures maintained. No changes from the previous assessment.
[2023-04-19 04:39] LABS: Hematocrit 25.2 % (37.0-47.0); Hemoglobin 8.6 g/dL (12.0-16.0); Mean Corp Hgb Conc. 34.1 g/dL (33.0-37.0); Mean Corpuscular Hgb 31.9 pg (27.0-31.0); Mean Corpuscular Volume 93.3 fL (81.0-99.0); Mean Platelet Volume 10.8 fL (7.4-10.4); Platelet Count 80 10^3/uL (130-400); Red Cell Dist. Width 14.8 % (11.5-14.5); White Blood Cell Count 11.3 10^3/uL (4.8-10.8)
[2023-04-19 05:01] LABS: ALT (SGPT) 26 U/L (0-35); AST (SGOT) 31 U/L (14-36); Albumin 3.6 g/dl (3.5-5.0); Alkaline Phosphatase 105 U/L (38-126); Blood Urea Nitrogen 17 mg/dl (7-17); Calcium 8.6 mg/dl (8.4-10.2); Carbon Dioxide 25 mmol/L (22-30); Chloride 104 mmol/L (98-107); Estimated Creatinine Clearance 61 ml/min; Glucose 98 mg/dl (70-99); Potassium 3.8 mmol/L (3.5-5.1); Sodium 134 mmol/L (135-145); eGFR > 60.00
--- NOTE | 2023-04-19 07:39 | W.PN.INTV ---
Today's Communication / Plan
Recommendations
Continue Eliquis
Follow-up with pulmonary in 2 months
Will eventually require imaging and bronchoscopy with right lung nodule biopsy
PT/OT
Would also recommend follow-up with hematology/oncology given thrombotic tendency
We will sign off. Please call with questions
Assessment
-
Assessment:� 78-year-old female with a past medical history of hypertension, former tobacco use disorder ([id number], quit 1989), pulmonary nodules with 11 mm PET avid LLL nodule, history of diverticulosis, hypothyroidism, PAD, CAD and aortic
stenosis who presents with shortness of breath and hypoxia..� Patient recently was hospitalized here and underwent surgical aortic valve replacement with bioprosthetic valve and CABG x 2 on 04/03/2023.� There were no immediate complications.� She was
discharged to rehab on 04/09 after PT/OT recommended acute rehab.� While at rehab she has been experiencing hypotension for the last 1-2 days with dizziness upon standing.� Patient also endorses shortness of breath with minimal activity.� CXR done
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
recommendations/management.
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
Acute submassive saddle PE with high-risk features (chemical evidence despite no radiographic/echo evidence of RV strain) - elevated troponin + elevated proBNP are concerning for developing RV strain
s/p IR directed thrombectomy 04/15/2023
Left lower extremity DVT
Acute respiratory failure with hypoxemia due to above, improved
Elevated troponin - due to acute PE as above
Recent SAVR + CABG x2 on 04/03/2023 with right lower extremity saphenous vein harvest
Leukocytosis - reactive due to acute PE
Thrombocytopenia
Elevated 4T score
HIT positive
Plan/recommendations
At this time, patient appears to be objectively and subjectively improved
hemoglobin 8.6
95% on room air
Chest exam is clear
Lower extremity swelling improved
Platelets improved to 80
Transitioned to Eliquis 10 mg twice a day 04/18
Mild lightheadedness with PT noted
Moving forward
Continue Eliquis
Suspect at least 3 months of anticoagulation
HIT positive, serotonin release assay pending
Given possibility of HIT, wonder if this may have been risk factor for thromboembolic process
Dopplers identified a left lower extremity DVT
Hematology following
Of note, patient was also on Plavix/aspirin, currently on aspirin alone
Recent bypass surgery noted
Amiodarone therapy also noted
Cardiology following
Hemodynamically stable, encourage incentive spirometry
PT/OT, out of bed to chair
Right lower lobe nodule noted, will consider follow-up CT chest in 2-3 months or sooner if indicated
Discussed with patient suspicion for lung cancer
We will sign off. Please call with questions
Data:
CTA Chest 04-15-2023:
Moderately large saddle embolus involving the main pulmonary arteries bilaterally, more extensive on the right, involving the right upper, middle and lower lobe pulmonary arteries, and the left upper pulmonary artery.
Significant left base consolidation and pleural fluid. The previously described 9 mm pulmonary nodule is not clearly identified due to the increased atelectasis and consolidation in the left lung base.
Follow-up pulmonary nodule after resolution of the left pleural effusion and left base atelectasis.
PFT: 11/2022
FEV1/FVC: 75 (101% predicted)
FEV1: 1.73L (99%)
FVC: 2.31L (99%)
T% (4.17L)
RV: 82%
ERV: 70%
IC: 116%
DLco: 83%
VA: 5.14L (116%)
DLco/VA: 77%
Subjective Dataa
Subjective Data
Date of Service:
Date of Service: April 19, 2023
Subjective:
Patient feeling well. Mild lightheadedness with positional therapy but denies chest pain, palpitations, shortness of breath. Not comfortable in bed, does not sleep well. Currently sitting in chair eating breakfast, comfortable appearing
Objective Data
Data Reviewed
Vital Signs / I&O / Oxygen:
Vital Signs
Temp Pulse Resp BP Pulse Ox
99 F 75 14 119/58 95
04/19/23 05:30 04/19/23 07:15 04/19/23 07:15 04/19/23 06:00 04/19/23 07:15
Intake and Output
04/18/23 04/19/23 04/20/23
06:59 06:59 06:59
Intake Total 934.3 / 934.3 1426.5 / 1426.5
Output Total 500 / 500 1250 / 1250
Balance 434.3 / 434.3 176.5 / 176.5
SaO2 95
Nasal Cannula flow liters per 92
minute
Physical Exam
General: Comfortable and Other (Chest incision intact)
HEENT: Normocephalic and Anicteric
Cardiovascular: S1-S2, Regular Rhythm, Murmur (n), Rub (n), Peripheral Edema (n) and Other (Mild right lower extremity ecchymoses, incision intact)
Respiratory: Clear, Wheeze (n), Crackles (n), Rhonchi (n) and Non-Labored Respirations
GI: Soft, Non Distended and Non Tender
Neurology: Awake, Alert and No Motor Deficits (Moves all extremities)
Skin: Good Color (n), Cyanosis (n) and Bruising (Mild right lower extremity)
Labs/Micro/Reports
Lab Data
04/19/23 04:12
02/22/24 04:12
Laboratory Results
04/18/23
15:37
APTT 51.3 H
Microbiology
04/15/23 18:42 Nose MRSA Screen - Final
No Methicillin Resistant Staphylococcus aureus isolated.
[2023-04-19] MEDS: LIDOCAINE 4% PATCH 1 PATCH TOPICAL (07:45)
[2023-04-19] MEDS: MIRALAX PO (07:50)
[2023-04-19] MEDS: PACERONE 400 MG PO (07:53)
[2023-04-19] MEDS: MEDROL 4 MG PO (07:53)
[2023-04-19] MEDS: PROTONIX 40 MG PO (07:53)
[2023-04-19] MEDS: ELIQUIS 10 MG PO ×2 (07:53→20:15)
[2023-04-19] MEDS: FLUSH (NSS) 2 FLUSH IV (07:54)
[2023-04-19] MEDS: ASPIR LOW (ENTERIC COATED) 81 MG PO (07:54)
--- NOTE | 2023-04-19 08:07 | PTCARENOTE ---
report received, assessments per work list. patient remains mildly symptomatic with position changes. vitals signs per work list. feeling of dizziness resolved after few minutes. remains nsr, mild dyspnea with exertion. crackles left base. patient
refusing miralx this am, 'I'll take prune juice instead'. assisted to bathroom and chair with rolling walker. call blas in reach.
--- NOTE | 2023-04-19 08:44 | W.PN.CARDCBS ---
Today's Communication / Plan
-
Saddle pulmonary emboli and hypoxemia with improvement s/p embolectomy
Appreciate hematology input, HIT positive, Argatroban transitioned to Eliquis as platelets continue to improve
Echo with preserved EF and normal RV size and function.
Continue medical therapy of nonMI trop
Paroxysmal AFib:
Currently maintaining sinus rhythm.
Transition amiodarone to 200 mg BID as she received amiodarone load.
Resume metoprolol prior to d/c
Anticoagulation per heme with transition to Apixaban
Orthostatic hypotension:
With orthostasis, lasix has been stopped and Toprol held.
Tentatively resume Toprol at lower dose of 12.5 mg daily given recent CABG
May allow some permissive hypertension to avoid hypotension.
CABG x 2 and bioprosthetic AVR
Continue usual postop care.
Continue 81 mg aspirin
While on anticoagulation, Plavix stopped to avoid triple therapy
Impression / Plan
-
.
Impression:
Acute submassive saddle pulmonary embolism/hypoxemia status post embolectomy 04/15/2023
New onset postoperative (04/03/2023) atrial fibrillation in the setting of pulmonary embolism
CABG x 2 and bioprosthetic AVR 04/03/2023
23 mm Umana Inspiris biologic valve
Orthostasis
Carotid artery disease followed by vascular
Carotid ultrasound 07/20/2022 with small amount of common carotid calcific plaque. Right internal carotid artery 50 to 69% stenosis. Left internal carotid artery 50 to 69% stenosis.�
Small to moderate left pleural effusion
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
Left lower lobe nodule suspicious for malignancy and workup underway
Hyperdynamic ventricle with LVH
Hypertension
Hyperlipidemia
Peripheral vascular disease with carotid stenosis followed by vascular
Polymyalgia rheumatica/rheumatoid arthritis on chronic steroids
Osteoarthritis and osteoporosis
Irritable bowel
Thyroid disease
History of tobacco abuse
History of TIA
CT scan 04/15/2023:�Filling defect at the main pulmonary artery extending into the right and left main pulmonary arteries, consistent with a large saddle embolus. The extent of the embolus is greater on the right than the left. The saddle embolus
involves the right upper, middle and lower lobe pulmonary arteries and left upper pulmonary arteries.
Transesophageal echocardiogram 04/03/2023:�Ejection fraction 65%.� Severe LVH.� Severe aortic valve stenosis.� Trace TR.� Moderate calcified atheroma descending aorta and arch.� Status post AVR.� No AI or leaks.� Maximum aortic valve gradient 20 mean
13 mmHg.� 30 minutes post pulm mean gradient decreased to 3 mmHg.� LVOT gradient noted 11 mmHg.� No JENNI and no MR noted.
Echo 11/07/22:�LVEF of 58%, moderate LVH, LVOT gradient of 41 mmHg, increasing to 65 mmHg with Valsalva, stage II diastolic dysfunction, moderate to severe aortic stenosis with peak and mean transaortic gradients of 62 and 32 mmHg, calculated aortic
valve area of 0.9 cm�, trace tricuspid regurgitation without evidence of pulmonary hypertension.
Cath 03/08/23:�RA� 12; PA : 39/19 (27), PCWP (m) : 22, PA saturation: 65.9% on room air, AO saturation: 95.7% on room air, CO 3.31 L/min by Rut, CI 1.87 L/min/m-2 by Rut, SVR 2173 dsc^(-5), PVR 1.51 her unit, LVEDP22. IFR of ostial left main was
borderline at 0.89-0.90. Eccentric 80% ostial LAD stenosis which is IFR positive with an IFR of 0.85
Carotid ultrasound 07/20/2022�with small amount of common carotid calcific plaque. Right internal carotid artery 50 to 69% stenosis. Left internal carotid artery 50 to 69% stenosis.�
Echo Apr 15 2022: EF 60-65% 23 mm bioAVR peak/mean grad 24/14 mmHg respectively, mild to mod TR, PASP 54-59 mmHg, compared to Oct 2022 AV has been replaced and PA now increased to 32 mmHg.
Plan:
Saddle pulmonary emboli and hypoxemia with improvement s/p embolectomy
Appreciate hematology input, HIT positive, Argatroban transitioned to Eliquis as platelets continue to improve
Echo with preserved EF and normal RV size and function.
Continue medical therapy of nonMI trop
Paroxysmal AFib:
Currently maintaining sinus rhythm.
Transition amiodarone to 200 mg BID as she received amiodarone load.
Resume metoprolol prior to d/c
Anticoagulation per heme with transition to Apixaban
Orthostatic hypotension:
With orthostasis, lasix has been stopped and Toprol held.
Tentatively resume Toprol at lower dose of 12.5 mg daily given recent CABG
May allow some permissive hypertension to avoid hypotension.
CABG x 2 and bioprosthetic AVR
Continue usual postop care.
Continue 81 mg aspirin
While on anticoagulation, Plavix stopped to avoid triple therapy
Left lung nodule suspicious for malignancy/COPD
Continue pulmonary follow-up
Hyperlipidemia
Continue lipid-lowering on injectables as an outpatient
Reviewed with primary service.
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
Subjective
Date of Service: April 19, 2023
Pt seen and examined. Some dizziness this am
Objective
Labs:
04/19/23 04:12
04/19/23 04:12
Labs
Hgb 8.6 g/dL (12.0-16.0) L 04/19/23 04:12
Hct 25.2 % (37.0-47.0) L 04/19/23 04:12
Plt Count 80 10^3/uL (130-400) L D 04/19/23 04:12
PT 14.3 Sec (11.4-14.6) 04/16/23 13:39
INR 1.13 04/16/23 13:39
APTT 51.3 Sec (23.4-35.0) H 04/18/23 15:37
Sodium 134 mmol/L (135-145) L 04/19/23 04:12
Potassium 3.8 mmol/L (3.5-5.1) 04/19/23 04:12
BUN 17 mg/dl (7-17) 04/19/23 04:12
Creatinine 0.7 mg/dL (0.6-1.0) 04/19/23 04:12
Glucose 98 mg/dl (70-99) 04/19/23 04:12
Vital Signs and I&O:
Vital Signs
Temp Pulse Resp BP Pulse Ox
97.8 F 88 14 101/52 95
04/19/23 08:02 04/19/23 07:53 04/19/23 07:15 04/19/23 07:53 04/19/23 07:15
Vital Signs
Temp Pulse Resp BP Pulse Ox
97.8 F 88 14 101/52 95
04/19/23 08:02 04/19/23 07:53 04/19/23 07:15 04/19/23 07:53 04/19/23 07:15
Intake & Output
04/17/23 04/18/23 04/19/23 04/20/23
06:59 06:59 06:59 06:59
Intake Total 1213.4 / 1216.7 934.3 / 934.3 1426.5 / 1426.5
Output Total 1100 / 1100 500 / 500 1250 / 1250
Balance 113.4 / 116.7 434.3 / 434.3 176.5 / 176.5
Physical Exam
Physical Exam
General: No acute distress, AAOX3
Neck: Negative JVD
Heart: Regular, Negative S3 positive S1/S2, Negative S4, No murmur
Lungs: CTA b/l, negative wheezes/rales/rhonchi
Abd: Positive BS, NT/ND, neg rebound/rigidity/guarding
Ext: Negative cyanosis/clubbing/edema
Neuro: nonfocal
--- NOTE | 2023-04-19 08:44 | W.PN.HOSP.TC ---
Addendum entered and electronically signed by Caroline Wallace MD 04/19/23 08:51:
Yes, pulmonary embolism is related to/associated with/due to/ exacerbated by recent surgery.
Original Note:
Today's Communication/Plan
-
PT/OT
Eliquis
F/U further cardiology recs regarding medication adjustment orthostatic hypotension
possible DC in1 -2 days - back to [facility]?
Assessment / Plan
Assessment / Plan
HPI: 78-year-old female with a past medical history of coronary artery disease status post CABG x 2 with AVR 04/03/[address] Cotto, PMR/RA on chronic steroids, hypertension, hyperlipidemia, COPD, and prediabetes presents with shortness of breath found
to be hypoxic; CTA with large saddle PE now s/p embolectomy.
CTA
IMPRESSION:
Moderately large saddle embolus involving the main pulmonary arteries bilaterally, more extensive on the right, involving the right upper, middle and lower lobe pulmonary arteries, and the left upper pulmonary artery.
Significant left base consolidation and pleural fluid. The previously described 9 mm pulmonary nodule is not clearly identified due to the increased atelectasis and consolidation in the left lung base.
Follow-up pulmonary nodule after resolution of the left pleural effusion and left base atelectasis.
Embolectomy 04/16/23
IMPRESSION:
1. Successful suction embolectomy of the saddle embolus, and multiple central right-sided pulmonary emboli.
2. Pulmonary arterial pressure improved from 47/13 (mean 26 mmHg) to 24/9 (mean 15 mmHg).
3. Systemic anticoagulation will be resumed approximately 2 hours following sheath removal.
TTE 04/15/23
CONCLUSIONS
�Left ventricle is small in size.� Underfilled left ventricle.� Severe
�concentric left ventricular hypertrophy. Normal left ventricular systolic
�function. Normal regional wall motion. Left ventricular ejection fraction is
�60-65%.
�Normal right ventricular size and function.
�Thickened mitral valve leaflets. Mitral annular calcification. There is
�adequate mitral leaflet excursion. No mitral regurgitation is seen.
�23 mm bioprosthetic aortic valve replacement.� Peak/mean gradients across the
�aortic valve are 24/14 mmHg respectively. No aortic regurgitation is seen.
�Tricuspid valve opens normally. Mild-moderate tricuspid regurgitation.
�Estimated pulmonary artery pressure of 54-59 mmHg assuming a right atrial
�pressure of 3 mmHg.
�Compared to prior study 11/07/2022 aortic valve has been replaced.� PA pressure
�has now increased and was previously 32 mmHg
�
�Indications:
�Short of breath.� Recent valve replacement
#Acute hypoxic respiratory failure
#Large saddle pulmonary embolism
Appreciate cardiology, pulmonology
-admitted to ICU, now IMU status
-s/p embolectomy by IR on 04/15; procedure above
-oxygen weaned off
-transitioned from Argatroban to Eliquis 10 BID on 04/18. On 04/23 transition to Eliquis 5mg PO BID
#Thrombocytopenia
#HIT
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
-hematology consult appreciated
-hold PLavix (OK'd by cardiology)
-Eliquis started on 04/18
#Orthostatic Hypotension
-on-going issue since surgery
-[employer] Valsartan held
-discussing with Dr. Sorto this AM --> hold metop?
#New onset rapid atrial fibrillation
-started on amiodarone
-continue AC
#Elevated troponin
Due to PE and rapid afib
#Leukocytosis
Suspect reactive, monitor off antibiotics
#Coronary artery disease
#CABG x 2 with AVR 04/03/[address] Cotto
Continue aspirin, statin, metoprolol
plavix held
#History of hypertension
Blood pressure currently 123/78
[employer] lasix and valsartan held
Resume if blood pressure increases
#Hyperlipidemia
Repatha 140mg SC q 2 weeks- last taken 03/27/2023
Continue statin
#History of rheumatoid arthritis
On methylprednisolone 4 mg daily
#Left lung nodule
Follow-up with pulmonology outpatient
#Obesity due to excess calories
Affects all aspects of care
GI ppx - protonix
DVT prophylaxis� Eliquis
Full code
Total time spent to see the patient on the floor, examine the patient, review data and lab results, discuss treatment plan with patient,� nursing staff� around 75 minutes.
Anticipated Discharge: 24 - 48 hours
Subjective/Interval History
-
Date of Service: April 19, 2023
feeling okay when sitting but dizzy when standing
no chest pain
less swelling
Objective Data
-
Labs:
Laboratory Results
04/19/23
04:12
WBC 11.3 H
Hgb 8.6 L
Hct 25.2 L
Plt Count 80 L D
Sodium 134 L
Potassium 3.8
Chloride 104
Carbon Dioxide 25
BUN 17
Creatinine 0.7
Glucose 98
Calcium 8.6
Total Bilirubin 1.0
AST 31
ALT 26
Alkaline Phosphatase 105
Vital Signs:
Vital Signs
Temp Pulse Resp BP Pulse Ox
97.8 F 88 14 101/52 95
04/19/23 08:02 04/19/23 07:53 04/19/23 07:15 04/19/23 07:53 04/19/23 07:15
I&O
04/18/23 04/19/23 04/20/23
06:59 06:59 06:59
Intake Total 934.3 / 934.3 1426.5 / 1426.5
Output Total 500 / 500 1250 / 1250
Balance 434.3 / 434.3 176.5 / 176.5
Review of Systems
-
History Source: Patient
All other systems: Reviewed and negative
Physical Exam
-
General: No Apparent Distress and Conversant
HEENT: PERRLA
Respiratory: Clear to Auscultation; Negative Wheezes
Cardiac: S1/S2
GI: Soft and Nontender
Musculoskeletal: Other (bruising RLE; vein graft)
Skin: Warm and Dry; Negative Rash
Neuro: AO x 3
Psych: Calm
Data Reviewed
-
Diagnostic Radiology: Report Reviewed by me
Labs: Labs Reviewed by me
[2023-04-19] MEDS: TOPROL XL PO (09:15)
--- NOTE | 2023-04-19 10:17 | W.PN.ONC ---
Today's Communication / Plan
-
Platelet count improved to 80 K
Suspect consumptive process secondary to acute illness
HIT serotonin release assay pending
Negative for APS
Direct platelet antibody negative
Recommend follow-up with weekly CBC
Discharge on transition from argatroban to apixaban
Impression
Impression
Acute thrombocytopenia, suspect HIT
New onset rapid atrial fibrillation
Acute hypoxic respiratory failure
Large saddle PE s/p embolectomy 04/15
s/p CABG 04/03/23 with heparin exposure
Leukocytosis
Known left lung nodule
Plan
Plan
04/18 PLT 57
HIT BARRY positive = 1.038. Confirmatory serotonin release assay is pending.
Anticardiolipin and antiphospholipid antibody screens are pending.
Continue Argatroban. If continued improvement in platelet count, switch to apixiban (Per UpToDate: The dose for apixaban would be 5 mg twice daily. If <7 days of the initial parenteral anticoagulant have been administered, apixaban is dosed at 10 mg
twice daily until a total of seven days of anticoagulation have been provided.)
Will need at least 3 months anticoagulation.
If antiphospholipid antibody panel positive would necessitate using warfarin as opposed to apixaban.
Subjective/Objective
Subjective/Objective
No new complaints today.
Vital Signs:
Vital Signs
Temp Pulse Resp BP Pulse Ox
97.8 F 88 14 101/52 95
04/19/23 08:02 04/19/23 07:53 04/19/23 07:15 04/19/23 07:53 04/19/23 07:15
PE: Unchanged
Lab Results:
Laboratory Data
WBC 11.3 10^3/uL (4.8-10.8) H 04/19/23 04:12
Hgb 8.6 g/dL (12.0-16.0) L 04/19/23 04:12
Plt Count 80 10^3/uL (130-400) L D 04/19/23 04:12
PT 14.3 Sec (11.4-14.6) 04/16/23 13:39
INR 1.13 04/16/23 13:39
APTT 51.3 Sec (23.4-35.0) H 04/18/23 15:37
eGFR > 60.00 04/19/23 04:12
--- NOTE | 2023-04-19 10:21 | CM ---
CM following re: discharge planning.
Reviewed pt's chart, met with pt. Per RN pt asked to see CM to discuss her possibility to return back to [facility] to continue on a short term rehabilitation treatment.
CM met with pt and pt stated she cannot even stand now and she needs to return back to [facility]. Pt stated she thought she will be able to return back home but her physical condition has been worsened.
CM discussed it with PT. Per PT, pt was doing well before yesterday and she expressed her desire to return back home with home PT but yesterday pt was not doing well and home PT vs Rehab recommended. Per PT, pt will be reevaluated today and pt most
likely will need to return back to [facility] to compete her short term rehab program.
PT and OT to reevaluate the pt to determine a level of care at discharge.
CM discuss pt's case with [facility] and she is working on the case.
D/C plan: [facility]. Awaiting for PT/OT reevaluations and [facility] determination.
CM will follow with discharge plan updates as hospitalization progresses.
--- NOTE | 2023-04-19 11:29 | PTCARENOTE ---
Addendum entered by Dixie Miranda RN 04/19/23 11:51:
transfer to [facility] with all belongings
Original Note:
report to [facility] RN Will
[2023-04-19] MEDS: PACERONE 200 MG PO (20:15)
[2023-04-20 03:54] VITALS: BP 132/62
[2023-04-20 07:30] VITALS: BP 113/58
[2023-04-20 07:33] LABS: Platelet Antibodies Indirect None Detected (None Detected)
[2023-04-20 08:14] LABS: Hematocrit 29.4 % (37.0-47.0); Mean Corpuscular Hgb 32.8 pg (27.0-31.0); Mean Corpuscular Volume 96.4 fL (81.0-99.0); Mean Platelet Volume 10.4 fL (7.4-10.4); Platelet Count 126 10^3/uL (130-400); Red Blood Cell Count 3.05 10^6/uL (4.20-5.40); Red Cell Dist. Width 15.6 % (11.5-14.5); White Blood Cell Count 11.3 10^3/uL (4.8-10.8)
[2023-04-20 09:00] LABS: Blood Urea Nitrogen 16 mg/dl (7-17); Calcium 9.1 mg/dl (8.4-10.2); Carbon Dioxide 24 mmol/L (22-30); Chloride 101 mmol/L (98-107); Estimated Creatinine Clearance 60 ml/min; Glucose 97 mg/dl (70-99); Potassium 3.6 mmol/L (3.5-5.1); Sodium 137 mmol/L (135-145); eGFR > 60.00
[2023-04-20] MEDS: LIDOCAINE 4% PATCH 1 PATCH TOPICAL (10:09)
[2023-04-20] MEDS: PACERONE 200 MG PO (10:09)
[2023-04-20] MEDS: ASPIR LOW (ENTERIC COATED) 81 MG PO (10:09)
[2023-04-20] MEDS: MEDROL 4 MG PO (10:09)
[2023-04-20] MEDS: PROTONIX 40 MG PO (10:09)
[2023-04-20] MEDS: MIRALAX 17 GRAMS PO (10:09)
[2023-04-20] MEDS: ELIQUIS 10 MG PO (10:09)
--- NOTE | 2023-04-20 10:46 | W.PN.HOSP.TC ---
Today's Communication/Plan
-
approaching discharge but patient remains dizzy with standing
-repeat orthostats now
-large part likely deconditioning - discussing with cards if OK with DC to [facility] today (bed available)
-1/2 dose metop
-lasix is PRN
-continue Eliquis
Assessment / Plan
Assessment / Plan
HPI: 78-year-old female with a past medical history of coronary artery disease status post CABG x 2 with AVR 04/03/[address] Cotto, PMR/RA on chronic steroids, hypertension, hyperlipidemia, COPD, and prediabetes presents with shortness of breath found
to be hypoxic; CTA with large saddle PE now s/p embolectomy.
CTA
IMPRESSION:
Moderately large saddle embolus involving the main pulmonary arteries bilaterally, more extensive on the right, involving the right upper, middle and lower lobe pulmonary arteries, and the left upper pulmonary artery.
Significant left base consolidation and pleural fluid. The previously described 9 mm pulmonary nodule is not clearly identified due to the increased atelectasis and consolidation in the left lung base.
Follow-up pulmonary nodule after resolution of the left pleural effusion and left base atelectasis.
Embolectomy 04/16/23
IMPRESSION:
1. Successful suction embolectomy of the saddle embolus, and multiple central right-sided pulmonary emboli.
2. Pulmonary arterial pressure improved from 47/13 (mean 26 mmHg) to 24/9 (mean 15 mmHg).
3. Systemic anticoagulation will be resumed approximately 2 hours following sheath removal.
TTE 04/15/23
CONCLUSIONS
�Left ventricle is small in size.� Underfilled left ventricle.� Severe
�concentric left ventricular hypertrophy. Normal left ventricular systolic
�function. Normal regional wall motion. Left ventricular ejection fraction is
�60-65%.
�Normal right ventricular size and function.
�Thickened mitral valve leaflets. Mitral annular calcification. There is
�adequate mitral leaflet excursion. No mitral regurgitation is seen.
�23 mm bioprosthetic aortic valve replacement.� Peak/mean gradients across the
�aortic valve are 24/14 mmHg respectively. No aortic regurgitation is seen.
�Tricuspid valve opens normally. Mild-moderate tricuspid regurgitation.
�Estimated pulmonary artery pressure of 54-59 mmHg assuming a right atrial
�pressure of 3 mmHg.
�Compared to prior study 11/07/2022 aortic valve has been replaced.� PA pressure
�has now increased and was previously 32 mmHg
�
�Indications:
�Short of breath.� Recent valve replacement
#Acute hypoxic respiratory failure
#Large saddle pulmonary embolism
Appreciate cardiology, pulmonology
-admitted to ICU, now tele status
-s/p embolectomy by IR on 04/15; procedure above
-oxygen weaned off
-transitioned from Argatroban to Eliquis 10 BID on 04/18. On 04/23 transition to Eliquis 5mg PO BID
#Thrombocytopenia
#HIT
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
-hematology consult appreciated
-hold PLavix (OK'd by cardiology)
-Eliquis started on 04/18
#Orthostatic Hypotension
-on-going issue since surgery
-[employer] Valsartan held
-discussed with Dr. Sorto yesterday; low dose metop resumed
-make lasix PRN
#New onset rapid atrial fibrillation
-started on amiodarone
-continue AC
#Elevated troponin
Due to PE and rapid afib
#Leukocytosis
Suspect reactive, monitor off antibiotics
#Coronary artery disease
#CABG x 2 with AVR 04/03/[address] Cotto
Continue aspirin, statin, metoprolol
plavix held with asa/eliquis
#History of hypertension
Blood pressure currently 123/78
[employer] lasix and valsartan held
Resume if blood pressure increases
#Hyperlipidemia
Repatha 140mg SC q 2 weeks- last taken 03/27/2023
Continue statin
#History of rheumatoid arthritis
On methylprednisolone 4 mg daily
#Left lung nodule
Follow-up with pulmonology outpatient
#Obesity due to excess calories
Affects all aspects of care
GI ppx - protonix
DVT prophylaxis� Eliquis
Full code
Total time spent to see the patient on the floor, examine the patient, review data and lab results, discuss treatment plan with patient,� nursing staff� around 75 minutes.
Anticipated Discharge: Within 24 hours
Subjective/Interval History
-
Date of Service: April 20, 2023
patient felt dizzy with standing yesterday
she want to go to rehab
no swelling legs
Objective Data
-
Labs:
Laboratory Results
04/20/23
06:53
WBC 11.3 H
Hgb 10.0 L
Hct 29.4 L
Plt Count 126 L D
Sodium 137
Potassium 3.6
Chloride 101
Carbon Dioxide 24
BUN 16
Creatinine 0.7
Glucose 97
Calcium 9.1
Vital Signs:
Vital Signs
Temp Pulse Resp BP Pulse Ox
99.2 F 95 19 113/58 94
04/20/23 07:30 04/20/23 07:30 04/20/23 07:30 04/20/23 07:30 04/20/23 07:30
I&O
04/19/23 04/20/23 04/21/23
06:59 06:59 06:59
Intake Total 1426.5 / 1426.5 1560 / 1560
Output Total 1250 / 1250
Balance 176.5 / 176.5 1560 / 1560
Review of Systems
-
History Source: Patient
All other systems: Reviewed and negative
Physical Exam
-
General: No Apparent Distress and Conversant
HEENT: PERRLA
Respiratory: Clear to Auscultation; Negative Wheezes
Cardiac: S1/S2
GI: Soft and Nontender
Musculoskeletal: Other (bruising RLE; vein graft)
Skin: Warm and Dry; Negative Rash
Neuro: AO x 3
Psych: Calm
Data Reviewed
-
Diagnostic Radiology: Report Reviewed by me
Labs: Labs Reviewed by me
[2023-04-20 11:30] VITALS: BP 114/61; BP 127/68; BP 134/66; PULSE 90; PULSE 97; PULSE 99
[2023-04-20] MEDS: TOPROL XL 12.5 MG PO (12:50)
--- NOTE | 2023-04-20 14:06 | W.PN.CARDCBS ---
Today's Communication / Plan
-
Okay for transfer to [facility]
Continue current medications
.
We will arrange for cardiac follow-up.
Impression / Plan
-
.
Impression:
Acute submassive saddle pulmonary embolism/hypoxemia status post embolectomy 04/15/2023
New onset postoperative (04/03/2023) atrial fibrillation in the setting of pulmonary embolism
CABG x 2 and bioprosthetic AVR 04/03/2023
23 mm Umana Inspiris biologic valve
Orthostasis
Carotid artery disease followed by vascular
Carotid ultrasound 07/20/2022 with small amount of common carotid calcific plaque. Right internal carotid artery 50 to 69% stenosis. Left internal carotid artery 50 to 69% stenosis.�
Small to moderate left pleural effusion
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
Left lower lobe nodule suspicious for malignancy and workup underway
Hyperdynamic ventricle with LVH
Hypertension
Hyperlipidemia
Peripheral vascular disease with carotid stenosis followed by vascular
Polymyalgia rheumatica/rheumatoid arthritis on chronic steroids
Osteoarthritis and osteoporosis
Irritable bowel
Thyroid disease
History of tobacco abuse
History of TIA
CT scan 04/15/2023:�Filling defect at the main pulmonary artery extending into the right and left main pulmonary arteries, consistent with a large saddle embolus. The extent of the embolus is greater on the right than the left. The saddle embolus
involves the right upper, middle and lower lobe pulmonary arteries and left upper pulmonary arteries.
Transesophageal echocardiogram 04/03/2023:�Ejection fraction 65%.� Severe LVH.� Severe aortic valve stenosis.� Trace TR.� Moderate calcified atheroma descending aorta and arch.� Status post AVR.� No AI or leaks.� Maximum aortic valve gradient 20 mean
13 mmHg.� 30 minutes post pulm mean gradient decreased to 3 mmHg.� LVOT gradient noted 11 mmHg.� No JENNI and no MR noted.
Echo 11/07/22:�LVEF of 58%, moderate LVH, LVOT gradient of 41 mmHg, increasing to 65 mmHg with Valsalva, stage II diastolic dysfunction, moderate to severe aortic stenosis with peak and mean transaortic gradients of 62 and 32 mmHg, calculated aortic
valve area of 0.9 cm�, trace tricuspid regurgitation without evidence of pulmonary hypertension.
Cath 03/08/23:�RA� 12; PA : 39/19 (27), PCWP (m) : 22, PA saturation: 65.9% on room air, AO saturation: 95.7% on room air, CO 3.31 L/min by Rut, CI 1.87 L/min/m-2 by Rut, SVR 2173 dsc^(-5), PVR 1.51 her unit, LVEDP22. IFR of ostial left main was
borderline at 0.89-0.90. Eccentric 80% ostial LAD stenosis which is IFR positive with an IFR of 0.85
Carotid ultrasound 07/20/2022�with small amount of common carotid calcific plaque. Right internal carotid artery 50 to 69% stenosis. Left internal carotid artery 50 to 69% stenosis.�
Echo Apr 15 2022: EF 60-65% 23 mm bioAVR peak/mean grad 24/14 mmHg respectively, mild to mod TR, PASP 54-59 mmHg, compared to Oct 2022 AV has been replaced and PA now increased to 32 mmHg.
Plan:
Saddle pulmonary embolus: Compensated at present, now on Eliquis
Postoperative paroxysmal atrial fibrillation: Sinus rhythm on amiodarone and Eliquis
Non-PR troponin elevation: Stable
Orthostasis: Still an active problem but improving. Okay for transfer to [facility], continue to withhold valsartan. Patient currently off furosemide, will likely need to restart, on low-dose metoprolol with heart rate of 90
Status post CABG x 2 and bioprosthetic AVR: 2+ weeks postop, currently on aspirin and Eliquis, Plavix discontinued
Lung nodule, requires further evaluation
Other problems stable
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
Subjective
Date of Service: April 20, 2023:
She is still substantially orthostatic.
Allergies: Heparin, HIT, codeine
Outpatient medications: Aspirin 81 mg a day, furosemide 20 mg a day, methylprednisolone 4 mg a day, metoprolol ER 25 mg a day, potassium 50 mill equivalents Sunday and Sunday, Repatha, valsartan 160 mg a day
Current meds: Aspirin 81 mg a day, methylprednisolone 4 mg a day, pantoprazole, apixaban 10 mg twice daily, amiodarone 200 mg twice daily, metoprolol ER 12.5 mg daily
PMH/PSH/SH/FH: Reviewed
ROS: Negative except as above
Labs as below
Objective
Labs:
04/20/23 06:53
04/20/23 06:53
Labs
Hgb 10.0 g/dL (12.0-16.0) L 04/20/23 06:53
Hct 29.4 % (37.0-47.0) L 04/20/23 06:53
Plt Count 126 10^3/uL (130-400) L D 04/20/23 06:53
PT 14.3 Sec (11.4-14.6) 04/16/23 13:39
INR 1.13 04/16/23 13:39
APTT 51.3 Sec (23.4-35.0) H 04/18/23 15:37
Sodium 137 mmol/L (135-145) 04/20/23 06:53
Potassium 3.6 mmol/L (3.5-5.1) 04/20/23 06:53
BUN 16 mg/dl (7-17) 04/20/23 06:53
Creatinine 0.7 mg/dL (0.6-1.0) 04/20/23 06:53
Glucose 97 mg/dl (70-99) 04/20/23 06:53
Vital Signs and I&O:
Vital Signs
Temp Pulse Resp BP Pulse Ox
37.6 C 90 19 134/66 92
04/20/23 11:30 04/20/23 11:30 04/20/23 11:30 04/20/23 11:30 04/20/23 11:30
Vital Signs
Temp Pulse Resp BP Pulse Ox
37.6 C 90 19 134/66 92
04/20/23 11:30 04/20/23 11:30 04/20/23 11:30 04/20/23 11:30 04/20/23 11:30
Intake & Output
04/18/23 04/19/23 04/20/23 04/21/23
07:59 07:59 07:59 07:59
Intake Total 931.0 / 1177.6 1426.5 / 1906.5 1560 / 1560
Output Total 500 / 600 1250 / 1250
Balance 431.0 / 577.6 176.5 / 656.5 1560 / 1560
Physical Exam
Physical Exam
134/66, dropped to 118 systolic standing, pulse is in the 90s,
Appears somewhat frail, chronically ill,
Head neck exam unremarkable,
Lungs relatively clear
Cardiac regular rate and rhythm without obvious murmurs
Abdomen benign
Extremities some ecchymoses, 1+ edema
Neuro nonfocal
--- NOTE | 2023-04-20 14:07 | CM ---
patient seen bedside.
Per Nikolas, bed available today.
Per MD medically cleared for transfer to [facility].
IMM completed, and signed.
OT to see prior to transfer.
Plan: [facility] today- (no auth needed)
[facility]
report# [phone]
fax# [phone]
[2023-04-20 14:21] VITALS: BP 171/84; PULSE 90; O2SAT 96
[2023-04-20 14:33] VITALS: O2SAT 96
--- NOTE | 2023-04-20 15:06 | W.DS.TRANS ---
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
-
Discharge Instructions:
Discharge Diagnosis/Procedures pulmonary embolism, concern for heparin induced
thrombocytopenia
Diet Low Cholesterol
Activity As tolerated
Driving Restrictions Not until seen by your Dr
Bathing Restrictions None
Blood Work CBC once weekly to monitor platelets
BMP in one week
Other Services PT,OT
Specialty Instructions Weigh Daily
Stop these medications: Stop Valsartan
Instructions:
Stand-Alone Forms:
Changes to Home Medications: Yes
Discharge Medications:
DC Medications w/original date entered in [employer]
evolocumab 140 mg/mL subcutaneous pen injector (Repatha SureClick) 140 mg SC Q2W High Cholesterol 01/03/23
methylprednisolone 4 mg tablet 4 mg PO DAILY INFLAMMATION 01/03/23
calcium carbonate 500 mg-vitamin D3 3.125 mcg (125 unit) tablet 1 tab PO DAILY Supplement 03/08/23
cyanocobalamin (B12)-cobamamide 5,000 mcg-100 mcg sublingual lozenge (B12) 1 niya sublingual DAILY Supplement 03/08/23
magnesium 250 mg tablet 500 mg PO MOWEFR Supplement 03/27/23
multivitamin 1 tab PO DAILY Supplement 03/27/23
potassium chloride 10 mEq tablet,extended release 50 meq PO MOWEFR Electrolyte Repletion 03/27/23
travoprost 0.004 % eye drops 1 drp ophthalmic (eye) QPM Eye Condition 03/27/23
aspirin 81 mg tablet,delayed release 81 mg PO DAILY Blood Clot Prevention/Tx 04/04/23
diphenhydramine 25 mg-acetaminophen 500 mg tablet (Tylenol PM Extra Strength) 1 tab PO HS PRN Sleep #0 tabs 04/09/23
omeprazole 20 mg capsule,delayed release 20 mg PO TUTHSA Gastrointestinal Issue 04/16/23
acetaminophen 325 mg tablet 650 mg PO Q4HPRN PRN mild pain/CADENA/temp> 100.4F #30 tabs 04/20/23
amiodarone 200 mg tablet (Pacerone) 200 mg PO BID #60 tabs 04/20/23
apixaban 5 mg tablet (Eliquis) 5 mg PO BID #120 tabs 04/20/23
furosemide 20 mg tablet 20 mg PO DAILY PRN Fluid Retention/Swelling #30 tabs 04/20/23
lidocaine 4 % topical patch 1 patch topical DAILY #30 ea 04/20/23
metoprolol succinate 25 mg tablet,extended release 24 hr 12.5 mg PO DAILY Heart Disease/Condition #0 tabs 04/20/23
pantoprazole 40 mg tablet,delayed release 40 mg PO DAILY #30 tabs 04/20/23
polyethylene glycol 3350 17 gram oral powder packet (HealthyLax) 17 g PO DAILY #30 ea 04/20/23
Home Medication Changes
FOR ELIQUIS:
Take 10mg (2 tabs) twice a day through evening 04/22; on 04/23 start 5mg (1 tab) twice a day. Continue for at least 3 months (may be 6 months)
Tame amiodarone 200mg twice a day x 1 month then start daily dosing. (This will be directed by Cardiology)
You are started on Protonix to protect your stomach (while on Eliquis, aspirin and steroids)
Your lasix dosing is changed from daily to as needed for lower extremity swelling.
Your metoprolol is decreased from 25mg daily to 12.5mg daily.
Stop Valsartan.
Pending Results: Yes
Additional Pending Results:
HIT serotonin release assay pending
--- NOTE | 2023-04-20 15:10 | W.DCSUMMARY ---
Discharge Summary
Discharge Data
Date of Admission: 04/15/23
Date of Discharge: 04/20/23
-
Pending Results: Yes
Additional Pending Results:
HIT serotonin release assay pending
Hospital Course
Discharging Physician : Dr. Caroline Wallace
Disposition : Acute Rehab
Principal Discharge diagnosis : saddle pulmonary embolism, concern for heparin induced thrombocytopenia
Hospital Course :
Ms. Lisseth Colindres is a 78 yo woman with hx coronary artery disease status post recent CABG x 2 with AVR 04/03/[address] Cotto, PMR/RA on chronic steroids, hypertension, hyperlipidemia, COPD, and prediabetes presents from [facility] with severe shortness
of breath found to be hypoxic. Stat CT Angiogram revealed saddle pulmonary embolus without evidence of RV strain. PERT alert called and patient underwent suction thrombectomy (no lytic therapy given recent surgery). Per procedure report, saddle
portion, 80% right sided emboli and nearly 100% of left removed with decrease in PA pressure from 47/13, mean 26 to 24/9 mean 15.
Patient was admitted to ICU post procedure and remained on heparin gtt. Patient with drop in PLT following morning. Concern raised for HIT, hematology consulted. Given elevated 4T scoring (6-7) she was placed on IV Argatroban. HIT Debra Assay
returned positive. Patient's PLT count improved over the next 48 hours and pulmonary exam remained stable off oxygen. She was transitioned to Eliquis and will complete 5 days of 10mg BID dosing then transition to 5mg BID. HIT Serotonin Assay
pending on discharge.
Of note, ER course complicated by development of afib with RVR. She was started on amidoarone therapy and converted to sinus. She is discharged on amiodarone (and Eliquis as above). She was seen by cardiology during hospitalization.
Hospital course complicated by orthostatic hypotension, intermittently symptomatic. She is deconditioned post recent hospital stays and will be discharged to [facility]. 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
Patient will have outpatient follow up with PCP, Cardiology, Hematology and Pulmonary. She will have weekly CBC to monitor PLT. BMP ordered in one week. With change in lasix dosing, patient should be monitored for signs of volume overload.
Time spent on discharge was 45 minutes.
Medication instructions:
FOR ELIQUIS:
Take 10mg (2 tabs) twice a day through evening 04/22; on 04/23 start 5mg (1 tab) twice a day. Continue for at least 3 months (may be 6 months).
Tame amiodarone 200mg twice a day x 1 month then start daily dosing. (This will be directed by Cardiology)
You are started on Protonix to protect your stomach (while on Eliquis, aspirin and steroids)
Your lasix dosing is changed from daily to as needed for lower extremity swelling.
Your metoprolol is decreased from 25mg daily to 12.5mg daily.
Stop Valsartan.
Stop Plavix (while on aspirin and Eliquis)
Important imaging findings :
CHEST CT 04/15/23
IMPRESSION:
Moderately large saddle embolus involving the main pulmonary arteries bilaterally, more extensive on the right, involving the right upper, middle and lower lobe pulmonary arteries, and the left upper pulmonary artery.
CRITICAL VALUE: Results to Dr. Castro in the emergency room at 10:36 AM.
Significant left base consolidation and pleural fluid. The previously described 9 mm pulmonary nodule is not clearly identified due to the increased atelectasis and consolidation in the left lung base.
Follow-up pulmonary nodule after resolution of the left pleural effusion and left base atelectasis.
LE US 04/16/23
IMPRESSION: Positive deep venous thrombosis on the left, involving the peroneal and posterior tibial veins.
No evidence for right-sided deep venous thrombosis.
Procedure findings :
Discharge Plan
-
Patient Disposition: Acute Rehab Facility
Discharge Diagnosis/Procedures: pulmonary embolism, concern for heparin induced thrombocytopenia
Diet: Low Cholesterol
Activity: As tolerated
Driving Restrictions: Not until seen by your Dr
Bathing Restrictions: None
Blood Work: CBC once weekly to monitor platelets
BMP in one week
Other Services: PT and OT
Specialty Instructions: Weigh Daily- Call MD for wt gain/loss 3 lbs overnight/5 lbs in 1 week
Stop these medications:: Stop Valsartan
Stop Plavix
Activity Restrictions/Additional Instructions:
FOR ELIQUIS:
Take 10mg (2 tabs) twice a day through evening 04/22; on 04/23 start 5mg (1 tab) twice a day. Continue for at least 3 months (may be 6 months).
Tame amiodarone 200mg twice a day x 1 month then start daily dosing. (This will be directed by Cardiology)
You are started on Protonix to protect your stomach (while on Eliquis, aspirin and steroids)
Your lasix dosing is changed from daily to as needed for lower extremity swelling.
Your metoprolol is decreased from 25mg daily to 12.5mg daily.
Stop Valsartan.
Stop Plavix (while on aspirin and Eliquis)
Referrals:
Jane Laurent MD [Active] -
(Mehran f/u in 05/30/23 at 1045am
Will order CT chest ION as appropriate thereafter in anticipation of bronchoscopy, nodule bx)
Thony Esparza MD [Family Provider] - in less than 1 week
Roselia Pena DO [Active] - in two to three weeks
Jenn Pena PA-C [Specified Professional Personl] - 05/09/23 11:20 am (You have cardiology follow up with Jenn Pena PA-C at Dr. Kwok's office on May 08 at 11:[address] in [address] in the [place]. If you are unable to make this
please call [phone] to reschedule)
Prescriptions:
New
pantoprazole 40 mg Tablet,Delayed Release (Dr/Ec)
40 mg PO DAILY Qty: 30 0RF
Eliquis 5 mg Tablet
5 mg PO BID Qty: 120 0RF
Rx Instructions:
Take 10mg (2 tabs) twice a day through evening 04/22; on 04/23 start 5mg (1 tab) twice a day
acetaminophen 325 mg Tablet
650 mg PO Q4HPRN PRN (Reason: mild pain/CADENA/temp> 100.4F) Qty: 30 0RF
lidocaine 4 % Adhesive Patch,Medicated
1 patch topical DAILY Qty: 30 0RF
polyethylene glycol 3350 [HealthyLax] 17 gram Powder In Packet
17 g PO DAILY Qty: 30 0RF
amiodarone [Pacerone] 200 mg Tablet
200 mg PO BID Qty: 60 0RF
Continued
methylprednisolone 4 mg Tablet
4 mg PO DAILY
Repatha SureClick 140 mg/mL Pen Injector
140 mg SC Q2W
Rx Instructions:
ON THE AND OF EACH MONTH
calcium carbonate-vitamin D3 500 mg-3.125 mcg (125 unit) Tablet
1 tab PO DAILY
B12 5,000-100 mcg Lozenge
1 niya SUBLINGUAL DAILY
multivitamin Tablet
1 tab PO DAILY
potassium chloride 10 mEq Tablet Extended Release
50 meq PO MOWEFR
magnesium 250 mg Tablet
500 mg PO MOWEFR
travoprost 0.004 % Drops
1 drp OPHTHALMIC (EYE) QPM
aspirin 81 mg tablet,delayed release (DR/EC)
81 mg PO DAILY
diphenhydramine-acetaminophen [Tylenol PM Extra Strength] 25-500 mg Tablet
1 tab PO HS PRN (Reason: Sleep) Qty: 0 0RF
omeprazole 20 mg capsule,delayed release(DR/EC)
20 mg PO TUTHSA
Changed
furosemide 20 mg tablet
20 mg PO DAILY PRN (Reason: Fluid Retention/Swelling) Qty: 30 0RF
metoprolol succinate 25 mg tablet extended release 24 hr
12.5 mg PO DAILY Qty: 0 0RF
Discontinued
valsartan 160 mg tablet
160 mg PO DAILY
Discharge Orders:
Discharge Patient (As Directed); Ordered 04/20/23
Ordered By: Caroline Wallace
--- NOTE | 2023-04-20 15:19 | W.DS.TRANS ---
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
-
Discharge Instructions:
Discharge Diagnosis/Procedures pulmonary embolism, concern for heparin induced
thrombocytopenia
Diet Low Cholesterol
Activity As tolerated
Driving Restrictions Not until seen by your Dr
Bathing Restrictions None
Blood Work CBC once weekly to monitor platelets
BMP in one week
Other Services PT,OT
Specialty Instructions Weigh Daily
Stop these medications: Stop Valsartan
Stop Plavix
Instructions:
Stand-Alone Forms:
Changes to Home Medications: Yes
Discharge Medications:
DC Medications w/original date entered in [employer])
evolocumab 140 mg/mL subcutaneous pen injector (Repatha SureClick) 140 mg SC Q2W High Cholesterol 01/03/23
methylprednisolone 4 mg tablet 4 mg PO DAILY INFLAMMATION 01/03/23
calcium carbonate 500 mg-vitamin D3 3.125 mcg (125 unit) tablet 1 tab PO DAILY Supplement 03/08/23
cyanocobalamin (B12)-cobamamide 5,000 mcg-100 mcg sublingual lozenge (B12) 1 niya sublingual DAILY Supplement 03/08/23
magnesium 250 mg tablet 500 mg PO MOWEFR Supplement 03/27/23
multivitamin 1 tab PO DAILY Supplement 03/27/23
potassium chloride 10 mEq tablet,extended release 50 meq PO MOWEFR Electrolyte Repletion 03/27/23
travoprost 0.004 % eye drops 1 drp ophthalmic (eye) QPM Eye Condition 03/27/23
aspirin 81 mg tablet,delayed release 81 mg PO DAILY Blood Clot Prevention/Tx 04/04/23
diphenhydramine 25 mg-acetaminophen 500 mg tablet (Tylenol PM Extra Strength) 1 tab PO HS PRN Sleep #0 tabs 04/09/23
omeprazole 20 mg capsule,delayed release 20 mg PO TUTHSA Gastrointestinal Issue 04/16/23
acetaminophen 325 mg tablet 650 mg PO Q4HPRN PRN mild pain/CADENA/temp> 100.4F #30 tabs 04/20/23
amiodarone 200 mg tablet (Pacerone) 200 mg PO BID #60 tabs 04/20/23
apixaban 5 mg tablet (Eliquis) 5 mg PO BID #120 tabs 04/20/23
furosemide 20 mg tablet 20 mg PO DAILY PRN Fluid Retention/Swelling #30 tabs 04/20/23
lidocaine 4 % topical patch 1 patch topical DAILY #30 ea 04/20/23
metoprolol succinate 25 mg tablet,extended release 24 hr 12.5 mg PO DAILY Heart Disease/Condition #0 tabs 04/20/23
pantoprazole 40 mg tablet,delayed release 40 mg PO DAILY #30 tabs 04/20/23
polyethylene glycol 3350 17 gram oral powder packet (HealthyLax) 17 g PO DAILY #30 ea 04/20/23
Home Medication Changes
FOR ELIQUIS:
Take 10mg (2 tabs) twice a day through evening 04/22; on 04/23 start 5mg (1 tab) twice a day. Continue for at least 3 months (may be 6 months).
Tame amiodarone 200mg twice a day x 1 month then start daily dosing. (This will be directed by Cardiology)
You are started on Protonix to protect your stomach (while on Eliquis, aspirin and steroids)
Your lasix dosing is changed from daily to as needed for lower extremity swelling.
Your metoprolol is decreased from 25mg daily to 12.5mg daily.
Stop Valsartan.
Stop Plavix (while on aspirin and Eliquis)
Pending Results: Yes
Additional Pending Results:
HIT serotonin assay
[2023-04-20 15:30] VITALS: BP 128/73
--- NOTE | 2023-04-20 18:08 | PTCARENOTE ---
Pt DC'd to [facility] Room 314. Pt transported via wheelchair by staff. Report called to Lori at ext [phone].
[2023-04-21 01:48] LABS: Phosphatidylserine Ab, IgA 2 APS (0-19); Phosphatidylserine Ab, IgG 0 GPS (0-15); Phosphatidylserine Ab, IgM 6 MPS (0-21)
== END 2023-04-20 17:58 | DRG 270 ==
LOC: 4 WEST ACU 11:58
PROVIDERS: Internal Medicine Critical Care Medicine; Nurse Practitioner Family; Radiology Vascular & Interventional Radiology; ADMITTING PHYSICIAN Family Medicine; ATTENDING PHYSICIAN Student in an Organized Health Care Education/Training Program; CONSULT PHYSICIAN Internal Medicine Cardiovascular Disease; CONSULT PHYSICIAN Internal Medicine Hematology & Oncology; EMERGENCY PHYSICIAN Emergency Medicine; FAMILY PHYSICIAN Family Medicine
PROC: 02CQ3ZZ Extirpation of Matter from Right Pulmonary Artery, Percutaneous Approach (ICD-10-PCS; 2023-04-15)
DX: I97.89 Other postprocedural complications and disorders of the circulatory system, not elsewhere classified (principal); I26.92 Saddle embolus of pulmonary artery without acute cor pulmonale; J96.01 Acute respiratory failure with hypoxia; J90 Pleural effusion, not elsewhere classified; I5A Non-ischemic myocardial injury (non-traumatic); D75.829 Heparin-induced thrombocytopenia, unspecified; I48.0 Paroxysmal atrial fibrillation; I10 Essential (primary) hypertension; I25.10 Atherosclerotic heart disease of native coronary artery without angina pectoris; J44.9 Chronic obstructive pulmonary disease, unspecified; I48.91 Unspecified atrial fibrillation; D69.6 Thrombocytopenia, unspecified; Z95.1 Presence of aortocoronary bypass graft; Z86.73 Personal history of transient ischemic attack (TIA), and cerebral infarction without residual deficits
CPT/HCPCS: 36015; 37184; 71045; 71275; 75743; 76937; 80048; 80053; 80076; 82607; 82728; 82746; 83010; 83540; 83550; 83615; 83735; 84100; 84439; 84443; 84484; 85025; 85027; 85045; 85379; 85384; 85610; 85730; 86022; 86023; 86146; 86147; 86148; 87070; 93005; 93306; 93970; 96374; 97116; 97163; 97167; 97530; 97535; 99152; 99153; 99291; C1769; J0883; Q9967

== ENCOUNTER 2023-04-30 04:39 | Emergency (ER) | payer MEDICARE, OTHER, SELFPAY ==
[2023-04-30] VITALS (16 sets, daily range): BP systolic 120–190; BP diastolic 69–122; PULSE 65–82; BMI 30.3
[2023-04-30 05:16] LABS: % Basophils 0.9 % (0-2); % Eosinophils 0.9 % (0-6); % Immature Granulocytes 0.9 % (0-0.5); % Lymphocytes 26.2 % (20.5-51.1); % Monocytes 8.8 % (1.7-9.3); % Neutrophils 62.3 % (42.2-75.2); Absolute Basophils 0.1 10^3/uL (0-0.2); Absolute Eosinophils 0.1 10^3/uL (0-0.7); Absolute Immature Granulocytes 0.1 10^3/uL (0-0.05); Absolute Lymphocytes 2.3 10^3/uL (1.2-3.4); Absolute Monocytes 0.8 10^3/uL (0.1-0.6); Absolute Neutrophils 5.4 10^3/uL (1.4-6.5); Hematocrit 32.3 % (37.0-47.0); Hemoglobin 11.5 g/dL (12.0-16.0); Mean Corp Hgb Conc. 35.6 g/dL (33.0-37.0); Mean Corpuscular Hgb 33.2 pg (27.0-31.0); Mean Corpuscular Volume 93.4 fL (81.0-99.0); Mean Platelet Volume 8.6 fL (7.4-10.4); Nucleated Red Blood Cells % 0 %; Platelet Count 300 10^3/uL (130-400); Red Blood Cell Count 3.46 10^6/uL (4.20-5.40); Red Cell Dist. Width 15.6 % (11.5-14.5); White Blood Cell Count 8.6 10^3/uL (4.8-10.8)
--- NOTE | 2023-04-30 05:21 | ED.GENMED ---
History of Present Illness
<SAIMA Stout - Last Filed: 04/30/23 05:37>
General
Chief Complaint: Blood Pressure Problem
Source: patient
Exam Limitations: none
Time Seen by Provider: 04/30/23 04:50
Nursing documentation reviewed up to this point in time: agreed with
Travel History
Have you had any contact with someone who has COVID-19?: No
Do you have any symptoms of coronavirus? Fever > 100 degrees, chills, cough, shortness of breath, sore throat, loss of taste or smell, muscle aches, or headache?: No
History of Present Illness
History of Present Illness:
78 y/o F with history of orthostatic hypotension presents to ER c/o dizziness. Patient reports she was standing up to get a drink around 1700 Sunday when she felt like she was going to pass out. Patient states she checked her BP while in bed and it
was 215/105. Patient also reports that she awoke at 0200 tonight to use bathroom and felt dizzy again. Patient reports she only feels dizzy when she stands up. Patient was discharged from [facility] on 04/27/2023 after an episode of low Bp/ Patient
was given midodrine and sent home with a prescription for twice a day. She was discharged home from [facility]. Patient has history of a fib and takes amiodarone. Denies headache, vomiting, nausea, cough/congestion, or blurry vision.
Past History
<SAIMA Stout - Last Filed: 04/30/23 05:37>
Past History
ED Past Medical History: COPD, HTN, Hypercholesterolemia and Hypothyroidism
ED Past Surgical History: Cardiac (CABG/aortic valve replacement) and Gynecological (HARMEET/BSO 2005)
Social History
Tobacco: Non-smoker
Alcohol: None
Drug: None
Personal: Partner
Living: with family
Employment: Retired
Family History
Family History: Other (n/c, no cad, cva)
Review of Systems
<KarolineSAIMA Norman - Last Filed: 04/30/23 05:37>
Review of Systems
Allergies reviewed?: Yes
All Other Systems: ROS reviewed and negative except as documented in HPI and ROS
Constitutional: Reports no symptoms
EENT: Reports no symptoms
Respiratory: Reports no symptoms
Cardiac: Reports syncope
ABD/GI: Reports no symptoms
: Reports no symptoms
Musculoskeletal: Reports no symptoms
Skin: Reports no symptoms
Neurological: Reports dizzy
Endocrine: Reports no symptoms
Hematologic/Lymphatic: Reports no symptoms
Psychiatric: Reports no symptoms
Phy Exam
<Karolinepedro Chavez JULISSA - Last Filed: 04/30/23 05:37>
General Physical Exam
General Presentation: well appearing and no apparent distress
General age: appears stated age
General Skin: warm and dry
General Habitus: normal
General Mental: alert
General Hydration: appears well hydrated
Cardiovascular Exam
Cardiovascular Exam: regular rate/rhythm, no edema, no gallop and normal peripheral pulses
Pulmonary Exam
Pulmonary Exam: lungs clear, no respiratory distress, no rales, no crackles and no rhonchi
Gastrointestinal Exam
Gastrointestinal Exam: non tender, soft and non distended
Neurological Exam
Neurological Exam: alert and oriented x3
Skin Exam
Skin Exam: normal color, warm/dry and no rash
Psychiatric Exam
Psychiatric Exam: normal mood/affect
Course
<KarolineSAIMA Norman - Last Filed: 04/30/23 05:37>
Orders/Labs/Results
Orders:
Orders
04/30/23 04:43
Electrocardiogram (*1) Urgent
Reason for Study: Other
Other Reason for Exam: Respiratory Distress
Cardiac Monitoring- Treatment ONCE
EKG- Treatment ONCE
IV Insert/Care/Rem.- Treatment PRN
O2 Therapy [RESP] Urgent
Titrate/Wean O2 to maintain O2 sat greater than (%): 93
Special Instructions: TO MAINTAIN CONTINUOUS O2 SATS >/= 93%
Pulse Ox/cont/shift [RESP] Urgent
Quantity: 1
Special Instructions: continuous pulse ox
04/30/23 04:59
Complete Blood Count/With Diff Urgent
Comprehensive Metabolic Panel Urgent
NT-proBNP Urgent
Troponin I Urgent
04/30/23 05:25
Orthostatic VS- Treatment ONCE
04/30/23 05:51
Midodrine [ProAmatine] 5 mg PO NOW STA
04/30/23 07:15
Consult Cardiology [CARDIOLOGY CONSULT] Urgent
Consulting Provider: Rob Burciaga
Was physician already notified: Yes
04/30/23 09:18
Orthostatic Vital Signs As Directed
Orthostatic VS Frequency: Now
Abnormal Lab Results
04/30/23
04:59
RBC 3.46 L 10^6/uL
(4.20-5.40)
Hgb 11.5 L D g/dL
(12.0-16.0)
Hct 32.3 L %
(37.0-47.0)
MCH 33.2 H pg
(27.0-31.0)
RDW 15.6 H %
(11.5-14.5)
Abs Immat Gran (auto) 0.1 H 10^3/uL
(0-0.05)
Absolute Monos (auto) 0.8 H 10^3/uL
(0.1-0.6)
Immature Gran % 0.9 H %
(0-0.5)
04/30/23 04:59
04/30/23 04:59
Vital Signs
Initial and Last Documented VS:
Initial Vital Signs
Temp Pulse Resp Pulse Ox
97.6 F 69 16 97
04/30/23 04:44 04/30/23 04:44 04/30/23 04:44 04/30/23 04:44
Last Documented Vital Signs
Temp Pulse Resp BP Pulse Ox
97.6 F 70 13 120/70 97
04/30/23 04:44 04/30/23 09:45 04/30/23 09:45 04/30/23 09:29 04/30/23 09:45
<Aissatou Guy DO - Last Filed: 04/30/23 06:46>
Orders/Labs/Results
Orders:
Orders
04/30/23 04:43
Electrocardiogram (*1) Urgent
Reason for Study: Other
Other Reason for Exam: Respiratory Distress
Cardiac Monitoring- Treatment ONCE
EKG- Treatment ONCE
IV Insert/Care/Rem.- Treatment PRN
O2 Therapy [RESP] Urgent
Titrate/Wean O2 to maintain O2 sat greater than (%): 93
Special Instructions: TO MAINTAIN CONTINUOUS O2 SATS >/= 93%
Pulse Ox/cont/shift [RESP] Urgent
Quantity: 1
Special Instructions: continuous pulse ox
04/30/23 04:59
Complete Blood Count/With Diff Urgent
Comprehensive Metabolic Panel Urgent
NT-proBNP Urgent
Troponin I Urgent
04/30/23 05:25
Orthostatic VS- Treatment ONCE
04/30/23 05:51
Midodrine [ProAmatine] 5 mg PO NOW STA
04/30/23 07:15
Consult Cardiology [CARDIOLOGY CONSULT] Urgent
Consulting Provider: Rob Burciaga
Was physician already notified: Yes
04/30/23 09:18
Orthostatic Vital Signs As Directed
Orthostatic VS Frequency: Now
Abnormal Lab Results
04/30/23
04:59
RBC 3.46 L 10^6/uL
(4.20-5.40)
Hgb 11.5 L D g/dL
(12.0-16.0)
Hct 32.3 L %
(37.0-47.0)
MCH 33.2 H pg
(27.0-31.0)
RDW 15.6 H %
(11.5-14.5)
Abs Immat Gran (auto) 0.1 H 10^3/uL
(0-0.05)
Absolute Monos (auto) 0.8 H 10^3/uL
(0.1-0.6)
Immature Gran % 0.9 H %
(0-0.5)
04/30/23 04:59
04/30/23 04:59
Vital Signs
Initial and Last Documented VS:
Initial Vital Signs
Temp Pulse Resp Pulse Ox
97.6 F 69 16 97
04/30/23 04:44 04/30/23 04:44 04/30/23 04:44 04/30/23 04:44
Last Documented Vital Signs
Temp Pulse Resp BP Pulse Ox
97.6 F 70 13 120/70 97
04/30/23 04:44 04/30/23 09:45 04/30/23 09:45 04/30/23 09:29 04/30/23 09:45
<Rene Hernandez, DO - Last Filed: 04/30/23 10:05>
Orders/Labs/Results
Orders:
Orders
04/30/23 04:43
Electrocardiogram (*1) Urgent
Reason for Study: Other
Other Reason for Exam: Respiratory Distress
Cardiac Monitoring- Treatment ONCE
EKG- Treatment ONCE
IV Insert/Care/Rem.- Treatment PRN
O2 Therapy [RESP] Urgent
Titrate/Wean O2 to maintain O2 sat greater than (%): 93
Special Instructions: TO MAINTAIN CONTINUOUS O2 SATS >/= 93%
Pulse Ox/cont/shift [RESP] Urgent
Quantity: 1
Special Instructions: continuous pulse ox
04/30/23 04:59
Complete Blood Count/With Diff Urgent
Comprehensive Metabolic Panel Urgent
NT-proBNP Urgent
Troponin I Urgent
04/30/23 05:25
Orthostatic VS- Treatment ONCE
04/30/23 05:51
Midodrine [ProAmatine] 5 mg PO NOW STA
04/30/23 07:15
Consult Cardiology [CARDIOLOGY CONSULT] Urgent
Consulting Provider: Rob Burciaga
Was physician already notified: Yes
04/30/23 09:18
Orthostatic Vital Signs As Directed
Orthostatic VS Frequency: Now
Abnormal Lab Results
04/30/23
04:59
RBC 3.46 L 10^6/uL
(4.20-5.40)
Hgb 11.5 L D g/dL
(12.0-16.0)
Hct 32.3 L %
(37.0-47.0)
MCH 33.2 H pg
(27.0-31.0)
RDW 15.6 H %
(11.5-14.5)
Abs Immat Gran (auto) 0.1 H 10^3/uL
(0-0.05)
Absolute Monos (auto) 0.8 H 10^3/uL
(0.1-0.6)
Immature Gran % 0.9 H %
(0-0.5)
04/30/23 04:59
04/30/23 04:59
Vital Signs
Initial and Last Documented VS:
Initial Vital Signs
Temp Pulse Resp Pulse Ox
97.6 F 69 16 97
04/30/23 04:44 04/30/23 04:44 04/30/23 04:44 04/30/23 04:44
Last Documented Vital Signs
Temp Pulse Resp BP Pulse Ox
97.6 F 70 13 120/70 97
04/30/23 04:44 04/30/23 09:45 04/30/23 09:45 04/30/23 09:29 04/30/23 09:45
<SAIMA Stout - Last Filed: 04/30/23 05:37>
MDM/Problems Addressed
Differential Diagnosis Includes:
Orthostatic hypotension
<Aissatou Guy DO - Last Filed: 04/30/23 06:46>
*Pulse Oximetry
Patient hypoxic: no
*EKG
Interpreted by ED Provider?: Yes
Interpretation: normal
Comparison EKG: no changes (Unchanged from previous last month.)
Rate: normal
Rhythm: sinus
[place]: normal axis
Interval: normal interval
QRS Pattern: poor R-wave progression
Ischemia: no ischemia
*Residential Designer Interpretation
Rate: normal
Interpretation: normal
Rhythm: sinus
*Critical Care Note
Total Time (30-74mins, 75-104mins- exclusive of procedures): Not Applicable
<Rene Hernandez DO - Last Filed: 04/30/23 10:05>
Update Note
Update Note:
10 AM cardiology at bedside. Care of patient was transition pending cardiology evaluation. The plan of care was to increase her midodrine. This was discussed with cardiology who agrees with plan.
ED Attending Note
<SAIMA Stout - Last Filed: 04/30/23 05:37>
-
Portions of this chart may have been created with voice recognition software.� Occasional wrong word or��sound alike� substitutions may have occurred due to the inherent limitations of voice recognition software.
<Aissatou Guy DO - Last Filed: 04/30/23 06:46>
ED Attending Note
Patient seen and examined by attending physician: Yes
I performed the substantive portion of visit, reviewed & personally made and approve the management plan that is documented in note by myself or HENRY.: Yes
I performed a history and physical exam of patient and discussed management with resident, I reviewed resident's note and agree with documented findings and plan of care.: Yes
ED Attending Note:
This is a 78-year-old woman who has history of severe aortic stenosis, coronary artery disease who underwent CABG x 2 and AVR April 03, 2023. While in [facility] she suffered acute shortness of breath on April 15 and found to have saddle PE
without evidence of RV strain undergoing suction thrombectomy. She did not require lytic therapy. She was found to have left lower extremity DVT. 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
Eventually transition to twice daily Eliquis. During that hospitalization she was noted to have complications of significant orthostatic hypotension, midodrine 5 mg twice daily in the a.m. and afternoon was initiated. She also suffered new onset
atrial fibrillation, started on amiodarone, A-fib spontaneously converted to normal sinus rhythm. She was eventually transferred back to [facility] April 20 where she remained until April 26 being discharged to home this past Sunday.
[facility] she continued with occasional episodes of orthostatic hypotension.
She was discharged to home on midodrine 5 mg twice daily at 7 AM and 12 noon. She continues on twice daily Eliquis, amiodarone with no further episodes of atrial fibrillation.
With initiation of amiodarone, her usual metoprolol succinate dose was decreased to half, 12.5 mg once daily.
Home health nursing care as well as physical therapy has initiated since being home.
Yesterday around 5 PM patient states upon standing she became lightheaded with drop in blood pressure and again this morning at 2:30 AM after getting up out of bed to go to the bathroom.
She has had no episodes of syncope nor fall. She has had no cough no shortness of breath, no chest pain. Appetite has been fair. She has been moving her bowels normally. No difficulty urinating.
Upon EMS arrival noted to be significantly orthostatic with lying blood pressure of 180, sitting of 130, standing of 106.
GENERAL: 78-year-old woman appears her stated age, bright and alert, pleasant, appears in no acute distress. Daughter is accompanying. Patient is afebrile.
EYE: anicteric
NECK: Supple, nontender, no meningismus, no significant adenopathy.
ENT: oral mucosa is moist. No rhinorrhea.
CARDIAC: Regular rate and rhythm. no murmur.
LUNGS: Clear breath sounds bilaterally, no acute respiratory distress, no wheezes/rales/rhonchi. Sternotomy incision dry and intact minimal local crusting.
ABDOMEN: Soft, nondistended, without focal tenderness. normoactive BS.
NEUROLOGICAL: Alert and oriented x3, no focal neuro deficits.
SKIN: Warm and dry, normal color, skin intact. No rash.
MUSCULOSKELETAL: No C/C/E. peripheral pulses are full and equal b/l. No palpable tenderness.
PSYCH: Normal and appropriate interaction.
Patient has history of orthostatic hypotension status post CABG, AVR, postop complication of DVT/PE.
Orthostasis improved with initiation of twice daily midodrine but she continues with sporadic episodes and would recommend increasing midodrine to 3 times daily dosing.
She is noted to have moderate sporadic hypertension and thus would not recommend lowering metoprolol dose.
Overall patient feeling well and she is eager to be discharged to home. She would however like to discuss her case with cardiology which is quite reasonable. Her primary laborer marine terminal is Mary Kwok, we will plan to touch base with DCA.
Labs show mild anemia with hemoglobin of 11.5 but this has trended up from previous of 9.2 April 23.
Chemistries are unremarkable.
EKG is unremarkable and unchanged from previous.
Repeat orthostatic vital signs in the ED continues to show orthostasis with systolic blood pressure of 190 lying, 163 sitting and 133 standing.
Will give a dose of midodrine 5 mg now and plan to recheck orthostatic vital signs in 1 hour.
Will plan for cardiology consult.
Discharge Plan
Departure
Patient Disposition: Home (Routine Discharge)
Date of Disposition: 04/30/23
Time of Disposition: 10:05
Patient with high blood pressure during this ER visit?: No
Discharge Problem:
Orthostatic hypotension
Instructions: Orthostatic Hypotension (DC)
Prescriptions:
New
midodrine 5 mg tablet
5 mg PO TID Qty: 90 0RF
Discontinued
midodrine 5 mg Tablet
5 mg PO BID@0700,1200 30 Days Qty: 60 0RF
No Action
methylprednisolone 4 mg Tablet
4 mg PO DAILY
Repatha SureClick 140 mg/mL Pen Injector
140 mg SC Q2W
Rx Instructions:
ON THE AND 15TH OF EACH MONTH
calcium carbonate-vitamin D3 500 mg-3.125 mcg (125 unit) Tablet
1 tab PO DAILY
B12 5,000-100 mcg Lozenge
1 niya SUBLINGUAL DAILY
multivitamin Tablet
1 tab PO DAILY
magnesium 250 mg Tablet
500 mg PO MOWEFR
travoprost 0.004 % Drops
1 drp OPHTHALMIC (EYE) QPM
aspirin 81 mg tablet,delayed release (DR/EC)
81 mg PO DAILY
polyethylene glycol 3350 [HealthyLax] 17 gram Powder In Packet
17 g PO DAILY Qty: 30 0RF
diphenhydramine HCl 25 mg Capsule
25 mg PO HSPRN PRN (Reason: SLEEP) Qty: 30 0RF
Eliquis 5 mg Tablet
5 mg PO BID 30 Days Qty: 60 0RF
lidocaine 4 % Adhesive Patch,Medicated
1 patch topical DAILY 30 Days Qty: 30 0RF
amiodarone [Pacerone] 200 mg Tablet
200 mg PO BID 30 Days Qty: 60 0RF
pantoprazole 40 mg Tablet,Delayed Release (Dr/Ec)
40 mg PO DAILY 30 Days Qty: 30 0RF
furosemide 20 mg tablet
20 mg PO DAILY PRN (Reason: Fluid Retention/Swelling) 30 Days Qty: 30 0RF
metoprolol succinate 25 mg tablet extended release 24 hr
12.5 mg PO DAILY 30 Days Qty: 15 0RF
Referrals:
Thony Esparza MD [Family Provider] -
Jenn Pena PA-C [Specified Professional Personl] - 05/09/23 11:20 am (You have cardiology follow up wiht Jenn Pena on May 08 at 11:[address] [facility]. If you are unable to make this please call to
reschedule)
Activity Restrictions/Additional Instructions:
Our plan is to increase midodrine to 3 times a day dosing.
Follow-up with Dr. Kwok within the next week or 2 for recheck.
Interventions
Interventions:
*Risk Screen - Suicide Last Done: 04/30/23 04:44
*General Assessment Last Done: 04/30/23 04:44
*Neglect/Abuse Screening Last Done: 04/30/23 04:44
ED- Fall Risk Assessment Last Done: 04/30/23 04:44
*ED COVID-19 Vaccine History Last Done: 04/30/23 04:44
ED- Cardiac Assessment Last Done: 04/30/23 05:00
ED- Neurological Assessment Last Done: 04/30/23 05:00
ED- Pulmonary Assessment Last Done: 04/30/23 05:00
[2023-04-30 05:31] LABS: ALT (SGPT) 34 U/L (0-35); AST (SGOT) 35 U/L (14-36); Albumin 4.3 g/dl (3.5-5.0); Alkaline Phosphatase 124 U/L (38-126); Blood Urea Nitrogen 12 mg/dl (7-17); Calcium 9.4 mg/dl (8.4-10.2); Carbon Dioxide 24 mmol/L (22-30); Chloride 104 mmol/L (98-107); Estimated Creatinine Clearance 60 ml/min; Glucose 95 mg/dl (70-99); Potassium 3.5 mmol/L (3.5-5.1); Sodium 135 mmol/L (135-145); Total Protein 6.8 g/dl (6.3-8.2); eGFR > 60.00
[2023-04-30 05:41] LABS: NT-proBNP 972 pg/ml; Troponin I < 0.012 ng/ml
[2023-04-30] MEDS: ProAmatine 5 MG PO (06:43)
--- NOTE | 2023-04-30 07:44 | CON.CAR ---
Addendum entered and electronically signed by Rob Burciaga MD 04/30/23 11:39:
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 Recent complex history including CABG x 2 with AVR on April 03 complicated by submassive pulmonary embolism and RV strain
treated with suction thrombectomy. Further complicated by heparin-induced thrombocytopenia and paroxysmal atrial fibrillation, with known orthostatic hypotension for which she was placed on midodrine.
PMH: PMR/rheumatoid arthritis, hypertension, hyperlipidemia, COPD
Left lower lobe mass, cerebrovascular disease,
SH: History of tobacco use
Lives with family, retired,
Family history noncontributory
PSH: CABG and AVR March 2023
Review of systems: Otherwise unrevealing, patient very hypertensive at times
Meds, allergies reviewed
140/122, 155/69, pulse 60s
Head neck exam unremarkable, lungs clear, chest incision intact, regular rate and rhythm, abdomen benign, neuro nonfocal, extremities without significant edema
Hemoglobin 11.5, creatinine is 0.7, potassium is 3.5
mpression:
Presented 04/30/2023 with dizziness, lightheadedness
Orthostatic hypotension
Acute submassive saddle pulmonary embolism/hypoxemia status post embolectomy 04/15/2023
New onset postoperative (04/03/2023) atrial fibrillation in the setting of pulmonary embolism
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
CABG x 2 and bioprosthetic AVR 04/03/2023
23 mm Umaan Inspiris biologic valveOrthostatic hypotension on midodrine
Carotid artery disease followed by vascular
Carotid ultrasound 07/20/2022 LING 50 to 69% stenosis. LICA 50 to 69% stenosis.�Thrombocytopenia, probable HIT
Left lower lobe nodule suspicious for malignancy and workup underway
Hyperdynamic ventricle with LVH
Hypertension
Hyperlipidemia
Peripheral vascular disease with carotid stenosis followed by vascular
Polymyalgia rheumatica/rheumatoid arthritis on chronic steroids
Osteoarthritis and osteoporosis
Irritable bowel
Thyroid disease
History of tobacco abuse
History of TIA
Plan:
Overall, despite her extremely complex recent history, orthostasis and supine hypertension she seems to be relatively stable from a cardiac standpoint.
Agree with modest increase in midodrine to 5 mg 3 times daily from twice daily, and addition of metoprolol ER 12.5 mg at night.
Okay for discharge, follow-up arrangements are in place.
Original Note:
Consultation
Consultation Request
Date/Time Consultation Requested: 04/30/2023
Date/Time Consultation Performed: 04/30/2023
Requesting Provider: Dr. Guy
Performing Provider: Xiomara Mendoza PA-C for Dr. BECKI Burciaga
Reason for Consultation: Orthostatic hypotension
Medical History
-
History of Present Illness:
Patient is a 78 year old woman with history of coronary artery disease status post recent CABG x 2 with AVR 04/03/[address] Cotto, PMR/RA on chronic steroids, hypertension, hyperlipidemia, COPD and recent acute hypoxia while at [facility] and found to
have saddle pulmonary embolus without evidence of RV strain on 04/15/23 whom underwent suction thrombectomy (no lytic therapy given recent surgery) and later found to he HIT positive.� She had paroxysmal atrial fibrillation following her pulmonary
emboli and was placed on amiodarone and Eliquis. During her complicated admissions she was found to have orthostatic hypotension and placed on Midodrine and low dose Toprol. She was eventually sent back to [facility] 04/20/2023 then discharged to home
on 04/27/2023. 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 Patient reports yesterday evening around 5 pm upon standing up she felt like she was going to pass out.
Symptoms passed without incident. She then awoke this am around 2 AM to use the bathroom and once again felt dizzy upon standing prompting her to come to the emergency department. She checked her blood pressure while in bed and noted to be 215/105
and called 911. On arrival to emergency department blood pressure was 160/88. Initial orthostatic blood pressure supine was 190/78 with a drop of 132/70 with standing. She was provided an additional 5 mg of midodrine around 6 am. She has
improvement of symptoms. She currently denies chest pain, shortness of breath, dizziness or lightheadedness while lying in bed, edema, orthopnea, PND or palpitations. Her EKG shows sinus rhythm. Hemoglobin stable at 11.5. Electrolytes
unremarkable.
PMH:
Saddle pulmonary embolism/hypoxemia status post embolectomy 04/15/2023
New onset postoperative (04/03/2023) atrial fibrillation in the setting of pulmonary embolism
CABG x 2 and bioprosthetic AVR 04/03/2023
23 mm Umana Inspiris biologic valve
CABG x 2 (In situ GERARDO to LAD, Ao to RSVG to OM) 04/03/2023
Orthostasis hypotension on midodrine
Carotid artery disease followed by vascular
Carotid ultrasound 07/20/2022 LING 50 to 69% stenosis. LICA 50 to 69% stenosis.�
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
Left lower lobe nodule suspicious for malignancy and workup underway
Hyperdynamic ventricle with LVH
Hypertension
Hyperlipidemia
Peripheral vascular disease with carotid stenosis followed by vascular
Polymyalgia rheumatica/rheumatoid arthritis on chronic steroids
Osteoarthritis and osteoporosis
Irritable bowel
Thyroid disease
History of tobacco abuse
History of TIA
Past Medical History
Past Medical History: Other (See HPI)
Past Surgical History: Cardiac (CABG x 2, AVR), Orthopedic (Bilateral knee replacement) and Other (Hysterectomy, sigmoidectomy, bilateral cataract)
Social History
Tobacco: Former Smoker
Alcohol: None
Drug: None
Living: With Family
Family History
Family History: Other (Father emphysema, mother lung cancer, gastric cancer. Sister breast cancer, brother Parkinson's, brother loose body dementia and CABG)
Allergies / Home Medications
Allergy/AdvReac Type Severity Reaction Status Date / Time
heparin Allergy Severe HIT Verified 04/17/23 16:36
codeine [Codeine] Allergy see Verified 04/17/23 16:36
comments
Medication Instructions Recorded Confirmed Type
evolocumab 140 mg/mL subcutaneous 140 mg SC Q2W High Cholesterol 01/03/23 04/30/23 History
pen injector (Matt Jordan)
methylprednisolone 4 mg tablet 4 mg PO DAILY INFLAMMATION 01/03/23 04/30/23 History
calcium carbonate 500 mg-vitamin 1 tab PO DAILY Supplement 03/08/23 04/30/23 History
D3 3.125 mcg (125 unit) tablet
cyanocobalamin (B12)-cobamamide 1 niya sublingual DAILY Supplement 03/08/23 04/30/23 History
5,000 mcg-100 mcg sublingual
lozenge (B12)
magnesium 250 mg tablet 500 mg PO MOWEFR Supplement 03/27/23 04/30/23 History
multivitamin 1 tab PO DAILY Supplement 03/27/23 04/30/23 History
travoprost 0.004 % eye drops 1 drp ophthalmic (eye) QPM Eye 03/27/23 04/30/23 History
Condition
aspirin 81 mg tablet,delayed 81 mg PO DAILY Blood Clot 04/04/23 04/30/23 History
release Prevention/Tx
polyethylene glycol 3350 17 gram 17 g PO DAILY #30 ea 04/20/23 04/30/23 Rx
oral powder packet (HealthyLax)
amiodarone 200 mg tablet (Pacerone) 200 mg PO BID 30 days #60 tabs 04/27/23 04/30/23 Rx
apixaban 5 mg tablet (Eliquis) 5 mg PO BID 30 days #60 tabs 04/27/23 04/30/23 Rx
diphenhydramine HCl 25 mg capsule 25 mg PO HSPRN PRN SLEEP #30 caps 04/27/23 04/30/23 Rx
furosemide 20 mg tablet 20 mg PO DAILY PRN Fluid 04/27/23 04/30/23 Rx
Retention/Swelling 30 days #30 tabs
lidocaine 4 % topical patch 1 patch topical DAILY 30 days #30 04/27/23 04/30/23 Rx
ea
metoprolol succinate 25 mg 12.5 mg PO DAILY Heart 04/27/23 04/30/23 Rx
tablet,extended release 24 hr Disease/Condition 30 days #15 tabs
pantoprazole 40 mg tablet,delayed 40 mg PO DAILY 30 days #30 tabs 04/27/23 04/30/23 Rx
release
midodrine 5 mg tablet 5 mg PO TID #90 tabs 04/30/23 Rx
Review of Systems
-
History Source: Patient
All other systems: Negative unless noted
Physical Exam
Vital Signs
Temp Pulse Resp BP Pulse Ox
97.6 F 64 15 173/72 99
04/30/23 04:44 04/30/23 07:00 04/30/23 07:00 04/30/23 06:43 04/30/23 07:00
GEN: No distress, awake, Ox3
HEENT: supple, anicteric, mmm
LUNGS: CTA, no wheezes/rales
CV: Reg, S1/S2, 1/6 syst LSB, no murmur
ABD: soft, BS+, NT/ND
EXT: No edema
NEURO: Gross non-focal
SKIN: No rash
Lab Results
04/30/23 04:59
04/30/23 04:59
Troponin I < 0.012 ng/ml 04/30/23 04:59
Lfg-P-Mdqtxzgiozk Pept 972 pg/ml 04/30/23 04:59
Impression / Plan
-
PCP: Thony Esparza
Account Retention Representative: Dr. Mary Kwok
Impression:
Presented 04/30/2023 with dizziness, lightheadedness
Orthostatic hypotension
Acute submassive saddle pulmonary embolism/hypoxemia status post embolectomy 04/15/2023
New onset postoperative (04/03/2023) atrial fibrillation in the setting of pulmonary embolism
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
CABG x 2 and bioprosthetic AVR 04/03/2023
23 mm Umana Inspiris biologic valve
Orthostatic hypotension on midodrine
Carotid artery disease followed by vascular
Carotid ultrasound 07/20/2022 LING 50 to 69% stenosis. LICA 50 to 69% stenosis.�
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
Left lower lobe nodule suspicious for malignancy and workup underway
Hyperdynamic ventricle with LVH
Hypertension
Hyperlipidemia
Peripheral vascular disease with carotid stenosis followed by vascular
Polymyalgia rheumatica/rheumatoid arthritis on chronic steroids
Osteoarthritis and osteoporosis
Irritable bowel
Thyroid disease
History of tobacco abuse
History of TIA
CT scan 04/15/2023:�Filling defect at the main pulmonary artery extending into the right and left main pulmonary arteries, consistent with a large saddle embolus. The extent of the embolus is greater on the right than the left. The saddle embolus
involves the right upper, middle and lower lobe pulmonary arteries and left upper pulmonary arteries.
Transesophageal echocardiogram 04/03/2023:�Ejection fraction 65%.� Severe LVH.� Severe aortic valve stenosis.� Trace TR.� Moderate calcified atheroma descending aorta and arch.� Status post AVR.� No AI or leaks.� Maximum aortic valve gradient 20 mean
13 mmHg.� 30 minutes post pulm mean gradient decreased to 3 mmHg.� LVOT gradient noted 11 mmHg.� No JENNI and no MR noted.
Echo Apr 15 2023: EF 60-65% 23 mm bioAVR peak/mean grad 24/14 mmHg respectively, mild to mod TR, PASP 54-59 mmHg, compared to Oct 2022 AV has been replaced and PA now increased to 32 mmHg.
Echo 11/07/22:�LVEF of 58%, moderate LVH, LVOT gradient of 41 mmHg, increasing to 65 mmHg with Valsalva, stage II diastolic dysfunction, moderate to severe aortic stenosis with peak and mean transaortic gradients of 62 and 32 mmHg, calculated aortic
valve area of 0.9 cm�, trace tricuspid regurgitation without evidence of pulmonary hypertension.
Cath 03/08/23:�RA� 12; PA : 39/19 (27), PCWP (m) : 22, PA saturation: 65.9% on room air, AO saturation: 95.7% on room air, CO 3.31 L/min by Rut, CI 1.87 L/min/m-2 by Rut, SVR 2173 dsc^(-5), PVR 1.51 her unit, LVEDP22. IFR of ostial left main was
borderline at 0.89-0.90. Eccentric 80% ostial LAD stenosis which is IFR positive with an IFR of 0.85
Carotid ultrasound 07/20/2022�with small amount of common carotid calcific plaque. Right internal carotid artery 50 to 69% stenosis. Left internal carotid artery 50 to 69% stenosis.�
Gonzalez:
Patient is a 78 year old woman with history of coronary artery disease status post recent CABG x 2 with AVR 04/03/[address] Cotto, PMR/RA on chronic steroids, hypertension, hyperlipidemia, COPD and recent acute hypoxia while at [facility] and found to
have saddle pulmonary embolus without evidence of RV strain on 04/15/23 whom underwent suction thrombectomy (no lytic therapy given recent surgery) and later found to he HIT positive.� She had paroxysmal atrial fibrillation following her pulmonary
emboli and was placed on amiodarone and Eliquis. During her complicated admissions she was found to have orthostatic hypotension and placed on Midodrine and low dose Toprol. She was eventually sent back to [facility] 04/20/2023 then discharged to home
on 04/27/2023. 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 Patient reports yesterday evening around 5 pm upon standing up she felt like she was going to pass out.
Symptoms passed without incident. She then awoke this am around 2 AM to use the bathroom and once again felt dizzy upon standing prompting her to come to the emergency department. She checked her blood pressure while in bed and noted to be 215/105
and called 911. On arrival to emergency department blood pressure was 160/88. Initial orthostatic blood pressure supine was 190/78 with a drop of 132/70 with standing. She was provided an additional 5 mg of midodrine around 6 am. She has
improvement of symptoms. She currently denies chest pain, shortness of breath, dizziness or lightheadedness while lying in bed, edema, orthopnea, PND or palpitations. Her EKG shows sinus rhythm. Hemoglobin stable at 11.5. Electrolytes
unremarkable.
-Present 04/30/2023 with dizziness with positional change and supine hypertension
-Positive orthostatic vitals with approximately 60 mm drop of blood pressure from supine to standing. Patient was symptomatic.
-May need to allow for permissive hypertension given significant orthostasis
-Would increase midodrine to 5 mg 3 times daily (give 7 AM, noon and 4 PM). Patient reports she usually goes to bed between 830 and 9 PM.
-Given supine hypertension would suggest adding 12.5 mg of Toprol at bedtime in addition to patient getting 12.5 mg of Toprol in the morning.
-Advised patient to change positions slowly with pumping or kicking of legs before she stands up. Encouraged her to sleep head elevated either with recliner or with a wedge. Discussed utilizing compression stockings.
-Will check orthostatic vitals now as patient had midodrine at approximately 6 AM this morning. If vital stable patient can be discharged.
-Patient has VN following her closely. Would recommend checking orthostatic vitals with VN assistance.
-Patient will be starting cardiac rehab next week and also has outpatient cardiology follow-up arranged on 05/09/2023.
-Continue Eliquis and amiodarone for PAF.
-Continue aspirin, Repatha for CAD.
Data Reviewed
-
EKG: Report Reviewed by me, Discussed with Physician, Discussed with Nurse and Discussed with Patient
Labs: Labs Reviewed by me, Discussed with Physician, Discussed with Nurse and Discussed with Patient
Old Records: Reviewed
== END 2023-04-30 10:48 | disposition home or self-care (01) ==
LOC: EMR 04:39
PROVIDERS: CONSULT PHYSICIAN Internal Medicine Cardiovascular Disease; EMERGENCY PHYSICIAN Emergency Medicine; FAMILY PHYSICIAN Family Medicine
DX: I95.1 Orthostatic hypotension (principal); I10 Essential (primary) hypertension; D64.9 Anemia, unspecified; Z95.1 Presence of aortocoronary bypass graft; I35.0 Nonrheumatic aortic (valve) stenosis; I25.10 Atherosclerotic heart disease of native coronary artery without angina pectoris; I48.91 Unspecified atrial fibrillation; Z86.711 Personal history of pulmonary embolism
CPT/HCPCS: 99284; 80053; 83880; 84484; 85025; 93005

== ENCOUNTER → 2023-05-22 07:56 | Outpatient (REF) | payer MEDICARE, OTHER, SELFPAY ==
[2023-05-22 13:23] LABS: HDL Cholesterol 92 mg/dl; LDL Cholesterol, Calculated 46 mg/dl; Total Cholesterol 175 mg/dl (50-199); Triglyceride 186 mg/dl (10-149); Very Low Density Lipoprotein 37 mg/dl (0-30)
== END ==
LOC: HWRAD 07:56
PROVIDERS: ATTENDING PHYSICIAN Internal Medicine Critical Care Medicine; FAMILY PHYSICIAN Family Medicine; REFERRING PHYSICIAN Internal Medicine Cardiovascular Disease
DX: R91.8 Other nonspecific abnormal finding of lung field (principal); Z95.1 Presence of aortocoronary bypass graft; Z95.2 Presence of prosthetic heart valve; I65.23 Occlusion and stenosis of bilateral carotid arteries
CPT/HCPCS: 36415; 71250; 80061

== ENCOUNTER 2023-05-25 15:02 | Outpatient (RCR) | payer MEDICARE, OTHER, SELFPAY | END 2023-05-25 23:59 | disposition home or self-care (01) | LOC: CRHB 15:02 | PROVIDERS: ATTENDING PHYSICIAN Internal Medicine Cardiovascular Disease | DX: Z95.1 Presence of aortocoronary bypass graft (principal); Z95.2 Presence of prosthetic heart valve | CPT/HCPCS: G0422; G0423 ==

== ENCOUNTER 2023-06-25 15:10 | Outpatient (RCR) | payer MEDICARE, OTHER, SELFPAY | END 2023-06-25 23:59 | disposition home or self-care (01) | LOC: CRHB 15:10 | PROVIDERS: ATTENDING PHYSICIAN Internal Medicine Cardiovascular Disease | DX: I25.10 Atherosclerotic heart disease of native coronary artery without angina pectoris (principal); Z95.2 Presence of prosthetic heart valve; Z95.1 Presence of aortocoronary bypass graft | CPT/HCPCS: G0422; G0423 ==

== ENCOUNTER 2023-07-27 15:02 | Outpatient (RCR) | payer MEDICARE, OTHER, SELFPAY | END 2023-07-27 23:59 | disposition home or self-care (01) | LOC: CRHB 15:02 | PROVIDERS: ATTENDING PHYSICIAN Internal Medicine Cardiovascular Disease | DX: Z95.1 Presence of aortocoronary bypass graft (principal); Z95.2 Presence of prosthetic heart valve; I25.10 Atherosclerotic heart disease of native coronary artery without angina pectoris | CPT/HCPCS: G0422; G0423 ==

== ENCOUNTER 2023-07-30 14:00 | Outpatient (RCR) | payer MEDICARE, OTHER, SELFPAY | END 2023-07-30 23:59 | disposition home or self-care (01) | LOC: CRHB 14:00 | PROVIDERS: ATTENDING PHYSICIAN Internal Medicine Cardiovascular Disease | DX: I25.10 Atherosclerotic heart disease of native coronary artery without angina pectoris (principal); Z95.1 Presence of aortocoronary bypass graft; Z95.2 Presence of prosthetic heart valve | CPT/HCPCS: G0422 ==

== ENCOUNTER → 2023-08-01 08:53 | Outpatient (REF) | payer MEDICARE, OTHER, SELFPAY ==
[2023-08-01 12:36] LABS: % Eosinophils 0.7 % (0-6); % Immature Granulocytes 0.2 % (0-0.5); % Lymphocytes 25.9 % (20.5-51.1); % Neutrophils 63.2 % (42.2-75.2); Absolute Basophils 0.1 10^3/uL (0-0.2); Absolute Lymphocytes 1.5 10^3/uL (1.2-3.4); Absolute Monocytes 0.5 10^3/uL (0.1-0.6); Absolute Neutrophils 3.7 10^3/uL (1.4-6.5); Hematocrit 40.7 % (37.0-47.0); Hemoglobin 13.7 g/dL (12.0-16.0); Mean Corp Hgb Conc. 33.7 g/dL (33.0-37.0); Mean Corpuscular Hgb 31.5 pg (27.0-31.0); Mean Corpuscular Volume 93.6 fL (81.0-99.0); Nucleated Red Blood Cells % 0 %; Platelet Count 198 10^3/uL (130-400); Red Blood Cell Count 4.35 10^6/uL (4.20-5.40); Red Cell Dist. Width 13.2 % (11.5-14.5); White Blood Cell Count 5.9 10^3/uL (4.8-10.8)
== END ==
LOC: HWLAB 08:53
PROVIDERS: ATTENDING PHYSICIAN Internal Medicine Hematology & Oncology; FAMILY PHYSICIAN Family Medicine
DX: I26.09 Other pulmonary embolism with acute cor pulmonale (principal); I82.4Z2 Acute embolism and thrombosis of unspecified deep veins of left distal lower extremity
CPT/HCPCS: 36415; 85025; 85379

== ENCOUNTER → 2023-09-05 08:38 | Outpatient (REF) | payer MEDICARE, OTHER, SELFPAY ==
[2023-09-05 10:10] LABS: % Eosinophils 0.9 % (0-6); % Immature Granulocytes 0.3 % (0-0.5); % Lymphocytes 23.6 % (20.5-51.1); % Monocytes 9.7 % (1.7-9.3); % Neutrophils 64.5 % (42.2-75.2); Absolute Basophils 0.1 10^3/uL (0-0.2); Absolute Eosinophils 0.1 10^3/uL (0-0.7); Absolute Lymphocytes 1.4 10^3/uL (1.2-3.4); Absolute Monocytes 0.6 10^3/uL (0.1-0.6); Absolute Neutrophils 3.7 10^3/uL (1.4-6.5); Hematocrit 36.1 % (37.0-47.0); Hemoglobin 12.6 g/dL (12.0-16.0); Mean Corp Hgb Conc. 34.9 g/dL (33.0-37.0); Mean Corpuscular Hgb 31.5 pg (27.0-31.0); Mean Corpuscular Volume 90.3 fL (81.0-99.0); Mean Platelet Volume 9.5 fL (7.4-10.4); Nucleated Red Blood Cells % 0 %; Platelet Count 221 10^3/uL (130-400); Red Cell Dist. Width 13.9 % (11.5-14.5); White Blood Cell Count 5.8 10^3/uL (4.8-10.8)
[2023-09-05 10:48] LABS: Erythrocyte Sed Rate 9 mm/hour (0-20)
[2023-09-05 10:51] LABS: C-Reactive Protein < 5.00 mg/L (0.0-10.00)
[2023-09-05 10:54] LABS: ALT (SGPT) 25 U/L (0-35); AST (SGOT) 31 U/L (14-36); Albumin 4.7 g/dl (3.5-5.0); Alkaline Phosphatase 71 U/L (38-126); Blood Urea Nitrogen 13 mg/dl (7-17); Calcium 9.7 mg/dl (8.4-10.2); Carbon Dioxide 27 mmol/L (22-30); Chloride 104 mmol/L (98-107); Glucose 93 mg/dl (70-99); HDL Cholesterol 87 mg/dl; LDL Cholesterol, Calculated 61 mg/dl; Sodium 139 mmol/L (135-145); Total Cholesterol 197 mg/dl (50-199); Total Protein 6.9 g/dl (6.3-8.2); Triglyceride 247 mg/dl (10-149); Very Low Density Lipoprotein 49 mg/dl (0-30); eGFR > 60.00
== END ==
LOC: HWLAB 08:38
PROVIDERS: ATTENDING PHYSICIAN Hospitalist; FAMILY PHYSICIAN Family Medicine
DX: M35.3 Polymyalgia rheumatica (principal); Z51.81 Encounter for therapeutic drug level monitoring; Z79.52 Long term (current) use of systemic steroids; E03.9 Hypothyroidism, unspecified
CPT/HCPCS: 36415; 80053; 80061; 85025; 85652; 86140

== ENCOUNTER → 2023-09-11 13:31 | Outpatient (REF) | payer MEDICARE, OTHER, SELFPAY | LOC: RAD 13:31 | PROVIDERS: ATTENDING PHYSICIAN Surgery Vascular Surgery; FAMILY PHYSICIAN Family Medicine | DX: I65.23 Occlusion and stenosis of bilateral carotid arteries (principal) | CPT/HCPCS: 93880 ==

== ENCOUNTER → 2023-09-17 12:48 | Outpatient (REF) | payer MEDICARE, OTHER, SELFPAY | LOC: HWRAD 12:48 | PROVIDERS: ATTENDING PHYSICIAN Internal Medicine Critical Care Medicine; FAMILY PHYSICIAN Family Medicine | DX: R91.8 Other nonspecific abnormal finding of lung field (principal) | CPT/HCPCS: 71250 ==

== ENCOUNTER → 2023-10-08 13:19 | Outpatient (REF) | payer MEDICARE, OTHER, SELFPAY | LOC: RCS 13:19 | PROVIDERS: ATTENDING PHYSICIAN Internal Medicine Cardiovascular Disease; FAMILY PHYSICIAN Family Medicine | DX: I25.10 Atherosclerotic heart disease of native coronary artery without angina pectoris (principal); Z95.2 Presence of prosthetic heart valve; Z86.711 Personal history of pulmonary embolism | CPT/HCPCS: 93306 ==

== ENCOUNTER → 2023-10-23 08:30 | Outpatient (REF) | payer MEDICARE, OTHER, SELFPAY ==
[2023-10-23 09:22] LABS: % Basophils 0.8 % (0-2); % Eosinophils 1.2 % (0-6); % Immature Granulocytes 0.2 % (0-0.5); % Lymphocytes 38.6 % (20.5-51.1); % Monocytes 10.6 % (1.7-9.3); % Neutrophils 48.6 % (42.2-75.2); Absolute Eosinophils 0.1 10^3/uL (0-0.7); Absolute Monocytes 0.6 10^3/uL (0.1-0.6); Absolute Neutrophils 2.5 10^3/uL (1.4-6.5); Mean Corp Hgb Conc. 35.1 g/dL (33.0-37.0); Mean Corpuscular Hgb 33.1 pg (27.0-31.0); Mean Corpuscular Volume 94.1 fL (81.0-99.0); Mean Platelet Volume 9.3 fL (7.4-10.4); Nucleated Red Blood Cells % 0 %; Platelet Count 205 10^3/uL (130-400); Red Blood Cell Count 3.93 10^6/uL (4.20-5.40); Red Cell Dist. Width 13.2 % (11.5-14.5); White Blood Cell Count 5.2 10^3/uL (4.8-10.8)
[2023-10-23 09:44] LABS: INR 1.06; PT 13.6 Sec (11.4-14.6)
[2023-10-23 09:47] LABS: D-Dimer 1.17 ug/mlFEU (0.00-0.50)
== END ==
LOC: HWLAB 08:30
PROVIDERS: ATTENDING PHYSICIAN Internal Medicine Hematology & Oncology; FAMILY PHYSICIAN Family Medicine
DX: I26.09 Other pulmonary embolism with acute cor pulmonale (principal); I82.4Z2 Acute embolism and thrombosis of unspecified deep veins of left distal lower extremity; D69.6 Thrombocytopenia, unspecified
CPT/HCPCS: 36415; 85025; 85379; 85610; 85730

== ENCOUNTER → 2023-10-26 08:32 | Outpatient (REF) | payer MEDICARE, OTHER, SELFPAY | LOC: HWRAD 08:32 | PROVIDERS: ATTENDING PHYSICIAN Internal Medicine Critical Care Medicine; FAMILY PHYSICIAN Family Medicine | DX: Z86.718 Personal history of other venous thrombosis and embolism (principal); I26.92 Saddle embolus of pulmonary artery without acute cor pulmonale | CPT/HCPCS: 93970 ==

== ENCOUNTER → 2023-12-11 07:45 | Outpatient (REF) | payer MEDICARE, OTHER, SELFPAY ==
[2023-12-11 09:38] LABS: % Eosinophils 1.3 % (0-6); % Immature Granulocytes 0.3 % (0-0.5); % Monocytes 10.2 % (1.7-9.3); % Neutrophils 49.2 % (42.2-75.2); Absolute Basophils 0.1 10^3/uL (0-0.2); Absolute Eosinophils 0.1 10^3/uL (0-0.7); Absolute Lymphocytes 2.3 10^3/uL (1.2-3.4); Absolute Monocytes 0.6 10^3/uL (0.1-0.6); Absolute Neutrophils 2.9 10^3/uL (1.4-6.5); Hematocrit 35.8 % (37.0-47.0); Hemoglobin 12.5 g/dL (12.0-16.0); Mean Corp Hgb Conc. 34.9 g/dL (33.0-37.0); Mean Corpuscular Hgb 32.8 pg (27.0-31.0); Mean Platelet Volume 9.4 fL (7.4-10.4); Nucleated Red Blood Cells % 0 %; Platelet Count 240 10^3/uL (130-400); Red Blood Cell Count 3.81 10^6/uL (4.20-5.40); Red Cell Dist. Width 12.9 % (11.5-14.5)
[2023-12-11 10:19] LABS: ALT (SGPT) 28 U/L (0-35); AST (SGOT) 30 U/L (14-36); Albumin 4.5 g/dl (3.5-5.0); Alkaline Phosphatase 53 U/L (38-126); Blood Urea Nitrogen 18 mg/dl (7-17); C-Reactive Protein < 5.00 mg/L (0.0-10.00); Calcium 9.6 mg/dl (8.4-10.2); Carbon Dioxide 28 mmol/L (22-30); Chloride 104 mmol/L (98-107); Glucose 92 mg/dl (70-99); HDL Cholesterol 91 mg/dl; LDL Cholesterol, Calculated 51 mg/dl; Potassium 4.6 mmol/L (3.5-5.1); Sodium 142 mmol/L (135-145); Total Bilirubin 0.8 mg/dl (0.2-1.3); Total Cholesterol 185 mg/dl (50-199); Total Protein 6.6 g/dl (6.3-8.2); Triglyceride 218 mg/dl (10-149); Very Low Density Lipoprotein 43 mg/dl (0-30); eGFR > 60.00
[2023-12-11 11:17] LABS: Free T4 0.33 ng/dl (0.78-2.19)
[2023-12-11 11:56] LABS: Erythrocyte Sed Rate 7 mm/hour (0-20)
== END ==
LOC: HWLAB 07:45
PROVIDERS: ATTENDING PHYSICIAN Hospitalist; FAMILY PHYSICIAN Family Medicine
DX: M35.3 Polymyalgia rheumatica (principal); Z79.52 Long term (current) use of systemic steroids; I10 Essential (primary) hypertension; E78.2 Mixed hyperlipidemia; E03.9 Hypothyroidism, unspecified
CPT/HCPCS: 36415; 80053; 80061; 84439; 84443; 85025; 85652; 86140

== ENCOUNTER → 2023-12-25 08:17 | Outpatient (REF) | payer MEDICARE, OTHER, SELFPAY ==
[2023-12-25 13:56] LABS: Free T4 0.87 ng/dl (0.78-2.19)
== END ==
LOC: HWLAB 08:17
PROVIDERS: ATTENDING PHYSICIAN Family Medicine
DX: E03.9 Hypothyroidism, unspecified (principal)
CPT/HCPCS: 36415; 84439; 84443

== ENCOUNTER → 2024-01-04 06:49 | Outpatient (REF) | payer MEDICARE, OTHER, SELFPAY ==
[2024-01-04 10:09] LABS: % Basophils 0.7 % (0-2); % Eosinophils 0.2 % (0-6); % Immature Granulocytes 0.6 % (0-0.5); % Lymphocytes 10.6 % (20.5-51.1); % Monocytes 6.1 % (1.7-9.3); % Neutrophils 81.8 % (42.2-75.2); Absolute Basophils 0.1 10^3/uL (0-0.2); Absolute Immature Granulocytes 0.1 10^3/uL (0-0.05); Absolute Lymphocytes 1.3 10^3/uL (1.2-3.4); Absolute Monocytes 0.8 10^3/uL (0.1-0.6); Absolute Neutrophils 10.1 10^3/uL (1.4-6.5); Hematocrit 36.4 % (37.0-47.0); Hemoglobin 12.8 g/dL (12.0-16.0); Mean Corp Hgb Conc. 35.2 g/dL (33.0-37.0); Mean Corpuscular Hgb 33.2 pg (27.0-31.0); Mean Corpuscular Volume 94.3 fL (81.0-99.0); Mean Platelet Volume 9.3 fL (7.4-10.4); Nucleated Red Blood Cells % 0 %; Platelet Count 303 10^3/uL (130-400); Red Blood Cell Count 3.86 10^6/uL (4.20-5.40); Red Cell Dist. Width 12.3 % (11.5-14.5); White Blood Cell Count 12.3 10^3/uL (4.8-10.8)
[2024-01-04 10:23] LABS: PT 14.6 Sec (11.4-14.6)
[2024-01-04 10:24] LABS: APTT 27.2 Sec (23.4-35.0)
== END ==
LOC: PAVMRI 06:49
PROVIDERS: ATTENDING PHYSICIAN Physical Medicine & Rehabilitation; FAMILY PHYSICIAN Family Medicine; OTHER PHYSICIAN Internal Medicine Hematology & Oncology; REFERRING PHYSICIAN Pain Medicine Pain Medicine
DX: M54.16 Radiculopathy, lumbar region (principal); I26.09 Other pulmonary embolism with acute cor pulmonale; I82.4Z2 Acute embolism and thrombosis of unspecified deep veins of left distal lower extremity; D69.6 Thrombocytopenia, unspecified
CPT/HCPCS: 36415; 72148; 85025; 85379; 85610; 85730

== ENCOUNTER → 2024-02-15 08:08 | Outpatient (REF) | payer MEDICARE, OTHER, SELFPAY ==
[2024-02-15 10:26] LABS: TSH Reflex To Free T4 2.98 uIU/ml (0.47-4.68)
== END ==
LOC: HWLAB 08:08
PROVIDERS: ATTENDING PHYSICIAN Family Medicine
DX: E03.9 Hypothyroidism, unspecified (principal)
CPT/HCPCS: 36415; 84443

== ENCOUNTER → 2024-02-29 09:34 | Outpatient (REF) | payer MEDICARE, OTHER, SELFPAY | LOC: HWRAD 09:34 | PROVIDERS: ATTENDING PHYSICIAN Internal Medicine Critical Care Medicine; FAMILY PHYSICIAN Family Medicine | DX: R91.8 Other nonspecific abnormal finding of lung field (principal) | CPT/HCPCS: 71250 ==

== ENCOUNTER → 2024-03-21 08:15 | Outpatient (REF) | payer MEDICARE, OTHER, SELFPAY ==
[2024-03-21 09:47] LABS: % Basophils 0.7 % (0-2); % Eosinophils 0.7 % (0-6); % Immature Granulocytes 0.8 % (0-0.5); % Lymphocytes 12.5 % (20.5-51.1); % Monocytes 6.2 % (1.7-9.3); % Neutrophils 79.1 % (42.2-75.2); Absolute Basophils 0.1 10^3/uL (0-0.2); Absolute Eosinophils 0.1 10^3/uL (0-0.7); Absolute Immature Granulocytes 0.1 10^3/uL (0-0.05); Absolute Lymphocytes 1.6 10^3/uL (1.2-3.4); Absolute Monocytes 0.8 10^3/uL (0.1-0.6); Absolute Neutrophils 10.3 10^3/uL (1.4-6.5); Hematocrit 38.3 % (37.0-47.0); Mean Corp Hgb Conc. 33.9 g/dL (33.0-37.0); Mean Corpuscular Hgb 32.3 pg (27.0-31.0); Mean Corpuscular Volume 95.3 fL (81.0-99.0); Mean Platelet Volume 9.4 fL (7.4-10.4); Nucleated Red Blood Cells % 0 %; Platelet Count 322 10^3/uL (130-400); Red Blood Cell Count 4.02 10^6/uL (4.20-5.40); Red Cell Dist. Width 12.5 % (11.5-14.5); White Blood Cell Count 13.1 10^3/uL (4.8-10.8)
[2024-03-21 10:12] LABS: ALT (SGPT) 28 U/L (0-35); AST (SGOT) 30 U/L (14-36); Albumin 4.4 g/dl (3.5-5.0); Alkaline Phosphatase 75 U/L (38-126); Blood Urea Nitrogen 18 mg/dl (7-17); Calcium 10.4 mg/dl (8.4-10.2); Carbon Dioxide 31 mmol/L (22-30); Chloride 98 mmol/L (98-107); Glucose 95 mg/dl (70-99); HDL Cholesterol 98 mg/dl; LDL Cholesterol, Calculated 44 mg/dl; Potassium 3.8 mmol/L (3.5-5.1); Sodium 137 mmol/L (135-145); Total Bilirubin 0.6 mg/dl (0.2-1.3); Total Cholesterol 180 mg/dl (50-199); Total Protein 6.8 g/dl (6.3-8.2); Triglyceride 192 mg/dl (10-149); Very Low Density Lipoprotein 38 mg/dl (0-30); eGFR > 60.00
== END ==
LOC: HWLAB 08:15
PROVIDERS: ATTENDING PHYSICIAN Family Medicine
DX: E03.9 Hypothyroidism, unspecified (principal); E78.2 Mixed hyperlipidemia; Z00.00 Encounter for general adult medical examination without abnormal findings
CPT/HCPCS: 36415; 80053; 80061; 84443; 85025

== ENCOUNTER → 2024-03-25 14:56 | Outpatient (REF) | payer MEDICARE, OTHER, SELFPAY | LOC: RAD 14:56 | PROVIDERS: ATTENDING PHYSICIAN Surgery Vascular Surgery; FAMILY PHYSICIAN Family Medicine | DX: I65.23 Occlusion and stenosis of bilateral carotid arteries (principal) | CPT/HCPCS: 93880 ==

== ENCOUNTER → 2024-04-16 09:49 | Outpatient (REF) | payer MEDICARE, OTHER, SELFPAY | LOC: HWWDC 09:49 | PROVIDERS: ATTENDING PHYSICIAN Family Medicine | DX: Z12.31 Encounter for screening mammogram for malignant neoplasm of breast (principal) | CPT/HCPCS: 77063; 77067 ==

== ENCOUNTER → 2024-04-17 13:07 | Outpatient (REF) | payer MEDICARE, OTHER, SELFPAY | LOC: HWRAD 13:07 | PROVIDERS: ATTENDING PHYSICIAN Internal Medicine Nephrology; FAMILY PHYSICIAN Family Medicine | DX: M25.551 Pain in right hip (principal) | CPT/HCPCS: 73502 ==

== ENCOUNTER → 2024-04-29 08:37 | Outpatient (REF) | payer MEDICARE, OTHER, SELFPAY ==
[2024-04-29 13:43] LABS: ALT (SGPT) 30 U/L (0-35); AST (SGOT) 32 U/L (14-36); Albumin 4.4 g/dl (3.5-5.0); Alkaline Phosphatase 75 U/L (38-126); Blood Urea Nitrogen 21 mg/dl (7-17); Calcium 9.6 mg/dl (8.4-10.2); Carbon Dioxide 28 mmol/L (22-30); Chloride 102 mmol/L (98-107); Glucose 106 mg/dl (70-99); Potassium 4.1 mmol/L (3.5-5.1); Sodium 139 mmol/L (135-145); Total Protein 6.6 g/dl (6.3-8.2); eGFR > 60.00
[2024-04-29 13:46] LABS: Erythrocyte Sed Rate 4 mm/hour (0-20)
[2024-04-29 13:58] LABS: C-Reactive Protein < 5.00 mg/L (0.0-10.00)
[2024-04-29 14:14] LABS: Vitamin D, 25-OH*** 45.5 ng/mL (30-80)
== END ==
LOC: HWLAB 08:37
PROVIDERS: ATTENDING PHYSICIAN Hospitalist; FAMILY PHYSICIAN Family Medicine
DX: E55.9 Vitamin D deficiency, unspecified (principal); M35.3 Polymyalgia rheumatica; Z79.52 Long term (current) use of systemic steroids
CPT/HCPCS: 36415; 80053; 82306; 85652; 86140

== ENCOUNTER → 2024-05-19 12:45 | Outpatient (REF) | payer MEDICARE, OTHER, SELFPAY | LOC: HWRCS 12:45 | PROVIDERS: ATTENDING PHYSICIAN Internal Medicine Cardiovascular Disease; FAMILY PHYSICIAN Family Medicine | DX: I25.10 Atherosclerotic heart disease of native coronary artery without angina pectoris (principal); Z95.2 Presence of prosthetic heart valve | CPT/HCPCS: 93306 ==

== ENCOUNTER → 2024-07-23 09:32 | Outpatient (REF) | payer MEDICARE, OTHER, SELFPAY ==
[2024-07-23 11:46] LABS: % Basophils 0.6 % (0-2); % Eosinophils 0.4 % (0-6); % Immature Granulocytes 0.6 % (0-0.5); % Lymphocytes 12.3 % (20.5-51.1); % Monocytes 4.3 % (1.7-9.3); % Neutrophils 81.8 % (42.2-75.2); Absolute Basophils 0.1 10^3/uL (0-0.2); Absolute Eosinophils 0.1 10^3/uL (0-0.7); Absolute Immature Granulocytes 0.1 10^3/uL (0-0.05); Absolute Lymphocytes 1.5 10^3/uL (1.2-3.4); Absolute Monocytes 0.5 10^3/uL (0.1-0.6); Absolute Neutrophils 10.2 10^3/uL (1.4-6.5); Hematocrit 37.5 % (37.0-47.0); Mean Corp Hgb Conc. 34.7 g/dL (33.0-37.0); Mean Corpuscular Hgb 31.3 pg (27.0-31.0); Mean Corpuscular Volume 90.4 fL (81.0-99.0); Mean Platelet Volume 9.4 fL (7.4-10.4); Nucleated Red Blood Cells % 0 %; Platelet Count 315 10^3/uL (130-400); Red Blood Cell Count 4.15 10^6/uL (4.20-5.40); Red Cell Dist. Width 13.2 % (11.5-14.5); White Blood Cell Count 12.5 10^3/uL (4.8-10.8)
[2024-07-23 11:52] LABS: Erythrocyte Sed Rate 11 mm/hour (0-20)
[2024-07-23 11:58] LABS: D-Dimer 2.73 ug/mlFEU (0.00-0.50)
[2024-07-23 12:14] LABS: ALT (SGPT) 25 U/L (0-35); AST (SGOT) 31 U/L (14-36); Albumin 4.7 g/dl (3.5-5.0); Alkaline Phosphatase 75 U/L (38-126); Blood Urea Nitrogen 13 mg/dl (7-17); Calcium 9.7 mg/dl (8.4-10.2); Carbon Dioxide 26 mmol/L (22-30); Chloride 107 mmol/L (98-107); Glucose 115 mg/dl (70-99); Potassium 4.3 mmol/L (3.5-5.1); Sodium 142 mmol/L (135-145); Total Bilirubin 0.9 mg/dl (0.2-1.3); eGFR > 60.00
[2024-07-25 13:49] LABS: Quantiferon Mitogen minus NIL 9.96 IU/mL; Quantiferon NIL 0.04 IU/mL; Quantiferon TB Gold Plus Negative (Negative)
== END ==
LOC: HWLAB 09:32
PROVIDERS: ATTENDING PHYSICIAN Hospitalist; FAMILY PHYSICIAN Family Medicine; REFERRING PHYSICIAN Internal Medicine Hematology & Oncology
DX: M35.3 Polymyalgia rheumatica (principal); Z79.899 Other long term (current) drug therapy; I26.09 Other pulmonary embolism with acute cor pulmonale; I82.4Z2 Acute embolism and thrombosis of unspecified deep veins of left distal lower extremity; D69.6 Thrombocytopenia, unspecified
CPT/HCPCS: 36415; 80053; 85025; 85379; 85652; 86140; 86480

== ENCOUNTER → 2024-09-19 08:53 | Outpatient (REF) | payer MEDICARE, OTHER, SELFPAY ==
[2024-09-19 12:18] LABS: Hematocrit 36.7 % (37.0-47.0); Hemoglobin 12.7 g/dL (12.0-16.0); Mean Corp Hgb Conc. 34.6 g/dL (33.0-37.0); Mean Corpuscular Volume 92.2 fL (81.0-99.0); Nucleated Red Blood Cells % 0 %; Platelet Count 308 10^3/uL (130-400); Red Cell Dist. Width 13.3 % (11.5-14.5)
[2024-09-19 12:51] LABS: ALT (SGPT) 28 U/L (0-35); AST (SGOT) 25 U/L (14-36); Albumin 4.7 g/dl (3.5-5.0); Alkaline Phosphatase 74 U/L (38-126); Blood Urea Nitrogen 15 mg/dl (7-17); Calcium 9.4 mg/dl (8.4-10.2); Carbon Dioxide 25 mmol/L (22-30); Chloride 102 mmol/L (98-107); Glucose 116 mg/dl (70-99); HDL Cholesterol 88 mg/dl; LDL Cholesterol, Calculated 44 mg/dl; Potassium 4.4 mmol/L (3.5-5.1); Sodium 136 mmol/L (135-145); Total Protein 7.0 g/dl (6.3-8.2); Very Low Density Lipoprotein 41 mg/dl (0-30); eGFR > 60.00
== END ==
LOC: HWLAB 08:53
PROVIDERS: ATTENDING PHYSICIAN Family Medicine
DX: Z95.1 Presence of aortocoronary bypass graft (principal); I95.1 Orthostatic hypotension; E03.9 Hypothyroidism, unspecified
CPT/HCPCS: 36415; 80053; 80061; 84443; 85025

== ENCOUNTER → 2024-10-02 07:52 | Outpatient (REF) | payer MEDICARE, OTHER, SELFPAY | LOC: HWRAD 07:52 | PROVIDERS: ATTENDING PHYSICIAN Internal Medicine Critical Care Medicine; FAMILY PHYSICIAN Family Medicine | DX: R91.8 Other nonspecific abnormal finding of lung field (principal) | CPT/HCPCS: 71250 ==

== ENCOUNTER → 2024-10-15 06:50 | Outpatient (REF) | payer MEDICARE, OTHER, SELFPAY | LOC: RAD 06:50 | PROVIDERS: ATTENDING PHYSICIAN Surgery Vascular Surgery; FAMILY PHYSICIAN Family Medicine | DX: I65.23 Occlusion and stenosis of bilateral carotid arteries (principal) | CPT/HCPCS: 93880 ==

== ENCOUNTER → 2024-11-18 08:41 | Outpatient (REF) | payer MEDICARE, OTHER, SELFPAY ==
[2024-11-18 10:56] LABS: ALT (SGPT) 22 U/L (0-35); AST (SGOT) 26 U/L (14-36); Albumin 4.7 g/dl (3.5-5.0); Alkaline Phosphatase 71 U/L (38-126); Blood Urea Nitrogen 17 mg/dl (7-17); Calcium 10.0 mg/dl (8.4-10.2); Carbon Dioxide 29 mmol/L (22-30); Chloride 102 mmol/L (98-107); Glucose 86 mg/dl (70-99); Potassium 4.4 mmol/L (3.5-5.1); Sodium 137 mmol/L (135-145); Total Protein 7.2 g/dl (6.3-8.2); eGFR > 60.00
[2024-11-18 10:59] LABS: C-Reactive Protein < 5.00 mg/L (0.0-10.00)
[2024-11-18 11:16] LABS: Vitamin D, 25-OH*** 29.0 ng/mL (30-80)
[2024-11-18 11:18] LABS: Hematocrit 36.6 % (37.0-47.0); Hemoglobin 12.7 g/dL (12.0-16.0); Mean Corp Hgb Conc. 34.7 g/dL (33.0-37.0); Mean Corpuscular Volume 92.0 fL (81.0-99.0); Nucleated Red Blood Cells % 0 %; Platelet Count 344 10^3/uL (130-400); Red Cell Dist. Width 13.1 % (11.5-14.5)
== END ==
LOC: HWLAB 08:41
PROVIDERS: ATTENDING PHYSICIAN Hospitalist; FAMILY PHYSICIAN Family Medicine
DX: E55.9 Vitamin D deficiency, unspecified (principal); M35.3 Polymyalgia rheumatica; Z79.52 Long term (current) use of systemic steroids
CPT/HCPCS: 36415; 80053; 82306; 85025; 85652; 86140

== ENCOUNTER 2025-01-13 00:05 | Observation (INO) | payer MEDICARE, OTHER, SELFPAY ==
[2025-01-12 17:13] VITALS: BP 183/89
[2025-01-12 17:48] LABS: Hematocrit 37.9 % (37.0-47.0); Hemoglobin 13.4 g/dL (12.0-16.0); Mean Corp Hgb Conc. 35.4 g/dL (33.0-37.0); Mean Corpuscular Volume 90.9 fL (81.0-99.0); Nucleated Red Blood Cells % 0 %; Platelet Count 273 10^3/uL (130-400); Red Cell Dist. Width 13.2 % (11.5-14.5)
[2025-01-12 18:00] LABS: ALT (SGPT) 23 U/L (0-35); AST (SGOT) 33 U/L (14-36); Albumin 4.4 g/dl (3.5-5.0); Alkaline Phosphatase 58 U/L (38-126); Blood Urea Nitrogen 13 mg/dl (7-17); Calcium 9.1 mg/dl (8.4-10.2); Carbon Dioxide 24 mmol/L (22-30); Chloride 98 mmol/L (98-107); Glucose 111 mg/dl (70-99); Potassium 3.2 mmol/L (3.5-5.1); Sodium 131 mmol/L (135-145); Total Protein 6.8 g/dl (6.3-8.2); eGFR > 60.00
--- NOTE | 2025-01-12 21:24 | ED.GENMED ---
History of Present Illness
General
Chief Complaint: Dizziness
Time Seen by Provider: 01/12/25 21:12
History of Present Illness
History of Present Illness:
Patient presents to the emergency department with lightheadedness. States symptoms have been ongoing for the past couple of days. She reports that she has had very poor poor p.o. 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
medication makes her lose her appetite. Today she felt that every time she stood up she got lightheaded. She did not lose consciousness. She felt generally weak. There is no vertigo or dizziness. No difficulty speaking. No focal weakness,
numbness or tingling.
Past History
Past History
ED Past Medical History: COPD, HTN, Hypercholesterolemia and Hypothyroidism
ED Past Surgical History: Cardiac (CABG/aortic valve replacement) and Gynecological (HARMEET/BSO 2005)
Social History
Tobacco: Non-smoker
Alcohol: None
Drug: None
Personal: Partner
Living: with family
Employment: Retired
Family History
Family History: Other (n/c, no cad, cva)
Phy Exam
Physical Exam
Physical Exam:
GENERAL APPEARANCE: NAD, well developed/ well nourished
EYES lids/conjunctiva normal
EARS/NOSE/THROAT Mucous membranes moist, uvula midline without oral pharyngeal erythema, exudate or swelling
HEAD/NECK normocephalic atraumatic, neck is supple.
RESPIRATORY respiratory effort normal, speaks in full sentences, no accessory muscle use. Lungs clear to auscultation without rhonchi, wheezes, rales
CARDIAC Regular rate and rhythm, no edema.
ABDOMINAL Soft, ND/NT. No pulsatile masses on exam, rebound tenderness, Pace sign or pain over Mcburney's point.
MUSCLES/EXTREMITIES No abnormal range of motion, no swelling.
SKIN Warm, pink and dry. No rashes
NEUROLOGICAL Speech is clear and appropriate. Normal level of consciousness. 5/5 strength in all extremities. Cranial nerves II through XII are intact. Sensation intact throughout. There is no ataxia, nystagmus or dysmetria
PSYCH Normal mood and affect. Judgement/competence is appropriate
Course
Orders/Labs/Results
Orders:
Orders
01/12/25 17:15
Electrocardiogram (*1) Urgent
Reason for Study: Fatigue / Weakness
EKG- Treatment ONCE
01/12/25 17:37
Complete Blood Count/With Diff Urgent
Comprehensive Metabolic Panel Urgent
01/12/25 21:17
Urinalysis Reflex To Culture Urgent
Date Specimen was Collected: 01/12/25
Time Specimen was Collected: 23:17
01/12/25 21:26
Potassium Chloride [KCl] 20 meq PO NOW STA
Abnormal Lab Results
01/12/25
17:37
RBC 4.17 L 10^6/uL
(4.20-5.40)
MCH 32.1 H pg
(27.0-31.0)
Absolute Monos (auto) 0.7 H 10^3/uL
(0.1-0.6)
Sodium 131 L mmol/L
(135-145)
Potassium 3.2 L mmol/L
(3.5-5.1)
Creatinine 0.5 L mg/dL
(0.6-1.0)
Glucose 111 H mg/dl
(70-99)
01/12/25 17:37
01/12/25 17:37
Vital Signs
Initial and Last Documented VS:
Initial Vital Signs
Temp Pulse Resp BP Pulse Ox
98.2 F 89 16 183/89 98
01/12/25 17:13 01/12/25 17:13 01/12/25 17:13 01/12/25 17:13 01/12/25 17:13
Last Documented Vital Signs
Temp Pulse Resp BP Pulse Ox
98.2 F 85 20 187/78 98
01/12/25 17:13 01/12/25 22:13 01/12/25 22:13 01/12/25 22:13 01/12/25 22:22
*Pulse Oximetry
SaO2: 98
Oxygen Mode of Delivery: Room air
Patient hypoxic: no
*Critical Care Note
Total Time (30-74mins, 75-104mins- exclusive of procedures): Not Applicable
ED Attending Note
ED Attending Note
ED Attending Note:
hx of emphysema, aortic stenosis
presents with 'wooziness' light headedness, near syncope
notes poor PO intake over the past few days which she attributes to poor appetitie in the setting of recent treatment for shingles
she is orthostatic, unable to ambulate steady even after fluids
systolic BP dropped by 30 from laying to sitting
she has mild hyponatremia and hypokalemia
will need hospitalization for continued treatment and workup
-
Portions of this chart may have been created with voice recognition software.� Occasional wrong word or��sound alike� substitutions may have occurred due to the inherent limitations of voice recognition software.
Discharge Plan
Departure
Patient Disposition: Admit
Date of Disposition: 01/12/25
Time of Disposition: 23:20
Presentation/result/management discussed w/ accepting MD/DO: Hospitalist
Patient with high blood pressure during this ER visit?: Yes
Discharge Problem:
Acute hyponatremia, Acute hypokalemia, Dehydration, Near syncope
Prescriptions:
No Action
methylprednisolone 4 mg Tablet
4 mg PO DAILY
Repatha SureClick 140 mg/mL Pen Injector
140 mg SC Q2W
Rx Instructions:
ON THE 1ST AND 15TH OF EACH MONTH
calcium carbonate-vitamin D3 500 mg-3.125 mcg (125 unit) Tablet
1 tab PO DAILY
multivitamin Tablet
1 tab PO DAILY
magnesium 250 mg Tablet
500 mg PO MOWEFR
travoprost 0.004 % Drops
1 drp OPHTHALMIC (EYE) QPM
Eliquis 2.5 mg Tablet
2.5 mg PO BID
pantoprazole 40 mg tablet,delayed release (DR/EC)
See Rx Instructions .ROUTE .COMPLEX
Rx Instructions:
40 mg orally
diphenhydramine HCl 25 mg Capsule
25 mg PO HSPRN PRN (Reason: SLEEP) Qty: 30 0RF
lidocaine 4 % Adhesive Patch,Medicated
1 patch topical DAILY 30 Days Qty: 30 0RF
furosemide 20 mg tablet
20 mg PO DAILY PRN (Reason: Fluid Retention/Swelling) 30 Days Qty: 30 0RF
Referrals:
Thony Esparza MD [Family Provider, Family Practice]
Interventions
Interventions:
*Risk Screen - Suicide Last Done: 01/12/25 17:13
*General Assessment Last Done: 01/12/25 17:13
*Neglect/Abuse Screening Last Done: 01/12/25 17:13
*ED- Fall Risk Assessment Last Done: 01/12/25 22:22
*ED COVID-19 Vaccine History Last Done: 01/12/25 22:22
*ED Influenza Vaccine History Last Done: 01/12/25 22:22
ED- Neurological Assessment Last Done: 01/12/25 22:22
ED- Cardiac Assessment Last Done: 01/12/25 22:22
ED Swallowing Screen Last Done: 01/12/25 21:00
Discharge Date and Time
Print Language: LIBYAN
[2025-01-12 22:13] VITALS: BP 187/78
[2025-01-12] MEDS: KCL 20 MEQ PO (22:15)
[2025-01-12 22:22] VITALS: BMI 28.9
[2025-01-12] MEDS: ZOFRAN 4 MG IV (23:25)
--- NOTE | 2025-01-12 23:27 | HPS.HSE ---
Addendum entered and electronically signed by Kj Banuelos DO 01/13/25 00:15:
Patient seen and examined independently. Agree with findings and plan as set forth by LASHELL Hoffman.
Patient is a 79y F with PMH significant for hypertension, hypothyroidism and COPD who presents to ED complaining of lightheadedness and fatigue for about one week. Patient notes that she developed shingle on he R buttock / leg about 1 1/2 weeks
ago. She was treated with a course of antivirals which she completed today. Patient reports nausea, altered taste sensation and poor appetite since beginning the antiviral. She has had some loose stools and had N/V x 1 today. She has been
feeling very lightheaded with standing / changes in position. Patient denies any fall or LOC. She presented to the ED for further evaluation and treatment.
Ass:
Orthostatic Hypotension
N/V/D - likely med effect
Hyponatremia - likely hypovolemic secondary to GI losses.
Hypokalemia
RLE Herpes Zoster (improving)
ASCVD
Paroxysmal Atrial Fibrillation
Benign Hypertension
Aortic Stenosis s/p AVR
Rheumatoid Arthritis
History of PE
Plan:
Observe overnight for further evaluation and treatment.
Hold Lasix acutely (patient takes this daily, not PRN).
IVF replacement overnight given recent GI losses.
Has completed antiviral course. Hold further tramadol and try gabapentin for Zoster pain - adjust dose as needed.
Follow for improvement in labs / lytes and orthostatic signs.
Can try midodrine if remains persistently orthostatic despite volume replacement (was on this for similar symptoms in 2023).
IV hydralazine for very high BP.
Update Echo.
Original Note:
Family Physician
-
Family Physician: Thony Esparza
Chief Complaint
-
lightheaded
History of Present Illness
79 year old with PMH for COPD, HTn, HLD, hypothyroidism presented with lightheadedness and feeling tired for more than one week. patient was diagnosed with shingles a week and half ago. she was prescribed acyclovir and tramadol. she finished the
course of acyclovir today. she was taking tramadol twice daily for shingle pain. since, she started the medicine, she lost the appetite and was not eating much. she lost about 5lbs in one week. she was feeling very weak and was lightheaded every
times she stood up. she almost had fall today. denied CADENA, fever, chills, chest pain, sob. denied abdominal pain. she had an episode of diarrhea for past four days. she vomited once today. her last bowel movement was today morning. denied dysuria or
hematuria.
patient was orthostatics in ER. admitting for further management.
Medical History
Past Medical History
Past Medical History: Reports Other
Additional Past Medical History:
bilateral carotid stenosis
DVT
aortic valve stenosis
PAD
PE
HLD
CAD,COPD
orthostatic hypotension
atrial fib
Past Surgical History: Reports Other
Additional Past Surgical History:
s/p AVR,hysterectomy
colon resection, b/l knee replacement, b/l cataract surgery
Social History
Tobacco: Former Smoker
Alcohol: None
Drug: None
Personal: Single
Living: Alone
Family History
Family History: Not pertinent
Allergies / Home Medications
Allergies reflects when Allergies were last updated in [facility].
Home Medications with original date entered in [facility]
Allergy/Medication List:
Allergies
Allergy/AdvReac Type Severity Reaction Status Date / Time
heparin Allergy Severe HIT Verified 01/12/25 17:15
codeine (Codeine) Allergy see Verified 01/12/25 17:15
comments
Home Medications
evolocumab 140 mg/mL subcutaneous pen injector (Repatha SureClick) 140 mg SC Q2W High Cholesterol 01/03/23
methylprednisolone 4 mg tablet 4 mg PO DAILY INFLAMMATION 01/03/23
calcium 500 mg (as carbonate)-vitamin D3 3.125 mcg (125 unit) tablet 1 tab PO DAILY Supplement 03/08/23
magnesium 250 mg tablet 500 mg PO MOWEFR Supplement 03/27/23
multivitamin 1 tab PO DAILY Supplement 03/27/23
travoprost 0.004 % eye drops 1 drp ophthalmic (eye) QPM Eye Condition 03/27/23
diphenhydramine HCl 25 mg capsule 25 mg PO HSPRN PRN SLEEP #30 caps 04/27/23
furosemide 20 mg tablet 20 mg PO DAILY PRN Fluid Retention/Swelling 30 days #30 tabs 04/27/23
lidocaine 4 % topical patch 1 patch topical DAILY 30 days #30 ea 04/27/23
apixaban 2.5 mg tablet (Eliquis) 2.5 mg PO BID 01/12/25
pantoprazole 40 mg tablet,delayed release See Rx Instructions .Route .COMPLEX 01/12/25
Review of Systems
-
Constitutional: Reports No Symptoms
EENT: Reports No Symptoms
Respiratory: Reports No Symptoms
Cardiac: Reports No Symptoms
Abdomen/GI: Reports No Symptoms
: Reports No Symptoms
Musculoskeletal: Reports No Symptoms
Skin: Reports Rash
Neurological: Reports Weakness and Other (lgitheaded)
Endocrine: Reports No Symptoms
Hematologic/Lymphatic: Reports No Symptoms
Psych: Reports No Symptoms
Physical Exam
Vital Signs
Vital Signs
Temp Pulse Resp BP Pulse Ox
98.2 F 85 20 187/78 98
01/12/25 17:13 01/12/25 22:13 01/12/25 22:13 01/12/25 22:13 01/12/25 22:22
Physical Exam
General: Well Developed, Well Nourished and No Apparent Distress
HEENT: NormoCephalic, Moist mucous membranes and Atraumatic
Respiratory: Clear
Cardiac: S1/S2 and Regular Rhythm; No Murmur or Rub
GI: Soft, Non Tender, Non Distended and Normal Bowel Sounds; No Organomegaly
Rectal: Deferred by Provider
Musculoskeletal: No Clubbing, No Cyanosis and No Edema
Skin: Rash (buttocks. )
Neuro: AO x 3 and Nonfocal/grossly intact
Psych: Calm
Laboratory Results
-
01/12/25 17:37
01/12/25 17:37
Laboratory Results
Total Bilirubin 0.8 mg/dl (0.2-1.3) 01/12/25 17:37
AST 33 U/L (14-36) 01/12/25 17:37
ALT 23 U/L (0-35) 01/12/25 17:37
Alkaline Phosphatase 58 U/L (38-126) 01/12/25 17:37
Data Reviewed
-
Lab Data: Labs Reviewed by me
Impression/Plan
-
#near syncope likely from orthostatics likely from poor oral intake
#hxt of orthostatics
-fluids continued
-ctm orthostatics
-ECHo in am
-PT eval.
#shingle
-gabapentin 100 bid
-hold tramadol
#acute hyponatremia likely from dehydration secondary to diarrhea/vomiting
#acute hypokalemia
-na 131, k 3.2
-potassium 20in ER
-bmp in am
-0.9ns with 20k
-BMp in am
#hxt of PE
s/p embolectomy
-on eliquis
#atrial fib
#Coronary artery disease
#CABG x 2 with AVR 04/03/[address] Cotto
#HTn emergency
-CTm
-hold lasix.
#Hyperlipidemia
Repatha 140mg SC q 2 weeks
#History of rheumatoid arthritis
-On methylprednisolone 4 mg daily
#GI ppx - protonix
DVT prophylaxis� Eliquis
Full code
[2025-01-12 23:30] VITALS: BP 172/96
[2025-01-12 23:35] LABS: Urine Character Clear (Clear)
[2025-01-13] VITALS (10 sets, daily range): BP systolic 106–155; BP diastolic 67–101; PULSE 82–119; O2SAT 98; BMI 27.6
--- NOTE | 2025-01-13 01:34 | PTCARENOTE ---
Recieved pt. from ED. Pt. oriented to unit and call blas within reach. Pt. care ongoing.
[2025-01-13] MEDS: NEURONTIN 100 MG PO ×2 (01:42→07:52)
[2025-01-13] MEDS: KCL 1010 MEQ IV (01:43)
[2025-01-13] MEDS: TYLENOL 650 MG PO (03:50)
[2025-01-13] MEDS: ULTRAM 50 MG PO (04:12)
[2025-01-13] MEDS: PROTONIX 40 MG PO (07:52)
[2025-01-13] MEDS: ELIQUIS 2.5 MG PO ×2 (07:52→19:48)
[2025-01-13] MEDS: MEDROL 4 MG PO (07:54)
[2025-01-13] MEDS: LIDOCAINE 4% PATCH 1 PATCH TOPICAL (07:54)
[2025-01-13 07:57] LABS: Hematocrit 37.6 % (37.0-47.0); Hemoglobin 12.9 g/dL (12.0-16.0); Mean Corp Hgb Conc. 34.3 g/dL (33.0-37.0); Mean Corpuscular Volume 90.8 fL (81.0-99.0); Platelet Count 262 10^3/uL (130-400); Red Cell Dist. Width 13.4 % (11.5-14.5)
[2025-01-13 08:25] LABS: Blood Urea Nitrogen 7 mg/dl (7-17); Calcium 8.9 mg/dl (8.4-10.2); Carbon Dioxide 27 mmol/L (22-30); Chloride 106 mmol/L (98-107); Estimated Creatinine Clearance 66 ml/min; Glucose 92 mg/dl (70-99); Potassium 3.7 mmol/L (3.5-5.1); Sodium 140 mmol/L (135-145); eGFR > 60.00
--- NOTE | 2025-01-13 12:06 | CM ---
CM reviewed chart, patient seen bedside, initial assessment.
Patient is a 79y F with PMH significant for hypertension, hypothyroidism and COPD who presents to ED complaining of lightheadedness and fatigue for about one week.
Patient resides independently in a [address]+ condo, has an upstairs but patient remains on one floor, no steps to enter (through front door), two steps to enter through garage.
Patient reports being independent with ambulation, has a walker from previous knee surgery.
Patient denies VN/SNF, reports hx outpatient therapy.
PCP Thony Esparza, [facility], confirms prescription coverage.
Patient denies insecurities at home, reports her daughter has been staying with her and will continue to stay with her until patient feels better.
FISHER verbally reviewed, refused to sign, placed in chart.
PT ordered, will follow for recommendations.
CM will continue to follow.
Plan; home, watch for PT recommendations
[2025-01-13] MEDS: ZOSTRIX-HP 0.075% CREAM 1 APPLIC TOPICAL ×3 (12:33→21:42)
--- NOTE | 2025-01-13 14:17 | W.PN.HOSP.TC ---
Today's Communication/Plan
-
Assessment / Plan
Assessment / Plan
General: No Apparent Distress, Comfortable and Conversant
HEENT: NormoCephalic, Moist mucous membranes, Atraumatic
Respiratory: Clear and Non Labored Respirations
Cardiac: S1/S2 and Regular Rhythm; No Rub or Gallop
GI: Soft, Non Tender, Non Distended and Normal Bowel Sounds
Musculoskeletal: No Edema, no deformity
Skin: Warm and dry, faint rash on anterior right thigh
: NO Conner
Neuro: Awake, Alert, Nonfocal/grossly intact
Psych: Calm and Intact Judgment/Insight
Ms. Colindres is a 79-year-old female with medical history of COPD, hypertension, aortic valve replacement, bilateral carotid stenosis, DVT/PE (status post embolectomy), A-fib (on Eliquis), and recent shingles diagnosis (L2-L3 distribution, completed
course of acyclovir) who presented with weakness and lightheadedness. Her appetite and p.o. intake has been very poor for the past approximately 2 weeks since she was diagnosed with shingles.
Near syncope:
- Presented with significant weakness and lightheadedness
- Suspect due to acute illness with shingles with associated poor p.o. intake
- Initially orthostatic vital signs were positive
- Echocardiogram unremarkable, appropriately functioning bioprosthetic aortic valve
- Orthostatic vital signs now normal after administration of IV fluids and holding home Lasix
- Continue to encourage p.o. diet
Hyponatremia and hypokalemia:
- Resolved
- Holding Lasix
Herpes zoster:
- Completed course of acyclovir
- Continue supportive care with gabapentin, lidocaine patch, capsaicin cream
- Tramadol as needed for severe pain
- Isolation precautions
Rheumatoid arthritis:
- Continue home methylprednisolone 4 mg daily
A-fib:
- Currently rate controlled, not on beta-jennifer or calcium channel jennifer at home
- Continue anticoagulation with home Eliquis 2.5 mg p.o. twice daily, will need to clarify why she is not on full-strength Eliquis
DVT prophylaxis: Eliquis
CODE STATUS: Full code
Anticipated Discharge: Within 24 hours
Subjective/Interval History
-
Date of Service: January 13, 2025
Patient was seen and examined at bedside this morning. Continues to complain of anterior right thigh pain due to shingles rash.
Objective Data
-
Labs:
Laboratory Results
01/13/25
07:28
WBC 9.9
Hgb 12.9
Hct 37.6
Plt Count 262
Sodium 140 D
Potassium 3.7
Chloride 106
Carbon Dioxide 27
BUN 7
Creatinine 0.6
Glucose 92
Calcium 8.9
Vital Signs:
Vital Signs
Temp Pulse Resp BP Pulse Ox
99.4 F 92 14 127/71 97
01/13/25 11:00 01/13/25 11:00 01/13/25 11:00 01/13/25 11:00 01/13/25 11:00
I&O
01/12/25 01/13/25 01/14/25
06:59 06:59 06:59
Intake Total 2140 / 2140
Output Total 700 / 700
Balance 1440 / 1440
Review of Systems
-
History Source: Patient
All other systems: Reviewed and negative
Skin: Reports Rash (Painful burning rash on anterior thigh)
Physical Exam
-
General: No Apparent Distress
[2025-01-13] MEDS: NEURONTIN 200 MG PO ×2 (15:32→21:43)
[2025-01-13] MEDS: XALATAN OPHTHALMIC SOLUTION 1 DROP BOTH EYES (18:15)
[2025-01-14 03:15] VITALS: BP 145/73
--- NOTE | 2025-01-14 04:19 | DOWNTIME ---
There was a [employer] Client Legal Mediator Downtime on 01/14/2025 from 0100 to 01/14/2025 at 0255. Downtime documentation of patient's care, including medication administrations, has been reconciled in the electronic record per guidelines. Refer to the
patient's paper chart under the miscellaneous tab to see printed paper medication records and downtime forms.
[2025-01-14 07:05] VITALS: BP 128/77
[2025-01-14] MEDS: NEURONTIN 200 MG PO (07:50)
[2025-01-14] MEDS: LIDOCAINE 4% PATCH 1 PATCH TOPICAL (07:50)
[2025-01-14] MEDS: PROTONIX 40 MG PO (07:51)
[2025-01-14] MEDS: ELIQUIS 2.5 MG PO (07:51)
[2025-01-14] MEDS: MEDROL 4 MG PO (07:51)
[2025-01-14] MEDS: ULTRAM 25 MG PO ×2 (08:36→09:57)
[2025-01-14] MEDS: MAGNESIUM OXIDE 400 MG PO (08:38)
[2025-01-14] MEDS: ZOSTRIX-HP 0.075% CREAM 1 APPLIC TOPICAL ×2 (08:38→12:41)
[2025-01-14 11:10] VITALS: BP 138/80
--- NOTE | 2025-01-14 11:50 | W.DCSUMMARY ---
Discharge Summary
Discharge Data
Date of Admission: 01/13/25
Date of Discharge: 01/14/25
Total time spent discharging patient (in min): 50
-
Pending Results: No
Hospital Course
Ms. Colindres is a 79-year-old female with medical history of COPD, hypertension, aortic valve replacement, bilateral carotid stenosis, DVT/PE (status post embolectomy), A-fib (on Eliquis), and recent shingles diagnosis (L2-L3 distribution, completed
course of acyclovir) who presented with weakness and lightheadedness. Her appetite and p.o. intake had been very poor for the past approximately 2 weeks since she was diagnosed with shingles. She was admitted for evaluation and management of new
syncope.
Her orthostatic vital signs were positive. She was also found to be hyponatremic and hypokalemic. Her home Lasix was held. She was given isotonic IV fluids. Her symptoms improved and her repeat orthostatic vital signs were normal. Repeat labs
also showed resolution of her hyponatremia and hypokalemia. She had an echocardiogram during this admission which showed normal structure and function including an appropriately functioning bioprosthetic aortic valve. She was encouraged to
continue adequate p.o. diet including plenty of fluids. She was continued on pain control for her shingles flare which included gabapentin, capsaicin cream, and tramadol as needed. She was medically stable at time of discharge to home. Her home
Lasix will be held for now and she will need to follow-up with her prescribing provider regarding dosage adjustments as needed. She will be continued on her home dose of Eliquis 2.5 mg twice daily however should follow-up with her prescribing
provider regarding potentially increasing back to full treatment dose of 5 mg twice daily (apparently dose was reduced due to bruising and bleeding).
General: No Apparent Distress, Comfortable and Conversant
HEENT: NormoCephalic, Moist mucous membranes, Atraumatic
Respiratory: Clear and Non Labored Respirations
Cardiac: S1/S2 and Regular Rhythm; No Rub or Gallop
GI: Soft, Non Tender, Non Distended and Normal Bowel Sounds
Musculoskeletal: No Edema, no deformity
Skin: Warm and dry, faint rash on anterior right thigh
: NO Conner
Neuro: Awake, Alert, Nonfocal/grossly intact
Psych: Calm and Intact Judgment/Insight
Discharge Plan
-
Patient Disposition: Home (Routine Discharge)
Discharge Diagnosis/Procedures: Orthostatic hypotension
Activity Restrictions/Additional Instructions:
You were admitted for evaluation of lightheadedness and weakness. You your found to have significant drops in your blood pressure when standing up. This is likely due to poor oral intake recently due to your illness with shingles. Your blood
pressure improved with IV fluids and holding your home dose of furosemide (Lasix). An echocardiogram of your heart showed normal structure and function. You were continued on pain medications for your shingles. You should continue to drink plenty
of fluids. Your home dose of furosemide (Lasix) will be held at discharge and you should follow-up with your prescribing provider regarding dosage adjustments as needed. You should also follow-up with your primary care physician regarding your
Eliquis dosing which could potentially be increased to 5 mg twice daily.
Referrals:
Thony Esparza MD [Family Provider, Family Practice]
Prescriptions:
New
capsaicin 0.075 % Cream
1 applic topical QID Qty: 57 0RF
tramadol 50 mg Tablet
50 mg PO Q6HPRN PRN (Reason: mod-sev pain) Qty: 10 0RF
gabapentin 100 mg Capsule
200 mg PO TID 10 Days Qty: 60 0RF
Continued
methylprednisolone 4 mg Tablet
4 mg PO DAILY
Repatha SureClick 140 mg/mL Pen Injector
140 mg SC Q2W
Rx Instructions:
ON THE 1ST AND 15TH OF EACH MONTH
calcium carbonate-vitamin D3 500 mg-3.125 mcg (125 unit) Tablet
1 tab PO DAILY
multivitamin Tablet
1 tab PO DAILY
magnesium 250 mg Tablet
500 mg PO MOWEFR
travoprost 0.004 % Drops
1 drp OPHTHALMIC (EYE) QPM
Eliquis 2.5 mg Tablet
2.5 mg PO BID
pantoprazole 40 mg tablet,delayed release (DR/EC)
See Rx Instructions .ROUTE .COMPLEX
Rx Instructions:
40 mg orally
diphenhydramine HCl 25 mg Capsule
25 mg PO HSPRN PRN (Reason: SLEEP) Qty: 30 0RF
lidocaine 4 % Adhesive Patch,Medicated
1 patch topical DAILY 30 Days Qty: 30 0RF
Held
furosemide 20 mg tablet
20 mg PO DAILY
Hold Instructions: Holding for orthostatic hypotension, follow-up with your prescribing provider regarding dosage adjustments as needed
Discharge Orders:
Discharge Patient (As Directed); Ordered 01/14/25
Ordered By: Ishna Almodovar
Discharge Date and Time
Print Language: SWEDISH
--- NOTE | 2025-01-14 12:02 | CM ---
CM reviewed chart, patient seen in chair.
CM discussed therapy recommendations of home therapy- patient declining, reports she is currently attending outpatient therapy.
Patient confirms her son will transport home.
CM will continue to follow.
Plan; home no needs
== END 2025-01-14 13:52 | disposition home or self-care (01) ==
LOC: 4 WEST ACU 00:05
PROVIDERS: Emergency Medicine; Registered Nurse; ADMITTING PHYSICIAN Hospitalist; ATTENDING PHYSICIAN Internal Medicine; EMERGENCY PHYSICIAN Emergency Medicine; FAMILY PHYSICIAN Family Medicine
DX: I95.1 Orthostatic hypotension (principal); E87.1 Hypo-osmolality and hyponatremia; E86.0 Dehydration; E87.6 Hypokalemia; B02.9 Zoster without complications; I10 Essential (primary) hypertension; I48.0 Paroxysmal atrial fibrillation; I16.1 Hypertensive emergency; I25.10 Atherosclerotic heart disease of native coronary artery without angina pectoris; J44.9 Chronic obstructive pulmonary disease, unspecified; M06.9 Rheumatoid arthritis, unspecified; Z79.01 Long term (current) use of anticoagulants; Z79.52 Long term (current) use of systemic steroids; Z79.899 Other long term (current) drug therapy; Z87.891 Personal history of nicotine dependence
CPT/HCPCS: 80048; 80053; 81003; 85025; 85027; 93005; 93306; 96374; 97163; 99285; G0378

== ENCOUNTER → 2025-02-23 08:20 | Outpatient (REF) | payer MEDICARE, OTHER, SELFPAY ==
[2025-02-23 10:01] LABS: Hematocrit 36.3 % (37.0-47.0); Hemoglobin 12.5 g/dL (12.0-16.0); Mean Corp Hgb Conc. 34.4 g/dL (33.0-37.0); Mean Corpuscular Volume 90.3 fL (81.0-99.0); Nucleated Red Blood Cells % 0 %; Platelet Count 350 10^3/uL (130-400); Red Cell Dist. Width 14.0 % (11.5-14.5)
[2025-02-23 10:24] LABS: D-Dimer 1.63 ug/mlFEU (0.00-0.50)
[2025-02-23 10:59] LABS: ALT (SGPT) 26 U/L (0-35); AST (SGOT) 28 U/L (14-36); Albumin 4.6 g/dl (3.5-5.0); Alkaline Phosphatase 72 U/L (38-126); Blood Urea Nitrogen 16 mg/dl (7-17); Calcium 9.6 mg/dl (8.4-10.2); Carbon Dioxide 25 mmol/L (22-30); Chloride 101 mmol/L (98-107); Glucose 113 mg/dl (70-99); Potassium 4.3 mmol/L (3.5-5.1); Sodium 136 mmol/L (135-145); Total Protein 7.0 g/dl (6.3-8.2); eGFR > 60.00
[2025-02-23 11:03] LABS: C-Reactive Protein < 5.00 mg/L (0.0-10.00)
== END ==
LOC: HWLAB 08:20
PROVIDERS: ATTENDING PHYSICIAN Internal Medicine Hematology & Oncology; FAMILY PHYSICIAN Family Medicine; REFERRING PHYSICIAN Hospitalist
DX: I26.09 Other pulmonary embolism with acute cor pulmonale (principal); I82.4Z2 Acute embolism and thrombosis of unspecified deep veins of left distal lower extremity; D69.6 Thrombocytopenia, unspecified; E87.8 Other disorders of electrolyte and fluid balance, not elsewhere classified; M35.3 Polymyalgia rheumatica; Z79.52 Long term (current) use of systemic steroids
CPT/HCPCS: 36415; 80053; 85025; 85379; 85652; 86140